=== PATIENT | male | born 1950 | race Caucasian/White ===

== ENCOUNTER 2016-03-17 23:22 | Inpatient (IN) | payer MEDICARE, OTHER ==
[~2016-03-17] VITALS: Ht 172.7 cm; Wt 67.4 kg
[~2016-03-17 23:22] MED LIST: AC500T; AGM875T PO; ALPR.5T PO; ALPR1T; ALPR1TAB7 PO; AMD200T; AMIO200T50 PO; ASP325T PO; ASP325TEC PO; ASP81TEC PO; ASPI325T32 PO; ATRV10T; BENA1TAB12 PO; BENA1TAB2 PO; BNZ10T; BUDE6HFA IH; CEFD300C3 PO; CEPH-38 PO; CLOP75TA; CLOP75TA PO; CODE118S2 PO; DIGO250T96 PO; DILT120T11 PO; DILT60CA PO; DIPY75TA PO; DULO30CA; DULO60CA6 PO; ENDOCET; EXEN10PE4 SQ; FRSM20T PO; GLIP-123; GLIP10TA13 PO; GLUCOPHAGE; HCTZ12.5T; HCTZ12.5T PO; HYDR-3812 PO; HYDR12.5 PO; HYDR12.56 PO; INDOCET; INSU100I16 SQ; INSU100V5 SQ; JANUVIA; LANOXIN; LEVO150T6 PO; LEVO175T2; LEVO200T30 PO; LEVO500T2 PO; LEVO500T80 PO; LEVO750T24 PO; LINA290C PO; LNS30CCR PO; LOVA40TA2 PO; MAGN400T6 PO; METF-380 PO; METH10TA2 PO; METO-354 PO; MTH10T; MULT-963 PO; MUPI22OI2 TOP; NEBI5TAB8 PO; NF-ROP5T PO; NIAC1TBM5 PO; ORPH100T PO; OXYC-191 PO; OXYC1TAB95 PO; PANT40TA3 PO; PEG4000S9 PO; PNT40TEC PO; POTA10CA43 PO; PRM25T; PRM25T PO; SITA100T PO; SITA100T12 PO; SUCR1TAB PO; SULF1TAB38 PO; TMSL.4C PO; WARF-47 PO; WARF4TAB PO; WRF1T PO; WRF2T; WRF2T PO; WRF3T; WRF3T PO; [UNRECOGNIZED DRUG - CODE] PO; [UNRECOGNIZED DRUG - CODE] PO
--- OUTSIDE RECORDS SUMMARY | 2016-03-17 23:28 | XMS REPORT | Continuity of Care Document ---
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 If you do not see the information that you expected, contact Release of Information in the Health Information Management department at [phone] for further assistance in locating additional records.[facility] Active Allergies and Adverse Reactions Not on File Current Medications Not on file Active Problems Not on file Social History Tobacco Use Types Packs/Day Years Used Date Never Assessed Plan of Care Health Maintenance Due Date Last Done Comments Physical (Comprehensive) 1957 Exam Pertussis Vaccine 1961 Tetanus Vaccine 10/04/1967 Colorectal Cancer 2000 Screening Shingles Vaccine 2010 Influenza Vaccine 11/16/2015 Results from Last 3 Months Not on file
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
[2016-03-18] VITALS (10 sets, daily range): BP systolic 96–185; BP diastolic 40–78
[2016-03-18 01:56] LABS: BASOPHILS % (AUTO) 0 % (0-10); EOSINOPHILS # (AUTO) 0.1 10^3/uL (0.0-0.3); EOSINOPHILS % (AUTO) 1 % (0-10); LYMPHOCYTES # (AUTO) 0.7 X 10^3 (1.0-4.0); LYMPHOCYTES % (AUTO) 11 % (12-44); MEAN CORPUSCULAR HEMOGLOBIN 29 PG (25-34); MEAN CORPUSCULAR HGB CONC 32 G/DL (32-36); MEAN CORPUSCULAR VOLUME 90 FL (80-99); MONOCYTES # (AUTO) 0.7 X 10^3 (0.0-1.0); MONOCYTES % (AUTO) 10 % (0-12); NEUTROPHILS % (AUTO) 78 % (42-75); PLATELET COUNT 104 10^3/uL (130-400); RED BLOOD COUNT 3.76 10^6/uL (4.35-5.85); RED CELL DISTRIBUTION WIDTH 14.4 % (10.0-14.5); WHITE BLOOD COUNT 6.4 10^3/uL (4.3-11.0)
[2016-03-18] MEDS ORDERED: fentaNYL INJECTION 100 MCG/2 ML AMP IVP ONE (02:00)
[2016-03-18 02:05] LABS: BILIRUBIN,URINE NEGATIVE (NEGATIVE); KETONES,URINE NEGATIVE (NEGATIVE); LEUKOCYTE ESTERASE ,URINE NEGATIVE (NEGATIVE); NITRITE,URINE NEGATIVE (NEGATIVE); PH,URINE 6 (5-9); PROTEIN,URINE 2+ (NEGATIVE); UROBILINOGEN,URINE NORMAL (NORMAL)
[2016-03-18 02:14] LABS: SQUAMOUS EPITHELIAL CELL,UR RARE /HPF
[2016-03-18] MEDS ORDERED: HYDROmorphone (DILAUDID) 2 MG/ML VIAL IVP ONE (02:15)
[2016-03-18 02:16] LABS: ALANINE AMINOTRANSFERASE 25 U/L (0-55); ALBUMIN 3.8 G/DL (3.2-4.5); ANION GAP 12 MMOL/L (5-14); ASPARTATE AMINO TRANSFERASE 22 U/L (5-34); BILIRUBIN,TOTAL 0.8 MG/DL (0.1-1.0); BLOOD UREA NITROGEN 22 MG/DL (7-18); BUN/CREATININE RATIO 21; CALCIUM 9.2 MG/DL (8.5-10.1); CARBON DIOXIDE 27 MMOL/L (21-32); CHLORIDE 96 MMOL/L (98-107); CREATININE SERUM 1.06 MG/DL (0.60-1.30); GFR ESTIMATED > 60; GLUCOSE 212 MG/DL (70-105); POTASSIUM 4.3 MMOL/L (3.6-5.0); SODIUM 135 MMOL/L (135-145); TOTAL PROTEIN 6.5 G/DL (6.4-8.2)
[2016-03-18 02:21] LABS: TROPONIN I < 0.30 NG/ML (<0.30)
[2016-03-18 02:26] LABS: INR 1.5 (0.8-1.4); PROTHROMBIN TIME PATIENT 18.1 SEC (12.2-14.7)
[2016-03-18] MEDS: HYDROmorphone (DILAUDID) 2 MG/ML VIAL IV PRN ×6 (04:15→23:59)
[2016-03-18] MEDS: NS IV 1000 ML 1,000 ML IV SCH ×3 (04:15→22:51)
[2016-03-18] MEDS ORDERED: inSUlin (REGULAR) HUMAN 1 UNIT/0.01 ML (CHARGE PER UNIT) SC SCH (06:00)
--- NOTE | 2016-03-18 06:45 | Diagnostic Imaging Report ---
PROCEDURE: CT chest without contrast. TECHNIQUE: Multiple contiguous axial images were obtained through the chest without the use of intravenous contrast. INDICATION: Chest pain. FINDINGS: Mildly displaced lateral right fifth, sixth, seventh, and eighth rib fractures are noted. Small adjacent subpleural hematoma but no pneumothorax. There is partial atelectasis in the dependent lung bases. No convincing evidence for lung contusion or pulmonary laceration. There is no pericardial fluid. There is no mediastinal hematoma. The atherosclerotic aorta and coronary arterial vessels are calcified. There is a pacemaker device with small hiatal hernia. Previous sternotomy without dehiscence. Upper abdomen reveals no free air or free fluid. Right renal cortical cysts noted. No hydronephrosis identified. IMPRESSION: Consecutive mildly displaced right fifth through eighth lateral rib fractures with tiny adjacent subpleural hematoma but no pneumothorax. Mild basilar atelectasis. No acute mediastinal collection. Visualized upper abdomen unremarkable. Dictated by: Dictated on workstation # [id number]
--- NOTE | 2016-03-18 06:48 | Diagnostic Imaging Report ---
PROCEDURE: CT pelvis without contrast. TECHNIQUE: Multiple contiguous axial images were obtained through the pelvis without the use of intravenous contrast. Sagittal and coronal reformations were performed. INDICATION: Pain. FINDINGS: Fractures of the base of the greater tuberosity of the right proximal femur is present without significant distraction or displacement. There is adjacent soft tissue swelling. Lesser tuberosity and remaining femoral neck intact. The femoral head unremarkable. The acetabulum unremarkable aside from degenerative changes to the bilateral hips appearing symmetric. Superior and inferior pubic rami intact. No symphyseal diastasis. The SI joints unremarkable. Lower lumbar spondylosis noted. No acute sacrococcygeal abnormality. Postsurgical changes of penile pump placement noted. The aortoiliac vessels calcified but nonaneurysmal where visualized. IMPRESSION: Nondisplaced fracture, greater trochanter of the right proximal femur. No articular injury. Arthritic changes. The pelvic osseous structures otherwise normal. Agree with preliminary. Dictated by: Dictated on workstation # [id number]
[2016-03-18] MEDS ORDERED: HYDROcodone/APAP 10 MG/325 MG (LORTAB) TAB PO PRN (08:00)
[2016-03-18] MEDS ORDERED: WARF1TAB PO (08:10)
[2016-03-18] MEDS ORDERED: METH10TA2 PO (08:10)
[2016-03-18] MEDS ORDERED: LEVO200T6 PO (08:10)
[2016-03-18] MEDS ORDERED: METHADONE 10 MG (DOLOPHINE) TAB PO PRN (08:15)
[2016-03-18] MEDS ORDERED: ALPRAZolam 1 MG (XANAX) TAB PO PRN (08:15)
[2016-03-18] MEDS ORDERED: NON-FORMULARY MEDICATION 1 EA EA (Orphenadrine Citrate 100 MG) PO PRN (08:15)
[2016-03-18] MEDS: RT-ALBUTEROL/IPRATROPIUM 3 ML (DUONEB) VIAL IH SCH ×3 (08:58→20:34)
[2016-03-18] MEDS: PANTOPRAZOLE 40 MG (PROTONIX) TAB PO SCH (09:14)
[2016-03-18] MEDS: HYDROCHLOROTHIAZIDE 12.5 MG (HCTZ) CAP PO SCH (09:19)
[2016-03-18] MEDS: AMIODARONE 200 MG (CORDARONE) TAB PO SCH ×2 (09:19→22:52)
--- NOTE | 2016-03-18 10:44 | CONSULTATION REPORT ---
DATE OF CONSULTATION: 03/18/2016 REASON FOR CONSULTATION: Right femoral greater trochanteric fracture, closed, nondisplaced. HISTORY: The patient is a 65-year-old gentleman who fell on his right side last Friday. He was initially evaluated and found to have some rib fractures. He presented to the emergency department early this morning with continued pain. CT of his pelvis revealed a nondisplaced greater trochanteric fracture with no extension into the intertrochanteric region or into the femoral neck region. The patient has been ambulating on this. He reports pain in his ribs as well as on the lateral aspect of his right hip. On exam, the patient is tender over his right greater trochanter. He has pain laterally with internal rotation of the hip, but no groin pain or buttock pain elicited. He has minimal pain with external rotation. He can perform a straight leg raise. IMPRESSION: Nondisplaced right greater trochanteric fracture isolated. PLAN: Activities as tolerated regarding right hip. He can weight-bear as tolerated. This is a stable fracture pattern and will not require operative intervention. PLAN: Follow-up with me in 2 weeks with x-rays of the right hip on arrival. Thank you for the consultation. Job ID: [id number] Dictated Date: 03/18/2016 10:10:10 Airport Ramp Supervisor Date: 03/18/2016 10:38:40/nadine
[2016-03-18] MEDS: DEMECLOCYCLINE PO SCH ×2 (11:25→22:52)
[2016-03-18] MEDS: inSUlin DETERMIR 1 UNIT/0.01 ML (LEVEMIR) CHARGE PER UNIT SQ SCH ×2 (11:25→22:52)
[2016-03-18] MEDS: MUPIROCIN 2% OINT 22 GM (BACTROBAN) TUBE TOP SCH ×2 (11:26→22:53)
[2016-03-18] MEDS: inSUlin (REGULAR) HUMAN 1 UNIT/0.01 ML (CHARGE PER UNIT) SC SCH ×3 (12:18→21:00)
--- NOTE | 2016-03-18 12:35 | HISTORY AND PHYSICAL ---
DATE OF ADMISSION: 03/18/2016 DIAGNOSES: 1. Fracture of right 5th to 8th ribs. 2. Right pulmonary contusion. 3. Nondisplaced right trochanteric fracture of femur. HISTORY OF PRESENT ILLNESS: This gentleman fell at the parking lot of [facility], after visiting his , who is a resident there, about 5 days ago. He was evaluated in the emergency room and the findings were discovered. Appropriate pain medications were prescribed and he was managed as an outpatient. Due to increasing pain and discomfort along with difficulty breathing, he presented to the emergency room during the late hours of 03/18/2016 and has since been admitted. PAST MEDICAL HISTORY: 1. Hypertension. 2. Atrial fibrillation. 3. Insulin requiring diabetes. PAST SURGICAL HISTORY: 1. Open cholecystectomy complicated by retained stones and requirement for further surgery. 2. Sigmoid resection for diverticular disease many years ago. MEDICATIONS: 1. Metoprolol. 2. Warfarin. 3. Insulin. 4. [place]-3 fatty acids. 5. Statins. PERSONAL/SOCIAL HISTORY: He is currently retired and lives locally. REVIEW OF SYSTEMS: NEURO: Denies any headache. CARDIAC: No angina or palpitations. RESPIRATORY: Discomfort over the right chest wall. No shortness of breath. GI: He is asymptomatic. MUSCULOSKELETAL: Pain over the right lateral hip. OTHER SYSTEMS: Negative. PHYSICAL EXAMINATION: He appears to be reasonably comfortable. HEENT: His neck is supple and there is no jugular venous distention. Trachea is midline. RESPIRATORY: Crepitations are heard over the right lower base. There is tenderness over the right side of the chest wall consistent with fractures. CARDIAC: Both heart tones are heard. There is no murmur. A dual-chamber pacemaker is seen over the left infraclavicular fossa. ABDOMEN: Soft and nontender. Two subcostal scars along with an irregular scar over the lower abdomen are evident. There is no incisional hernia. LABORATORY DATA: His white cell count is normal. RADIOLOGIC DATA: CT scan shows the fractures described above, along with underlying contusion and early consolidation. There is no pneumothorax. Liver and spleen are intact. A nondisplaced right trochanteric fracture of the femur is also identified. ASSESSMENT: 1. Gentleman with fracture of the ribs and an associated lung contusion. 2. Nondisplaced fracture of the right trochanter. RECOMMENDATIONS/PLAN: The orthopedic surgeon telephone operator receptionist Dr. Ramírez has been consulted and the impression of nonoperative therapy has been communicated to me. He will bear weight as tolerated and physical therapy will be requested to facilitate his recovery. With regard to pulmonary condition, incentive spirometry will be used. Job ID: [id number] Dictated Date: 03/18/2016 12:17:39 Potato Sorter Date: 03/18/2016 12:25:48/nadine RIVERA
[2016-03-18] MEDS: ALFUZOSIN HCL 10 MG TAB (UROXATRAL) PO SCH (17:49)
[2016-03-18] MEDS: warFARin 2 MG (COUMADIN) TAB PO SCH (17:49)
[2016-03-18] MEDS ORDERED: PAMI30VI8 SQ (17:59)
[2016-03-18] MEDS: SIMvastatin 20 MG (ZOCOR) TAB PO SCH (22:52)
[2016-03-19] VITALS (7 sets, daily range): BP systolic 106–173; BP diastolic 35–69
[2016-03-19] MEDS: HYDROmorphone (DILAUDID) 2 MG/ML VIAL IV PRN ×3 (01:37→06:01)
[2016-03-19] MEDS: RT-ALBUTEROL/IPRATROPIUM 3 ML (DUONEB) VIAL IH SCH ×4 (02:41→21:06)
[2016-03-19 04:57] LABS: PROTHROMBIN TIME PATIENT 22.5 SEC (12.2-14.7)
[2016-03-19] MEDS: LEVOTHYROXINE 100 MCG (LEVOTHROID) TAB PO SCH (06:00)
[2016-03-19] MEDS: inSUlin (REGULAR) HUMAN 1 UNIT/0.01 ML (CHARGE PER UNIT) SC SCH ×4 (06:00→21:00)
[2016-03-19] MEDS ORDERED: fentaNYL INJECTION 100 MCG/2 ML AMP IVP PRN (07:30)
[2016-03-19] MEDS ORDERED: ONDANSETRON 4 MG/2 ML (SDV) Z0FRAN IVP PRN (08:30)
--- NOTE | 2016-03-19 08:39 | Physical Therapy Evaluation ---
PT Evaluation-General Medical Diagnosis Admission Date Mar 18, 2016 at 02:45 Medical Diagnosis: right hip fracture Onset Date: Mar 13, 2016 Therapy Diagnosis Therapy Diagnosis: debility Height/Weight Height (Feet): 5 Height (Inches): 8.00 Weight (Pounds): 148 Weight (Ounces): 8.0 Precautions Precautions/Isolations: Standard Precautions Weight Bear Status Weight Bearing Restriction: Weight Bearing/Tolerated Location Restriction: R LE Referral Physician: Daryn Reason for Referral: Evaluation/Treatment Medical History Pertinent Medical History: CAD, DM, GERD, HTN Additional Medical History uncontrolled pain/refusal to take PO pain medication per RN Current History tripped on curb and fell resulting in right hip fracture Reviewed History: Yes Social History Home: Apartment Current Living Status: Children Entry Into Home: Level Entry Prior/Core FIM Prior Level of Function Functional [place] Measure 0=Not Assessed/NA 4=Minimal Assistance 1=Total Assistance 5=Supervision or Setup 2=Maximal Assistance 6=Modified [place] 3=Moderate Assistance 7=Complete [place] Bed Mobility: 6 Transfers (B,C,W/C) (FIM): 6 Gait: 6 has established FWW, cane, w/c PT Evaluation-Current Subjective Patient rates right rib pain 10/10. RN notified Pain Numeric Pain Scale: 10-Worst Possible Pain Location: Right Location Body Site: Side Pain Description: Sharp Objective Patient Orientation: Normal For Age Problem Solving: Good Attachments: IV ROM/Strength ROM Lower Extremities bilateral LE WNL Strenght Lower Extremities bilateral LE WNL Integumentary/Posture Integumentary refer to nursing notes Bowel Incontinence: No Bladder Incontinence: No Posture WNL Neuromuscular (Tone, Coordination, Reflexes) grossly intact Sensory Vision: Functional Hearing: Functional Sensation Right Lower Extremit: Impaired Sensation Left Lower Extremity: Impaired Transfers Functional [place] Measure 0=Not Assessed/NA 4=Minimal Assistance 1=Total Assistance 5=Supervision or Setup 2=Maximal Assistance 6=Modified [place] 3=Moderate Assistance 7=Complete [place] Transfers (B, C, W/C) (FIM): 6 Scootin Rollin Supine to/from Sit: 6 Sit to/from Stand: 6 Gait Mode of Locomotion: Walk Anticipated Mode of Locomotion: Walk Gait (FIM): 5 Distance (FIM): 3=150 ft Distance: 150' Gait Level of Assist: 5 Gait Assistive Device: FWW Comments/Gait Description safe and functional Balance Sitting Static: Normal Sitting Dynamic: Normal Standing Static: Normal Standing Dynamic: Normal Assessment/Needs 65 y.o. male, will benefit from short term skilled PT to address functional mobility. Patient is slightly limited with mobility, however, is established with medical equipment priorl Rehab Potential: Good PT Short Term Goals Short Term Goals Time Frame: Mar 22, 2016 Transfers (B,C,W/C) (FIM): 6 Gait (FIM): 6 Distance (FIM): 3=150 ft Gait Assistive Device: FWW PT Plan Treatment/Plan Treatment Plan: Continue Plan of Care Treatment Plan: Education, Functional Activity Natacha, Functional Strength, Gait , Safety, Therapeutic Exercise Treatment Duration: Mar 22, 2016 # of days/week 4 Visits Per Week: 8 Pt/Family Agrees w/Plan: Yes Safety Risks/Education Patient Education: Gait Training, Safety Issues Teaching Recipient: Patient Teaching Methods: Discussion Response to Teaching: Verbalize Understanding Time/GCodes Time In: 750 Time Out: 815 Total Billed Treatment Time: 25 Total Billed Treatment 1 visit EVM 25 min G Codes Necessary: ISABEL Mari PT Mar 19, 2016 08:39
--- NOTE | 2016-03-19 08:41 | Progress Note (SOAP) ---
Subjective Subjective/Events-last exam inadequate pain control requiring IV narcotics. Patient hesitant to use oral medications. Hypoglycemia this morning, corrected with orange juice. Currently physical therapy evaluation in progress. Review of Systems General: Fatigue HEENT: No Head Aches, No Eye Pain, No Ear Pain, No Dysphasia, No Sinus Congestion, No Post Nasal Drip, No Sore Throat Pulmonary: Pleuritic Chest Pain Cardiovascular: No: Chest Pain, Edema, Lt Headedness, Orthopnea, Palpitations, Paroxysmal Noc. Dyspnea Gastrointestinal: No: Abdominal Pain, Constipation, Diarrhea, Hematochezia, Melena, Nausea, Vomiting Genitourinary: No Dysuria, No Frequency, No Incontinence, No Hematuria, No Retention Musculoskeletal: : other Objective Exam Vital Signs Date Time Temp Pulse Resp B/P Pulse Ox O2 Delivery O2 Flow Rate FiO2 03/19/16 04:00 98.5 65 16 167/68 96 Nasal Cannula 2.00 03/19/16 02:41 96 Nasal Cannula 2.00 03/19/16 00:00 99.5 63 20 143/54 99 Nasal Cannula 03/18/16 21:00 Nasal Cannula 2.00 03/18/16 20:34 97 Nasal Cannula 2.00 03/18/16 19:32 98.2 65 19 138/77 98 Nasal Cannula 2.00 03/18/16 17:30 63 20 121/45 03/18/16 16:00 99.0 63 20 96/40 99 Nasal Cannula 03/18/16 15:12 98 Nasal Cannula 2.00 03/18/16 11:29 98.9 60 18 105/43 96 Nasal Cannula 2.00 03/18/16 09:00 Nasal Cannula 2.00 03/18/16 08:58 99 Nasal Cannula 2.00 I & O 03/19/16 07:00 Intake Total 3290 ml Output Total 3675 ml Balance -385 ml Capillary Refill : Less Than 3 SecondsLess Than 3 Seconds General Appearance: Mild Distress HEENT: PERRL/EOMI Neck: Normal Inspection Respiratory: Decreased Breath Sounds Cardiovascular: Regular Rate, Rhythm No Edema No Gallop No JVD No Murmur Normal Peripheral Pulses Gastrointestinal: non tender soft Other comments tenderness over the right lower chest wall consistent with fractured ribs. Results Lab Laboratory Tests 03/18/16 11:31: Glucometer 214H 03/18/16 16:34: Glucometer 144H 03/18/16 21:56: Glucometer 151H 03/19/16 04:30: INR Comment 2.0H, Prothrombin Time 22.5H 03/19/16 06:19: Glucometer 84 Assessment/Plan Assessment/Plan Assess & Plan/Chief Complaint gentleman with fractured ribs on the right side 58. Nondisplaced trochanteric fracture of the right femur. Orthopedic evaluation ablated. Weightbearing as tolerated. Encouraged to use oral pain medications. Possible discharge in 1-2 days. Diagnosis/Problems: Final Diagnosis fracture of fifth 28 ribs on the right side. Nondisplaced right trochanteric fracture of femur Clinical Quality Measures DVT/VTE Risk/Contraindication: Risk Factor Score Per Nursin RFS Level Per Nursing on Admit: 3=High BRAD PIÑA MD Mar 19, 2016 8:41 am
[2016-03-19] MEDS: HYDROCHLOROTHIAZIDE 12.5 MG (HCTZ) CAP PO SCH (08:58)
[2016-03-19] MEDS: PANTOPRAZOLE 40 MG (PROTONIX) TAB PO SCH (08:58)
[2016-03-19] MEDS: DEMECLOCYCLINE PO SCH ×2 (08:58→20:24)
[2016-03-19] MEDS: AMIODARONE 200 MG (CORDARONE) TAB PO SCH ×2 (08:58→20:25)
[2016-03-19] MEDS: oxyCODONE/APAP 5/325MG (PERCOCET 5) TABLET PO PRN ×5 (08:58→23:51)
[2016-03-19] MEDS: morphine INJ 4 MG/ML 1 ML (VIAL/SYRINGE) IVP PRN ×2 (08:59→11:55)
[2016-03-19] MEDS: inSUlin DETERMIR 1 UNIT/0.01 ML (LEVEMIR) CHARGE PER UNIT SQ SCH ×2 (11:12→21:13)
[2016-03-19] MEDS: MUPIROCIN 2% OINT 22 GM (BACTROBAN) TUBE TOP SCH ×2 (11:19→20:25)
[2016-03-19] MEDS ORDERED: CATHETER FLUSH 10 ML SYR IV PRN (14:45)
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
[2016-03-19] MEDS: ALFUZOSIN HCL 10 MG TAB (UROXATRAL) PO SCH (18:11)
[2016-03-19] MEDS: warFARin 2 MG (COUMADIN) TAB PO SCH (18:11)
[2016-03-19] MEDS: SIMvastatin 20 MG (ZOCOR) TAB PO SCH (20:25)
[2016-03-20] VITALS: BP 147/60
[2016-03-20] MEDS: RT-ALBUTEROL/IPRATROPIUM 3 ML (DUONEB) VIAL IH SCH ×2 (02:14→10:12)
[2016-03-20 04:00] VITALS: BP 152/75
[2016-03-20] MEDS: inSUlin (REGULAR) HUMAN 1 UNIT/0.01 ML (CHARGE PER UNIT) SC SCH ×2 (05:15→12:03)
[2016-03-20] MEDS: LEVOTHYROXINE 100 MCG (LEVOTHROID) TAB PO SCH (05:33)
[2016-03-20 05:57] LABS: INR 2.5 (0.8-1.4); PROTHROMBIN TIME PATIENT 26.8 SEC (12.2-14.7)
[2016-03-20 08:15] VITALS: BP 104/51
[2016-03-20] MEDS: HYDROCHLOROTHIAZIDE 12.5 MG (HCTZ) CAP PO SCH (08:21)
[2016-03-20] MEDS: MUPIROCIN 2% OINT 22 GM (BACTROBAN) TUBE TOP SCH (08:21)
[2016-03-20] MEDS: AMIODARONE 200 MG (CORDARONE) TAB PO SCH (08:21)
[2016-03-20] MEDS: PANTOPRAZOLE 40 MG (PROTONIX) TAB PO SCH (08:21)
[2016-03-20] MEDS: DEMECLOCYCLINE PO SCH (08:21)
[2016-03-20] MEDS: oxyCODONE/APAP 5/325MG (PERCOCET 5) TABLET PO PRN ×2 (08:21→12:04)
[2016-03-20] MEDS: inSUlin DETERMIR 1 UNIT/0.01 ML (LEVEMIR) CHARGE PER UNIT SQ SCH (09:00)
[2016-03-20] MEDS ORDERED: OXYC-197 PO (09:13)
--- NOTE | 2016-03-20 09:15 | Discharge Inst-Simple/Standard ---
Discharge Inst-Standard Discharge Medications New, Converted or Re-Newed RX: RX on Chart Patient Instructions/Follow Up Plan of Care/Instructions/FU: Incentive spirometry. To return for EGD on Friday, the Activity as Tolerated: Yes Discharge Diet: No Restrictions, ADA Diet BRAD PIÑA MD Mar 20, 2016 9:15 am
--- NOTE | 2016-03-20 10:57 | Physical Therapy Daily Note ---
PT Daily Note-Current Subjective Pt laying supine in bed upon arrival. Pt reports discharging today, nursing confirms. Pt agrees to Pt education for tx. Pain Numeric Pain Scale: 7 Location: Right Location Body Site: Chest Pain Description: Sharp Mental Status Patient Orientation: Person, Place, Time, Situation Transfers Functional [place] Measure 0=Not Assessed/NA 4=Minimal Assistance 1=Total Assistance 5=Supervision or Setup 2=Maximal Assistance 6=Modified [place] 3=Moderate Assistance 7=Complete IndependenceIRFPAI Quality Coding Scale 6 Independent with activity with or without an assistive device 5 Patient requires set up or clean up by helper. Patient completes activity by themselves 4 Supervision or touching assist (CGA). [place] provide cues , steadying assist 3 The helper provides less than half the effort to complete the activity 2 The helper provides more than half the effort to complete the activity 1 Dependent. The helper does all the effort to complete an activity 7 Patient refused to complete or attempt activity 9 The patient did not perform the activity before the current illness or injury 88 Not attempted due to Medical conditions or safety concerns Treatments PT educated pt on Ex that can be done at home and what precautions pt needs to be aware of and conform to. Also discussed Home Therapy after discharge and pt doesn't want it, would rather go to OP Therapy after discharge and appointments with Dr Stearns and Dr Ramírez. Pt is left with all needs met at the end of Pt Education Assessment Pt seems to understand what will be helpful to continue and what pt needs to be aware of upon discharge. PT Short Term Goals Short Term Goals Time Frame: Mar 22, 2016 Transfers (B,C,W/C) (FIM): 6 Gait (FIM): 6 Distance (FIM): 3=150 ft Gait Assistive Device: FWW PT Plan Problem List Problem List: Activity Tolerance, Functional Strength, Safety, Balance, Gait, Transfer, Bed Mobility Treatment/Plan Treatment Plan: Continue Plan of Care Treatment Plan: Education, Functional Activity Natacha, Functional Strength, Gait , Safety, Therapeutic Exercise Treatment Duration: Mar 22, 2016 Visits Per Week: 8 Safety Risks/Education Patient Education: Gait Training, Transfer Techniques, Reviewed Precautions, Correct Positioning, Safety Issues Teaching Recipient: Patient Teaching Methods: Discussion Response to Teaching: Verbalize Understanding Time/GCodes Time In: 940 Time Out: 1000 Total Billed Treatment Time: 20 Total Billed Treatment visit, FA (20m) KIKO MUSTAFA LEAD SETTER Mar 20, 2016 10:57
[2016-03-20 12:09] VITALS: BP 110/44
--- NOTE | 2016-03-20 16:46 | Progress Note-Standard ---
Standard Progress Note Progress Notes/Assess & Plan Progress/Assessment & Plan 03/20/16:seen about 830 this morning. Pain control adequate. Saturations maintained without supplemental oxygen. And bleeding well. We'll be discharged today. Final Diagnosis fracture of fifth to eighth ribs on the right side. Nondisplaced fracture of the right greater trochanter. BRAD PIÑA MD Mar 20, 2016 4:46 pm
--- NOTE | 2016-03-22 07:43 | DISCHARGE SUMMARY ---
DATE OF ADMISSION: 03/17/2016 DATE OF DISCHARGE: 03/20/2016 DIAGNOSIS: 1. Fracture of the right 5th to 8th ribs. 2. Pulmonary contusion. 3. Nondisplaced fracture of the right greater trochanter. This gentleman sustained a fall in the parking lot of the local shelter and sustained the injuries mentioned above. He was initially managed as an outpatient but due to poor pain control, was admitted. With regard to the trochanteric fracture, orthopedic evaluation was completed by Dr. Ramírez and no surgery was indicated. Physical therapy facilitated his ambulation and he has been discharged in reasonably good condition. I have encouraged him to return for follow-up in a week. Job ID: [id number] Dictated Date: 03/20/2016 16:47:25 Balance Truer Date: 03/22/2016 07:41:36/pablo RIVERA
[2016-03-24] MEDS ORDERED: warFARin 1 MG (COUMADIN) TAB PO SCH (18:00)
== END 2016-03-20 13:20 | disposition home or self-care (01) | DRG 947 ==
LOC: EDUNIT# 23:22 → ER 23:24 → CSD 03-18 02:45 → 4TH 03-19 14:01
PROVIDERS: ADMIT Surgery; ATTEND Surgery
DX: R52 Pain, unspecified (principal); S22.41XA Multiple fractures of ribs, right side, initial encounter for closed fracture; S72.114A Nondisplaced fracture of greater trochanter of right femur, initial encounter for closed fracture; S27.321A Contusion of lung, unilateral, initial encounter; I10 Essential (primary) hypertension; I48.91 Unspecified atrial fibrillation; E11.43 Type 2 diabetes mellitus with diabetic autonomic (poly)neuropathy; J44.9 Chronic obstructive pulmonary disease, unspecified; I25.10 Atherosclerotic heart disease of native coronary artery without angina pectoris; J30.2 Other seasonal allergic rhinitis; E03.9 Hypothyroidism, unspecified; G89.29 Other chronic pain; Z95.0 Presence of cardiac pacemaker; Z95.2 Presence of prosthetic heart valve; Z95.5 Presence of coronary angioplasty implant and graft; Z79.01 Long term (current) use of anticoagulants; Z79.4 Long term (current) use of insulin; W19.XXXA Unspecified fall, initial encounter; Y92.481 Parking lot as the place of occurrence of the external cause; Y99.8 Other external cause status
CPT/HCPCS: 36415; 71250; 72192; 80053; 81000; 82962; 83605; 83880; 84484; 85025; 85610; 85730; 93005; 94640; 94664; 94760; 96374

== ENCOUNTER 2016-03-21 06:37 | Outpatient (CLI) | payer MEDICARE, OTHER ==
[~2016-03-21] VITALS: Ht 172.7 cm; Wt 67.4 kg
[~2016-03-21 06:37] MED LIST changes: +LEVO200T6 PO; +OXYC-197 PO; +PAMI30VI8 SQ; +WARF1TAB PO
--- OUTSIDE RECORDS SUMMARY | 2016-03-21 06:40 | XMS REPORT | Continuity of Care Document ---
Author Author [facility] Organization [facility] Address Unknown Phone Unavailable Care Team Providers Care Junior Java Developer Name Role Phone PCP Unavailable Source Comments Some departments are not documenting in the electronic medical record. If you do not see the information that you expected, contact Release of Information in the Health Information Management department at [phone] for further assistance in locating additional records.[facility] Active Allergies and Adverse Reactions Not on [...]
== END 2016-03-21 11:08 ==
LOC: PREOP 06:37
PROVIDERS: ATTEND Surgery
DX: Z01.818 Encounter for other preprocedural examination (principal); R11.2 Nausea with vomiting, unspecified; R63.4 Abnormal weight loss; R10.13 Epigastric pain; Z79.01 Long term (current) use of anticoagulants; Z95.5 Presence of coronary angioplasty implant and graft; Z95.0 Presence of cardiac pacemaker; Z95.2 Presence of prosthetic heart valve

== ENCOUNTER → 2016-04-29 | Outpatient (CLI) | payer MEDICARE, OTHER ==
[~2016-04-29] MED LIST changes: +DULO60CA58 PO; +WARF1TAB6 PO
--- OUTSIDE RECORDS SUMMARY | 2016-04-29 11:41 | XMS REPORT | Continuity of Care Document ---
Author Author [facility] Organization [facility] Address Unknown Phone Unavailable Care Team Providers Care Drill Press Set Up Operator Name Role Phone PCP Unavailable Source Comments Some departments are not documenting in the electronic medical record. If you do not see the information that you expected, contact Release of Information in the Health Information Management department at [phone] for further assistance in locating additional records.[facility] Active Allergies and Adverse Reactions Not [...]
--- NOTE | 2016-04-29 14:36 | Diagnostic Imaging Report ---
PROCEDURE: US Bilateral lower extremity arterial. TECHNIQUE: Multiple real-time grayscale images are obtained through both lower extremity arterial systems with color Doppler imaging and color Doppler spectral analysis. INDICATION: Bilateral lower extremity pain. FINDINGS: There is mild atherosclerotic plaque seen in the femoropopliteal segments noted on grayscale images bilaterally. Color Doppler demonstrates patency of the common femoral, SFA, profunda, and popliteal arteries bilaterally. The anterior tibial artery in the proximal calf is not seen on both sides. However, both the posterior tibial and dorsalis pedis arteries are noted bilaterally. On the right side, there is triphasic waveforms in the femoropopliteal segments with transition to biphasic waveforms in the posterior tibial artery and monophasic waveform in the dorsalis pedis. On the left side, there is transition from triphasic waveforms in the femoropopliteal segments to monophasic waveforms in the dorsalis pedis and posterior tibial arteries bilaterally. The peak systolic velocities are within normal limits on both sides. IMPRESSION: There is atherosclerotic disease in the lower extremities with transition to predominantly monophasic waveforms in the infrapopliteal vessels bilaterally. No ultrasound evidence of high-grade focal stenosis seen. Dictated by: Dictated on workstation # [id number]
== END ==
LOC: RAD 11:38
PROVIDERS: ATTEND Nurse Practitioner Family
DX: M79.605 Pain in left leg (principal); M79.604 Pain in right leg
CPT/HCPCS: 93925

== ENCOUNTER 2016-05-17 05:41 | Outpatient (CLI) | payer MEDICARE, OTHER ==
[~2016-05-17] VITALS: Ht 172.7 cm; Wt 67.1 kg
[~2016-05-17 05:41] MED LIST changes: -DULO60CA58 PO; -WARF1TAB6 PO
--- OUTSIDE RECORDS SUMMARY | 2016-05-17 05:44 | XMS REPORT | Continuity of Care Document ---
Author Author [facility] Organization [facility] Address Unknown Phone Unavailable Care Team Providers Care Produce Wrapper Name Role Phone PCP Unavailable Source Comments Some departments are not documenting in the electronic medical record. If you do not see the information that you expected, contact Release of Information in the Health Information Management department at [phone] for further assistance in locating additional records.[facility] Active Allergies and Adverse Reactions Not on [...]
== END 2016-05-17 12:29 ==
LOC: PREOP 05:41
PROVIDERS: ATTEND Surgery
DX: Z01.818 Encounter for other preprocedural examination (principal); R63.4 Abnormal weight loss; R11.2 Nausea with vomiting, unspecified

== ENCOUNTER 2016-05-20 08:46 | Day surgery (SDC) | payer MEDICARE, OTHER ==
[~2016-05-20] VITALS: Ht 172.7 cm; Wt 67.1 kg
--- OUTSIDE RECORDS SUMMARY | 2016-05-20 08:51 | XMS REPORT | Continuity of Care Document ---
Author Author [facility] Organization [facility] Address Unknown Phone Unavailable Care Team Providers Care Level Vial Curvature Gauger Name Role Phone PCP Unavailable Source Comments Some departments are not documenting in the electronic medical record. If you do not see the information that you expected, contact Release of Information in the Health Information Management department at [phone] for further assistance in locating additional records.[facility] Active Allergies and Adverse Reactions [...]
--- OUTSIDE RECORDS SUMMARY | 2016-05-20 08:51 | XMS REPORT | Continuity of Care Document ---
Author Author [facility] Organization [facility] Address Unknown Phone Unavailable Care Team Providers Care Senior Mobile Web Developer Name Role Phone PCP Unavailable Source Comments Some departments are not documenting in the electronic medical record. If you do not see the information that you expected, contact Release of Information in the Health Information Management department at [phone] for further assistance in locating additional records.[facility] Active Allergies and Adverse Reactions Not on [...]
[2016-05-20] MEDS ORDERED: NS IV 500 ML 500 ML ONE (08:54)
--- NOTE | 2016-05-20 09:15 | Pre-Op Note & Conscious Sedat ---
Pre-Operative Progress Note H&P Reviewed The H&P was reviewed, patient examined and no changes noted. Date H&P Reviewed: May 20, 2016 Time H&P Reviewed: 09:15 Pre-Op Diagnosis: weight loss. Nausea and vomiting Conscious Sedation Pre-Proced ASA Class: 2 Airway Mallampati Classification: ([place] appropriate class) I. II. III, IV Lungs Heart ASA score ASA 1: a normal healthy patient ASA 2: a patient with a mild systemic disease (mid diabetes, controlled hypertension, obesity ASA 3: a patient with a severe systemic disease that limits activity (angina , COPD, prior Myocardial infarction) ASA 4: a patient with an incapacitating disease that is a constant threat to life (CHF, renal failure) ASA 5: a moribund patient not expected to survive 24 hrs. (ruptured aneurysm) ASA 6: a declared brain patient whose organs are being harvested. For emergent operations, add the letter E after the classification Grade 2 Sedation Plan: Discussed options with patient/fam Note The patient is an appropriate candidate to undergo the planned procedure, sedation, and anesthesia. The patient immediately re-assessed prior to indication. BRAD PIÑA MD May 20, 2016 9:15 am
[2016-05-20] MEDS ORDERED: NS IV 500 ML 500 ML IV PRN (09:30)
[2016-05-20 09:44] VITALS: BP 134/52
[2016-05-20] MEDS ORDERED: NALOXONE 0.4 MG/ML 1 ML (NARCAN) VIAL IVP PRN (09:45)
[2016-05-20] MEDS ORDERED: FLUMAZENIL (ROMAZICON) 0.1 MG/ML 5 ML VIAL INJ PRN (09:45)
[2016-05-20] MEDS ORDERED: HURRICAINE EXT TUBE (BENZOCAINE) XX PRN (09:45)
[2016-05-20] MEDS ORDERED: HURRICAINE EXT TUBE (BENZOCAINE) ONE (10:03)
[2016-05-20] MEDS ORDERED: MIDAZOLAM 2 MG/2 ML (VERSED) VIAL ONE ×3 (10:03)
[2016-05-20] MEDS: MIDAZOLAM 2 MG/2 ML (VERSED) VIAL IVP PRN ×3 (10:12→10:27)
--- NOTE | 2016-05-20 10:41 | Progress Note-Post Operative ---
Post-Operative Progess Note Pre-Operative Diagnosis weight loss. Nausea and vomiting Post-Operative Diagnosis grade 2 esophagitis. Severe distal gastritis. Normal duodenum Post-Op Procedure Note Date of Procedure: May 20, 2016 Name of Procedure: EGD with antral biopsy Anesthesia Type sedation Specimen(s) collected antral mucosa BRAD PIÑA MD May 20, 2016 10:41 am
--- NOTE | 2016-05-20 10:43 | Discharge Inst-Simple/Standard ---
Discharge Inst-Standard Discharge Medications New, Converted or Re-Newed RX: Other Patient Instructions/Follow Up Plan of Care/Instructions/FU: ffollow-up with Dr. Gorman Activity as Tolerated: Yes Discharge Diet: ADA Diet BRAD PIÑA MD May 20, 2016 10:43 am
[2016-05-20 10:50] VITALS: BP 145/59
[2016-05-20 11:20] VITALS: BP 134/50
[2016-05-20 11:50] VITALS: BP 134/50
--- NOTE | 2016-05-20 13:01 | OPERATIVE REPORT ---
PROCEDURE PHYSICIAN: BRAD PIÑA DATE OF PROCEDURE: 05/20/2016 PROCEDURE: Upper GI endoscopy with antral biopsy. SURGEON: Dr. Piña. INDICATION FOR THE PROCEDURE: This gentleman came in for an upper endoscopy to evaluate ongoing nausea, vomiting, along with weight loss. Informed consent was obtained after reviewing the procedure in detail. DESCRIPTION OF PROCEDURE: He was placed in left lateral decubitus position and his vital signs were monitored. Conscious sedation was achieved using Versed. The flexible gastroscope was then introduced down the esophagus, past the stomach, into the proximal duodenum. FINDINGS: ESOPHAGUS: Grade 2 esophagitis. STOMACH: Severe distal gastritis in a streaky fashion. Photodocumentation and biopsy for Helicobacter pylori were obtained. DUODENUM: Normal. He tolerated the procedure well and was taken back to the nursing area in a stable condition. IMPRESSION: 1. Epigastric pain, nausea and vomiting. 2. Weight loss. 3. Severe distal gastritis. 4. Helicobacter status pending. Job ID: [id number] Dictated Date: 05/20/2016 10:41:11 Aviation Metalsmith Date: 05/20/2016 12:57:49 / jaylin RIVERA
== END 2016-05-20 11:50 | disposition home or self-care (01) ==
LOC: ENDO 08:46
PROVIDERS: ATTEND Surgery
DX: K29.70 Gastritis, unspecified, without bleeding (principal); R63.4 Abnormal weight loss; R10.13 Epigastric pain; R11.2 Nausea with vomiting, unspecified; E11.9 Type 2 diabetes mellitus without complications
CPT/HCPCS: 82962; 88305

== ENCOUNTER 2016-07-24 14:21 | Outpatient (CLI) | payer MEDICARE, OTHER ==
[~2016-07-24] VITALS: Ht 172.7 cm; Wt 62.1 kg
[2016-07-24] MEDS ORDERED: DULO60CA58 PO (14:38)
[2016-07-24] MEDS ORDERED: WARF1TAB6 PO (14:38)
[2016-07-24] MEDS ORDERED: METH10TA2 PO (14:38)
[2016-07-24 14:44] VITALS: BP 108/47
== END 2016-07-24 14:59 | disposition home or self-care (01) ==
LOC: PREOP 14:21
PROVIDERS: ATTEND Podiatrist Foot & Ankle Surgery
DX: Z01.818 Encounter for other preprocedural examination (principal); Z11.2 Encounter for screening for other bacterial diseases; M86.9 Osteomyelitis, unspecified
CPT/HCPCS: 87081

== ENCOUNTER → 2016-07-26 | Day surgery (SDC) | payer MEDICARE, OTHER ==
[~2016-07-26] VITALS: Ht 172.7 cm; Wt 62.1 kg
[~2016-07-26] MED LIST changes: +BUPIVACAINE 0.5% 30 ML (SENSORCAINE) VIAL ONE; +DULO60CA58 PO; +FAMOTIDINE 20MG/2ML IV (PEPCID) IV ONE; +LACTATED RINGERS 1,000 ML IV PRN; +LIDOCAINE 1% INJ 20 ML (XYLOCAINE) VIAL ONE; +LIDOCAINE PF 2% 10 ML (XYLOCAINE) AMP ONE; +SEVOFLURANE (ULTANE) 15 ML INHAL SOLN ONE; +WARF1TAB6 PO; +ceFAZolin 1 GM/NS 50 ML IVPB IV ONE; +fentaNYL INJECTION 100 MCG/2 ML AMP ONE; +inSUlin ASPART (NovoLOG) 1 UNIT/0.01 ML (CHARGE PER UNIT) IV ONE; +proPOfol 200 MG/20 ML (DIPRIVAN) VIAL IV ONE
[2016-07-26 12:00] VITALS: BP 136/70
[2016-07-26 12:07] LABS: INR 3.6 (0.8-1.4); PROTHROMBIN TIME PATIENT 36.2 SEC (12.2-14.7)
== END | disposition home or self-care (01) ==
LOC: SDC 11:15
PROVIDERS: ATTEND Podiatrist Foot & Ankle Surgery
DX: M86.9 Osteomyelitis, unspecified (principal); E11.9 Type 2 diabetes mellitus without complications; Z53.09 Procedure and treatment not carried out because of other contraindication; Z79.4 Long term (current) use of insulin; Z79.01 Long term (current) use of anticoagulants
CPT/HCPCS: 36415; 82962; 85610; 85730; 99211

== ENCOUNTER 2016-08-16 11:18 | Day surgery (SDC) | payer MEDICARE, OTHER ==
[~2016-08-16] VITALS: Ht 172.7 cm; Wt 66.7 kg
[~2016-08-16 11:18] MED LIST changes: -BUPIVACAINE 0.5% 30 ML (SENSORCAINE) VIAL ONE; -FAMOTIDINE 20MG/2ML IV (PEPCID) IV ONE; +INSU300I SQ; -LACTATED RINGERS 1,000 ML IV PRN; -LIDOCAINE 1% INJ 20 ML (XYLOCAINE) VIAL ONE; -LIDOCAINE PF 2% 10 ML (XYLOCAINE) AMP ONE; -SEVOFLURANE (ULTANE) 15 ML INHAL SOLN ONE; -ceFAZolin 1 GM/NS 50 ML IVPB IV ONE; -fentaNYL INJECTION 100 MCG/2 ML AMP ONE; -inSUlin ASPART (NovoLOG) 1 UNIT/0.01 ML (CHARGE PER UNIT) IV ONE; -proPOfol 200 MG/20 ML (DIPRIVAN) VIAL IV ONE
[2016-08-16 12:14] LABS: INR 1.3 (0.8-1.4)
[2016-08-16] MEDS: LACTATED RINGERS 1,000 ML IV PRN ×2 (12:27→14:15)
[2016-08-16 12:30] VITALS: BP 140/54
--- NOTE | 2016-08-16 12:40 | Progress Note-Pre Operative ---
Pre-Operative Progress Note H&P Reviewed The H&P was reviewed, patient examined and no changes noted. Date Seen by Provider: Aug 16, 2016 Time Seen by Provider: 12:40 Date H&P Reviewed: Aug 16, 2016 Time H&P Reviewed: 12:40 Pre-Operative Diagnosis: Osteomyelitis, chronic wounds bilatateral hallux MEJIA LENZ DPM Aug 16, 2016 12:40 pm
[2016-08-16] MEDS ORDERED: LACTATED RINGERS 1,000 ML IV ONE ×2 (12:57→14:38)
[2016-08-16] MEDS ORDERED: proPOfol 200 MG/20 ML (DIPRIVAN) VIAL IV ONE (12:57)
[2016-08-16] MEDS ORDERED: LIDOCAINE PF 2% 5 ML (XYLOCAINE) VIAL ONE (12:57)
[2016-08-16] MEDS ORDERED: SEVOFLURANE (ULTANE) 15 ML INHAL SOLN ONE ×4 (12:57→15:14)
[2016-08-16] MEDS ORDERED: MIDAZOLAM 2 MG/2 ML (VERSED) VIAL ONE (12:57)
[2016-08-16] MEDS ORDERED: ONDANSETRON 4 MG/2 ML (SDV) Z0FRAN ONE (12:57)
[2016-08-16] MEDS ORDERED: fentaNYL INJECTION 100 MCG/2 ML AMP ONE (12:57)
[2016-08-16] MEDS ORDERED: NS (IVPB) 50 ML ONE (13:11)
[2016-08-16] MEDS ORDERED: BUPIVACAINE 0.5% 30 ML (SENSORCAINE) VIAL ONE (13:11)
[2016-08-16] MEDS ORDERED: ceFAZolin 1,000 MG (ANCEF) VIAL ONE (13:11)
[2016-08-16] MEDS ORDERED: LIDOCAINE 1% INJ 20 ML (XYLOCAINE) VIAL ONE (13:11)
[2016-08-16] MEDS ORDERED: VANCOMYCIN 1000 MG/VIAL ONE (13:24)
[2016-08-16] MEDS ORDERED: ceFAZolin 1 GM/NS 50 ML IVPB IV ONE ×2 (13:45)
[2016-08-16] MEDS ORDERED: LACTATED RINGERS 1,000 ML IV SCH (15:27)
--- NOTE | 2016-08-16 15:27 | Progress Note-Post Operative ---
Post-Operative Progess Note Surgeon (s)/Shop And Alteration Tailor (s) Date Seen by Provider: Aug 16, 2016 Time Seen by Provider: 15:25 Surgeon MEJIA LENZ DPM Shop And Alteration Tailor: NONE Pre-Operative Diagnosis Osteomyelitis, chronic wounds bilatateral hallux Post-Operative Diagnosis same Procedure & Operative Findings Date of Procedure 08/16/16 Procedure Performed/Findings Partial Amputation of Hallux Bilateral Foot Anesthesia Type General Estimated Blood Loss Estimated blood loss (mL): Minimal Specimens/Packing Specimens Removed Distal Phalanx, right and left foot MEJIA LENZ DPM Aug 16, 2016 3:27 pm
[2016-08-16] MEDS ORDERED: morphine INJ 10 MG/ML 1ML (SYR OR VIAL) IVP PRN (15:30)
[2016-08-16] MEDS ORDERED: ONDANSETRON 4 MG/2 ML (SDV) Z0FRAN IVP PRN (15:30)
[2016-08-16] MEDS ORDERED: HYDROcodone/APAP 5 MG/325 MG (LORTAB) TAB PO PRN (15:30)
[2016-08-16] MEDS ORDERED: CEPH500C PO (15:30)
[2016-08-16 16:15] VITALS: BP 137/63
[2016-08-16 16:45] VITALS: BP 134/76
[2016-08-16 17:15] VITALS: BP 133/89
--- NOTE | 2016-08-17 05:44 | OPERATIVE REPORT ---
DATE OF SERVICE: 08/16/2016 SURGEON: Allison Lenz DPM PREOPERATIVE DIAGNOSIS: Osteomyelitis, distal phalanx bilateral hallux with chronic wound. POSTOPERATIVE DIAGNOSIS: Osteomyelitis, distal phalanx bilateral hallux with chronic wound. PROCEDURE: Amputation of the distal phalanx, bilateral hallux with a partial proximal phalangectomy of the left. WOUND CLASS: Contaminated. ANESTHESIA: General. HEMOSTASIS: Pneumatic ankle tourniquet at 250 mmHg. INDICATION: This 65-year-old male presents with a chronic wound to the distal hallux bilaterally. The wounds are nonhealing. X-rays indicated osteolytic changes to the distal phalanx consistent with osteomyelitis. Conservative therapy is met with unsatisfactory results and the patient is agreeable to surgical intervention after risks and complications were discussed at length. He understands there is a risk that the wounds will not heal and he may need further surgery including a more proximal amputation. The patient was brought back to the operating table, placed in secure supine position. Appropriate timeout was performed. A general anesthetic was then induced. The pneumatic ankle tourniquets were placed over several layers of padding. The feet were then prepped and draped in the normal sterile manner. The right foot was then elevated, allowed to exsanguinate, after which the tourniquet was inflated to 250 mmHg. It was found that the tourniquet was not affecting the blood flow to the digit and was deflated during the right side procedure. Two incisions were created, starting from the dorsal aspect of the interphalangeal joint of the right hallux extending medial and laterally, then extended from the connection points distally to the pulp of the distal aspect of the toe creating a plantar flap. The incision was deepened in the same plane down the bone after which the distal phalanx was removed in total and was sent for gross microscopic evaluation after a specimen was taken from the distal tip of the distal phalanx for culture and sensitivity. The remaining toe was inspected and found to be devoid of any gross infection. No necrosis was identified, no abscess. The extensor and flexor tendon were cut as proximally as possible. The plantar flap was viable with good bleeding, which closed to the dorsal aspect of the wound without tension. The wound was then pulse irrigated with normal saline infused with vancomycin. The wound had a swab culture performed prior to closure. Closure was then performed in simple interrupted type stitch with 4-0 Prolene. Postoperative injection consisted of 5 mL of 0.5% Marcaine injected in a local infusion to the right hallux. Postoperative dressing consisted of Betadine-soaked Adaptic, sterile 4 x 4s and a Conform wrap. Attention was then directed to the left hallux. The tourniquet was never inflated on the left lower extremity, did not seem necessary. A similar type incision was created from the dorsal aspect of the interphalangeal joint area. This one extended a little more proximally on the plantar flap due to the ulceration size. The proximal phalanx was removed in total, and again the bone specimen from the distal phalanx was taken for culture and sensitivity. The wound was then inspected. No further necrosis was identified. On this left plantar flap, the bleeding was not as active as the right lower extremity, but still had appropriate cap refill to it. In order to close the wound, the head of the proximal phalanx was resected with a power sagittal saw. The wound was pulse irrigated at that point after which a swab culture was taken prior to closure. Closure was then performed with 4-0 Prolene and a simple interrupted type stitch. Postoperative injection consisted of 4 mL of 0.5% Marcaine injected in digital block. Postoperative dressing consisted of Betadine-soaked Adaptic, sterile 4 x 4s, Conform secured with Kerlix on both lower extremities followed by Coban wrap. The patient tolerated the anesthesia and procedure well. He was transported from the operative room to the recovery area with vital signs stable and capillary refill time was approximately 3 seconds to the remaining hallux bilaterally. Postoperative instructions were dispensed to the patient. He was given a prescription for Percocet as well as Keflex. We will see the patient back in my office in 1 week period of time or sooner if necessary. He is to have minimal weightbearing with surgical splint shoes and a walker. In the meantime, keep the dressing dry, clean and intact. Job ID: [id number] DocumentID: [id number] Dictated Date: 08/16/2016 15:39:42 Stem Lead Former Date: 08/16/2016 23:43:26 Dictated By: ALLISON LENZ DPM
== END 2016-08-16 17:15 | disposition home or self-care (01) ==
LOC: SDC 11:18
PROVIDERS: ATTEND Podiatrist Foot & Ankle Surgery
DX: M86.9 Osteomyelitis, unspecified (principal); E10.21 Type 1 diabetes mellitus with diabetic nephropathy; I10 Essential (primary) hypertension; I25.10 Atherosclerotic heart disease of native coronary artery without angina pectoris; I48.91 Unspecified atrial fibrillation; E03.9 Hypothyroidism, unspecified; F32.9 Major depressive disorder, single episode, unspecified; F41.9 Anxiety disorder, unspecified; Z79.4 Long term (current) use of insulin; Z79.01 Long term (current) use of anticoagulants; Z95.5 Presence of coronary angioplasty implant and graft; Z95.0 Presence of cardiac pacemaker; Z95.2 Presence of prosthetic heart valve
CPT/HCPCS: 36415; 82962; 85610; 85730; 87070; 87075; 87077; 87186; 87205; 88305

== ENCOUNTER → 2017-01-10 | Outpatient (CLI) | payer MEDICARE, OTHER ==
[~2017-01-10] VITALS: Ht 172.7 cm; Wt 66.7 kg
[2017-01-10] VITALS (8 sets, daily range): BP systolic 128–153; BP diastolic 37–60
[~2017-01-10] MED LIST changes: +AMIO200T2 PO; +CEPH500C PO; +INSU3INS2 SQ; +METF500T4 PO; +NS IV 500 ML 500 ML ONE; +TAMS0.4C2 PO
== END ==
LOC: SDC 10:57
DX: D64.9 Anemia, unspecified (principal)
CPT/HCPCS: 36430; 86850; 86900; 86901; 86920

== ENCOUNTER 2017-01-22 13:02 | Outpatient (RCR) | payer MEDICARE, OTHER ==
[~2017-01-22] VITALS: Ht 172.7 cm; Wt 66.7 kg
[~2017-01-22 13:02] MED LIST changes: +ACHD5005 PO; -HYDR-3812 PO; -NS IV 500 ML 500 ML ONE
[2017-01-22 13:05] VITALS: BP 126/64
[2017-01-22] MEDS ORDERED: IRON SUCROSE 200 MG/NS 100 ML (IVPB) IV SCH ×2 (13:15)
[2017-01-22] MEDS ORDERED: ALPR1TAB2 PO (13:47)
[2017-01-22] MEDS ORDERED: BUPR1FIL3 SL (13:51)
[2017-01-22 14:38] VITALS: BP 126/64
[2017-01-24 13:16] VITALS: BP 129/41
[2017-01-24 13:36] VITALS: BP 129/41
== END 2017-04-22 | disposition home or self-care (01) ==
LOC: SDC 13:02
DX: D50.0 Iron deficiency anemia secondary to blood loss (chronic) (principal)
CPT/HCPCS: 96365

== ENCOUNTER 2017-05-20 13:55 | Outpatient (RCR) | payer MEDICARE, OTHER ==
[~2017-05-20 13:55] MED LIST changes: +ALPR1TAB2 PO; -AMIO200T2 PO; +AMIO200T4 PO; +BUPR1FIL3 SL; -CODE118S2 PO; +CODE118S4 PO; -METF500T4 PO; +METF500T5 PO; -WARF1TAB6 PO; +WARF1TAB82 PO
[2017-05-20 14:30] LABS: ABSOLUTE RETIC # 57 10e9/L (24-90); BASOPHILS % (AUTO) 1 % (0-10); EOSINOPHILS # (AUTO) 0.1 10^3/uL (0.0-0.3); EOSINOPHILS % (AUTO) 4 % (0-10); HEMATOCRIT 38 % (40-54); HEMOGLOBIN 12.6 G/DL (13.3-17.7); LYMPHOCYTES # (AUTO) 0.6 X 10^3 (1.0-4.0); LYMPHOCYTES % (AUTO) 17 % (12-44); MEAN CORPUSCULAR HEMOGLOBIN 29 PG (25-34); MEAN CORPUSCULAR HGB CONC 33 G/DL (32-36); MEAN CORPUSCULAR VOLUME 89 FL (80-99); MEAN PLATELET VOLUME 11.4 FL (7.4-10.4); MONOCYTES # (AUTO) 0.4 X 10^3 (0.0-1.0); MONOCYTES % (AUTO) 10 % (0-12); NEUTROPHILS # (AUTO) 2.5 X 10^3 (1.8-7.8); NEUTROPHILS % (AUTO) 69 % (42-75); PLATELET COUNT 150 10^3/uL (130-400); RED BLOOD COUNT 4.29 10^6/uL (4.35-5.85); RETICULOCYTE % 1.32 % (0.50-2.40); WHITE BLOOD COUNT 3.6 10^3/uL (4.3-11.0)
[2017-05-20 14:47] LABS: ALBUMIN 3.8 GM/DL (3.2-4.5); BILIRUBIN,TOTAL 0.8 MG/DL (0.1-1.0); CALCIUM 8.8 MG/DL (8.5-10.1); CREATININE SERUM 1.24 MG/DL (0.60-1.30); POTASSIUM 4.1 MMOL/L (3.6-5.0); TOTAL PROTEIN 6.5 GM/DL (6.4-8.2)
== END 2017-06-26 16:16 | disposition home or self-care (01) ==
LOC: ONC 13:55
PROVIDERS: ATTEND Internal Medicine Hematology & Oncology
DX: D64.9 Anemia, unspecified (principal); D72.819 Decreased white blood cell count, unspecified; I13.0 Hypertensive heart and chronic kidney disease with heart failure and stage 1 through stage 4 chronic kidney disease, or unspecified chronic kidney disease; I50.9 Heart failure, unspecified; N18.9 Chronic kidney disease, unspecified; E11.22 Type 2 diabetes mellitus with diabetic chronic kidney disease; I25.10 Atherosclerotic heart disease of native coronary artery without angina pectoris; I48.91 Unspecified atrial fibrillation; J44.9 Chronic obstructive pulmonary disease, unspecified; E78.5 Hyperlipidemia, unspecified; E03.9 Hypothyroidism, unspecified; I27.20 Pulmonary hypertension, unspecified; Z79.01 Long term (current) use of anticoagulants; Z79.4 Long term (current) use of insulin; Z79.899 Other long term (current) drug therapy
CPT/HCPCS: 80053; 82607; 82728; 82746; 83540; 83883; 84155; 84165; 84443; 85025; 85045; 85652; 86141; 99214

== ENCOUNTER 2017-07-03 08:06 | Outpatient (RCR) | payer MEDICARE, OTHER ==
[2017-07-03 08:34] LABS: BASOPHILS % (AUTO) 1 % (0-10); EOSINOPHILS # (AUTO) 0.1 10^3/uL (0.0-0.3); EOSINOPHILS % (AUTO) 2 % (0-10); HEMATOCRIT 39 % (40-54); HEMOGLOBIN 12.5 G/DL (13.3-17.7); LYMPHOCYTES # (AUTO) 1.3 X 10^3 (1.0-4.0); LYMPHOCYTES % (AUTO) 28 % (12-44); MEAN CORPUSCULAR HEMOGLOBIN 29 PG (25-34); MEAN CORPUSCULAR HGB CONC 32 G/DL (32-36); MEAN CORPUSCULAR VOLUME 90 FL (80-99); MONOCYTES # (AUTO) 0.3 X 10^3 (0.0-1.0); MONOCYTES % (AUTO) 6 % (0-12); NEUTROPHILS # (AUTO) 2.9 X 10^3 (1.8-7.8); NEUTROPHILS % (AUTO) 63 % (42-75); PLATELET COUNT 179 10^3/uL (130-400); RED BLOOD COUNT 4.37 10^6/uL (4.35-5.85); RED CELL DISTRIBUTION WIDTH 14.2 % (10.0-14.5); WHITE BLOOD COUNT 4.5 10^3/uL (4.3-11.0)
[2017-07-03 08:48] LABS: ALANINE AMINOTRANSFERASE 18 U/L (0-55); ALBUMIN 3.8 GM/DL (3.2-4.5); ALKALINE PHOSPHATASE 184 U/L (40-136); BILIRUBIN,TOTAL 0.5 MG/DL (0.1-1.0); BUN/CREATININE RATIO 13; CALCIUM 8.8 MG/DL (8.5-10.1); CARBON DIOXIDE 29 MMOL/L (21-32); CHLORIDE 100 MMOL/L (98-107); GFR ESTIMATED > 60; GLUCOSE 239 MG/DL (70-105); POTASSIUM 4.2 MMOL/L (3.6-5.0); SODIUM 138 MMOL/L (135-145); TOTAL PROTEIN 6.7 GM/DL (6.4-8.2)
== END 2017-10-01 | disposition home or self-care (01) ==
LOC: ONC 08:06
PROVIDERS: ATTEND Internal Medicine Hematology & Oncology
DX: D64.9 Anemia, unspecified (principal); D72.819 Decreased white blood cell count, unspecified; I13.0 Hypertensive heart and chronic kidney disease with heart failure and stage 1 through stage 4 chronic kidney disease, or unspecified chronic kidney disease; I50.9 Heart failure, unspecified; N18.9 Chronic kidney disease, unspecified; E11.22 Type 2 diabetes mellitus with diabetic chronic kidney disease; I25.10 Atherosclerotic heart disease of native coronary artery without angina pectoris; I48.91 Unspecified atrial fibrillation; J44.9 Chronic obstructive pulmonary disease, unspecified; E78.5 Hyperlipidemia, unspecified; E03.9 Hypothyroidism, unspecified; I27.20 Pulmonary hypertension, unspecified; Z79.01 Long term (current) use of anticoagulants; Z79.4 Long term (current) use of insulin; Z79.899 Other long term (current) drug therapy
CPT/HCPCS: 80053; 84443; 85025; 99213

== ENCOUNTER 2017-08-03 14:57 | Emergency (ER) | payer MEDICARE, OTHER ==
[~2017-08-03] VITALS: Ht 243.8 cm; Wt 72.1 kg
[~2017-08-03 14:57] MED LIST changes: +AMIO200T2 PO; -AMIO200T4 PO; +CODE118S2 PO; -CODE118S4 PO
[2017-08-03] MEDS ORDERED: morphine INJ 10 MG/ML 1ML (SYR OR VIAL) IM STA (16:02)
--- NOTE | 2017-08-03 16:29 | Diagnostic Imaging Report ---
INDICATION: Fall. Left hip pain. EXAMINATION: Multiple views of pelvis and left hip. FINDINGS: AP pelvis shows bony ring intact. The SI joints are symmetrical with moderate sclerosis. The femoral heads are in normal articulation, bilaterally. There is moderate arthritic disease of the hips. There are no fractures demonstrated. AP and frog-leg view of the left hip were obtained. There is very dense vascular calcification noted the throughout the pelvis and proximal legs. IMPRESSION: 1. No evidence of hip fracture. Moderate degenerative hip disease. 2. Advanced vascular disease. Dictated by: Dictated on workstation # [id number]
--- NOTE | 2017-08-03 16:48 | ED Lower Extremity ---
General Chief Complaint: Lower Extremity Stated Complaint: FALL LEG AND HIP PAIN Nursing Triage Note: ARRIVED VIA EMS FROM HOME. STATES HE TRIPPED OVER A RUG FRIDAY NIGHT CAUSING SEVERE LEFT HIP/THIGH, ET LOWER BACK PAIN. STATES HE HAS NOT BEEN ABLE TO WALK ON IT. Nursing Sepsis Screen: No Definite Risk Source: patient, family (SON) Exam Limitations: no limitations History of Present Illness Date Seen by Provider: August 03, 2017 Time Seen by Provider: 16:48 Initial Comments 66-year-old male patient presents to the emergency Department via EMS with reports of left hip pain after tripping over a rug on Friday. Reports falling onto the left hip. Patient initially reported low back pain and left thigh pain to nursing staff. Denies back pain, left leg pain, or neck pain to this examiner. Denies hitting his head, loss of consciousness, headache, or dizziness. Patient reports the left hip does not hurt when palpated, only hurts with movement. Location Injury Occurred: home Onset: other (Friday) Pain/Injury Location: left hip Method of Injury: fell Modifying Factors: Worse With Movement Allergies and Home Medications Allergies Coded Allergies: fentanyl (Verified Allergy, Mild, 07/24/16) levofloxacin (Unverified Allergy, Unknown, 07/24/16) "FEELS FUNNY" cefadroxil (Verified Adverse Reaction, Mild, NAUSEA, 07/24/16) sulfamethoxazole (Verified Adverse Reaction, Mild, 07/24/16) trimethoprim (Verified Adverse Reaction, Mild, 07/24/16) Home Medications Alprazolam 1 Mg Tablet, 1 MG PO BID PRN, (Reported) Amiodarone HCl 200 Mg Tablet, 200 MG PO BID, (Reported) Buprenorphine HCl/Naloxone HCl 1 Each Film, 2 EACH SL DAILY, (Reported) Demeclocycline HCl 150 Mg Tablet, 150 MG PO BID, (Reported) Hydrochlorothiazide 12.5 Mg Capsule, 12.5 MG PO DAILY, (Reported) Insulin Glargine/Lixisenatide 3 Ml Insuln.pen, 21 UNITS SQ DAILY, (Reported) Levothyroxine Sodium 200 Mcg Tablet, 200 MCG PO DAILY Prescribed by: DIANE BOYD on 03/18/16 0810 Lovastatin 40 Mg Tablet, 40 MG PO HS, (Reported) Metformin HCl 500 Mg Tablet, 500 MG PO HS, (Reported) Pantoprazole Sodium 40 Mg Tablet.dr, 40 MG PO DAILY, (Reported) Tamsulosin HCl 0.4 Mg Cap.er.24h, 0.4 MG PO HS, (Reported) Warfarin Sodium 2 Mg Tablet, 2 MG PO DAILY, (Reported) Patient Home Medication List Home Medication List Reviewed: Yes Constitutional: no symptoms reported EENTM: no symptoms reported Respiratory: no symptoms reported Cardiovascular: no symptoms reported Gastrointestinal: no symptoms reported Genitourinary: no symptoms reported Musculoskeletal: see HPI; No back pain; joint pain; No joint swelling, No neck pain Skin: No change in color, No lumps Psychiatric/Neurological: Denies Headache, Denies Numbness, Denies Paresthesia , Denies Seizure, Denies Tingling, Denies Weakness All Other Systems Reviewed Negative Unless Noted: Yes (Negative excepted noted.) Past [id number] Hx Patient Social History Alcohol Use: Denies Use Recreational Drug Use: No Smoking Status: Never a Smoker Recent Foreign Travel: No Contact w/Someone Who Travel: No Recent Infectious Disease Expo: No Recent Hopitalizations: No Immunizations Up To Date Tetanus Booster (TDap): Less than 5yrs Date of Pneumonia Vaccine: Dec 16, 2016 Date of Influenza Vaccine: Dec 16, 2016 Seasonal Allergies Seasonal Allergies: Yes Past Medical History Surgeries: Yes (COLON RESECTION, PACEMAKER, ARTIFICIAL VALVE, RT KNEE, penile implant) Bowel Surgery ((for diverticulitis)), Cardiac, Coronary Stent, Gallbladder, Orthopedic, Pacemaker, Valve Replacement Respiratory: Yes (POSSIBLE COPD) Pneumonia, COPD Cardiac: Yes (AORTIC VALVE REPLACED, PACEMAKER, STENTS x2) Atrial Fibrillation, Coronary Artery Disease, High Cholesterol, Hypertension, Valvular Heart Disease Neurological: No Reproductive Disorders: No Sexually Transmitted Disease: No HIV/AIDS: No Gastrointestinal: Yes (GASTROPARESIS, TUBE BETWEEN PANCREAS AND STOMACH) Gastroesophageal Reflux, Chronic Constipation, Diverticulosis, Pancreatitis, Irritable Bowel Musculoskeletal: Yes (CHRONIC GENERALIZED PAIN--NARCOTIC DEPENDENT,HIP FX, OSTEOMYELITIS) Endocrine: Yes Diabetes, Insulin dep, Hypothyroidsim Loss of Vision: Bilateral Hearing Impairment: Denies Cancer: No Psychosocial: Yes Anxiety, Depression Integumentary: No Blood Disorders: Yes (ANEMIA) Adverse Reaction/Blood Tranf: No (HAS HAD BLOOD WITH NO REACTION) Family Medical History Reviewed Nursing Family Hx No Pertinent Family Hx Physical Exam Vital Signs Capillary Refill : Less Than 3 Seconds General Appearance: WD/WN, no apparent distress (lying in bed resting.), other HEENT: PERRL/EOMI, normal ENT inspection, TMs normal, pharynx normal; No other (no evidence of raccoon eyes, garcia sign, or crepitus.) Neck: non-tender, full range of motion, supple, normal inspection Cardiovascular: normal peripheral pulses, regular rate, rhythm, no edema, no gallop, no JVD, other (click consistent with PSH of valve replacement) Respiratory: lungs clear, normal breath sounds, no respiratory distress, no accessory muscle use Gastrointestinal: normal bowel sounds, non tender, soft, no organomegaly; No distended Back: normal inspection, no vertebral tenderness; No other (no evidence of stepoff or trauma to the spine or back.) Hips: bilateral hip non-tender (unable to reproduce tenderness on palpation of the left hip.), bilateral hip normal inspection, bilateral hip normal range of motion, bilateral hip no evidence of injury (no evidence of swelling or ecchymosis noted to the left hip. No deformity noted.); left hip pain (left hip pain with range of motion only.) Legs: bilateral leg non-tender, bilateral leg normal inspection, bilateral leg normal range of motion, bilateral leg no evidence of injury Knees: bilateral knee non-tender, bilateral knee normal inspection, bilateral knee normal range of motion, bilateral knee no evidence of injury Ankles: bilateral ankle non-tender, bilateral ankle normal inspection, bilateral ankle normal range of motion, bilateral ankle no evidence of injury Feet: bilateral foot non-tender, bilateral foot normal inspection, bilateral foot normal range of motion, bilateral foot no evidence of injury Neurologic/Tendon: normal sensation, normal motor functions, normal tendon functions, responds to pain, no evidence tendon injury Neurologic/Psychiatric: lime boiler II-XII nml as tested, no motor/sensory deficits, alert, normal mood/affect, oriented x 3 Skin: normal color, warm/dry; No ecchymosis (no evidence of trauma noted.) Progress/Results/Core Measures Results/Orders Lab Results Laboratory Tests Test 08/03/17 17:50 Range/Units White Blood Count 5.3 4.3-11.0 10^3/uL Red Blood Count 4.54 4.35-5.85 10^6/uL Hemoglobin 12.8 L 13.3-17.7 G/DL Hematocrit 40 40-54 % Mean Corpuscular Volume 87 80-99 FL Mean Corpuscular Hemoglobin 28 25-34 PG Mean Corpuscular Hemoglobin Concent 32 32-36 G/DL Red Cell Distribution Width 14.8 H 10.0-14.5 % Platelet Count 104 L 130-400 10^3/uL Mean Platelet Volume 11.7 H 7.4-10.4 FL Neutrophils (%) (Auto) 75 42-75 % Lymphocytes (%) (Auto) 12 12-44 % Monocytes (%) (Auto) 11 0-12 % Eosinophils (%) (Auto) 2 0-10 % Basophils (%) (Auto) 0 0-10 % Neutrophils # (Auto) 4.0 1.8-7.8 X 10^3 Lymphocytes # (Auto) 0.6 L 1.0-4.0 X 10^3 Monocytes # (Auto) 0.6 0.0-1.0 X 10^3 Eosinophils # (Auto) 0.1 0.0-0.3 10^3/uL Basophils # (Auto) 0.0 0.0-0.1 10^3/uL Sodium Level 134 L 135-145 MMOL/L Potassium Level 4.5 3.6-5.0 MMOL/L Chloride Level 97 L 98-107 MMOL/L Carbon Dioxide Level 26 21-32 MMOL/L Anion Gap 11 5-14 MMOL/L Blood Urea Nitrogen 16 7-18 MG/DL Creatinine 1.26 0.60-1.30 MG/DL Estimat Glomerular Filtration Rate 57 BUN/Creatinine Ratio 13 Glucose Level 307 H 70-105 MG/DL Calcium Level 9.1 8.5-10.1 MG/DL Total Bilirubin 1.3 H 0.1-1.0 MG/DL Aspartate Amino Transf (AST/SGOT) 22 5-34 U/L Alanine Aminotransferase (ALT/SGPT) 30 0-55 U/L Alkaline Phosphatase 187 H 40-136 U/L Troponin I < 0.30 <0.30 NG/ML Total Protein 7.0 6.4-8.2 GM/DL Albumin 3.9 3.2-4.5 GM/DL TSH [place] Testing 1.23 0.35-4.94 UIU/ML Serum Alcohol < 10 <10 MG/DL My Orders Orders - BHAVESH BERGER PA Pelvis With Left Hip 2-3 Views (08/03/17 16:02) Morphine Injection (Morphine Injection (08/03/17 16:02) Saline Lock/Iv-Start (08/03/17:) Ekg Tracing (08/03/17) Ct Head Wo (08/03/17:) Alcohol (08/03/17:) Cbc With Automated Diff (08/03/17:) Comprehensive Metabolic Panel (08/03/17) Thyroid Analyzer (08/03/17) Troponin I (08/03/17:) Ns Iv 1000 Ml (Sodium Chloride 0.9%) (08/03/17:23) Chest 1 View, Ap/Pa Only (08/03/17:) Ns Iv 1000 Ml (Sodium Chloride 0.9%) (08/03/17 18:29) Insulin (Regular) Human (Humulin R (Per (08/03/17 18:29) Accucheck Stat ONCE (08/03/17 19:10) Acetaminophen Tablet (Tylenol Tablet) (08/03/17 20:08) Iv Push [employer]er Ed (08/03/17 ) Im/Sub-Q Injection Non-Ab Ed (08/03/17 ) Medications Given in ED Vital Signs/I&O Blood Pressure Mean: 75 Initial ECG Impression Date: August 03, 2017 Initial ECG Impression Time: 17:30 Initial ECG Rate: 61 Comment Atrial paced complexes, LAD, LVH noted. No STEMI. ECG reviewed with Dr. Mtz. Diagnostic Imaging Diagonstic Imaging: Xray Plain Films/CT/US/NM/MRI: pelvis, hip Comments PELVIS WITH LEFT HIP 2-3 VIEWS INDICATION: Fall. Left hip pain. EXAMINATION: Multiple views of pelvis and left hip. FINDINGS: AP pelvis shows bony ring intact. The SI joints are symmetrical with moderate sclerosis. The femoral heads are in normal articulation, bilaterally. There is moderate arthritic disease of the hips. There are no fractures demonstrated. AP and frog-leg view of the left hip were obtained. There is very dense vascular calcification noted the throughout the pelvis and proximal legs. IMPRESSION: 1. No evidence of hip fracture. Moderate degenerative hip disease. 2. Advanced vascular disease. Dictated by: Dictated on workstation # [id number] Reviewed: Reviewed by Me (radiology report reviewed by me) Diagonstic Imaging: CT Plain Films/CT/US/NM/MRI: head Comments CT HEAD WO PROCEDURE: CT head without contrast. TECHNIQUE: Multiple contiguous axial images were obtained through the brain without the use of intravenous contrast. INDICATION: Fall, headache COMPARISON: 04/23/2015. FINDINGS: Stable age-related cerebral volume loss and chronic small vessel ischemic changes are present. There is no midline shift or mass effect. Stable area of low density is seen in the right cerebellum which is unchanged. There is no extra-axial fluid collection. There is no skull fracture. Paranasal sinuses and mastoids are clear. IMPRESSION: No acute intracranial abnormalities. No interval change from prior exam. Dictated by: Dictated on workstation # [id number] Reviewed: Reviewed by Me (radiology report reviewed by me) Diagonstic Imaging: Xray Plain Films/CT/US/NM/MRI: chest Comments CHEST 1 VIEW, AP/PA ONLY INDICATION: Trauma, coronary artery disease. COMPARISON : 03/13/2016. EXAMINATION: Single view of the chest was obtained. FINDINGS: Stable cardiac enlargement. The lungs are clear. There is no pneumothorax. Sternal wires are midline. Pacemaker is stable. Visualized osseous structures are unremarkable. IMPRESSION: Stable cardiac enlargement without pulmonary edema or infiltrate. Dictated by: Dictated on workstation # [id number] Reviewed: Reviewed by Me (radiology report reviewed by me) Departure Communication (Admissions) Patient seen and evaluated. Pelvis and left hip xray obtained. Patient given 6 mg of Morphine in the ED. Patient fell asleep and was noted to drop his SaO2 to 86-88% on RA after being given the morphine. Patient was placed on 2L O2 with SaO2 improving to 99%. Patient states he only takes 2 endocet per day for chronic pain. Denies using any other narcotics or scheduled medications. Son now stating that he has been very concerned about his father. Son asks his father "Where is that note you had?" Patient now pulls out a piece of paper from his left front pants pocket which states: OCTAVIA ROMANA "*started coughing Friday, July 28 *Fri. started slurring speech. *Thur. fever, just not acting like his self. *Fri. FELL, needed help to walk, Disoriented *Sat. Fever, Can't get out of bed on his own or he would just fall (cant walk) or stand. *SUN. GETTING WORSE.... HE IS VERY BAD..... Fever, Dehydrated, Sounds like gurgling in his chest......" Son reports writing the note. Labs, CXR, ECG, and CT head obtained to evaluated symptoms. Patient asked multiple times by several ED staff (Nicci Tran, Cassandra, Carolina, and this examiner) for a urine sample. Patient refusing to provide a urine sample and states "I have been trying." Son states "What are you going to do, squeeze it out of him?" I informed the patient that we may need to do a straight cath for the urine sample if he is not able to urinate. Son becomes very agitated and is very rude/inappropriate with staff. Son immediately starts shaking his finger in this examiner's face. Son is yelling and cussing this examiner. States "You will not touch him, I will make sure that!" Son starts shaking and behavior escalates (Son's pupils are noted to be dilated bilaterally). I advised the son that if he threatens the ED staff, PD will be called. Son states "They don't scare me! I have connections in this hospital! Do you know Jono Cuba? Well, I am his nephew! I can just call him and take care of this shit!" Patient and son subsequently left the ED against medical advise stating they were going to [place] to be seen. Dr. Mtz notified of patient's behavior and leaving AMA. Impression Primary Impression: Drug-seeking behavior Additional Impressions: Left hip pain subjective fever Generalized weakness Fall Disposition: 07 AGAINST MEDICAL ADVICE Condition: Against Medical Advice Departure-Patient Inst. Referrals: CLAUDIO MARQUES MD (PCP/Family) Primary Care Physician BHAVESH BERGER August 03, 2017 16:48
[2017-08-03] MEDS ORDERED: NS IV 1000 ML 1,000 ML IV ONE ×2 (17:23→18:29)
--- NOTE | 2017-08-03 17:53 | Diagnostic Imaging Report ---
PROCEDURE: CT head without contrast. TECHNIQUE: Multiple contiguous axial images were obtained through the brain without the use of intravenous contrast. INDICATION: Fall, headache COMPARISON: 04/23/2015. FINDINGS: Stable age-related cerebral volume loss and chronic small vessel ischemic changes are present. There is no midline shift or mass effect. Stable area of low density is seen in the right cerebellum which is unchanged. There is no extra-axial fluid collection. There is no skull fracture. Paranasal sinuses and mastoids are clear. IMPRESSION: No acute intracranial abnormalities. No interval change from prior exam. Dictated by: Dictated on workstation # [id number]
[2017-08-03 18:00] LABS: BASOPHILS % (AUTO) 0 % (0-10); EOSINOPHILS # (AUTO) 0.1 10^3/uL (0.0-0.3); EOSINOPHILS % (AUTO) 2 % (0-10); HEMATOCRIT 40 % (40-54); HEMOGLOBIN 12.8 G/DL (13.3-17.7); LYMPHOCYTES # (AUTO) 0.6 X 10^3 (1.0-4.0); LYMPHOCYTES % (AUTO) 12 % (12-44); MEAN CORPUSCULAR HEMOGLOBIN 28 PG (25-34); MEAN CORPUSCULAR HGB CONC 32 G/DL (32-36); MEAN CORPUSCULAR VOLUME 87 FL (80-99); MEAN PLATELET VOLUME 11.7 FL (7.4-10.4); MONOCYTES # (AUTO) 0.6 X 10^3 (0.0-1.0); MONOCYTES % (AUTO) 11 % (0-12); NEUTROPHILS % (AUTO) 75 % (42-75); PLATELET COUNT 104 10^3/uL (130-400); RED BLOOD COUNT 4.54 10^6/uL (4.35-5.85); RED CELL DISTRIBUTION WIDTH 14.8 % (10.0-14.5); WHITE BLOOD COUNT 5.3 10^3/uL (4.3-11.0)
--- NOTE | 2017-08-03 18:04 | Diagnostic Imaging Report ---
INDICATION: Trauma, coronary artery disease. COMPARISON: 03/13/2016. EXAMINATION: Single view of the chest was obtained. FINDINGS: Stable cardiac enlargement. The lungs are clear. There is no pneumothorax. Sternal wires are midline. Pacemaker is stable. Visualized osseous structures are unremarkable. IMPRESSION: Stable cardiac enlargement without pulmonary edema or infiltrate. Dictated by: Dictated on workstation # [id number]
[2017-08-03 18:19] LABS: ALANINE AMINOTRANSFERASE 30 U/L (0-55); ALBUMIN 3.9 GM/DL (3.2-4.5); ALKALINE PHOSPHATASE 187 U/L (40-136); BILIRUBIN,TOTAL 1.3 MG/DL (0.1-1.0); BUN/CREATININE RATIO 13; CALCIUM 9.1 MG/DL (8.5-10.1); CARBON DIOXIDE 26 MMOL/L (21-32); CHLORIDE 97 MMOL/L (98-107); CREATININE SERUM 1.26 MG/DL (0.60-1.30); GFR ESTIMATED 57; GLUCOSE 307 MG/DL (70-105); POTASSIUM 4.5 MMOL/L (3.6-5.0); SODIUM 134 MMOL/L (135-145)
[2017-08-03] MEDS ORDERED: inSUlin (REGULAR) HUMAN 1 UNIT/0.01 ML (CHARGE PER UNIT) IV STA (18:29)
[2017-08-03 18:38] LABS: TSH (THYROID ANALYZER) 1.23 UIU/ML (0.35-4.94)
[2017-08-03] MEDS ORDERED: ACETAMINOPHEN 500 MG TAB (TYLENOL) PO STA (20:08)
[2017-08-03 20:15] VITALS: BP 115/55
--- OUTSIDE RECORDS SUMMARY | 2017-08-04 16:24 | XMS REPORT | Continuity of Care Document ---
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 REFLUX DISEASE WITHOUT 10/02/2015 WANG CHAVEZ, BRAD Marques Ot K27.9 PEPTIC ULC, SITE UNSP, UNSP AC OR CHR 10/02/2015 BRAD PIÑA MD Ot R19.5 OTHER FECAL ABNORMALITIES 10/02/2015 WANG CHAVEZ, BRAD Marques Ot Z01.818 ENCOUNTER FOR OTHER PREPROCEDURAL EXAMIN 12/17/2015 Ot 427.31 ATRIAL FIBRILLATION 12/17/2015 Ot 715.36 LOC OSTEOARTH NOS-L/LEG 12/17/2015 Ot 719.06 JOINT EFFUSION-L/LEG 12/17/2015 Ot 727.65 RUPTURE QUADRICEP TENDON 12/17/2015 Ot 733.00 OSTEOPOROSIS NOS 12/17/2015 Ot 723.4 BRACHIAL NEURITIS NOS 12/17/2015 Ot 727.51 POPLITEAL SYNOVIAL CYST 12/17/2015 Ot 729.5 PAIN IN LIMB 12/17/2015 Ot 443.9 PERIPH VASCULAR DIS NOS 12/17/2015 Ot 428.0 CONGESTIVE HEART FAILURE NOS 12/17/2015 Ot 429.3 CARDIOMEGALY 12/17/2015 Ot 786.05 SHORTNESS OF BREATH 12/17/2015 Ot 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 12/17/2015 Ot V58.61 ANTICOAGULANTS,LT,CURRENT USE 12/17/2015 Ot V58.61 ANTICOAGULANTS,LT,CURRENT USE 12/17/2015 Ot V58.83 ENCOUNTER FOR THERAPEUTIC DRUG MONITORIN 12/17/2015 Ot 272.4 HYPERLIPIDEMIA NEC/NOS 12/17/2015 Ot 401.9 HYPERTENSION NOS 12/17/2015 Ot 414.00 CORON ATHEROSCLER NOS TYPE VESSEL, NATIV 12/17/2015 Ot 789.00 ABDOMINAL PAIN, UNSPECIFIED SITE 12/17/2015 Ot 780.4 DIZZINESS AND GIDDINESS 12/17/2015 Ot V58.69 OTH MED,LT, CURRENT USE 12/17/2015 Ot 427.31 ATRIAL FIBRILLATION 12/17/2015 Ot 785.1 PALPITATIONS 12/17/2015 Ot V58.61 ANTICOAGULANTS,LT,CURRENT USE 12/17/2015 Ot V58.83 ENCOUNTER FOR THERAPEUTIC DRUG MONITORIN 12/17/2015 JERALD CHAVEZ, CLAUDIO Reagan Ot 593.9 RENAL URETERAL DIS NOS 12/17/2015 Ot 276.1 HYPOSMOLALITY 12/17/2015 WANG CHAVEZ, BRAD Marques Ot V72.84 EXAM PRE-OPERATIVE NOS 12/17/2015 Ot 280.9 IRON DEFIC ANEMIA NOS 12/17/2015 JERALD CHAVEZ, CLAUDIO Reagan Ot 443.9 PERIPH VASCULAR DIS NOS 12/17/2015 JERALD CHAVEZ, CLAUDIO Reagan Ot 250.00 DIAB KLAUS WO COMPL, TYPE II OR UNSPEC TY 12/17/2015 CLAUDIO MARQUES MD Ot 272.0 PURE HYPERCHOLESTEROLEM 12/17/2015 CLAUDIO MARQUES MD Ot 729.89 MUSCSKEL SYMPT LIMB NEC 12/17/2015 SUJIT NARAYAN CONTACT AND SERVICE CLERKS SUPERVISOR Ot 780.79 OTH MALAISE FATIGUE 12/17/2015 SUJIT NARAYAN CONTACT AND SERVICE CLERKS SUPERVISOR Ot 427.31 ATRIAL FIBRILLATION 12/17/2015 SUJIT NARAYAN CONTACT AND SERVICE CLERKS SUPERVISOR Ot V58.61 ANTICOAGULANTS,LT,CURRENT USE 12/17/2015 SUJIT NARAYAN CONTACT AND SERVICE CLERKS SUPERVISOR Ot 789.00 ABDOMINAL PAIN, UNSPECIFIED SITE 12/17/2015 SUJIT NARAYAN CONTACT AND SERVICE CLERKS SUPERVISOR Ot 789.2 SPLENOMEGALY 12/17/2015 WANG CHAVEZ, BRAD Marques Ot 783.21 LOSS OF WEIGHT 12/17/2015 WANG CHAVEZ, BRAD Marques Ot 787.01 NAUSEA WITH VOMITING 12/17/2015 WANG CHAVEZ, BRAD Marques Ot 789.06 ABDOMINAL PAIN, EPIGASTRIC 12/17/2015 WANG CHAVEZ, BRAD Marques Ot V72.84 EXAM PRE-OPERATIVE NOS 12/17/2015 JERALD CHAVEZ, CLAUDIO Reagan Ot M25.372 OTHER INSTABILITY, LEFT ANKLE 12/17/2015 JERALD CHAVEZ, CLAUDIO Reagan Ot M25.572 PAIN IN LEFT ANKLE AND JOINTS OF LEFT FO 12/17/2015 WANG CHAVEZ, BRAD Marques Ot K21.9 GASTRO-ESOPHAGEAL REFLUX DISEASE WITHOUT 12/17/2015 WANG CHAVEZ, BRAD Marques Ot K27.9 PEPTIC ULC, SITE UNSP, UNSP AC OR CHR 12/17/2015 BRAD PIÑA MD Ot R19.5 OTHER FECAL ABNORMALITIES 12/17/2015 WANG CHAVEZ, BRAD Marques Ot Z01.818 ENCOUNTER FOR OTHER PREPROCEDURAL EXAMIN 12/17/2015 Ot 427.31 ATRIAL FIBRILLATION 12/17/2015 Ot 715.36 LOC OSTEOARTH NOS-L/LEG 12/17/2015 Ot 719.06 JOINT EFFUSION-L/LEG 12/17/2015 Ot 727.65 RUPTURE QUADRICEP TENDON 12/17/2015 Ot 733.00 OSTEOPOROSIS NOS 12/17/2015 Ot 723.4 BRACHIAL NEURITIS NOS 12/17/2015 Ot 727.51 POPLITEAL SYNOVIAL CYST 12/17/2015 Ot 729.5 PAIN IN LIMB 12/17/2015 Ot 443.9 PERIPH VASCULAR DIS NOS 12/17/2015 Ot 428.0 CONGESTIVE HEART FAILURE NOS 12/17/2015 Ot 429.3 CARDIOMEGALY 12/17/2015 Ot 786.05 SHORTNESS OF BREATH 12/17/2015 Ot 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 12/17/2015 Ot V58.61 ANTICOAGULANTS,LT,CURRENT USE 12/17/2015 Ot V58.61 ANTICOAGULANTS,LT,CURRENT USE 12/17/2015 Ot V58.83 ENCOUNTER FOR THERAPEUTIC DRUG MONITORIN 12/17/2015 Ot 272.4 HYPERLIPIDEMIA NEC/NOS 12/17/2015 Ot 401.9 HYPERTENSION NOS 12/17/2015 Ot 414.00 CORON ATHEROSCLER NOS TYPE VESSEL, NATIV 12/17/2015 Ot 789.00 ABDOMINAL PAIN, UNSPECIFIED SITE 12/17/2015 Ot 780.4 DIZZINESS AND GIDDINESS 12/17/2015 Ot V58.69 OTH MED,LT, CURRENT USE 12/17/2015 Ot 427.31 ATRIAL FIBRILLATION 12/17/2015 Ot 785.1 PALPITATIONS 12/17/2015 Ot V58.61 ANTICOAGULANTS,LT,CURRENT USE 12/17/2015 Ot V58.83 ENCOUNTER FOR THERAPEUTIC DRUG MONITORIN 12/17/2015 JERALD CHAVEZ, CLAUDIO Reagan Ot 593.9 RENAL URETERAL DIS NOS 12/17/2015 Ot 276.1 HYPOSMOLALITY 12/17/2015 WANG CHAVEZ, BRAD Marques Ot V72.84 EXAM PRE-OPERATIVE NOS 12/17/2015 Ot 280.9 IRON DEFIC ANEMIA NOS 12/17/2015 JERALD CHAVEZ, CLAUDIO Reagan Ot 443.9 PERIPH VASCULAR DIS NOS 12/17/2015 JERALD CHAVEZ, CLAUDIO Reagan Ot 250.00 DIAB KLAUS WO COMPL, TYPE II OR UNSPEC TY 12/17/2015 JERALD CHAVEZ, CLAUDIO Reagan Ot 272.0 PURE HYPERCHOLESTEROLEM 12/17/2015 JERALD CHAVEZ, CLAUDIO Reagan Ot 729.89 MUSCSKEL SYMPT LIMB NEC 12/17/2015 SUJIT NARAYAN CONTACT AND SERVICE CLERKS SUPERVISOR Ot 780.79 OTH MALAISE FATIGUE 12/17/2015 SUJIT NARAYAN CONTACT AND SERVICE CLERKS SUPERVISOR Ot 427.31 ATRIAL FIBRILLATION 12/17/2015 SUJIT NARAYAN CONTACT AND SERVICE CLERKS SUPERVISOR Ot V58.61 ANTICOAGULANTS,LT,CURRENT USE 12/17/2015 SUJIT NARAYAN CONTACT AND SERVICE CLERKS SUPERVISOR Ot 789.00 ABDOMINAL PAIN, UNSPECIFIED SITE 12/17/2015 SUJIT NARAYAN CONTACT AND SERVICE CLERKS SUPERVISOR Ot 789.2 SPLENOMEGALY 12/17/2015 WANG CHAVEZ, BRAD Marques Ot 783.21 LOSS OF WEIGHT 12/17/2015 WANG CHAVEZ, BRAD Marques Ot 787.01 NAUSEA WITH VOMITING 12/17/2015 WANG CHAVEZ, BRAD Marques Ot 789.06 ABDOMINAL PAIN, EPIGASTRIC 12/17/2015 WANG CHAVEZ, BRAD Marques Ot V72.84 EXAM PRE-OPERATIVE NOS 12/17/2015 JERALD CHAVEZ, CLAUDIO Reagan Ot M25.372 OTHER INSTABILITY, LEFT ANKLE 12/17/2015 JERALD CHAVEZ, CLAUDIO Reagan Ot M25.572 PAIN IN LEFT ANKLE AND JOINTS OF LEFT FO 12/17/2015 WANG CHAVEZ, BRAD Marques Ot K21.9 GASTRO-ESOPHAGEAL REFLUX DISEASE WITHOUT 12/17/2015 WANG CHAVEZ, BRAD Marques Ot K27.9 PEPTIC ULC, SITE UNSP, UNSP AC OR CHR 12/17/2015 WANG CHAVEZ, BRAD Marques Ot R19.5 OTHER FECAL ABNORMALITIES 12/17/2015 WANG CHAVEZ, BRAD Marques Ot Z01.818 ENCOUNTER FOR OTHER PREPROCEDURAL EXAMIN 12/17/2015 ONDINA DRISCOLL DO, Ot E11.649 TYPE 2 DIABETES MELLITUS WITH HYPOGLYCEM 12/17/2015 ONDINA DRISCOLL DO Ot I10 ESSENTIAL (PRIMARY) HYPERTENSION 12/17/2015 ONDINA DRISCOLL DO, Ot 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 12/17/2015 ONDINA DRISCOLL DO, Ot Z79.01 [facility] (CURRENT) USE OF ANTICOAGULANT 12/17/2015 ONDINA DRISCOLL DO, Ot Z79.899 OTHER FURNITURE DESIGNER (CURRENT) DRUG THERAPY 12/17/2015 ONDINA DRISCOLL DO, Ot Z95.5 PRESENCE OF CORONARY ANGIOPLASTY IMPLANT 12/30/2015 ONDINA DRISCOLL DO, Ot E11.649 TYPE 2 DIABETES MELLITUS WITH HYPOGLYCEM 12/30/2015 ONDINA DRISCOLL DO Ot I10 ESSENTIAL (PRIMARY) HYPERTENSION 12/30/2015 ONDINA DRISCOLL DO, Ot 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 12/30/2015 ONDINA DRISCOLL DO, Ot 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 12/30/2015 ONDINA DRISCOLL DO, Ot Z79.899 OTHER FURNITURE DESIGNER (CURRENT) DRUG THERAPY 12/30/2015 ONDINA DRISCOLL DO, Ot Z95.5 PRESENCE OF CORONARY ANGIOPLASTY IMPLANT 01/05/2016 JERALD CHAVEZ, CLAUDIO Reagan Ot M76.61 ACHILLES TENDINITIS, RIGHT LEG 01/09/2016 Ot 427.31 ATRIAL FIBRILLATION 01/09/2016 Ot 715.36 LOC OSTEOARTH NOS-L/LEG 01/09/2016 Ot 719.06 JOINT EFFUSION-L/LEG 01/09/2016 Ot 727.65 RUPTURE QUADRICEP TENDON 01/09/2016 Ot 733.00 OSTEOPOROSIS NOS 01/09/2016 Ot 723.4 BRACHIAL NEURITIS NOS 01/09/2016 Ot 727.51 POPLITEAL SYNOVIAL CYST 01/09/2016 Ot 729.5 PAIN IN LIMB 01/09/2016 Ot 443.9 PERIPH VASCULAR DIS NOS 01/09/2016 Ot 428.0 CONGESTIVE HEART FAILURE NOS 01/09/2016 Ot 429.3 CARDIOMEGALY 01/09/2016 Ot 786.05 SHORTNESS OF BREATH 01/09/2016 Ot 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 01/09/2016 Ot V58.61 ANTICOAGULANTS,LT,CURRENT USE 01/09/2016 Ot V58.61 ANTICOAGULANTS,LT,CURRENT USE 01/09/2016 Ot V58.83 ENCOUNTER FOR THERAPEUTIC DRUG MONITORIN 01/09/2016 Ot 272.4 HYPERLIPIDEMIA NEC/NOS 01/09/2016 Ot 401.9 HYPERTENSION NOS 01/09/2016 Ot 414.00 CORON ATHEROSCLER NOS TYPE VESSEL, NATIV 01/09/2016 Ot 789.00 ABDOMINAL PAIN, UNSPECIFIED SITE 01/09/2016 Ot 780.4 DIZZINESS AND GIDDINESS 01/09/2016 Ot V58.69 OTH MED,LT, CURRENT USE 01/09/2016 Ot 427.31 ATRIAL FIBRILLATION 01/09/2016 Ot 785.1 PALPITATIONS 01/09/2016 Ot V58.61 ANTICOAGULANTS,LT,CURRENT USE 01/09/2016 Ot V58.83 ENCOUNTER FOR THERAPEUTIC DRUG MONITORIN 01/09/2016 JERALD CHAVEZ, CLAUDIO Reagan Ot 593.9 RENAL URETERAL DIS NOS 01/09/2016 Ot 276.1 HYPOSMOLALITY 01/09/2016 WANG CHAVEZ, BRAD Marques Ot V72.84 EXAM PRE-OPERATIVE NOS 01/09/2016 Ot 280.9 IRON DEFIC ANEMIA NOS 01/09/2016 JERALD CHAVEZ, CLAUDIO Reagan Ot 443.9 PERIPH VASCULAR DIS NOS 01/09/2016 JERALD CHAVEZ, CLAUDIO Reagan Ot 250.00 DIAB KLAUS WO COMPL, TYPE II OR UNSPEC TY 01/09/2016 JERALD CHAVEZ, CLAUDIO Reagan Ot 272.0 PURE HYPERCHOLESTEROLEM 01/09/2016 JERALD CHAVEZ, CLAUDIO Reagan Ot 729.89 MUSCSKEL SYMPT LIMB NEC 01/09/2016 SUJIT NARAYAN CONTA[employer] AND SERVICE CLERKS SUPERVISOR Ot 780.79 OTH MALAISE FATIGUE 01/09/2016 SUJIT NARAYAN CONTACT AND SERVICE CLERKS SUPERVISOR Ot 427.31 ATRIAL FIBRILLATION 01/09/2016 SUJIT NARAYAN CONTACT AND SERVICE CLERKS SUPERVISOR Ot V58.61 ANTICOAGULANTS,LT,CURRENT USE 01/09/2016 SUJIT NARAYAN CONTACT AND SERVICE CLERKS SUPERVISOR Ot 789.00 ABDOMINAL PAIN, UNSPECIFIED SITE 01/09/2016 SUJIT NARAYAN CONTACT AND SERVICE CLERKS SUPERVISOR Ot 789.2 SPLENOMEGALY 01/09/2016 WANG CHAVEZ, BRAD Marques Ot 783.21 LOSS OF WEIGHT 01/09/2016 WANG CHAVEZ, BRAD Marques Ot 787.01 NAUSEA WITH VOMITING 01/09/2016 WANG CHAVEZ, BRAD Marques Ot 789.06 ABDOMINAL PAIN, EPIGASTRIC 01/09/2016 WANG CHAVEZ, BRAD Marques Ot V72.84 EXAM PRE-OPERATIVE NOS 01/09/2016 JERALD CHAVEZ, CLAUDIO Reagan Ot M25.372 OTHER INSTABILITY, LEFT ANKLE 01/09/2016 JERALD CHAVEZ, CLAUDIO Reagan Ot M25.572 PAIN IN LEFT ANKLE AND JOINTS OF LEFT FO 01/09/2016 WANG CHAVEZ, BRAD Marques Ot K21.9 GASTRO-ESOPHAGEAL REFLUX DISEASE WITHOUT 01/09/2016 WANG CHAVEZ, BRAD Marques Ot K27.9 PEPTIC ULC, SITE UNSP, UNSP AC OR CHR 01/09/2016 WANG CHAVEZ, BRAD Marques Ot R19.5 OTHER FECAL ABNORMALITIES 01/09/2016 WANG CHAVEZ, BRAD Marques Ot Z01.818 ENCOUNTER FOR OTHER PREPROCEDURAL EXAMIN 01/09/2016 ONDINA DRISCOLL DO Ot E11.649 TYPE 2 DIABETES MELLITUS WITH HYPOGLYCEM 01/09/2016 ONDINA DRISCOLL DO Ot I10 ESSENTIAL (PRIMARY) HYPERTENSION 01/09/2016 ONDINA DRISCOLL DO Ot 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01 [facility] (CURRENT) USE OF ANTICOAGULANT 01/10/2016 ONDINA DRISCOLL DO, Ot Z79.899 OTHER FURNITURE DESIGNER (CURRENT) DRUG THERAPY 01/10/2016 ONDINA DRISCOLL DO Ot Z95.5 PRESENCE OF CORONARY ANGIOPLASTY IMPLANT 01/11/2016 CLAUDIO MARQUES MD, Ot M76.61 ACHILLES TENDINITIS, RIGHT LEG 01/16/2016 SUJIT NARAYAN APRN Ot M76.62 ACHILLES TENDINITIS, LEFT LEG 01/17/2016 ONDINA DRISCOLL DO, Ot E11.649 TYPE 2 DIABETES MELLITUS WITH HYPOGLYCEM 01/17/2016 ONDINA DRISCOLL DO Ot I10 ESSENTIAL (PRIMARY) HYPERTENSION 01/17/2016 ONDINA DRISCOLL DO Ot 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 01/17/2016 ONDINA DRISCOLL DO Ot 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 01/17/2016 ONDINA DRISCOLL DO, Ot Z79.899 OTHER FURNITURE DESIGNER (CURRENT) DRUG THERAPY 01/17/2016 ONDINA DRISCOLL DO Ot Z95.5 PRESENCE OF CORONARY ANGIOPLASTY IMPLANT 01/25/2016 CLAUDIO MARQUES MD Ot M76.61 ACHILLES TENDINITIS, RIGHT LEG 02/06/2016 SUJIT NARAYAN APRN Ot M76.62 ACHILLES TENDINITIS, LEFT LEG 02/07/2016 CLAUDIO MARQUES MD, Ot M76.61 ACHILLES TENDINITIS, RIGHT LEG 02/14/2016 SUJIT NARAYAN APRN Ot M76.62 ACHILLES TENDINITIS, LEFT LEG 03/13/2016 KOLBY JENNINGS Ot E11.9 TYPE 2 DIABETES MELLITUS WITHOUT COMPLIC 03/13/2016 KOLBY JENNINGS Ot I10 ESSENTIAL (PRIMARY) HYPERTENSION 03/13/2016 KOLBY JENNINGS Ot J44.9 CHRONIC OBSTRUCTIVE PULMONARY DISEASE, U 03/13/2016 KOLBY JENNINGSP Ot M16.11 UNILATERAL PRIMARY OSTEOARTHRITIS, RIGHT 03/13/2016 KOLBY JENNINGSP Ot M81.0 AGE-RELATED OSTEOPOROSIS W/O CURRENT PAT 03/13/2016 KOLBY JENNINGS FINANCIAL ANALYSIS CONSULTANT Ot S22.41XA MULTIPLE FRACTURES OF RIBS, RIGHT SIDE, 03/13/2016 KOLBY JENNINGS FINANCIAL ANALYSIS CONSULTANT Ot S29.9XXA UNSPECIFIED INJURY OF THORAX, INITIAL EN 03/13/2016 KOLBY JENNINGSP Ot S79.911A UNSPECIFIED INJURY OF RIGHT HIP, INITIAL 03/13/2016 KOLBY JENNINGSP Ot W10.1XXA FALL (ON)(FROM) SIDEWALK CURB, INITIAL E 03/13/2016 KOLBY JENNINGS FINANCIAL ANALYSIS CONSULTANT Ot Y92.414 LOCAL RESIDENTIAL OR BUSINESS STREET 03/13/2016 KOLBY JENNINGS FINANCIAL ANALYSIS CONSULTANT Ot Y99.8 OTHER EXTERNAL CAUSE STATUS 03/13/2016 KOLBY JENNINGS FINANCIAL ANALYSIS CONSULTANT Ot Z79.4 [facility] (CURRENT) USE OF INSULIN 03/13/2016 MICHAELA KOLBY FINANCIAL ANALYSIS CONSULTANT Ot Z79.899 OTHER [facility] (CURRENT) DRUG THERAPY 03/14/2016 KOLBY JENNINGS FINANCIAL ANALYSIS CONSULTANT Ot E11.9 TYPE 2 DIABETES MELLITUS WITHOUT COMPLIC 03/14/2016 MICHAELA KOLBY FINANCIAL ANALYSIS CONSULTANT Ot I10 ESSENTIAL (PRIMARY) HYPERTENSION 03/14/2016 KOLBY JENNINGS FINANCIAL ANALYSIS CONSULTANT Ot J44.9 CHRONIC OBSTRUCTIVE PULMONARY DISEASE, U 03/14/2016 KOLBY JENNINGS FINANCIAL ANALYSIS CONSULTANT Ot M16.11 UNILATERAL PRIMARY OSTEOARTHRITIS, RIGHT 03/14/2016 KOLBY JENNINGS FINANCIAL ANALYSIS CONSULTANT Ot M81.0 AGE-RELATED OSTEOPOROSIS W/O CURRENT PAT 03/14/2016 KOLBY JENNINGSP Ot S22.41XA MULTIPLE FRACTURES OF RIBS, RIGHT SIDE, 03/14/2016 KOLBY JENNINGS FINANCIAL ANALYSIS CONSULTANT Ot S29.9XXA UNSPECIFIED INJURY OF THORAX, INITIAL EN 03/14/2016 KOLBY JENNINGS FINANCIAL ANALYSIS CONSULTANT Ot S79.911A UNSPECIFIED INJURY OF RIGHT HIP, INITIAL 03/14/2016 KOLBY JENNINGS FINANCIAL ANALYSIS CONSULTANT Ot W10.1XXA FALL (ON)(FROM) SIDEWALK CURB, INITIAL E 03/14/2016 KOLBY JENNINGS FINANCIAL ANALYSIS CONSULTANT Ot Y92.414 LOCAL RESIDENTIAL OR BUSINESS STREET 03/14/2016 KOLBY JENNINGS FINANCIAL ANALYSIS CONSULTANT Ot Y99.8 OTHER EXTERNAL CAUSE STATUS 03/14/2016 KOLBY JENNINGS Ot 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 03/14/2016 KOLBY JENNINGS Ot Z79.899 OTHER [facility] (CURRENT) DRUG THERAPY 03/15/2016 Ot 715.36 LOC OSTEOARTH NOS-L/LEG 03/15/2016 Ot 719.06 JOINT EFFUSION-L/LEG 03/15/2016 Ot 727.65 RUPTURE QUADRICEP TENDON 03/15/2016 Ot 733.00 OSTEOPOROSIS NOS 03/15/2016 Ot 723.4 BRACHIAL NEURITIS NOS 03/15/2016 Ot 727.51 POPLITEAL SYNOVIAL CYST 03/15/2016 Ot 729.5 PAIN IN LIMB 03/15/2016 Ot 443.9 PERIPH VASCULAR DIS NOS 03/15/2016 Ot 428.0 CONGESTIVE HEART FAILURE NOS 03/15/2016 Ot 429.3 CARDIOMEGALY 03/15/2016 Ot 786.05 SHORTNESS OF BREATH 03/15/2016 Ot 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 03/15/2016 Ot V58.61 ANTICOAGULANTS,LT,CURRENT USE 03/15/2016 Ot V58.61 ANTICOAGULANTS,LT,CURRENT USE 03/15/2016 Ot V58.83 ENCOUNTER FOR THERAPEUTIC DRUG MONITORIN 03/15/2016 Ot 272.4 HYPERLIPIDEMIA NEC/NOS 03/15/2016 Ot 401.9 HYPERTENSION NOS 03/15/2016 Ot 414.00 CORON ATHEROSCLER NOS TYPE VESSEL, NATIV 03/15/2016 Ot 789.00 ABDOMINAL PAIN, UNSPECIFIED SITE 03/15/2016 Ot 780.4 DIZZINESS AND GIDDINESS 03/15/2016 Ot V58.69 OTH MED,LT, CURRENT USE 03/15/2016 Ot 427.31 ATRIAL FIBRILLATION 03/15/2016 Ot 785.1 PALPITATIONS 03/15/2016 Ot V58.61 ANTICOAGULANTS,LT,CURRENT USE 03/15/2016 Ot V58.83 ENCOUNTER FOR THERAPEUTIC DRUG MONITORIN 03/15/2016 JERALD CHAVEZ, CLAUDIO Reagan Ot 593.9 RENAL URETERAL DIS NOS 03/15/2016 Ot 276.1 HYPOSMOLALITY 03/15/2016 WANG CHAVEZ, BRAD Marques Ot V72.84 EXAM PRE-OPERATIVE NOS 03/15/2016 Ot 280.9 IRON DEFIC ANEMIA NOS 03/15/2016 JERALD CHAVEZ, CLAUDIO Reagan Ot 443.9 PERIPH VASCULAR DIS NOS 03/15/2016 CLAUDIO MARQUES MD Ot 250.00 DIAB KLAUS WO COMPL, TYPE II OR UNSPEC TY 03/15/2016 CLAUDIO MARQUES MD Ot 272.0 PURE HYPERCHOLESTEROLEM 03/15/2016 CLAUDIO MARQUES MD Ot 729.89 MUSCSKEL SYMPT LIMB NEC 03/15/2016 SUJIT NARAYAN APRN Ot 780.79 OTH MALAISE FATIGUE 03/15/2016 SUJIT NARAYAN CONTACT AND SERVICE CLERKS SUPERVISOR Ot 427.31 ATRIAL FIBRILLATION 03/15/2016 SUJIT NARAYAN APRN Ot V58.61 ANTICOAGULANTS,LT,CURRENT USE 03/15/2016 SUJIT NARAYAN CONTACT AND SERVICE CLERKS SUPERVISOR Ot 789.00 ABDOMINAL PAIN, UNSPECIFIED SITE 03/15/2016 SUJIT NARAYAN APRN Ot 789.2 SPLENOMEGALY 03/15/2016 WANG CHAVEZ, BRAD Marques Ot 783.21 LOSS OF WEIGHT 03/15/2016 WANG CHAVEZ, BRAD Marques Ot 787.01 NAUSEA WITH VOMITING 03/15/2016 WANG CHAVEZ, BRAD Marques Ot 789.06 ABDOMINAL PAIN, EPIGASTRIC 03/15/2016 WANG CHAVEZ, BRAD Marques Ot V72.84 EXAM PRE-OPERATIVE NOS 03/15/2016 JERALD CHAVEZ, CLAUDIO Reagan Ot M25.372 OTHER INSTABILITY, LEFT ANKLE 03/15/2016 CLAUDIO MARQUES MD Ot M25.572 PAIN IN LEFT ANKLE AND JOINTS OF LEFT FO 03/15/2016 BRAD PIÑA MD Ot K21.9 GASTRO-ESOPHAGEAL REFLUX DISEASE WITHOUT 03/15/2016 BRAD PIÑA MD Ot K27.9 PEPTIC ULC, SITE UNSP, UNSP AC OR CHR 03/15/2016 BRAD PIÑA MD Ot R19.5 OTHER FECAL ABNORMALITIES 03/15/2016 BRAD PIÑA MD Ot Z01.818 ENCOUNTER FOR OTHER PREPROCEDURAL EXAMIN 03/15/2016 CLAUDIO MARQUES MD Ot M76.61 ACHILLES TENDINITIS, RIGHT LEG 03/15/2016 SUJIT NARAYAN CONTACT AND SERVICE CLERKS SUPERVISOR Ot M76.62 ACHILLES TENDINITIS, LEFT LEG 03/18/2016 Ot V58.61 ANTICOAGULANTS,LT,CURRENT USE 03/18/2016 Ot V58.83 ENCOUNTER FOR THERAPEUTIC DRUG MONITORIN 03/18/2016 Ot 427.31 ATRIAL FIBRILLATION 03/18/2016 Ot 785.1 PALPITATIONS 03/18/2016 Ot V58.61 ANTICOAGULANTS,LT,CURRENT USE 03/18/2016 Ot V58.83 ENCOUNTER FOR THERAPEUTIC DRUG MONITORIN 03/18/2016 Ot 276.1 HYPOSMOLALITY 03/18/2016 Ot 280.9 IRON DEFIC ANEMIA NOS 03/18/2016 SUJIT NARAYAN Arsen CONTACT AND SERVICE CLERKS SUPERVISOR Ot 427.31 ATRIAL FIBRILLATION 03/18/2016 SUJIT NARAYAN Arsen CONTACT AND SERVICE CLERKS SUPERVISOR Ot V58.61 ANTICOAGULANTS,LT,CURRENT USE 03/19/2016 KOLBY JENNINGSP Ot E11.9 TYPE 2 DIABETES MELLITUS WITHOUT COMPLIC 03/19/2016 MICHAELA KOLBY FINANCIAL ANALYSIS CONSULTANT Ot I10 ESSENTIAL (PRIMARY) HYPERTENSION 03/19/2016 KOLBY JENNINGSP Ot J44.9 CHRONIC OBSTRUCTIVE PULMONARY DISEASE, U 03/19/2016 KOLBY JENNINGS Ot M16.11 UNILATERAL PRIMARY OSTEOARTHRITIS, RIGHT 03/19/2016 KOLBY JENNINGSP Ot M81.0 AGE-RELATED OSTEOPOROSIS W/O CURRENT PAT 03/19/2016 KOLBY JENNINGSP Ot S22.41XA MULTIPLE FRACTURES OF RIBS, RIGHT SIDE, 03/19/2016 KOLBY JENNINGS FINANCIAL ANALYSIS CONSULTANT Ot S29.9XXA UNSPECIFIED INJURY OF THORAX, INITIAL EN 03/19/2016 KOLBY JENNINGSP Ot S79.911A UNSPECIFIED INJURY OF RIGHT HIP, INITIAL 03/19/2016 KOLBY JENNINGSP Ot W10.1XXA FALL (ON)(FROM) SIDEWALK CURB, INITIAL E 03/19/2016 KOLBY JENNINGSP Ot Y92.414 LOCAL RESIDENTIAL OR BUSINESS STREET 03/19/2016 KOLBY JENNINGSP Ot Y99.8 OTHER EXTERNAL CAUSE STATUS 03/19/2016 KOLBY JENNINGS FINANCIAL ANALYSIS CONSULTANT Ot Z79.4 [facility] (CURRENT) USE OF INSULIN 03/19/2016 KOLBY JENNINGS FINANCIAL ANALYSIS CONSULTANT Ot Z79.899 OTHER [facility] (CURRENT) DRUG THERAPY 03/20/2016 WANG CHAVEZ, BRAD Marques Ot E03.9 HYPOTHYROIDISM, UNSPECIFIED 03/20/2016 WANG CHAVEZ, BRAD Marques Ot E11.43 TYPE 2 DIABETES W DIABETIC AUTONOMIC (PO 03/20/2016 WANG CHAVEZ, BRAD Marques Ot G89.29 OTHER CHRONIC PAIN 03/20/2016 WANG CHAVEZ, BRAD Marques Ot I10 ESSENTIAL (PRIMARY) HYPERTENSION 03/20/2016 BRAD PIÑA MD Ot I25.10 ATHSCL HEART DISEASE OF [place] CORONARY 03/20/2016 BRAD PIÑA MD Ot I48.91 UNSPECIFIED ATRIAL FIBRILLATION 03/20/2016 BRAD PIÑA MD Ot J30.2 OTHER SEASONAL ALLERGIC RHINITIS 03/20/2016 BRAD PIÑA MD Ot J44.9 CHRONIC OBSTRUCTIVE PULMONARY DISEASE, U 03/20/2016 BRAD PIÑA MD Ot R52 PAIN, UNSPECIFIED 03/20/2016 BRAD PIÑA MD Ot S22.41XA MULTIPLE FRACTURES OF RIBS, RIGHT SIDE, 03/20/2016 BRAD PIÑA MD Ot S27.321A CONTUSION OF LUNG, UNILATERAL, INITIAL E 03/20/2016 BRAD PIÑA MD Ot S72.114A NONDISP FX OF GREATER TROCHANTER OF [place] 03/20/2016 BRAD PIÑA MD Ot W19.XXXA UNSPECIFIED FALL, INITIAL ENCOUNTER 03/20/2016 BRAD PIÑA MD Ot Y92.[address] OF OCCURRENCE O 03/20/2016 BRAD PIÑA MD Ot Y99.8 OTHER EXTERNAL CAUSE STATUS 03/20/2016 BRAD PIÑA MD Ot 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 03/20/2016 BRAD PIÑA MD Ot 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 03/20/2016 BRAD PIÑA MD Ot Z95.0 PRESENCE OF CARDIAC PACEMAKER 03/20/2016 BRAD PIÑA MD Ot Z95.2 PRESENCE OF PROSTHETIC HEART VALVE 03/20/2016 BRAD PIÑA MD Ot Z95.5 PRESENCE OF CORONARY ANGIOPLASTY IMPLANT 03/21/2016 BRAD PIÑA MD Ot R10.13 EPIGASTRIC PAIN 03/21/2016 BRAD PIÑA MD Ot R11.2 NAUSEA WITH VOMITING, UNSPECIFIED 03/21/2016 BRAD PIÑA MD Ot R63.4 ABNORMAL WEIGHT LOSS 03/21/2016 BRAD PIÑA MD Ot Z01.818 ENCOUNTER FOR OTHER PREPROCEDURAL EXAMIN 03/21/2016 BRAD PIÑA MD Ot 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 03/21/2016 PIÑA MD, BRAD M Ot Z95.0 PRESENCE OF CARDIAC PACEMAKER 03/21/2016 BRAD PIÑA MD Ot Z95.2 PRESENCE OF PROSTHETIC HEART VALVE 03/21/2016 BRAD PIÑA MD Ot Z95.5 PRESENCE OF CORONARY ANGIOPLASTY IMPLANT 03/22/2016 BRAD PIÑA MD Ot R10.13 EPIGASTRIC PAIN 03/22/2016 BRAD PIÑA MD Ot R11.2 NAUSEA WITH VOMITING, UNSPECIFIED 03/22/2016 BRAD PIÑA MD Ot R63.4 ABNORMAL WEIGHT LOSS 03/22/2016 BRAD PIÑA MD Ot Z01.818 ENCOUNTER FOR OTHER PREPROCEDURAL EXAMIN 03/22/2016 BRAD PIÑA MD Ot Z79.01 [facility] (CURRENT) USE OF ANTICOAGULANT 03/22/2016 BRAD PIÑA MD Ot Z95.0 PRESENCE OF CARDIAC PACEMAKER 03/22/2016 BRAD PIÑA MD Ot Z95.2 PRESENCE OF PROSTHETIC HEART VALVE 03/22/2016 BRAD PIÑA MD Ot Z95.5 PRESENCE OF CORONARY ANGIOPLASTY IMPLANT 04/26/2016 Ot 723.4 BRACHIAL NEURITIS NOS 04/26/2016 Ot 727.51 POPLITEAL SYNOVIAL CYST 04/26/2016 Ot 729.5 PAIN IN LIMB 04/26/2016 Ot 443.9 PERIPH VASCULAR DIS NOS 04/26/2016 Ot 428.0 CONGESTIVE HEART FAILURE NOS 04/26/2016 Ot 429.3 CARDIOMEGALY 04/26/2016 Ot 786.05 SHORTNESS OF BREATH 04/26/2016 Ot 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 04/26/2016 Ot V58.61 ANTICOAGULANTS,LT,CURRENT USE 04/26/2016 Ot V58.61 ANTICOAGULANTS,LT,CURRENT USE 04/26/2016 Ot V58.83 ENCOUNTER FOR THERAPEUTIC DRUG MONITORIN 04/26/2016 Ot 272.4 HYPERLIPIDEMIA NEC/NOS 04/26/2016 Ot 401.9 HYPERTENSION NOS 04/26/2016 Ot 414.00 CORON ATHEROSCLER NOS TYPE VESSEL, NATIV 04/26/2016 Ot 789.00 ABDOMINAL PAIN, UNSPECIFIED SITE 04/26/2016 Ot 780.4 DIZZINESS AND GIDDINESS 04/26/2016 Ot V58.69 OTH MED,LT, CURRENT USE 04/26/2016 Ot 427.31 ATRIAL FIBRILLATION 04/26/2016 Ot 785.1 PALPITATIONS 04/26/2016 Ot V58.61 ANTICOAGULANTS,LT,CURRENT USE 04/26/2016 Ot V58.83 ENCOUNTER FOR THERAPEUTIC DRUG MONITORIN 04/26/2016 JERALD CHAVEZ, CLAUDIO Reagan Ot 593.9 RENAL URETERAL DIS NOS 04/26/2016 Ot 276.1 HYPOSMOLALITY 04/26/2016 WANG CHAVEZ, BRAD Marques Ot V72.84 EXAM PRE-OPERATIVE NOS 04/26/2016 Ot 280.9 IRON DEFIC ANEMIA NOS 04/26/2016 JERALD CHAVEZ, CLAUDIO Reagan Ot 443.9 PERIPH VASCULAR DIS NOS 04/26/2016 JERALD CHAVEZ, CLAUDIO Reagan Ot 250.00 DIAB KLAUS WO COMPL, TYPE II OR UNSPEC TY 04/26/2016 CLAUDIO MARQUES MD Ot 272.0 PURE HYPERCHOLESTEROLEM 04/26/2016 CLAUDIO MARQUES MD Ot 729.89 MUSCSKEL SYMPT LIMB NEC 04/26/2016 SUJIT NARAYAN CONTACT AND SERVICE CLERKS SUPERVISOR Ot 780.79 OTH MALAISE FATIGUE 04/26/2016 SUJIT NARAYAN CONTACT AND SERVICE CLERKS SUPERVISOR Ot 427.31 ATRIAL FIBRILLATION 04/26/2016 SUJIT NARAYAN CONTACT AND SERVICE CLERKS SUPERVISOR Ot V58.61 ANTICOAGULANTS,LT,CURRENT USE 04/26/2016 SUJIT NARAYAN CONTACT AND SERVICE CLERKS SUPERVISOR Ot 789.00 ABDOMINAL PAIN, UNSPECIFIED SITE 04/26/2016 SUJIT NARAYAN CONTACT AND SERVICE CLERKS SUPERVISOR Ot 789.2 SPLENOMEGALY 04/26/2016 WANG CHAVEZ, BRAD Marques Ot 783.21 LOSS OF WEIGHT 04/26/2016 WANG CHAVEZ, BRAD Marques Ot 787.01 NAUSEA WITH VOMITING 04/26/2016 WANG CHAVEZ, BRAD Marques Ot 789.06 ABDOMINAL PAIN, EPIGASTRIC 04/26/2016 WANG CHAVEZ, BRAD Marques Ot V72.84 EXAM PRE-OPERATIVE NOS 04/26/2016 JERALD CHAVEZ, CLAUDIO Reagan Ot M25.372 OTHER INSTABILITY, LEFT ANKLE 04/26/2016 CLAUDIO MARQUES MD Ot M25.572 PAIN IN LEFT ANKLE AND JOINTS OF LEFT FO 04/26/2016 WANG CHAVEZ, BRAD Marques Ot K21.9 GASTRO-ESOPHAGEAL REFLUX DISEASE WITHOUT 04/26/2016 WANG CHAVEZ, BRAD Marques Ot K27.9 PEPTIC ULC, SITE UNSP, UNSP AC OR CHR 04/26/2016 BRAD PIÑA MD Ot R19.5 OTHER FECAL ABNORMALITIES 04/26/2016 WANG CHAVEZ, BRAD Marques Ot Z01.818 ENCOUNTER FOR OTHER PREPROCEDURAL EXAMIN 04/26/2016 JERALD CHAVEZ, CLAUDIO Reagan Ot M76.61 ACHILLES TENDINITIS, RIGHT LEG 04/26/2016 SUJIT NARAYAN CONTA[employer] AND SERV[employer]ERKS SUPERVISOR Ot M76.62 ACHILLES TENDINITIS, LEFT LEG 04/30/2016 SUJIT NARAYAN CONTA[employer] AND SERVICE [employer]ERKS SUPERVISOR Ot M79.604 PAIN IN RIGHT LEG 04/30/2016 NARAYANSUJIT CONTACT AND SERVICE CLERKS SUPERVISOR Ot M79.605 PAIN IN LEFT LEG 04/30/2016 Ot 723.4 BRACHIAL NEURITIS NOS 04/30/2016 Ot 727.51 POPLITEAL SYNOVIAL CYST 04/30/2016 Ot 729.5 PAIN IN LIMB 04/30/2016 Ot 443.9 PERIPH VASCULAR DIS NOS 04/30/2016 Ot 428.0 CONGESTIVE HEART FAILURE NOS 04/30/2016 Ot 429.3 CARDIOMEGALY 04/30/2016 Ot 786.05 SHORTNESS OF BREATH 04/30/2016 Ot 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 04/30/2016 Ot V58.61 ANTICOAGULANTS,LT,CURRENT USE 04/30/2016 Ot V58.61 ANTICOAGULANTS,LT,CURRENT USE 04/30/2016 Ot V58.83 ENCOUNTER FOR THERAPEUTIC DRUG MONITORIN 04/30/2016 Ot 272.4 HYPERLIPIDEMIA NEC/NOS 04/30/2016 Ot 401.9 HYPERTENSION NOS 04/30/2016 Ot 414.00 CORON ATHEROSCLER NOS TYPE VESSEL, NATIV 04/30/2016 Ot 789.00 ABDOMINAL PAIN, UNSPECIFIED SITE 04/30/2016 Ot 780.4 DIZZINESS AND GIDDINESS 04/30/2016 Ot V58.69 OTH MED,LT, CURRENT USE 04/30/2016 Ot 427.31 ATRIAL FIBRILLATION 04/30/2016 Ot 785.1 PALPITATIONS 04/30/2016 Ot V58.61 ANTICOAGULANTS,LT,CURRENT USE 04/30/2016 Ot V58.83 ENCOUNTER FOR THERAPEUTIC DRUG MONITORIN 04/30/2016 JERALD CHAVEZ, CLAUDIO Reagan Ot 593.9 RENAL URETERAL DIS NOS 04/30/2016 Ot 276.1 HYPOSMOLALITY 04/30/2016 BRAD PIÑA MD Ot V72.84 EXAM PRE-OPERATIVE NOS 04/30/2016 Ot 280.9 IRON DEFIC ANEMIA NOS 04/30/2016 JERALD CHAVEZ, CLAUDIO Reagan Ot 443.9 PERIPH VASCULAR DIS NOS 04/30/2016 JERALD CHAVEZ, CLAUDIO Reagan Ot 250.00 DIAB KLAUS WO COMPL, TYPE II OR UNSPEC TY 04/30/2016 CLAUDIO MARQUES MD Ot 272.0 PURE HYPERCHOLESTEROLEM 04/30/2016 CLAUDIO MARQUES MD Ot 729.89 MUSCSKEL SYMPT LIMB NEC 04/30/2016 SUJIT NARAYAN CONTACT AND SERVICE [employer]ERKS SUPERVISOR Ot 780.79 OTH MALAISE FATIGUE 04/30/2016 SUJIT NARAYAN CONTA[employer] SERVICE [employer]ERKS SUPERVISOR Ot 427.31 ATRIAL FIBRILLATION 04/30/2016 SUJIT NARAYAN CONTA[employer] AND SERVICE [employer]ERKS SUPERVISOR Ot V58.61 ANTICOAGULANTS,LT,CURRENT USE 04/30/2016 SUJIT NARAYAN CONTA[employer] AND SERVICE [employer]ERKS SUPERVISOR Ot 789.00 ABDOMINAL PAIN, UNSPECIFIED SITE 04/30/2016 SUJIT NARAYAN CONTA[employer] SERVICE [employer]ER[employer] SUPERVISOR Ot 789.2 SPLENOMEGALY 04/30/2016 WANG CHAVEZ, BRAD Marques Ot 783.21 LOSS OF WEIGHT 04/30/2016 WANG CHAVEZ, BRAD Marques Ot 787.01 NAUSEA WITH VOMITING 04/30/2016 WANG CHAVEZ, BRAD Marques Ot 789.06 ABDOMINAL PAIN, EPIGASTRIC 04/30/2016 WANG CHAVEZ, BRAD Marques Ot V72.84 EXAM PRE-OPERATIVE NOS 04/30/2016 JERALD CHAVEZ, CLAUDIO Reagan Ot M25.372 OTHER INSTABILITY, LEFT ANKLE 04/30/2016 CLAUDIO MARQUES MD Ot M25.572 PAIN IN LEFT ANKLE AND JOINTS OF LEFT FO 04/30/2016 BRAD PIÑA MD Ot K21.9 GASTRO-ESOPHAGEAL REFLUX DISEASE WITHOUT 04/30/2016 BRAD PIÑA MD Ot K27.9 PEPTIC ULC, SITE UNSP, UNSP AC OR CHR 04/30/2016 BRAD PIÑA MD Ot R19.5 OTHER FECAL ABNORMALITIES 04/30/2016 BRAD PIÑA MD Ot Z01.818 ENCOUNTER FOR OTHER PREPROCEDURAL EXAMIN 04/30/2016 CLAUDIO MARQUES MD Ot M76.61 ACHILLES TENDINITIS, RIGHT LEG 04/30/2016 SUJIT NARAYAN [employer]ER[employer] SUPERVISOR Ot M76.62 ACHILLES TENDINITIS, LEFT LEG 04/30/2016 SUJIT NARAYAN CONTA[employer]ICE [employer]ER[employer] SUPERVISOR Ot M79.604 PAIN IN RIGHT LEG 04/30/2016 SUJIT NARAYAN CONTA[employer] AND SERVICE [employer]ERKS SUPERVISOR Ot M79.605 PAIN IN LEFT LEG 04/30/2016 NARAYANSUJIT CONTACT AND SERVICE CLERKS SUPERVISOR Ot M79.604 PAIN IN RIGHT LEG 04/30/2016 NARAYANSUJIT CONTACT AND SERVICE CLERKS SUPERVISOR Ot M79.605 PAIN IN LEFT LEG 04/30/2016 NARAYANSUJIT CONTACT AND SERVICE CLERKS SUPERVISOR Ot M79.604 PAIN IN RIGHT LEG 04/30/2016 NARAYANSUJIT CONTACT AND SERVICE CLERKS SUPERVISOR Ot M79.605 PAIN IN LEFT LEG 05/17/2016 WANG CHAVEZ, BRAD M Ot R11.2 NAUSEA WITH VOMITING, UNSPECIFIED 05/17/2016 WANG CHAVEZ, BRAD M Ot R63.4 ABNORMAL WEIGHT LOSS 05/17/2016 WANG CHAVEZ, BRAD M Ot Z01.818 ENCOUNTER FOR OTHER PREPROCEDURAL EXAMIN 05/20/2016 WANG CHAVEZ, BRAD M Ot E11.9 TYPE 2 DIABETES MELLITUS WITHOUT COMPLIC 05/20/2016 WANG CHAVEZ, BRAD M Ot K29.70 GASTRITIS, UNSPECIFIED, WITHOUT BLEEDING 05/20/2016 BRAD PIÑA MD M Ot R10.13 EPIGASTRIC PAIN 05/20/2016 BRAD PIÑA MD M Ot R11.2 NAUSEA WITH VOMITING, UNSPECIFIED 05/20/2016 BRAD PIÑA MD M Ot R63.4 ABNORMAL WEIGHT LOSS 05/21/2016 WANG CHAVEZ, BRAD M Ot E11.9 TYPE 2 DIABETES MELLITUS WITHOUT COMPLIC 05/21/2016 WANG CHAVEZ, BRAD M Ot K29.70 GASTRITIS, UNSPECIFIED, WITHOUT BLEEDING 05/21/2016 BRAD PIÑA MD M Ot R10.13 EPIGASTRIC PAIN 05/21/2016 WANG CHAVEZ, BRAD M Ot R11.2 NAUSEA WITH VOMITING, UNSPECIFIED 05/21/2016 BRAD PIÑA MD M Ot R63.4 ABNORMAL WEIGHT LOSS 05/21/2016 BRAD PIÑA MD M Ot R11.2 NAUSEA WITH VOMITING, UNSPECIFIED 05/21/2016 BRAD PIÑA MD M Ot R63.4 ABNORMAL WEIGHT LOSS 05/21/2016 BRAD PIÑA MD M Ot Z01.818 ENCOUNTER FOR OTHER PREPROCEDURAL EXAMIN 05/22/2016 SUJIT NARAYAN CONTA[employer]ICE [employer]ER[employer] SUPERVISOR Ot M79.604 PAIN IN RIGHT LEG 05/22/2016 SUJIT NARAYAN CONTA[employer]ICE [employer]ER[employer] SUPERVISOR Ot M79.605 PAIN IN LEFT LEG 05/24/2016 WANG CHAVEZ, BRAD Marques Ot E11.9 TYPE 2 DIABETES MELLITUS WITHOUT COMPLIC 05/24/2016 WANG CHAVEZ, BRAD Marques Ot K29.70 GASTRITIS, UNSPECIFIED, WITHOUT BLEEDING 05/24/2016 WANG CHAVEZ, BRAD Marques Ot R10.13 EPIGASTRIC PAIN 05/24/2016 WANG CHAVEZ, BRAD Marques Ot R11.2 NAUSEA WITH VOMITING, UNSPECIFIED 05/24/2016 WANG CHAVEZ, BRAD Marques Ot R63.4 ABNORMAL WEIGHT LOSS 05/29/2016 SUJIT NARAYAN CONTA[employer]ER[employer] SUPERVISOR Ot M79.604 PAIN IN RIGHT LEG 05/29/2016 SUJIT NARAYAN CONTACT AND SERVICE [employer]ERKS SUPERVISOR Ot M79.605 PAIN IN LEFT LEG 07/24/2016 Ot V58.61 ANTICOAGULANTS,LT,CURRENT USE 07/24/2016 Ot V58.83 ENCOUNTER FOR THERAPEUTIC DRUG MONITORIN 07/24/2016 Ot 427.31 ATRIAL FIBRILLATION 07/24/2016 Ot 785.1 PALPITATIONS 07/24/2016 Ot V58.61 ANTICOAGULANTS,LT,CURRENT USE 07/24/2016 Ot V58.83 ENCOUNTER FOR THERAPEUTIC DRUG MONITORIN 07/24/2016 Ot 276.1 HYPOSMOLALITY 07/24/2016 Ot 280.9 IRON DEFIC ANEMIA NOS 07/24/2016 SUJIT NARAYAN CONTACT [employer] SERVICE [employer]ER[employer] SUPERVISOR Ot 427.31 ATRIAL FIBRILLATION 07/24/2016 SUJIT NARAYAN CONTACT AND SERVICE CLERKS SUPERVISOR Ot V58.61 ANTICOAGULANTS,LT,CURRENT USE 07/24/2016 YOANNA DPM, MEJIA Q Ot M86.9 OSTEOMYELITIS, UNSPECIFIED 07/24/2016 YOANNA DPM, MEJIA Q Ot Z01.818 ENCOUNTER FOR OTHER PREPROCEDURAL EXAMIN 07/24/2016 YOANNA DPM, MEJIA Q Ot Z11.2 ENCOUNTER FOR SCREENING FOR OTHER BACTER 07/24/2016 YOANNA DPM, MEJIA Q Ot M86.9 OSTEOMYELITIS, UNSPECIFIED 07/24/2016 YOANNA DPM, MEJIA Q Ot Z01.818 ENCOUNTER FOR OTHER PREPROCEDURAL EXAMIN 07/24/2016 YOANNA DPM, MEJIA Q Ot Z11.2 ENCOUNTER FOR SCREENING FOR OTHER BACTER 07/26/2016 JERALD CHAVEZ, CLAUDIO Reagan Ot M25.372 OTHER INSTABILITY, LEFT ANKLE 07/26/2016 JERALD CHAVEZ, CLAUDIO Reagan Ot M25.572 PAIN IN LEFT ANKLE AND JOINTS OF LEFT FO 07/26/2016 WANG CHAVEZ, BRAD Marques Ot K21.9 GASTRO-ESOPHAGEAL REFLUX DISEASE WITHOUT 07/26/2016 WANG CHAVEZ, BRAD Marques Ot K27.9 PEPTIC ULC, SITE UNSP, UNSP AC OR CHR 07/26/2016 WANG CHAVEZ, BRAD Marques Ot R19.5 OTHER FECAL ABNORMALITIES 07/26/2016 WANG CHAVEZ, BRAD Marques Ot Z01.818 ENCOUNTER FOR OTHER PREPROCEDURAL EXAMIN 07/26/2016 JERALD CHAVEZ, CLAUDIO Reagan Ot M76.61 ACHILLES TENDINITIS, RIGHT LEG 07/26/2016 SUJIT NARAYAN CONTA[employer]ER[employer] SUPERVISOR Ot M76.62 ACHILLES TENDINITIS, LEFT LEG 07/26/2016 SUJIT NARAYAN CONTACT AND SERVICE [employer]ERKS SUPERVISOR Ot M79.604 PAIN IN RIGHT LEG 07/26/2016 NARAYANSUJIT CONTACT AND SERVICE CLERKS SUPERVISOR Ot M79.605 PAIN IN LEFT LEG 07/30/2016 YOANNA DPM, MEJIA Q Ot M86.9 OSTEOMYELITIS, UNSPECIFIED 07/30/2016 YOANNA DPM, MEJIA Q Ot Z01.818 ENCOUNTER FOR OTHER PREPROCEDURAL EXAMIN 07/30/2016 YOANNA DPM, MEJIA Q Ot Z11.2 ENCOUNTER FOR SCREENING FOR OTHER BACTER 08/15/2016 YOANNA DPM, MEJIA Q Ot E11.9 TYPE 2 DIABETES MELLITUS WITHOUT COMPLIC 08/15/2016 YOANNA DPM, MEJIA Q Ot M86.9 OSTEOMYELITIS, UNSPECIFIED 08/15/2016 YOANNA DPM, MEJIA Q Ot Z53.09 PROC/TRTMT NOT CARRIED OUT BECAUSE OF CO 08/15/2016 YOANNA DPM, MEJIA Q Ot Z79.01 [facility]CI (CURRENT) USE OF ANTICOAGULANT 08/15/2016 YOANNA DPM, MEJIA Q Ot 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 08/16/2016 YOANNA DPM, MEJIA Q Ot E03.9 HYPOTHYROIDISM, UNSPECIFIED 08/16/2016 YOANNA DPM, MEJIA Q Ot E10.21 TYPE 1 DIABETES MELLITUS WITH DIABETIC N 08/16/2016 YOANNA DPM, MEJIA Q Ot F32.9 MAJOR DEPRESSIVE DISORDER, SINGLE EPISOD 08/16/2016 YOANNA DPM, MEJIA Q Ot F41.9 ANXIETY DISORDER, UNSPECIFIED 08/16/2016 YOANNA DPM, MEJIA Q Ot I10 ESSENTIAL (PRIMARY) HYPERTENSION 08/16/2016 YOANNA DPM, MEJIA Q Ot I25.10 ATHSCL HEART DISEASE OF [place] CORONARY 08/16/2016 YOANNA DPM, MEJIA Q Ot I48.91 UNSPECIFIED ATRIAL FIBRILLATION 08/16/2016 YOANNA DPM, MEJIA Q Ot M86.9 OSTEOMYELITIS, UNSPECIFIED 08/16/2016 YOANNA DPM, MEJIA Q Ot 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 08/16/2016 YOANNA DPM, MEJIA Q Ot Z79.4 [facility] (CURRENT) USE OF INSULIN 08/16/2016 YOANNA DPM, MEJIA Q Ot Z95.0 PRESENCE OF CARDIAC PACEMAKER 08/16/2016 YOANNA DPM, MEJIA Q Ot Z95.2 PRESENCE OF PROSTHETIC HEART VALVE 08/16/2016 YOANNA DPM, MEJIA Q Ot Z95.5 PRESENCE OF CORONARY ANGIOPLASTY IMPLANT 08/27/2016 YOANNA DPM, MEJIA Q Ot E03.9 HYPOTHYROIDISM, UNSPECIFIED 08/27/2016 YOANNA DPM, MEJIA Q Ot E10.21 TYPE 1 DIABETES MELLITUS WITH DIABETIC N 08/27/2016 YOANNA DPM, MEJIA Q Ot F32.9 MAJOR DEPRESSIVE DISORDER, SINGLE EPISOD 08/27/2016 YOANNA DPM, MEJIA Q Ot F41.9 ANXIETY DISORDER, UNSPECIFIED 08/27/2016 YOANNA DPM, MEJIA Q Ot I10 ESSENTIAL (PRIMARY) HYPERTENSION 08/27/2016 YOANNA DPM, MEJIA Q Ot I25.10 ATHSCL HEART DISEASE OF [place] CORONARY 08/27/2016 YOANNA DPM, MEJIA Q Ot I48.91 UNSPECIFIED ATRIAL FIBRILLATION 08/27/2016 YOANNA DPM, MEJIA Q Ot M86.9 OSTEOMYELITIS, UNSPECIFIED 08/27/2016 YOANNA DPM, MEJIA Q Ot 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 08/27/2016 YOANNA DPM, MEJIA Q Ot 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 08/27/2016 YOANNA DPM, MEJIA Q Ot Z95.0 PRESENCE OF CARDIAC PACEMAKER 08/27/2016 YOANNA DPM, MEJIA Q Ot Z95.2 PRESENCE OF PROSTHETIC HEART VALVE 08/27/2016 YOANNA DPM, MEJIA Q Ot Z95.5 PRESENCE OF CORONARY ANGIOPLASTY IMPLANT 08/28/2016 YOANNA DPM, MEJIA Q Ot E11.9 TYPE 2 DIABETES MELLITUS WITHOUT COMPLIC 08/28/2016 YOANNA DPM, MEJIA Q Ot M86.9 OSTEOMYELITIS, UNSPECIFIED 08/28/2016 YOANNA DPM, MEJIA Q Ot Z53.09 PROC/TRTMT NOT CARRIED OUT BECAUSE OF CO 08/28/2016 YOANNA DPM, MEJIA Q Ot Z79.01 [facility] (CURRENT) USE OF ANTICOAGULANT 08/28/2016 YOANNA DPM, MEJIA Q Ot 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 01/13/2017 JERALD CHAVEZ, CLAUDIO D Ot D64.9 ANEMIA, UNSPECIFIED 01/14/2017 JERALD CHAVEZ, CLAUDIO D Ot D64.9 ANEMIA, UNSPECIFIED 01/24/2017 JERALD CHAVEZ, CLAUDIO D Ot D50.0 IRON DEFICIENCY ANEMIA SECONDARY TO BLOO 01/24/2017 JERALD CHAVEZ, CLAUDIO D Ot D50.0 IRON DEFICIENCY ANEMIA SECONDARY TO BLOO 01/24/2017 JERALD CHAVEZ, CLAUDIO D Ot D50.0 IRON DEFICIENCY ANEMIA SECONDARY TO BLOO 02/03/2017 JERALD CHAVEZ, CLAUDIO D Ot D64.9 ANEMIA, UNSPECIFIED 02/12/2017 JERALD CHAVEZ, CLAUDIO D Ot D64.9 ANEMIA, UNSPECIFIED 03/12/2017 JERALD CHAVEZ, CLAUDIO D Ot D50.0 IRON DEFICIENCY ANEMIA SECONDARY TO BLOO 03/20/2017 JERALD CHAVEZ, CLAUDIO D Ot D50.0 IRON DEFICIENCY ANEMIA SECONDARY TO BLOO 04/22/2017 JERALD CHAVEZ, CALUDIO D Ot D50.0 IRON DEFICIENCY ANEMIA SECONDARY TO BLOO 04/23/2017 JERALD CHAVEZ, CLAUDIO D Ot D50.0 IRON DEFICIENCY ANEMIA SECONDARY TO BLOO 05/13/2017 JERALD CHAVEZ, CLAUDIO D Ot M25.372 OTHER INSTABILITY, LEFT ANKLE 05/13/2017 JERALD CHAVEZ, CLAUDIO D Ot M25.572 PAIN IN LEFT ANKLE AND JOINTS OF LEFT FO 05/13/2017 WANG CHAVEZ, BRAD Marques Ot K21.9 GASTRO-ESOPHAGEAL REFLUX DISEASE WITHOUT 05/13/2017 WANG CHAVEZ, BRAD Marques Ot K27.9 PEPTIC ULC, SITE UNSP, UNSP AC OR CHR 05/13/2017 WANG CHAVEZ, BRAD Marques Ot R19.5 OTHER FECAL ABNORMALITIES 05/13/2017 WANG CHAVEZ, BRAD Marques Ot Z01.818 ENCOUNTER FOR OTHER PREPROCEDURAL EXAMIN 05/13/2017 JERALD CHAVEZ, CLAUDIO Reagan Ot M76.61 ACHILLES TENDINITIS, RIGHT LEG 05/13/2017 NARAYANSUJIT CONTACT AND SERVICE CLERKS SUPERVISOR Ot M76.62 ACHILLES TENDINITIS, LEFT LEG 05/13/2017 NARAYANSUJIT N CONTACT AND SERVICE CLERKS SUPERVISOR Ot M79.604 PAIN IN RIGHT LEG 05/13/2017 NARAYAN ASHDEN N CONTACT AND SERVICE CLERKS SUPERVISOR Ot M79.605 PAIN IN LEFT LEG 05/13/2017 YOANNA DPM, MEJIA Q Ot E11.9 TYPE 2 DIABETES MELLITUS WITHOUT COMPLIC 05/13/2017 YOANNA DPM, MEJIA Q Ot M86.9 OSTEOMYELITIS, UNSPECIFIED 05/13/2017 YOANNA DPM, MEJIA Q Ot Z53.09 PROC/TRTMT NOT CARRIED OUT BECAUSE OF CO 05/13/2017 YOANNA DPM, MEJIA Q Ot Z79.01 [facility] (CURRENT) USE OF ANTICOAGULANT 05/13/2017 YOANNA DPM, MEJIA Q Ot Z79.4 [facility] (CURRENT) USE OF INSULIN 05/13/2017 JERALD CHAVEZ, CLAUDIO Reagan Ot D64.9 ANEMIA, UNSPECIFIED 05/13/2017 JERALD CHAVEZ, CLAUDIO Reagan Ot D50.0 IRON DEFICIENCY ANEMIA SECONDARY TO BLOO 05/14/2017 JERALD CHAVEZ, CLAUDIO Reagan Ot M25.372 OTHER INSTABILITY, LEFT ANKLE 05/14/2017 JERALD CHAVEZ, CLAUDIO Reagan Ot M25.572 PAIN IN LEFT ANKLE AND JOINTS OF LEFT FO 05/14/2017 WANG CHAVEZ, BRAD Marques Ot K21.9 GASTRO-ESOPHAGEAL REFLUX DISEASE WITHOUT 05/14/2017 WANG CHAVEZ, BRAD Marques Ot K27.9 PEPTIC ULC, SITE UNSP, UNSP AC OR CHR 05/14/2017 BRAD PIÑA MD Ot R19.5 OTHER FECAL ABNORMALITIES 05/14/2017 BRAD PIÑA MD Ot Z01.818 ENCOUNTER FOR OTHER PREPROCEDURAL EXAMIN 05/14/2017 JERALD CHAVEZ, CLAUDIO Reagan Ot M76.61 ACHILLES TENDINITIS, RIGHT LEG 05/14/2017 NARAYAN, ASHDEN N CONTACT AND SERVICE CLERKS SUPERVISOR Ot M76.62 ACHILLES TENDINITIS, LEFT LEG 05/14/2017 SUJIT NARAYAN CONTACT AND SERVICE CLERKS SUPERVISOR Ot M79.604 PAIN IN RIGHT LEG 05/14/2017 SUJIT NARAYAN CONTACT AND SERVICE CLERKS SUPERVISOR Ot M79.605 PAIN IN LEFT LEG 05/14/2017 YOANNA DPM, MEJIA Q Ot E11.9 TYPE 2 DIABETES MELLITUS WITHOUT COMPLIC 05/14/2017 YOANNA DPM, MEJIA Q Ot M86.9 OSTEOMYELITIS, UNSPECIFIED 05/14/2017 YOANNA DPM, MEJIA Q Ot Z53.09 PROC/TRTMT NOT CARRIED OUT BECAUSE OF CO 05/14/2017 YOANNA DPM, MEJIA Q Ot 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 05/14/2017 YOANNA DPM, MEJIA Q Ot 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 05/14/2017 JERALD CHAVEZ, CLAUDIO Reagan Ot D64.9 ANEMIA, UNSPECIFIED 05/14/2017 JERALD CHAVEZ, CLAUDIO Reagan Ot D50.0 IRON DEFICIENCY ANEMIA SECONDARY TO BLOO 06/26/2017 JERALD CHAVEZ, CLAUDIO Reagan Ot M25.372 OTHER INSTABILITY, LEFT ANKLE 06/26/2017 JERALD CHAVEZ, CLAUDIO Reagan Ot M25.572 PAIN IN LEFT ANKLE AND JOINTS OF LEFT FO 06/26/2017 WANG CHAVEZ, BRAD Marques Ot K21.9 GASTRO-ESOPHAGEAL REFLUX DISEASE WITHOUT 06/26/2017 WANG CHAVEZ, BRAD Marques Ot K27.9 PEPTIC ULC, SITE UNSP, UNSP AC OR CHR 06/26/2017 WANG CHAVEZ, BRAD Marques Ot R19.5 OTHER FECAL ABNORMALITIES 06/26/2017 WANG CHAVEZ, BRAD Marques Ot Z01.818 ENCOUNTER FOR OTHER PREPROCEDURAL EXAMIN 06/26/2017 JERALD CHAVEZ, CLAUDIO Merary Ot M76.61 ACHILLES TENDINITIS, RIGHT LEG 06/26/2017 SUJIT NARAYAN CONTACT AND SERVICE CLERKS SUPERVISOR Ot M76.62 ACHILLES TENDINITIS, LEFT LEG 06/26/2017 SUJIT NARAYAN CONTACT AND SERVICE CLERKS SUPERVISOR Ot M79.604 PAIN IN RIGHT LEG 06/26/2017 SUJIT NARAYAN CONTACT AND SERVICE CLERKS SUPERVISOR Ot M79.605 PAIN IN LEFT LEG 06/26/2017 YOANNA DPM, MEJIA Q Ot E11.9 TYPE 2 DIABETES MELLITUS WITHOUT COMPLIC 06/26/2017 YOANNA DPM, MEJIA Q Ot M86.9 OSTEOMYELITIS, UNSPECIFIED 06/26/2017 YOANNA DPM, MEJIA Q Ot Z53.09 PROC/TRTMT NOT CARRIED OUT BECAUSE OF CO 06/26/2017 YOANNA DPM, MEJIA Q Ot Z79.01 [facility]CI (CURRENT) USE OF ANTICOAGULANT 06/26/2017 YOANNA DPM, MEJIA Q Ot Z79.4 [facility] (CURRENT) USE OF INSULIN 06/26/2017 JERALD CHAVEZ, CLAUDIO Reagan Ot D64.9 ANEMIA, UNSPECIFIED 06/26/2017 JERALD CHAVEZ, CLAUDIO Reagan Ot D50.0 IRON DEFICIENCY ANEMIA SECONDARY TO BLOO 06/26/2017 ALCIDES SANTIAGO N Ot D64.9 ANEMIA, UNSPECIFIED 06/26/2017 ALCIDES SANTIAGO N Ot D72.819 DECREASED WHITE BLOOD CELL COUNT, UNSPEC 06/26/2017 ALCIDES SANTIAGO N Ot E03.9 HYPOTHYROIDISM, UNSPECIFIED 06/26/2017 ALCIDES SANTIAGO N Ot E11.22 TYPE 2 DIABETES MELLITUS W DIABETIC POLICE RADIO DISPATCHER 06/26/2017 ALCIDES SANTIAGO N Ot E78.5 HYPERLIPIDEMIA, UNSPECIFIED 06/26/2017 ALCIDES SANTIAGO Ot I13.0 HYP HRT CHR [place] DIS W HRT FAIL AND ST 06/26/2017 ALCIDES SANTIAGO N Ot I25.10 ATHSCL HEART DISEASE OF [place] CORONARY 06/26/2017 ALCIDES SANTIAGO N Ot I27.20 PULMONARY HYPERTENSION, UNSPECIFIED 06/26/2017 ALCIDES SANTIAGO N Ot I48.91 UNSPECIFIED ATRIAL FIBRILLATION 06/26/2017 ALCIDES SANTIAGO N Ot I50.9 HEART FAILURE, UNSPECIFIED 06/26/2017 ALCIDES SANTIAGO N Ot J44.9 CHRONIC OBSTRUCTIVE PULMONARY DISEASE, U 06/26/2017 ALCIDES SANTIAGO N Ot N18.9 CHRONIC KIDNEY DISEASE, UNSPECIFIED 06/26/2017 ALCIDES SANTIAGO N Ot Z79.01 [facility] (CURRENT) USE OF ANTICOAGULANT 06/26/2017 ALCIDES SANTIAGO N Ot Z79.4 [facility] (CURRENT) USE OF INSULIN 06/26/2017 ALCIDES SANTIAGO N Ot Z79.899 OTHER [facility] (CURRENT) DRUG THERAPY 06/26/2017 BARB CHUA MD Ot D64.9 ANEMIA, UNSPECIFIED 06/26/2017 BARB CHUA MD Ot D72.819 DECREASED WHITE BLOOD CELL COUNT, UNSPEC 06/26/2017 BARB CHUA MD Ot E03.9 HYPOTHYROIDISM, UNSPECIFIED 06/26/2017 BARB CHUA MD Ot E11.22 TYPE 2 DIABETES MELLITUS W DIABETIC POLICE RADIO DISPATCHER 06/26/2017 BARB CHUA MD Ot E78.5 HYPERLIPIDEMIA, UNSPECIFIED 06/26/2017 BARB CHUA MD Ot I13.0 HYP HRT CHR [place] DIS W HRT FAIL AND ST 06/26/2017 BARB CHUA MD Ot I25.10 ATHSCL HEART DISEASE OF [place] CORONARY 06/26/2017 BARB CHUA MD Ot I27.20 PULMONARY HYPERTENSION, UNSPECIFIED 06/26/2017 BARB CHUA MD Ot I48.91 UNSPECIFIED ATRIAL FIBRILLATION 06/26/2017 BARB CHUA MD Ot I50.9 HEART FAILURE, UNSPECIFIED 06/26/2017 BARB CHUA MD Ot J44.9 CHRONIC OBSTRUCTIVE PULMONARY DISEASE, U 06/26/2017 BARB CHUA MD Ot N18.9 CHRONIC KIDNEY DISEASE, UNSPECIFIED 06/26/2017 BARB CHUA MD Ot Z79.01 [facility] (CURRENT) USE OF ANTICOAGULANT 06/26/2017 BARB CHUA MD Ot Z79.4 [facility] (CURRENT) USE OF INSULIN 06/26/2017 BARB CHUA MD Ot Z79.899 OTHER FURNITURE DESIGNER (CURRENT) DRUG THERAPY 06/26/2017 JERALD CHAVEZ, CLAUDIO Reagan Ot M25.372 OTHER INSTABILITY, LEFT ANKLE 06/26/2017 CLAUDIO MARQUES MD Ot M25.572 PAIN IN LEFT ANKLE AND JOINTS OF LEFT FO 06/26/2017 BRAD PIÑA MD, Ot K21.9 GASTRO-ESOPHAGEAL REFLUX DISEASE WITHOUT 06/26/2017 BRAD PIÑA MD, Ot K27.9 PEPTIC ULC, SITE UNSP, UNSP AC OR CHR 06/26/2017 BRAD PIÑA MD Ot R19.5 OTHER FECAL ABNORMALITIES 06/26/2017 BRAD PIÑA MD, Ot Z01.818 ENCOUNTER FOR OTHER PREPROCEDURAL EXAMIN 06/26/2017 JERALD CHAVEZ, CLAUDIO Reagan Ot M76.61 ACHILLES TENDINITIS, RIGHT LEG 06/26/2017 SUJIT NARAYAN APRN Ot M76.62 ACHILLES TENDINITIS, LEFT LEG 06/26/2017 SUJIT NARAYAN N CON[employer] SUPERVISOR Ot M79.604 PAIN IN RIGHT LEG 06/26/2017 SUJIT NARAYAN N [employer]ER[employer] SUPERVISOR Ot M79.605 PAIN IN LEFT LEG 06/26/2017 YOANNA DPM, MEJIA Q Ot E11.9 TYPE 2 DIABETES MELLITUS WITHOUT COMPLIC 06/26/2017 YOANNA DPM, MEJIA Q Ot M86.9 OSTEOMYELITIS, UNSPECIFIED 06/26/2017 YOANNA DPM, MEJIA Q Ot Z53.09 PROC/TRTMT NOT CARRIED OUT BECAUSE OF CO 06/26/2017 YOANNA DPM, MEJIA Q Ot 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 06/26/2017 YOANNA DPM, MEJIA Q Ot Z79.4 [facility] (CURRENT) USE OF INSULIN 06/26/2017 JERALD CHAVEZ, CLAUDIO Reagan Ot D64.9 ANEMIA, UNSPECIFIED 06/26/2017 CLAUDIO MARQUES MD Ot D50.0 IRON DEFICIENCY ANEMIA SECONDARY TO BLOO 06/26/2017 BARB CHUA MD, Ot D64.9 ANEMIA, UNSPECIFIED 06/26/2017 BARB CHUA MD, Ot D72.819 DECREASED WHITE BLOOD CELL COUNT, UNSPEC 06/26/2017 BARB CHUA MD, Ot E03.9 HYPOTHYROIDISM, UNSPECIFIED 06/26/2017 BARB CHUA MD, Ot E11.22 TYPE 2 DIABETES MELLITUS W DIABETIC POLICE RADIO DISPATCHER 06/26/2017 BARB CHUA MD, Ot E78.5 HYPERLIPIDEMIA, UNSPECIFIED 06/26/2017 BARB CHUA MD, Ot I13.0 HYP HRT CHR [place] DIS W HRT FAIL AND ST 06/26/2017 BARB CHUA MD, Ot I25.10 ATHSCL HEART DISEASE OF [place] CORONARY 06/26/2017 BARB CHUA MD, Ot I27.20 PULMONARY HYPERTENSION, UNSPECIFIED 06/26/2017 BARB CHUA MD, Ot I48.91 UNSPECIFIED ATRIAL FIBRILLATION 06/26/2017 BARB CHUA MD, Ot I50.9 HEART FAILURE, UNSPECIFIED 06/26/2017 BARB CHUA MD, Ot J44.9 CHRONIC OBSTRUCTIVE PULMONARY DISEASE, U 06/26/2017 BARB CHUA MD, Ot N18.9 CHRONIC KIDNEY DISEASE, UNSPECIFIED 06/26/2017 BARB CHUA MD, Ot 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 06/26/2017 BARB CHUA MD, Ot Z79.4 [facility] (CURRENT) USE OF INSULIN 06/26/2017 BARB CHUA MD Ot Z79.899 OTHER [facility] (CURRENT) DRUG THERAPY 06/30/2017 BARB CHUA MD, Ot D64.9 ANEMIA, UNSPECIFIED 06/30/2017 BARB CHUA MD Ot D72.819 DECREASED WHITE BLOOD CELL COUNT, UNSPEC 06/30/2017 BARB CHUA MD Ot E03.9 HYPOTHYROIDISM, UNSPECIFIED 06/30/2017 BARB CHUA MD Ot E11.22 TYPE 2 DIABETES MELLITUS W DIABETIC POLICE RADIO DISPATCHER 06/30/2017 BARB CHUA MD Ot E78.5 HYPERLIPIDEMIA, UNSPECIFIED 06/30/2017 BARB CHUA MD Ot I13.0 HYP HRT CHR [place] DIS W HRT FAIL AND ST 06/30/2017 BARB CHUA MD Ot I25.10 ATHSCL HEART DISEASE OF [place] CORONARY 06/30/2017 BARB CHUA MD Ot I27.20 PULMONARY HYPERTENSION, UNSPECIFIED 06/30/2017 BARB CHUA MD Ot I48.91 UNSPECIFIED ATRIAL FIBRILLATION 06/30/2017 BARB CHUA MD Ot I50.9 HEART FAILURE, UNSPECIFIED 06/30/2017 BARB CHUA MD Ot J44.9 CHRONIC OBSTRUCTIVE PULMONARY DISEASE, U 06/30/2017 BARB CHUA MD, Ot N18.9 CHRONIC KIDNEY DISEASE, UNSPECIFIED 06/30/2017 BARB CHUA MD Ot Z79.01 [facility] (CURRENT) USE OF ANTICOAGULANT 06/30/2017 BARB CHUA MD Ot 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 06/30/2017 BARB CHUA MD, Ot Z79.899 OTHER [facility] (CURRENT) DRUG THERAPY 07/23/2017 BARB CHUA MD, Ot D64.9 ANEMIA, UNSPECIFIED 07/23/2017 BARB CHUA MD Ot D72.819 DECREASED WHITE BLOOD CELL COUNT, UNSPEC 07/23/2017 BARB CHUA MD Ot E03.9 HYPOTHYROIDISM, UNSPECIFIED 07/23/2017 BARB CHUA MD Ot E11.22 TYPE 2 DIABETES MELLITUS W DIABETIC POLICE RADIO DISPATCHER 07/23/2017 BARB CHUA MD Ot E78.5 HYPERLIPIDEMIA, UNSPECIFIED 07/23/2017 BARB CHUA MD Ot I13.0 HYP HRT CHR [place] DIS W HRT FAIL AND ST 07/23/2017 BARB CHUA MD Ot I25.10 ATHSCL HEART DISEASE OF [place] CORONARY 07/23/2017 BARB CHUA MD, Ot I27.20 PULMONARY HYPERTENSION, UNSPECIFIED 07/23/2017 BARB CHUA MD, Ot I48.91 UNSPECIFIED ATRIAL FIBRILLATION 07/23/2017 BARB CHUA MD, Ot I50.9 HEART FAILURE, UNSPECIFIED 07/23/2017 BARB CHUA MD, Ot J44.9 CHRONIC OBSTRUCTIVE PULMONARY DISEASE, U 07/23/2017 BARB CHUA MD, Ot N18.9 CHRONIC KIDNEY DISEASE, UNSPECIFIED 07/23/2017 BARB CHUA MD, Ot Z79.01 [facility] (CURRENT) USE OF ANTICOAGULANT 07/23/2017 BARB CHUA MD, Ot 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 07/23/2017 BARB CHUA MD, Ot Z79.899 OTHER FURNITURE DESIGNER (CURRENT) DRUG THERAPY Procedures Code Description Performed By Performed On 37.72 INITIAL INSERT TRANS LEADS INTO ATRIUM 10/01/2011 37.83 INITIAL INSERTION OF DUAL- CHAMBER DEVICE 10/01/2011 Results Test Result Range Capillary blood glucose measurement by glucometer (mass/volume) - 12/17/15 01: 51 Capillary blood glucose measurement by glucometer (mass/volume) 208 mg/dL 70-110 Capillary blood glucose measurement by glucometer (mass/volume) - 12/17/15 02: 39 Capillary blood glucose measurement by glucometer (mass/volume) 171 mg/dL 70-110 Complete blood count (CBC) with automated white blood cell (WBC) differential - 03/13/16 17:04 Blood leukocytes automated count (number/volume) 4.8 10*3/uL 4.3-11.0 Blood erythrocytes automated count (number/volume) 3.96 10*6/uL 4.35-5.85 Venous blood hemoglobin measurement (mass/volume) 11.4 g/dL 13.3-17.7 Blood hematocrit (volume fraction) 36 % 40-54 Automated erythrocyte mean corpuscular volume 90 [foz_us] 80-99 Automated erythrocyte mean corpuscular hemoglobin (mass per erythrocyte) 29 pg 25-34 Automated erythrocyte mean corpuscular hemoglobin concentration measurement ( mass/volume) 32 g/dL 32-36 Automated erythrocyte distribution width ratio 14.0 % 10.0-14.5 Automated blood platelet count (count/volume) 117 10*3/uL 130-400 Automated blood platelet mean volume measurement 12.4 [foz_us] 7.4-10.4 Automated blood neutrophils/100 leukocytes 80 % 42-75 Automated blood lymphocytes/100 leukocytes 11 % 12-44 Blood monocytes/100 leukocytes 9 % 0-12 Automated blood eosinophils/100 leukocytes 0 % 0-10 Automated blood basophils/100 leukocytes 0 % 0-10 Blood neutrophils automated count (number/volume) 3.8 10*3 1.8-7.8 Blood lymphocytes automated count (number/volume) 0.5 10*3 1.0-4.0 Blood monocytes automated count (number/volume) 0.4 10*3 0.0-1.0 Automated eosinophil count 0.0 10*3/uL 0.0-0.3 Automated blood basophil count (count/volume) 0.0 10*3/uL 0.0-0.1 PT panel in platelet poor plasma by coagulation assay - 03/13/16 17:04 Prothrombin time (PT) in platelet poor plasma by coagulation assay 16.5 s 12.2-14.7 INR in platelet poor plasma or blood by coagulation assay 1.4 0.8-1.4 Activated partial thromboplastin time (aPTT) in platelet poor plasma bycoagulation assay - 03/13/16 17:04 Activated partial thromboplastin time (aPTT) in platelet poor plasma bycoagulation assay 28 s 24-35 Comprehensive metabolic panel - 03/13/16 17:04 Serum or plasma sodium measurement (moles/volume) 133 mmol/L 135-145 Serum or plasma potassium measurement (moles/volume) 4.1 mmol/L 3.6-5.0 Serum or plasma chloride measurement (moles/volume) 94 mmol/L 98-107 Carbon dioxide 27 mmol/L 21-32 Serum or plasma anion gap determination (moles/volume) 12 mmol/L 5-14 Serum or plasma urea nitrogen measurement (mass/volume) 23 mg/dL 7-18 Serum or plasma creatinine measurement (mass/volume) 1.31 mg/dL 0.60-1.30 Serum or plasma urea nitrogen/creatinine mass ratio 18 NRG Serum or plasma creatinine measurement with calculation of estimated glomerular filtration rate 55 NRG Serum or plasma glucose measurement (mass/volume) 453 mg/dL 70-105 Serum or plasma calcium measurement (mass/volume) 8.8 mg/dL 8.5-10.1 Serum or plasma total bilirubin measurement (mass/volume) 0.7 mg/dL 0.1-1.0 Serum or plasma alkaline phosphatase measurement (enzymatic activity/volume) 133 U/L 40-136 Serum or plasma aspartate aminotransferase measurement (enzymatic activity/ volume) 41 U/L 5-34 Serum or plasma alanine aminotransferase measurement (enzymatic activity/volume ) 46 U/L 0-55 Serum or plasma protein measurement (mass/volume) 6.3 g/dL 6.4-8.2 Serum or plasma albumin measurement (mass/volume) 3.9 g/dL 3.2-4.5 PT panel in platelet poor plasma by coagulation assay - 03/18/16 01:40 Prothrombin time (PT) in platelet poor plasma by coagulation assay 18.1 s 12.2-14.7 INR in platelet poor plasma or blood by coagulation assay 1.5 0.8-1.4 Activated partial thromboplastin time (aPTT) in platelet poor plasma bycoagulation assay - 03/18/16 01:40 Activated partial thromboplastin time (aPTT) in platelet poor plasma bycoagulation assay 42 s 24-35 Complete blood count (CBC) with automated white blood cell (WBC) differential - 03/18/16 01:46 Blood leukocytes automated count (number/volume) 6.4 10*3/uL 4.3-11.0 Blood erythrocytes automated count (number/volume) 3.76 10*6/uL 4.35-5.85 Venous blood hemoglobin measurement (mass/volume) 10.8 g/dL 13.3-17.7 Blood hematocrit (volume fraction) 34 % 40-54 Automated erythrocyte mean corpuscular volume 90 [foz_us] 80-99 Automated erythrocyte mean corpuscular hemoglobin (mass per erythrocyte) 29 pg 25-34 Automated erythrocyte mean corpuscular hemoglobin concentration measurement ( mass/volume) 32 g/dL 32-36 Automated erythrocyte distribution width ratio 14.4 % 10.0-14.5 Automated blood platelet count (count/volume) 104 10*3/uL 130-400 Automated blood platelet mean volume measurement 12.0 [foz_us] 7.4-10.4 Automated blood neutrophils/100 leukocytes 78 % 42-75 Automated blood lymphocytes/100 leukocytes 11 % 12-44 Blood monocytes/100 leukocytes 10 % 0-12 Automated blood eosinophils/100 leukocytes 1 % 0-10 Automated blood basophils/100 leukocytes 0 % 0-10 Blood neutrophils automated count (number/volume) 5.0 10*3 1.8-7.8 Blood lymphocytes automated count (number/volume) 0.7 10*3 1.0-4.0 Blood monocytes automated count (number/volume) 0.7 10*3 0.0-1.0 Automated eosinophil count 0.1 10*3/uL 0.0-0.3 Automated blood basophil count (count/volume) 0.0 10*3/uL 0.0-0.1 Blood lactic acid measurement (moles/volume) - 03/18/16 01:46 Blood lactic acid measurement (moles/volume) 1.0 mmol/L 0.5-2.0 Comprehensive metabolic panel - 03/18/16 01:46 Serum or plasma sodium measurement (moles/volume) 135 mmol/L 135-145 Serum or plasma potassium measurement (moles/volume) 4.3 mmol/L 3.6-5.0 Serum or plasma chloride measurement (moles/volume) 96 mmol/L 98-107 Carbon dioxide 27 mmol/L 21-32 Serum or plasma anion gap determination (moles/volume) 12 mmol/L 5-14 Serum or plasma urea nitrogen measurement (mass/volume) 22 mg/dL 7-18 Serum or plasma creatinine measurement (mass/volume) 1.06 mg/dL 0.60-1.30 Serum or plasma urea nitrogen/creatinine mass ratio 21 NRG Serum or plasma creatinine measurement with calculation of estimated glomerular filtration rate > NRG Serum or plasma glucose measurement (mass/volume) 212 mg/dL 70-105 Serum or plasma calcium measurement (mass/volume) 9.2 mg/dL 8.5-10.1 Serum or plasma total bilirubin measurement (mass/volume) 0.8 mg/dL 0.1-1.0 Serum or plasma alkaline phosphatase measurement (enzymatic activity/volume) 110 U/L 40-136 Serum or plasma aspartate aminotransferase measurement (enzymatic activity/ volume) 22 U/L 5-34 Serum or plasma alanine aminotransferase measurement (enzymatic activity/volume ) 25 U/L 0-55 Serum or plasma protein measurement (mass/volume) 6.5 g/dL 6.4-8.2 Serum or plasma albumin measurement (mass/volume) 3.8 g/dL 3.2-4.5 Serum or plasma troponin i.cardiac measurement (mass/volume) - 03/18/16 01:46 Serum or plasma troponin i.cardiac measurement (mass/volume) < ng/ mL <0.30 Serum or plasma lithium measurement (moles/volume) - 03/18/16 01:46 BNP level 103.1 pg/mL <100.0 Complete urinalysis with reflex to culture - 03/18/16 01:58 Urine color determination YELLOW NRG Urine clarity determination CLEAR NRG Urine pH measurement by test strip 6 5-9 Specific gravity of urine by test strip 1.015 1.016- 1.022 Urine protein assay by test strip, semi-quantitative 2+ NEGATIVE Urine glucose detection by automated test strip 1+ NEGATIVE Erythrocytes detection in urine sediment by light microscopy 1+ NEGATIVE Urine ketones detection by automated test strip NEGATIVE NEGATIVE Urine nitrite detection by test strip NEGATIVE NEGATIVE Urine total bilirubin detection by test strip NEGATIVE NEGATIVE Urine urobilinogen measurement by automated test strip (mass/volume) NORMAL NORMAL Urine leukocyte esterase detection by dipstick NEGATIVE NEGATIVE Automated urine sediment erythrocyte count by microscopy (number/high power field) RARE NRG Automated urine sediment leukocyte count by microscopy (number/high power field ) NONE NRG Bacteria detection in urine sediment by light microscopy NEGATIVE NRG Squamous epithelial cells detection in urine sediment by light microscopy RARE NRG Crystals detection in urine sediment by light microscopy NONE NRG Casts detection in urine sediment by light microscopy NONE NRG Mucus detection in urine sediment by light microscopy NEGATIVE NRG Complete urinalysis with reflex to culture NO NRG Capillary blood glucose measurement by glucometer (mass/volume) - 03/18/16 06: 28 Capillary blood glucose measurement by glucometer (mass/volume) 197 mg/dL 70-110 Capillary blood glucose measurement by glucometer (mass/volume) - 03/18/16 11: 31 Capillary blood glucose measurement by glucometer (mass/volume) 214 mg/dL 70-110 Capillary blood glucose measurement by glucometer (mass/volume) - 03/18/16 16: 34 Capillary blood glucose measurement by glucometer (mass/volume) 144 mg/dL 70-110 Capillary blood glucose measurement by glucometer (mass/volume) - 03/18/16 21: 56 Capillary blood glucose measurement by glucometer (mass/volume) 151 mg/dL 70-110 PT panel in platelet poor plasma by coagulation assay - 03/19/16 04:30 Prothrombin time (PT) in platelet poor plasma by coagulation assay 22.5 s 12.2-14.7 INR in platelet poor plasma or blood by coagulation assay 2.0 0.8-1.4 Capillary blood glucose measurement by glucometer (mass/volume) - 03/19/16 06: 19 Capillary blood glucose measurement by glucometer (mass/volume) 84 mg/dL 70-110 Capillary blood glucose measurement by glucometer (mass/volume) - 03/19/16 11: 50 Capillary blood glucose measurement by glucometer (mass/volume) 145 mg/dL 70-110 Capillary blood glucose measurement by glucometer (mass/volume) - 03/19/16 16: 19 Capillary blood glucose measurement by glucometer (mass/volume) 87 mg/dL 70-110 Capillary blood glucose measurement by glucometer (mass/volume) - 03/19/16 20: 58 Capillary blood glucose measurement by glucometer (mass/volume) 162 mg/dL 70-110 PT panel in platelet poor plasma by coagulation assay - 03/20/16 04:40 Prothrombin time (PT) in platelet poor plasma by coagulation assay 26.8 s 12.2-14.7 INR in platelet poor plasma or blood by coagulation assay 2.5 0.8-1.4 Capillary blood glucose measurement by glucometer (mass/volume) - 03/20/16 04: 50 Capillary blood glucose measurement by glucometer (mass/volume) 47 mg/dL 70-110 Capillary blood glucose measurement by glucometer (mass/volume) - 03/20/16 05: 37 Capillary blood glucose measurement by glucometer (mass/volume) 83 mg/dL 70-110 Capillary blood glucose measurement by glucometer (mass/volume) - 03/20/16 10: 39 Capillary blood glucose measurement by glucometer (mass/volume) 126 mg/dL 70-110 Capillary blood glucose measurement by glucometer (mass/volume) - 05/20/16 09: 04 Capillary blood glucose measurement by glucometer (mass/volume) 261 mg/dL 70-110 Methicillin resistant Staphylococcus aureus (MRSA) screening culture - 14:45 Methicillin resistant Staphylococcus aureus (MRSA) screening culture NEG NRG Capillary blood glucose measurement by glucometer (mass/volume) - 07/26/16 11: 27 Capillary blood glucose measurement by glucometer (mass/volume) 310 mg/dL 70-110 PT panel in platelet poor plasma by coagulation assay - 07/26/16 11:45 Prothrombin time (PT) in platelet poor plasma by coagulation assay 36.2 s 12.2-14.7 INR in platelet poor plasma or blood by coagulation assay 3.6 0.8-1.4 Activated partial thromboplastin time (aPTT) in platelet poor plasma bycoagulation assay - 07/26/16 11:45 Activated partial thromboplastin time (aPTT) in platelet poor plasma bycoagulation assay 57 s 24-35 Capillary blood glucose measurement by glucometer (mass/volume) - 07/26/16 12: 46 Capillary blood glucose measurement by glucometer (mass/volume) 355 mg/dL 70-110 Capillary blood glucose measurement by glucometer (mass/volume) - 08/16/16 11: 46 Capillary blood glucose measurement by glucometer (mass/volume) 238 mg/dL 70-110 PT panel in platelet poor plasma by coagulation assay - 08/16/16 11:53 Prothrombin time (PT) in platelet poor plasma by coagulation assay 16.0 s 12.2-14.7 INR in platelet poor plasma or blood by coagulation assay 1.3 0.8-1.4 Activated partial thromboplastin time (aPTT) in platelet poor plasma bycoagulation assay - 08/16/16 11:53 Activated partial thromboplastin time (aPTT) in platelet poor plasma bycoagulation assay 32 s 24-35 Bacteria identification in isolate by anaerobe culture - 08/16/16 14:25 Bacteria identification in isolate by anaerobe culture NG NRG Gram stain microscopy - 08/16/16 14:25 GRAM STAIN RESULT NO BACTERIA OBSERVED NRG Bacteria identification in wound by culture - 08/16/16 14:25 Bacteria identification in wound by culture NG NRG Bacteria identification in isolate by anaerobe culture - 08/16/16 14:55 Bacteria identification in isolate by anaerobe culture NG NRG Gram stain microscopy - 08/16/16 14:55 GRAM STAIN RESULT FEW WBC'S, NO BACTERIA OBSERVED NRG Bacteria identification in wound by culture - 08/16/16 14:55 Bacteria identification in wound by culture NG NRG Bacteria identification in isolate by anaerobe culture - 08/16/16 15:08 Bacteria identification in isolate by anaerobe culture NOANA NRG Gram stain microscopy - 08/16/16 15:08 GRAM STAIN RESULT FEW GRAM POSITIVE COCCI NRG Bacteria identification in isolate by anaerobe culture - 08/16/16 15:08 Bacteria identification in isolate by anaerobe culture NG NRG Gram stain microscopy - 08/16/16 15:08 GRAM STAIN RESULT NO BACTERIA OBSERVED NRG Bacteria identification in wound by culture - 08/16/16 15:08 Bacteria identification in wound by culture [id number] NRG FREE TEXT EXTERNAL SENSITIVITY REPORTED 08/19/16 8:20 NRG QUANTITY OF GROWTH Abundant Growth NRG Bacteria identification in wound by culture - 08/16/16 15:08 Bacteria identification in wound by culture NG NRG Bacterial susceptibility panel - 08/16/16 15:08 Gentamicin susceptibility test by minimum inhibitory concentration S NRG Erythromycin susceptibility test by minimum inhibitory concentration 4 NRG Vancomycin susceptibility test by minimum inhibitory concentration 1 NRG Ampicillin susceptibility test by minimum inhibitory concentration < = NRG Linezolid susceptibility test by minimum inhibitory concentration 2 NRG Bacterial susceptibility panel - 08/16/16 15:08 Oxacillin susceptibility test by minimum inhibitory concentration > = NRG Gentamicin susceptibility test by minimum inhibitory concentration < = NRG Clindamycin susceptibility test by minimum inhibitory concentration >= NRG Erythromycin susceptibility test by minimum inhibitory concentration >= NRG Trimethoprim/sulfamethoxazole susceptibility test by minimum inhibitoryconcentration 20 NRG Vancomycin susceptibility test by minimum inhibitory concentration 1 NRG Levofloxacin susceptibility test by minimum inhibitory concentration 4 NRG Rifampin susceptibility test by minimum inhibitory concentration <= NRG Tetracycline susceptibility test by minimum inhibitory concentration >= NRG Ciprofloxacin susceptibility test by minimum inhibitory concentration R NRG RED CELLS LEUKO REDUCED AS1 - 01/10/17 11:30 RED CELLS LEUKO REDUCED AS1 TRANSFUSED 01/10/17 1404 NRG Blood type T Indirect antibody screen panel - 01/10/17 11:30 ABO+Rh group OP NRG Transfusion band number [id number] NRG Blood group antibody screen NEGATIVE NRG Serum or plasma C reactive protein measurement (mass/volume) - 05/20/17 14:48 Serum or plasma C reactive protein measurement (mass/volume) 0.06 mg /dL 0.00-0.50 Erythrocyte sedimentation rate by westergren method - 05/20/17 14:48 Erythrocyte sedimentation rate by westergren method 8 mm 0-30 Encounters ACCT No. Visit Date/Time Discharge Status Pt. Type Provider Facility Loc./Unit Complaint [id number] 07/03/2017 08:06:00 07/03/2017 23:59:59 CLS Outpatient BARB CHUA MD [facility] ONC [id number] 05/20/2017 13:55:00 06/26/2017 16:16:00 DIS Outpatient ALCIDES SANTIAGO Arsen [facility] ONC [id number] 04/23/2017 00:36:00 04/23/2017 23:59:59 CLS Preadmit CLAUDIO MARQUES MD [facility] ANEMIA [id number] 01/22/2017 13:02:00 04/22/2017 00:01:00 DIS Outpatient CLAUDIO MARQUES MD [facility] ANEMIA [id number] 01/10/2017 10:57:00 01/10/2017 23:59:59 CLS Outpatient CLAUDIO MARQUES MD [facility] ANEMIA [id number] 08/16/2016 11:18:00 08/16/2016 17:15:00 DIS Outpatient YOANNA DPM, MEJIA Q [facility] OSTEOMYLITIS DISTAL PHALYNX,BILATERAL HALLUX [id number] 07/26/2016 11:15:00 07/26/2016 23:59:59 CLS Outpatient YOANNA DPM MEJIA Q [facility] OSTEOMYLITIS/DISTAL PHALAYNX GERMAN.HALLUX [id number] 07/24/2016 14:21:00 07/24/2016 14:59:00 DIS Outpatient YOANNA DPM MEJIA Q [facility] PREOP OSTEOMYLITIS DISTAL PHALAYNX GERMAN HALLUX [id number] 05/20/2016 08:46:00 05/20/2016 11:50:00 DIS Outpatient BRAD PIÑA MD [facility] ENDO WEIGHT LOSS,N,V [id number] 05/17/2016 05:41:00 05/17/2016 12:29:00 DIS Outpatient BRAD PIÑA MD [facility] PREOP WEIGHT LOSS [id number] 04/29/2016 11:38:00 04/29/2016 23:59:59 CLS Outpatient SUJIT NARAYAN APRN [facility] RAD PAIN IN LOWER LIMB BILATERAL [id number] 03/21/2016 06:37:00 03/21/2016 11:08:00 DIS Outpatient BRAD PIÑA MD [facility] PREOP WEIGHT LOSS [id number] 03/18/2016 02:45:00 03/20/2016 13:20:00 DIS Inpatient BRAD PIÑA MD [facility] 4TH FALL 03/13; FX R HIP; FX @ RIBS [id number] 03/13/2016 16:50:00 03/13/2016 19:45:00 DIS Emergency KOLBY JENNINGS [facility] ER FALL [id number] 01/15/2016 16:49:00 01/15/2016 23:59:59 CLS Outpatient SYLVAIN HEATHERDESHAUN DIAZN [facility] RAD M76.62 [id number] 01/04/2016 15:29:00 01/04/2016 23:59:59 CLS Outpatient CLAUDIO MARQUES MD [facility] RAD M76.61 [id number] 12/17/2015 01:32:00 12/17/2015 03:04:00 DIS Emergency ONDINA DRISCOLL DO [facility] ER BLOOD SUGAR [id number] 09/29/2015 13:52:00 09/29/2015 23:59:59 CLS Preadmit ALCIDES SANTIAGO [facility] ONC [id number] 09/21/2015 05:52:00 09/21/2015 23:59:59 CLS Outpatient BRAD PIÑA MD [facility] PREOP HEM POS STOOLS; GERD [id number] 07/04/2015 12:48:00 07/04/2015 23:59:59 CLS Outpatient CLAUDIO MARQUES MD [facility] RAD PAIN IN LEFT ANKLE AND FOOT [id number] 06/20/2015 14:53:00 06/20/2015 23:59:59 CLS Outpatient CLAUDIO MARQUES MD [facility] RAD INSTABILITY LT ANKLE [id number] 02/19/2015 22:48:00 02/20/2015 02:39:00 DIS Emergency BRUEGGEMANN MD, YAAKOV Allen [facility] ER POSS ELEVATED BLOOD SUGAR [id number] 10/24/2014 07:07:00 10/24/2014 09:55:00 DIS Outpatient BRAD PIÑA MD [facility] SDC EPIGASTRIC PAIN;ABD. PAIN;NAUSEA/VOMITING;WT. LOSS [id number] 10/20/2014 06:27:00 10/20/2014 23:59:59 CLS Outpatient BRAD PIÑA MD [facility] PREOP EPIGASTRIC MINDY; ABD. PAIN;NAUSEA/VOMITING;WT. LOSS [id number] 09/07/2014 20:29:00 09/07/2014 21:12:00 DIS Emergency YAAKOV NEVES MD [facility] ER L ARM TINGLING [id number] 08/05/2014 11:01:00 08/05/2014 23:59:59 CLS Outpatient SUJIT NARAYAN [employer] [facility] RAD ABD PAIN [id number] 06/06/2014 00:10:00 06/06/2014 23:59:59 CLS Preadmit SUJIT NARAYAN [employer] [facility] LAB COUMADIN MANGEMENT , A- FIB [id number] 05/01/2014 14:41:00 05/01/2014 23:59:59 CLS Outpatient SUJIT NARAYAN [employer] [facility] LAB COUMADIN MANGEMENT , A-FIB [id number] 04/04/2014 12:52:00 04/04/2014 23:59:59 CLS Outpatient CLAUDIO MARQUES MD [facility] RAD MASS ON LEFT LOWER EXTREMITY [id number] 04/04/2014 08:00:00 04/04/2014 23:59:59 CLS Preadmit CLAUDIO MARQUES MD [facility] RAD [id number] 04/01/2014 13:16:00 04/01/2014 23:59:59 CLS Outpatient SUJIT NARAYAN [employer] [facility] LAB GENERAL SYMPTOMS OF ILL DEFINED CONDITION [id number] 03/30/2014 13:39:00 03/30/2014 23:59:59 CLS Outpatient CLAUDIO MARQUES MD [facility] RAD PVD [id number] 03/22/2014 10:06:00 03/22/2014 23:59:59 CLS Outpatient CLAUDIO MARQUES MD [facility] LAB ELEVATED IPPM [id number] 01/28/2014 11:03:00 01/28/2014 16:33:00 DIS Emergency TANYA ARRIOLA APRN [facility] ER ABD PAIN [id number] 10/06/2013 20:36:00 10/06/2013 21:27:00 DIS Emergency TANYA ARRIOLA APRN [facility] ER SINUS DRAINAGE,UPPER BACK PAIN [id number] 09/20/2013 07:00:00 09/20/2013 10:40:00 DIS Outpatient BRAD PIÑA MD [facility] WT LOSS; GERD; CHANGE IN BOWEL HABITS [id number] 07/19/2013 12:52:00 09/19/2013 00:01:00 DIS Outpatient CLAUDIO MARQUES MD [facility] LOW IRON LEVEL [id number] 09/16/2013 07:26:00 09/16/2013 23:59:59 CLS Outpatient BRAD PIÑA MD [facility] PREOP WT LOSS; GERD; CHANGE IN BOWEL HABITS [id number] 04/25/2013 11:31:00 04/25/2013 13:05:00 DIS Emergency TANYA ARRIOAL APRN [facility] ER LEFT HAND NUMBNESS [id number] 09/11/2012 13:00:00 12/08/2012 00:01:00 DIS Outpatient CLAUDIO MARQUES MD [facility] HYPONATREMIA [id number] 10/29/2012 13:07:00 10/29/2012 23:59:59 CLS Outpatient CLAUDIO MARQUES MD [facility] RENAL IMPAIRMENT [id number] 08/17/2012 11:56:00 10/25/2012 00:01:00 DIS Outpatient KARTHIKEYAN HORTON MD [facility] LAB COUMADIN THERAPY [id number] 09/04/2012 13:57:00 09/04/2012 16:25:00 DIS Outpatient KAY LOPEZ [facility] SDC HYPONATREMIA [id number] 08/25/2012 13:05:00 09/01/2012 14:12:00 DIS Outpatient JERALD CHAVEZ, CLAUDIO Reagan [facility] WOUNDCARE NON-HEALING WOUND ON LT FOOT,DECUBITUS ULCER ON LT [id number] 08/22/2012 12:05:00 08/22/2012 23:59:59 CLS Outpatient [id number] 08/12/2012 23:45:00 08/12/2012 23:58:00 DIS Emergency KANDY BUTLER DO [facility] ER BS TO LOW [id number] 08/10/2012 13:49:00 08/10/2012 23:59:59 CLS Outpatient [id number] 04/23/2015 12:19:00 ACT Inpatient CHELO ALVARADO MD [facility] 4TH MULT RIB FX [id number] 03/30/2014 13:39:00 Document Registration [id number] 03/30/2014 13:39:00 Document Registration [id number] 03/07/2014 14:34:00 Document Registration [id number] 03/07/2014 14:34:00 Document Registration [id number] 09/20/2013 00:00:00 Document Registration [id number] 12/09/2012 00:00:00 Document Registration [id number] 10/26/2012 00:00:00 Document Registration [id number] 08/10/2012 09:00:00 Document Registration [id number] 06/29/2012 14:16:00 Document Registration [id number] 06/19/2012 09:26:00 Document Registration [id number] 06/15/2012 08:32:00 Document Registration [id number] 06/05/2012 14:51:00 Document Registration [id number] 06/04/2012 14:23:00 Document Registration [id number] 04/06/2012 13:42:00 Document Registration [id number] 03/05/2012 13:27:00 Document Registration [id number] 12/30/2011 13:10:00 Document Registration [id number] 12/25/2011 00:00:00 Document Registration [id number] 10/07/2011 11:13:00 Document Registration [id number] 10/01/2011 14:15:00 Document Registration [id number] 09/25/2011 17:16:00 Document Registration [id number] 09/04/2011 16:10:00 Document Registration [id number] 08/04/2011 12:29:00 Document Registration [id number] 04/18/2011 10:15:00 Document Registration [id number] 03/03/2011 14:48:00 Document Registration [id number] 01/08/2011 09:51:00 Document Registration [id number] 01/08/2011 09:42:00 Document Registration [id number] 12/28/2010 15:54:00 Document Registration [id number] 12/28/2010 14:26:00 Document Registration [id number] 12/13/2010 18:21:00 Document Registration [id number] 12/10/2010 16:39:00 Document Registration [id number] 11/29/2010 13:04:00 Document Registration [id number] 10/11/2010 12:24:00 Document Registration [id number] 09/09/2010 01:55:00 Document Registration [id number] 07/23/2010 12:20:00 Document Registration [id number] 07/18/2010 02:15:00 Document Registration [id number] 06/06/2010 09:11:00 Document Registration [id number] 05/31/2010 15:10:00 Document Registration [id number] 03/13/2010 13:55:00 Document Registration [id number] 02/23/2010 02:57:00 Document Registration [id number] 12/22/2009 09:45:00 Document Registration [id number] 12/19/2009 15:50:00 Document Registration [id number] 11/21/2009 10:15:00 Document Registration [id number] 10/06/2009 20:18:00 Document Registration [id number] 10/05/2009 21:22:00 Document Registration [id number] 09/25/2009 00:05:00 Document Registration [id number] 04/26/2009 12:04:00 Document Registration [id number] 10/12/2008 16:01:00 Document Registration [id number] 10/24/2014 07:07:57 ACT Document Registration
== END 2017-08-03 20:18 | disposition left against medical advice (07) ==
LOC: EDUNIT# 14:57 → ER 14:59
DX: M25.552 Pain in left hip (principal); R50.9 Fever, unspecified; R53.1 Weakness; J44.9 Chronic obstructive pulmonary disease, unspecified; I25.10 Atherosclerotic heart disease of native coronary artery without angina pectoris; K21.9 Gastro-esophageal reflux disease without esophagitis; K59.09 Other constipation; K58.9 Irritable bowel syndrome, unspecified; E11.9 Type 2 diabetes mellitus without complications; E03.9 Hypothyroidism, unspecified; F41.9 Anxiety disorder, unspecified; F32.9 Major depressive disorder, single episode, unspecified; D64.9 Anemia, unspecified; Z87.19 Personal history of other diseases of the digestive system; Z95.0 Presence of cardiac pacemaker; Z95.2 Presence of prosthetic heart valve; Z95.5 Presence of coronary angioplasty implant and graft; Z90.49 Acquired absence of other specified parts of digestive tract; Z96.661 Presence of right artificial ankle joint; Z79.01 Long term (current) use of anticoagulants; Z79.4 Long term (current) use of insulin; Z88.1 Allergy status to other antibiotic agents; Z88.2 Allergy status to sulfonamides; Z88.6 Allergy status to analgesic agent; W18.09XA Striking against other object with subsequent fall, initial encounter; Y92.009 Unspecified place in unspecified non-institutional (private) residence as the place of occurrence of the external cause
CPT/HCPCS: 36415; 70450; 71045; 80053; 80320; 84443; 84484; 85025; 93005; 96361; 96372; 96374

== ENCOUNTER → 2017-09-11 | Outpatient (CLI) | payer MEDICARE, OTHER ==
[~2017-09-11] VITALS: Ht 172.7 cm; Wt 67.1 kg
[2017-09-11] VITALS (8 sets, daily range): BP systolic 100–131; BP diastolic 30–54
[~2017-09-11] MED LIST changes: +ACETAMINOPHEN 500 MG TAB (TYLENOL) ONE; +ACETAMINOPHEN 500 MG TAB (TYLENOL) PO ONE; -AMIO200T2 PO; +AMIO200T4 PO; -CODE118S2 PO; +CODE118S4 PO; +NS IV 500 ML 500 ML ONE; +NS IV ONE; +VITAMIN K IV ONE
== END ==
LOC: SDC 11:54
DX: D64.9 Anemia, unspecified (principal); R79.1 Abnormal coagulation profile
CPT/HCPCS: 36415; 36430; 86850; 86900; 86901; 86920

== ENCOUNTER 2017-11-26 12:40 | Outpatient (RCR) | payer MEDICARE, OTHER ==
[2017-11-21 12:55] VITALS: BP 105/44
[2017-11-21] MEDS: IRON SUCROSE INJECTION 200 MG in NS (IVPB) 100 ML IV SCH (13:46)
[2017-11-24 12:10] VITALS: BP 116/51
[2017-11-24] MEDS: IRON SUCROSE INJECTION 200 MG in NS (IVPB) 100 ML IV SCH (12:50)
[~2017-11-26] VITALS: Ht 172.7 cm; Wt 68.0 kg
[~2017-11-26 12:40] MED LIST changes: -ACETAMINOPHEN 500 MG TAB (TYLENOL) ONE; -ACETAMINOPHEN 500 MG TAB (TYLENOL) PO ONE; +IRON SUCROSE 200 MG/10 ML (VENOFER) VIAL IV SCH; +METF-397 PO; -METF500T5 PO; -NS IV 500 ML 500 ML ONE; -NS IV ONE; -OXYC-197 PO; +OXYC1TAB87 PO; -VITAMIN K IV ONE
[2017-11-26] MEDS: IRON SUCROSE INJECTION 200 MG in NS (IVPB) 100 ML IV SCH (13:01)
[2017-11-26 13:02] VITALS: BP 135/55
[2017-11-28 07:45] VITALS: BP 132/63
== END 2017-12-14 | disposition home or self-care (01) ==
LOC: SDC 12:40
DX: D64.9 Anemia, unspecified (principal); D72.819 Decreased white blood cell count, unspecified; I13.0 Hypertensive heart and chronic kidney disease with heart failure and stage 1 through stage 4 chronic kidney disease, or unspecified chronic kidney disease; I50.9 Heart failure, unspecified; N18.9 Chronic kidney disease, unspecified; E11.22 Type 2 diabetes mellitus with diabetic chronic kidney disease; I25.10 Atherosclerotic heart disease of native coronary artery without angina pectoris; I48.91 Unspecified atrial fibrillation; J44.9 Chronic obstructive pulmonary disease, unspecified; E78.5 Hyperlipidemia, unspecified; E03.9 Hypothyroidism, unspecified; I27.20 Pulmonary hypertension, unspecified; Z79.01 Long term (current) use of anticoagulants; Z79.4 Long term (current) use of insulin; Z79.899 Other long term (current) drug therapy
CPT/HCPCS: 96365

== ENCOUNTER 2018-03-08 19:03 | Inpatient (IN) | payer MEDICARE, OTHER | END 2018-03-20 13:01 | disposition swing bed (61) | LOC: ICU 03-11 03:40 → 4TH 03-13 04:43 → ICU 03-12 00:09 → ER 19:03 | DX: J18.1 Lobar pneumonia, unspecified organism (principal); K52.9 Noninfective gastroenteritis and colitis, unspecified; J44.0 Chronic obstructive pulmonary disease with (acute) lower respiratory infection; F11.20 Opioid dependence, uncomplicated; I48.91 Unspecified atrial fibrillation; D69.6 Thrombocytopenia, unspecified; D64.9 Anemia, unspecified; R79.1 Abnormal coagulation profile; E11.9 Type 2 diabetes mellitus without complications; E11.43 Type 2 diabetes mellitus with diabetic autonomic (poly)neuropathy; E03.9 Hypothyroidism, unspecified; K58.9 Irritable bowel syndrome, unspecified; K21.9 Gastro-esophageal reflux disease without esophagitis; I10 Essential (primary) hypertension; I25.10 Atherosclerotic heart disease of native coronary artery without angina pectoris; F41.9 Anxiety disorder, unspecified; F32.9 Major depressive disorder, single episode, unspecified; K40.90 Unilateral inguinal hernia, without obstruction or gangrene, not specified as recurrent; E78.00 Pure hypercholesterolemia, unspecified; G89.29 Other chronic pain; Z95.0 Presence of cardiac pacemaker; Z95.5 Presence of coronary angioplasty implant and graft; Z79.4 Long term (current) use of insulin; Z90.49 Acquired absence of other specified parts of digestive tract; Z91.81 History of falling; Z95.2 Presence of prosthetic heart valve; Z96.651 Presence of right artificial knee joint; Z96.0 Presence of urogenital implants ==

== ENCOUNTER 2018-03-20 11:24 | Inpatient (IN) | payer MEDICARE, OTHER ==
[~2018-03-20] VITALS: Ht 172.7 cm; Wt 73.0 kg
[~2018-03-20 11:24] MED LIST changes: +ENOX80DI7 SC; -IRON SUCROSE 200 MG/10 ML (VENOFER) VIAL IV SCH; +LEVO175T5 PO; +METF-399 PO; +OXYC-465 PO
[2018-03-20] MEDS ORDERED: PATIENT MAY USE OWN MEDS, ALL MC SCH (13:15)
[2018-03-20] MEDS ORDERED: CATHETER FLUSH 10 ML SYR IV PRN (13:15)
[2018-03-20] MEDS ORDERED: ONDANSETRON 4 MG/2 ML (SDV) Z0FRAN IV PRN (13:15)
[2018-03-20] MEDS ORDERED: guaiFENesin/DM (ROBITUSSIN DM) 10 ML UDC PO PRN (13:15)
[2018-03-20] MEDS ORDERED: HURRICAINE EXT TUBE (BENZOCAINE) XX PRN (13:15)
--- NOTE | 2018-03-20 13:39 | NUR ---
OCTAVIA AVENDANO admitted to swing bed status to room 426-1, with an admitting diagnosis of SWB weakness, pneum, elctrolyte imbal, debility, on 03/20/18 from acute inpatient status. PT Therapy to evaluate patient for activity needs. OCTAVIA AVENDANO and/or family introduced to surroundings, call light, bed controls, phone, TV, temperature control, lights, meal times, smoking policy, visitor policy, side rail policy, bathrooms, and showers. Patient rights given to patient in the handbook.. OCTAVIA AVENDANO and/or family member verbalized understanding that [facility] is not responsible for the loss or damage to any personal effects or valuables that are kept in the patients possession during their hospitalization. The following care plans were discussed with OCTAVIA AVENDANO: Discharge Plannning,HIGH RISK INJURY, FL VOL DEFICIT, AND HIGH RISK INFECTION. OCTAVIA AVENDANO and/or family verbalizes understanding of the Interdisciplinary Patient Education. Patient and/or family were informed about the Rapid Response Team and its purpose. Call light with in reach and patient demonstrates understanding of how to use. OCTAVIA AVENDANO reports no further needs at this time. THIS IS A SWING BED TRANSFER -- SAME RM AND SAME BED -- IV SITE IN R FA
[2018-03-20] MEDS ORDERED: RT-ALBUTEROL/IPRATROPIUM 3 ML (DUONEB) VIAL INH PRN (13:45)
--- NOTE | 2018-03-20 14:49 | NUR ---
Admission Drug Regimen Review: Date: 03/20/18 Time: 1449 Review Completed, No Issues found
--- NOTE | 2018-03-20 14:56 | ST Dysphagia Evaluation ---
Speech Evaluation-General Medical Diagnosis Pneumonia Onset Date: Mar 09, 2018 Therapy Diagnosis Therapy Diagnosis: Oropharyngeal Dysphagia Precautions Precautions: Aspiration Medical History Pertinent Medical History: Atrial Fib, CAD, DM, GERD, HTN Reviewed History: Yes Speech PLF/Current-Dysphagia Prior Level of Function Prior to hospital admit the patient was able to eat most anything he wanted ( per patient) Subjective Patient much more alert and attentive to the evaluation process. Cognitive Status Patient Orientation: Person, Place, Time, Situation Oral Motor Skills Dentition: Edentalous Denture Type: Full- Upper & Lower Current Food Consistancy: Mechanical Soft, Dysphagia Soft, Ground Meats, Thin Liquids Ability to Follow Directions: Excellent Patient states he wears his dentures when he is home. Oral Expression Ability: Mild Impairment Voice Voice Phonatory-Based Quality: Normal Voice Pitch: Normal Voice Loudness: Mildly Soft/Quiet Face Facial Symmetry: Symmetrical Oral-Facial Assessment Oral-Facial Dentition: Normal Labial Seal Description: Normal Smile: Normal Puff Cheeks: Normal Patient's oral motor function has significantly improved. Lingual Protrusion: Normal Lingual ROM: Normal Lingual Strength: Normal Gag Reflex Response: Normal Pharynx Velopharyngeal Move.: Normal Volitional Dry Swallow: Yes Voluntary Cough: Yes Can Clear Throat Volitionally: Yes Productive Cough: No Productive Throat Clear: No Dysphagia Evaluation Consistencies Presented: Thin Liquid, Mechanical Soft, Ground Dysphagia Evaluation Summary Patient is known to me during this hospital admission. Patient is a pleasant 67 year old male who was admitted to the hospital due to pneumonia and decline in overall function. Patient has progressed well with all therapies and has shown significant progress overall. Patient has not had a large percent of oral intake , however now that his medical status has improved he is able to consume more with small meals throughout the day. Patient does not exhibit any difficulty with presented consistencies. Patient will be on a Dysphagia II level diet at this time. Barriers to Learning Patient has some weakness from his current hospitalization and complex medical status. Speech Short Term Goals Short Term Goals Short Term Goals 1) Patient will utilize compensatory strategies as trained with 90% or greater. 2) Patient will tolerate least restrictive diet level without s/s of aspiration at 90% or greater. 3) Patient will consume an adequate amount for meeting his nutritional needs at 90% or greater. Speech Snf Goals Crib Attendant Goals Patient will maintain adequate nutrition/hydration via safe effective swallow function. Speech-Plan Patient/Family Goals Patient/Family Goals: Patient will return home with family upon hospital discharge. Treatment Plan Speech Therapy Treatment Plan: Continue Plan of Care Patient is progressing well. Treatment Duration: Mar 27, 2018 Frequency: 5 times per week Estimated Hrs Per Day: .25 hour per day Rehab Potential: Good Barriers to Learning: Patient continues to have some weakness secondary to this hospital admission. Pt/Family Agrees to Plan: Yes Safety Risks/Education Teaching Recipient: Patient Teaching Methods: Discussion Response to Teaching: Verbalize Understanding Education Topics Provided: Safety of oral intake. Time Speech Therapy Time In: 14:35 Speech Therapy Time Out: 14:50 Total Billed Time: 15 Billed Treatment Time 1, LOULOU Smith Mar 20, 2018 14:56
--- NOTE | 2018-03-20 15:21 | Occupational Therapy Eval ---
OT Evaluation-General/PLF Medical Diagnosis Admission Date Mar 20, 2018 at 13:17 Medical Diagnosis: Pneumonia Onset Date: Mar 09, 2018 Therapy Diagnosis Therapy Diagnosis: decreased self care Height/Weight Height (Feet): 5 Height (Inches): 8.00 Weight (Pounds): 161 Weight (Ounces): 0.0 Medical History Pertinent Medical History: Atrial Fib, CAD, DM, GERD, HTN Additional Medical History heart disease, aortic valve replacement Reviewed History: Yes Social History Home: Single Level Entry Into Home: Stairs Without Railing Steps Into Home: 2 ADL-Prior Level of Function Therapy Code Descriptions/Definitions Functional [place] Measure: 0=Not Assessed/NA 4=Minimal Assistance 1=Total Assistance 5=Supervision or Setup 2=Maximal Assistance 6=Modified [place] 3=Moderate Assistance 7=Complete [place] Therapy Quality Codes: 6 Independent with activity with or without an assistive device 5 Patient requires set up or clean up by helper. Patient completes activity by themselves 4 Supervision or touching assist (CGA). [place] provide cues , steadying assist 3 The helper provides less than half the effort to complete the activity 2 The helper provides more than half the effort to complete the activity 1 Dependent. The helper does all the effort to complete an activity 7 Patient refused to complete or attempt activity 9 The patient did not perform the activity before the current illness or injury 88 Not attempted due to Medical conditions or safety concerns Functional Abilities and Goals: Independent: Patient completed the activities by him/herself, with or without an assistive device, with no assistance from a helper. Needed Some Help: Patient needed partial assistance from another person to complete activities. Dependent: A helper completed the activities for the patient. Unknown: Not Applicable: ADL PLOF Comments Pt reports being independent prior to hospitalization. Used a 4WW or cane as needed. DME/Equipment: Bath Chair, Tall Toilet, Tub/Shower OT Current Status Subjective Pt in bed, agrees to therapy. Pt states he doesn't have any pain, but his bottom is sore. Mental Status/Objective Patient Orientation: Person, Place Attachments: IV, Oxygen Current Glasses/Contacts: Yes Dentures/Partials: Yes Hand Dominance: Right Upper Extremity ROM Grossly WFL Upper Extremity Coordination Fair Upper Extremity Strength Grossly 3+/5 ADL-Treatment ADL-Current Pt supine to sit with assist for trunk. Pt sat EOB with SBA for balance. Washed face and combed hair with SBA. Pt performed sit to stand with minimal assistance. Sidesteps to HOB with minimal assistance using FWW. Sit to supine with assist for LE. Pt resting in bed with needs met and speech therapist present after session. Eating (FIM): 5 (Pt reports feeding self after set up) Eating (QC): 5 Grooming (FIM): 5 Oral Hygiene (QC): 4 Education OT Patient Education: Rehab process Teaching Recipient: Patient Teaching Methods: Discussion Response to Teaching: Verbalize Understanding OT Short Term Goals Short Term Goals 1=Demonstrate adherence to instructed precautions during ADL tasks. 2=Patient will verbalize/demonstrate understanding of assistive devices/ modifications for ADL. 3=Patient will improve strength/tolerance for activity to enable patient to perform ADL's. OT Personal Financial Advisor Goals Personal Financial Advisor Goals Time Frame: Apr 03, 2018 Eating (FIM): 6 Eating (QC): 6 Bathing(FIM): 5 Shower/Bathe Self (QC): 4 Upper Body Dressing(FIM): 5 Upper Body Dressing (QC): 5 Lower Body Dressing(FIM): 5 Lower Body Dressing (QC): 5 Toileting(FIM): 5 Toileting Hygiene (QC): 5 Toilet/Commode Transfer(FIM): 5 Toilet/Commode Transfer (QC): 5 Additional Goals: 1-Demonstrate ADL Tasks, 2-Verbalize Understanding, 3- ImproveStrength/Natacha 1=Demonstrate adherence to instructed precautions during ADL tasks. 2=Patient will verbalize/demonstrate understanding of assistive devices/ modifications for ADL. 3=Patient will improve strength/tolerance for activity to enable patient to perform ADL's. OT Education/Plan Problem List/Assessment Assessment: Decreased Activ Tolerance, Decreased UE Strength, Dependent Transfers, Impaired Self-Care Skills Pt demonstrates decreased ADL functioning, mobility, strength, and activity tolerance. Pt to benefit from skilled OT intervention for ADL training, transfers, strengthening, and safety education to increase independence and allow safe discharge. Discharge Recommendations Plan/Recommendations: Continue POC Treatment Plan/Plan of Care Treatment,Training & Education: Yes Patient would benefit from OT for education, treatment and training to promote independence in ADL's, mobility, safety and/or upper extremity function for ADL' s. Plan of Care: ADL Retraining, Functional Mobility, UE Funct Exercise/Act Treatment Duration: Apr 03, 2018 Frequency: 5 times per week Estimated Hrs Per Day: .25 hour per day Rehab Potential: Good Time/GCodes Start Time: 14:11 Stop Time: 14:35 Total Time Billed (hr/min): 24 Billed Treatment Time 1 visit, EVM(9minutes), ADL(15minutes) GUERA BYERS OT Mar 20, 2018 15:21
--- NOTE | 2018-03-20 15:39 | Physical Therapy Evaluation ---
PT Evaluation-General Medical Diagnosis Admission Date Mar 20, 2018 at 13:17 Medical Diagnosis: Pneumonia Onset Date: Mar 09, 2018 Therapy Diagnosis Therapy Diagnosis: impaired mobility, strength, endurance Height/Weight Height (Feet): 5 Height (Inches): 8.00 Weight (Pounds): 161 Weight (Ounces): 0.0 Weight Bear Status Right Lower Extremity: Right Weight Bearing/Tolerated Left Lower Extremity: Left Weight Bearing/Tolerated Referral Physician: Rosemarie Bragg MD Reason for Referral: Evaluation/Treatment Medical History Pertinent Medical History: Atrial Fib, CAD, DM, GERD, HTN Additional Medical History Past Medical History Surgeries: Amputation, Bowel Surgery, Cardiac, Coronary Stent, Gallbladder, Orthopedic, Pacemaker, Valve Replacement Currently Using CPAP: No Currently Using BIPAP: No Cardiac: Atrial Fibrillation, Coronary Artery Disease, High Cholesterol, Hypertension, Valvular Heart Disease Reproductive: No Sexually Transmitted Disease: No HIV/AIDS: No Gastrointestinal: Gastroesophageal Reflux, Chronic Constipation, Diverticulosis , Irritable Bowel Endocrine: Diabetes, Insulin dep, Hypothyroidsim Loss of Vision: Bilateral Hearing Impairment: Denies Psychosocial: Anxiety, Depression Reviewed History: Yes Social History Home: Single Level Current Living Status: Children Entry Into Home: Stairs Without Railing Patient states that his son lives with him and he just has one or two very small steps to enter his home. Prior/Core FIM Prior Level of Function Therapy Code Descriptions/Definitions Functional [place] Measure: 0=Not Assessed/NA 4=Minimal Assistance 1=Total Assistance 5=Supervision or Setup 2=Maximal Assistance 6=Modified [place] 3=Moderate Assistance 7=Complete [place] Therapy Quality Codes: 6 Independent with activity with or without an assistive device 5 Patient requires set up or clean up by helper. Patient completes activity by themselves 4 Supervision or touching assist (CGA). Deer provide cues , steadying assist 3 The helper provides less than half the effort to complete the activity 2 The helper provides more than half the effort to complete the activity 1 Dependent. The helper does all the effort to complete an activity 7 Patient refused to complete or attempt activity 9 The patient did not perform the activity before the current illness or injury 88 Not attempted due to Medical conditions or safety concerns Functional Abilities and Goals: Independent: Patient completed the activities by him/herself, with or without an assistive device, with no assistance from a helper. Needed Some Help: Patient needed partial assistance from another person to complete activities. Dependent: A helper completed the activities for the patient. Unknown: Not Applicable: Bed Mobility: 6 Transfers (B,C,W/C) (FIM): 6 Gait: 6 Stairs: 6 Indoor Mobility (Ambulation): Independent Stairs: Independent Patient states he was using a rolling walker previously. PT Evaluation-Current Subjective Patient in bed pre tx, agrees to PT, has 6/10 pain on his bottom. Patient states his bottom is raw and his heels are cracking. Patient states that his nurse is aware of this and those areas are being treated. Pt/Family Goals "to get stronger and walk better" Objective Patient Orientation: Person, Place, Situation Attachments: Oxygen, Amador Catheter 6L of O2 nasal canula ROM/Strength ROM Lower Extremities WNL except patient doesn't have full extension of his knees Strenght Lower Extremities 4/5 gross bilateral lower extremities Neuromuscular (Tone, Coordination, Reflexes) NT Sensory Vision: Functional Hearing: Functional Sensation Right Lower Extremit: Intact Sensation Left Lower Extremity: Intact Transfers Therapy Code Descriptions/Definitions Functional [place] Measure: 0=Not Assessed/NA 4=Minimal Assistance 1=Total Assistance 5=Supervision or Setup 2=Maximal Assistance 6=Modified [place] 3=Moderate Assistance 7=Complete [place] Therapy Quality Codes: 6 Independent with activity with or without an assistive device 5 Patient requires set up or clean up by helper. Patient completes activity by themselves 4 Supervision or touching assist (CGA). Deer provide cues , steadying assist 3 The helper provides less than half the effort to complete the activity 2 The helper provides more than half the effort to complete the activity 1 Dependent. The helper does all the effort to complete an activity 7 Patient refused to complete or attempt activity 9 The patient did not perform the activity before the current illness or injury 88 Not attempted due to Medical conditions or safety concerns Transfers (B, C, W/C) (FIM): 4 Scootin Rollin Roll Left to Right (QC): 4 Supine to/from Sit: 5 Sit to/from Stand: 4 Sit to Lying (QC): 3 Lying to Sitting/Side of Bed(Q: 4 Sit to Stand (QC): 4 Chair/Nhx-zc-Tebby Xfer(QC): 4 Patient performs bed mobility with SBA, needs min assist to get one leg into bed during sit to supine, CGA for sit to stand, CGA for transfers. Gait Does the Patient Walk?: Yes Mode of Locomotion: Walk Anticipated Mode of Locomotion: Walk Gait (FIM): 2 Walk 10 feet (QC): 4 Walk 50 ft with 2 Turns(QC): 4 Distance: 50' Gait Level of Assist: 4 Gait Persons Needed: 1 Gait Assistive Device: FWW Comments/Gait Description Patient ambulated 50' with a rolling walker with CGA. He ambulates extremely slowly but had no LOB or unsteadiness, did not need a rest break. Balance Sitting Static: Good Sitting Dynamic: Good Standing Static: Good Standing Dynamic: Good Treatment supine exercises x15 (AP, QS, GS, HS, SLR) Assessment/Needs Patient has impairments of mobility, strength, endurance. Needs assist for sit to supine. Rehab Potential: Fair PT Alf Goals Steel Wheel Engraver Goals PT Steel Wheel Engraver Goals Time Frame: Mar 27, 2018 Transfers (B,C,W/C) (FIM): 5 Sit to Lying (QC): 4 Lying-Sitting on Side/Bed(QC): 4 Sit to Stand (QC): 4 Rollin Roll Left to Right (QC): 4 Chair/Iiu-lx-Sfgbt Xfer(QC): 4 Gait (FIM): 2 Distance: 100' Walk 10 feet (QC): 4 Walk 10ft-Uneven Surface(QC): 4 Walk 50ft with 2 Turns (QC): 4 Gait Level of Assist: 5 Gait Assistive Device: FWW PT Plan Problem List Problem List: Activity Tolerance, Functional Strength, Safety, Balance, Gait, Transfer, Bed Mobility, ROM Treatment/Plan Treatment Plan: Continue Plan of Care Treatment Plan: Bed Mobility, Education, Functional Activity Natacha, Functional Strength, Gait, Safety, Therapeutic Exercise, Transfers Treatment Duration: Mar 27, 2018 Frequency: 6 times per week Estimated Hrs Per Day: .25 hour per day (15-30') Patient and/or Family Agrees t: Yes Safety Risks/Education Patient Education: Gait Training, Transfer Techniques, Correct Positioning, Safety Issues Teaching Recipient: Patient Teaching Methods: Demonstration, Discussion Response to Teaching: Reinforcement Needed Discharge Recommendations Plan Patient will perform bed mobility and transfer training, balance and endurance training, functional strengthening, stair training, gait training, and education , to improve functional mobility and independence at home. Therapy D/C Recommendations: Home w/ Family Support, Senior Living (TCU/NH) Time/GCodes Time In: 1505 Time Out: 1535 Total Billed Treatment Time: 30 Total Billed Treatment 1 visit EVM 20' GT 10' JORDYN VELEZ PT Mar 20, 2018 15:39
[2018-03-20] MEDS: RT-ALBUTEROL/IPRATROPIUM 3 ML (DUONEB) VIAL INH SCH ×2 (15:45→21:32)
[2018-03-20] MEDS: inSUlin ASPART (NovoLOG) 1 UNIT/0.01 ML (CHARGE PER UNIT) SC SCH ×2 (16:18→21:32)
[2018-03-20] MEDS: warFARin 1 MG (COUMADIN) TAB PO SCH (17:38)
[2018-03-20] MEDS: MAGNESIUM OXIDE (MAG-OX)400 MG TAB PO SCH (17:39)
[2018-03-20 18:00] VITALS: BP 104/58
[2018-03-20] MEDS: BENZONATATE 100 MG (TESSALON) CAPSULE PO PRN (18:14)
[2018-03-20] MEDS: ALPRAZolam 1 MG (XANAX) TAB PO PRN (18:14)
[2018-03-20] MEDS: LEVOTHYROXINE 25 MCG (LEVOTHROID) TAB PO SCH (20:25)
[2018-03-20] MEDS: DEMECLOCYCLINE PO SCH (20:25)
[2018-03-20] MEDS: TAMSULOSIN 0.4 MG (FLOMAX) CAP PO SCH (20:25)
[2018-03-20] MEDS: LEVOTHYROXINE 150 MCG (LEVOTHROID) TAB PO SCH (20:25)
[2018-03-20] MEDS: PANTOPRAZOLE 40 MG (PROTONIX) TAB PO SCH (20:25)
[2018-03-20] MEDS: AMIODARONE 200 MG (CORDARONE) TAB PO SCH (20:25)
[2018-03-20] MEDS: SIMvastatin 20 MG (ZOCOR) TAB PO SCH (20:25)
[2018-03-20] MEDS: RT-BUDESONIDE NEBS 0.5 MG/2ML (PULMICORT) AMP INH SCH (21:32)
[2018-03-21] MEDS: oxyCODONE/APAP 10/325MG (PERCOCET 10) TABLET PO PRN ×3 (00:08→20:39)
[2018-03-21] MEDS: BENZONATATE 100 MG (TESSALON) CAPSULE PO PRN ×3 (00:08→20:39)
[2018-03-21] MEDS: RT-ALBUTEROL/IPRATROPIUM 3 ML (DUONEB) VIAL INH SCH ×4 (03:40→20:19)
[2018-03-21 05:00] VITALS: BP 118/70
[2018-03-21] MEDS: PANTOPRAZOLE 40 MG (PROTONIX) TAB PO SCH ×2 (05:05→20:39)
[2018-03-21] MEDS: inSUlin ASPART (NovoLOG) 1 UNIT/0.01 ML (CHARGE PER UNIT) SC SCH ×4 (05:05→20:40)
[2018-03-21] MEDS: ALPRAZolam 1 MG (XANAX) TAB PO PRN ×2 (08:43→20:39)
[2018-03-21] MEDS: MAGNESIUM OXIDE (MAG-OX)400 MG TAB PO SCH ×2 (08:43→17:02)
[2018-03-21] MEDS: DEMECLOCYCLINE PO SCH ×2 (08:43→20:39)
[2018-03-21] MEDS: AMIODARONE 200 MG (CORDARONE) TAB PO SCH ×2 (08:43→20:39)
[2018-03-21] MEDS: SOLIQUA SQ SCH ×2 (08:44→09:36)
[2018-03-21] MEDS: RT-BUDESONIDE NEBS 0.5 MG/2ML (PULMICORT) AMP INH SCH ×2 (08:58→20:19)
--- NOTE | 2018-03-21 09:57 | Physical Therapy Daily Note ---
PT Daily Note-Current Subjective Pt sitting up in bed finishing breakfast upon arrival. Pt agrees to PT but wants pain med, pain 10/10. Pain Numeric Pain Scale: 10-Worst Possible Pain Pain Description: Ache Comment: Pt reports generalized achy pain throughout body. Mental Status Patient Orientation: Person, Place, Time, Situation Attachments: Oxygen Transfers Therapy Code Descriptions/Definitions Functional [place] Measure: 0=Not Assessed/NA 4=Minimal Assistance 1=Total Assistance 5=Supervision or Setup 2=Maximal Assistance 6=Modified [place] 3=Moderate Assistance 7=Complete [place] Therapy Quality Codes: 6 Independent with activity with or without an assistive device 5 Patient requires set up or clean up by helper. Patient completes activity by themselves 4 Supervision or touching assist (CGA). [place] provide cues , steadying assist 3 The helper provides less than half the effort to complete the activity 2 The helper provides more than half the effort to complete the activity 1 Dependent. The helper does all the effort to complete an activity 7 Patient refused to complete or attempt activity 9 The patient did not perform the activity before the current illness or injury 88 Not attempted due to Medical conditions or safety concerns Weight Bearing Right Lower Extremity: Right Weight Bearing/Tolerated Left Lower Extremity: Left Weight Bearing/Tolerated Exercises Supine Ex: Ankle pumps, Quad Set, Glut sets, Heel Slides, Straight leg raise, Hip abd/add Supine Reps: 15 Treatments Pt reports pain upon arrival. ANIMAL CARE TAKER notifies Nurse. Pt completes Supine Ex in bed with rest breaks as needed. Pt resting in bed with all needs met at end of tx. Assessment Current Status: Good Progress Pt has moments of confusion & reports pain but this pain does not limit participation in PT. PT Correctional Corporal Goals Correctional Corporal Goals PT Senior Care Goals Time Frame: Mar 27, 2018 Transfers (B,C,W/C) (FIM): 5 Sit to Lying (QC): 4 Lying-Sitting on Side/Bed(QC): 4 Sit to Stand (QC): 4 Rollin Roll Left to Right (QC): 4 Chair/Nrk-kv-Rpcmn Xfer(QC): 4 Gait (FIM): 2 Distance: 100' Walk 10 feet (QC): 4 Walk 10ft-Uneven Surface(QC): 4 Walk 50ft with 2 Turns (QC): 4 Gait Level of Assist: 5 Gait Assistive Device: FWW PT Plan Problem List Problem List: Activity Tolerance, Functional Strength Treatment/Plan Treatment Plan: Continue Plan of Care Treatment Plan: Bed Mobility, Education, Functional Activity Natacha, Functional Strength, Gait, Safety, Therapeutic Exercise, Transfers Treatment Duration: Mar 27, 2018 Frequency: 6 times per week Estimated Hrs Per Day: .25 hour per day (15-30') Patient and/or Family Agrees t: Yes Safety Risks/Education Patient Education: Correct Positioning, Safety Issues Teaching Recipient: Patient Teaching Methods: Discussion Response to Teaching: Verbalize Understanding Time/GCodes Time In: 825 Time Out: 849 Total Billed Treatment Time: 24 Total Billed Treatment 1, EX x2 (24m) G Codes Necessary: KIKO Valentine ANIMAL CARE TAKER Mar 21, 2018 09:57
--- NOTE | 2018-03-21 10:45 | Cardiology Progress Note ---
Subjective Date Seen by Provider: Mar 21, 2018 Time Seen by Provider: 10:42 Subjective/Events-last exam patient is laying down in bed, feeling well. Reporting improvement Review of Systems General: No Chills, No Night Sweats, No Fatigue, No Malaise, No Appetite, No Other HEENT: No Head Aches, No Visual Changes, No Eye Pain, No Ear Pain, No Dysphasia , No Sinus Congestion, No Post Nasal Drip, No Sore Throat, No Other Pulmonary: No Dyspnea, No Cough, No Pleuritic Chest Pain, No Other Cardiovascular: No: Chest Pain, Palpitations, Orthopnea, Paroxysmal Noc. Dyspnea, Edema, Lt Headedness, Other Objective-Cardiology Exam Last Set of Vital Signs Vital Signs 03/21/18 03/21/18 05:00 09:02 Temp 97.6 Pulse 65 Resp 18 B/P (MAP) 118/70 (86) Pulse Ox 95 O2 Delivery High Flow N/C O2 Flow Rate 5.00 Capillary Refill : I&O Intake and Output 03/21/18 00:00 Intake Total 1185 ml Output Total 775 ml Balance 410 ml Intake Oral 1185 ml Output Urine Total 775 ml # Bowel Movements 2 Daily Weight Change No General: Alert, Oriented X3, Cooperative HEENT: Atraumatic, PERRLA Neck: Supple, No JVD, No Thyromegaly Lungs: Clear to Auscultation, Normal Air Movement Heart: Normal S1, Normal S2, No Murmurs, Other (systolic murmur at the left sternal border) Abdomen: Normal Bowel Sounds, Soft, No Tenderness, No Hepatosplenomegaly, No Masses Extremities: No Clubbing, No Cyanosis, No Edema, Normal Pulses, No Tenderness/ Swelling Skin: No Rashes, No Breakdown, No Significant Lesion Neuro: Normal Gait, Normal Speech, Strength at 5/5 X4 Ext, Normal Tone, Sensation Intact Psych/Mental Status: Mental Status NL, Mood NL Results Lab Laboratory Tests Test 03/20/18 16:08 03/20/18 21:22 03/21/18 05:05 Range/Units Glucometer 113 H 190 H 164 H 70-110 MG/DL A/P-Cardiology Admission Diagnosis Debility Pneumonia Paroxysmal atrial fibrillation Hypertension Assessment/Plan Generalized weakness and debility, receiving therapy Persistent pneumonia, receiving antibiotic, managed by primary care team next Status post Coumadin toxicity for which she received FFP and vitamin K, currently INR is therapeutic, continue to monitor and adjust dose Status post anemia, received blood transfusion, continue to monitor History of aortic valve replacement, on Coumadin, continue to adjust and monitor INR Paroxysmal atrial fibrillation, maintained on amiodarone. Continue to monitor Elevated liver enzymes, appear to be improving slowly compared to the previous admission. Continue to monitor Leukopenia, monitored and followed by primary care physician Permanent pacemaker, functioning normally. Continue to monitor Diabetes mellitus, followed and managed by primary care physician Hypertension, continue to monitor blood pressure, restart medication Hyperlipidemia, continue to monitor lipids. Hypothyroidism, followed and managed by primary care physician Clinical Quality Measures DVT/VTE Risk/Contraindication: Risk Factor Score Per Nursin KARTHIKEYAN HORTON MD Mar 21, 2018 10:45
--- NOTE | 2018-03-21 15:29 | Pulmonary Progress Note ---
Subjective Time Seen by a Provider: 15:28 Subjective/Events-last exam PT now swing bed no complications noted. Sepsis Event Evaluation Height, Weight, BMI Height: 5'8.00" Weight: 161lbs. 0.0oz. 73.972975lk; 23.8 BMI Method:Stated Exam Exam Vital Signs Date Time Temp Pulse Resp B/P (MAP) Pulse Ox O2 Delivery O2 Flow Rate FiO2 03/21/18 15:06 94 High Flow N/C 5.00 03/21/18 09:02 95 High Flow N/C 5.00 03/21/18 09:00 95 High Flow N/C 5.00 03/21/18 08:57 92 High Flow N/C 7.00 03/21/18 05:00 97.6 65 18 118/70 (86) 92 High Flow N/C 5.00 03/21/18 03:40 90 Nasal Cannula 7.00 03/20/18 21:32 92 Nasal Cannula 7.00 03/20/18 21:32 90 Nasal Cannula 7.00 03/20/18 21:29 Nasal Cannula 6.00 03/20/18 18:00 97.6 62 18 104/58 (73) 94 High Flow N/C 5.00 03/20/18 15:46 93 Nasal Cannula 5.00 I & O 03/21/18 07:00 Intake Total 1385 ml Output Total 1325 ml Balance 60 ml Height & Weight Height: 5'8.00" Weight: 161lbs. 0.0oz. 73.594199mq; 23.8 BMI Method:Stated General Appearance: Anxious HEENT: PERRL/EOMI, Normal ENT Inspection, Pharynx Normal Neck: Full Range of Motion, Normal Inspection, Non Tender, Supple Respiratory: Chest Non Tender, No Accessory Muscle Use, No Respiratory Distress Cardiovascular: Regular Rate, Rhythm, No Edema Capillary Refill: Less Than 3 Seconds Gastrointestinal: normal bowel sounds, non tender, soft, no organomegaly Extremity: Normal Capillary Refill, Normal Inspection Neurologic/Psychiatric: Alert, Oriented x3 Skin: Normal Color, Warm/Dry Lymphatic: No Adenopathy Assessment/Plan Assessment/Plan Resolving Pneumonia -Repeat CXR - shows stability of hilar infiltrates -Will repeat as out patient Hypoxia -Pt will need home 02 -He is currently requiring 5 liters of oxygen. Gastritis s/p EGD Metabolic encephalopathy - improved Anemia with Coumadin coagulopathy -Coumadin dosing per Dr. Antonia strong -Monitor Hx of aortic valve replacement -Coumadin therapy Debility/deconditioning S/P fall at home LUKE BLEDSOE DO Mar 21, 2018 15:29
[2018-03-21] MEDS: warFARin 1 MG (COUMADIN) TAB PO SCH (17:01)
[2018-03-21 18:00] VITALS: BP 110/50
[2018-03-21] MEDS: LEVOTHYROXINE 25 MCG (LEVOTHROID) TAB PO SCH (20:39)
[2018-03-21] MEDS: LEVOTHYROXINE 150 MCG (LEVOTHROID) TAB PO SCH (20:39)
[2018-03-21] MEDS: TAMSULOSIN 0.4 MG (FLOMAX) CAP PO SCH (20:39)
[2018-03-21] MEDS: SIMvastatin 20 MG (ZOCOR) TAB PO SCH (20:40)
[2018-03-22] MEDS: RT-ALBUTEROL/IPRATROPIUM 3 ML (DUONEB) VIAL INH SCH ×4 (02:46→20:19)
[2018-03-22] MEDS: inSUlin ASPART (NovoLOG) 1 UNIT/0.01 ML (CHARGE PER UNIT) SC SCH ×4 (05:57→21:28)
[2018-03-22 06:00] VITALS: BP 144/78
[2018-03-22] MEDS: PANTOPRAZOLE 40 MG (PROTONIX) TAB PO SCH ×2 (06:03→21:26)
[2018-03-22 06:08] LABS: INR 3.1 (0.8-1.4); PROTHROMBIN TIME PATIENT 32.3 SEC (12.2-14.7)
--- NOTE | 2018-03-22 06:53 | Pulmonary Progress Note ---
Subjective Time Seen by a Provider: 06:52 Subjective/Events-last exam No complications noted. SOB is stable he is still requiring 5 liters of oxygen Sepsis Event Evaluation Height, Weight, BMI Height: 5'8.00" Weight: 161lbs. 0.0oz. 73.401880hf; 23.8 BMI Method:Stated Exam Exam Vital Signs Date Time Temp Pulse Resp B/P (MAP) Pulse Ox O2 Delivery O2 Flow Rate FiO2 03/22/18 06:00 97.8 60 18 144/78 (100) 98 High Flow N/C 5.00 03/22/18 02:47 94 High Flow N/C 3.00 03/21/18 20:25 93 High Flow N/C 3.00 03/21/18 20:20 93 High Flow N/C 3.00 03/21/18 19:40 96 High Flow N/C 5.00 03/21/18 18:00 98.6 61 20 110/50 (70) 96 5.00 03/21/18 15:06 94 High Flow N/C 5.00 03/21/18 09:02 95 High Flow N/C 5.00 03/21/18 09:00 95 High Flow N/C 5.00 03/21/18 08:57 92 High Flow N/C 7.00 I & O 03/22/18 07:00 Intake Total 1620 ml Output Total 1200 ml Balance 420 ml Height & Weight Height: 5'8.00" Weight: 161lbs. 0.0oz. 73.501168jj; 23.8 BMI Method:Stated Assessment/Plan Assessment/Plan Resolving Pneumonia -Repeat CXR - shows stability of hilar infiltrates -Will repeat as out patient Hypoxia -Pt will need home 02 -He is currently requiring 5 liters of oxygen. Gastritis s/p EGD Metabolic encephalopathy - improved Anemia with Coumadin coagulopathy -Coumadin dosing per Dr. Antonia strong -Monitor Hx of aortic valve replacement -Coumadin therapy Debility/deconditioning S/P fall at home LUKE BLEDSOE DO Mar 22, 2018 06:53
[2018-03-22] MEDS: BENZONATATE 100 MG (TESSALON) CAPSULE PO PRN (07:00)
[2018-03-22] MEDS: oxyCODONE/APAP 10/325MG (PERCOCET 10) TABLET PO PRN ×2 (07:00→21:26)
[2018-03-22 07:45] VITALS: BP 115/44
[2018-03-22] MEDS: IRON SUCROSE 200 MG/10 ML (VENOFER) VIAL IV SCH (08:05)
[2018-03-22] MEDS: SOLIQUA SQ SCH (08:05)
[2018-03-22] MEDS: AMIODARONE 200 MG (CORDARONE) TAB PO SCH ×2 (08:05→21:26)
[2018-03-22] MEDS: DEMECLOCYCLINE PO SCH ×2 (08:05→21:26)
[2018-03-22] MEDS: MAGNESIUM OXIDE (MAG-OX)400 MG TAB PO SCH ×2 (08:05→17:12)
[2018-03-22] MEDS: ALPRAZolam 1 MG (XANAX) TAB PO PRN (08:05)
[2018-03-22 08:57] VITALS: BP 115/44
[2018-03-22] MEDS: RT-BUDESONIDE NEBS 0.5 MG/2ML (PULMICORT) AMP INH SCH ×2 (08:58→20:19)
--- NOTE | 2018-03-22 09:45 | Cardiology Progress Note ---
Subjective Date Seen by Provider: Mar 22, 2018 Time Seen by Provider: 09:44 Subjective/Events-last exam patient is laying down in bed, feeling better, still having generalized weakness Review of Systems General: No Chills, No Night Sweats, No Fatigue, No Malaise, No Appetite, No Other Pulmonary: Dyspnea; No Cough, No Pleuritic Chest Pain, No Other Cardiovascular: No: Chest Pain, Palpitations, Orthopnea, Paroxysmal Noc. Dyspnea, Edema, Lt Headedness, Other Objective-Cardiology Exam Last Set of Vital Signs Vital Signs 03/22/18 03/22/18 03/22/18 07:45 08:57 09:04 Temp 97.8 Pulse 60 Resp 18 B/P (MAP) 115/44 (67) Pulse Ox 96 O2 Delivery Nasal Cannula O2 Flow Rate 3.00 Capillary Refill : I&O Intake and Output 03/22/18 00:00 Intake Total 1120 ml Output Total 1350 ml Balance -230 ml Intake Oral 1120 ml Output Urine Total 1350 ml General: Alert, Oriented X3, Cooperative HEENT: Atraumatic, PERRLA Neck: Supple, No JVD, No Thyromegaly Lungs: Clear to Auscultation, Normal Air Movement Heart: Normal S1, Normal S2, No Murmurs, Other (systolic murmur at the left sternal border) Abdomen: Normal Bowel Sounds, Soft, No Tenderness, No Hepatosplenomegaly, No Masses Extremities: No Clubbing, No Cyanosis, No Edema, Normal Pulses, No Tenderness/ Swelling Skin: No Rashes, No Breakdown, No Significant Lesion Neuro: Normal Gait, Normal Speech, Strength at 5/5 X4 Ext, Normal Tone, Sensation Intact Psych/Mental Status: Mental Status NL, Mood NL Results Lab Laboratory Tests Test 03/21/18 11:11 03/21/18 15:59 03/21/18 20:19 03/22/18 04:53 Range/Units Glucometer 230 H 275 H 216 H 70-110 MG/DL Prothrombin Time 32.3 H 12.2-14.7 SEC INR Comment 3.1 H 0.8-1.4 Test 03/22/18 05:56 Range/Units Glucometer 180 H 70-110 MG/DL A/P-Cardiology Admission Diagnosis Debility Pneumonia Paroxysmal atrial fibrillation Hypertension Assessment/Plan Generalized weakness and debility, receiving therapy Persistent pneumonia, receiving antibiotic, managed by primary care team next Status post Coumadin toxicity for which she received FFP and vitamin K, currently INR is therapeutic, continue to monitor and adjust dose Status post anemia, received blood transfusion, continue to monitor History of aortic valve replacement, on Coumadin, continue to adjust and monitor INR Paroxysmal atrial fibrillation, maintained on amiodarone. Continue to monitor Elevated liver enzymes, appear to be improving slowly compared to the previous admission. Continue to monitor Leukopenia, monitored and followed by primary care physician Permanent pacemaker, functioning normally. Continue to monitor Diabetes mellitus, followed and managed by primary care physician Hypertension, continue to monitor blood pressure, restart medication Hyperlipidemia, continue to monitor lipids. Hypothyroidism, followed and managed by primary care physician Clinical Quality Measures DVT/VTE Risk/Contraindication: Risk Factor Score Per Nursin KARTHIKEYAN HORTON MD Mar 22, 2018 09:44
[2018-03-22] MEDS: warFARin 1 MG (COUMADIN) TAB PO SCH (17:12)
[2018-03-22 17:56] VITALS: BP 110/64
[2018-03-22] MEDS: SIMvastatin 20 MG (ZOCOR) TAB PO SCH (21:26)
[2018-03-22] MEDS: TAMSULOSIN 0.4 MG (FLOMAX) CAP PO SCH (21:26)
[2018-03-22] MEDS: LEVOTHYROXINE 150 MCG (LEVOTHROID) TAB PO SCH (21:26)
[2018-03-22] MEDS: LEVOTHYROXINE 25 MCG (LEVOTHROID) TAB PO SCH (21:26)
[2018-03-23] MEDS: RT-ALBUTEROL/IPRATROPIUM 3 ML (DUONEB) VIAL INH SCH ×4 (03:47→19:12)
[2018-03-23 04:00] VITALS: BP 130/58
[2018-03-23 04:46] LABS: HEMOGLOBIN 10.1 G/DL (13.3-17.7); MEAN PLATELET VOLUME 11.4 FL (7.4-10.4); RED BLOOD COUNT 3.45 10^6/uL (4.35-5.85); RED CELL DISTRIBUTION WIDTH 16.2 % (10.0-14.5); WHITE BLOOD COUNT 4.7 10^3/uL (4.3-11.0)
[2018-03-23 04:55] LABS: INR 3.2 (0.8-1.4); PROTHROMBIN TIME PATIENT 33.2 SEC (12.2-14.7)
[2018-03-23] MEDS: PANTOPRAZOLE 40 MG (PROTONIX) TAB PO SCH ×2 (05:56→20:18)
[2018-03-23] MEDS: oxyCODONE/APAP 10/325MG (PERCOCET 10) TABLET PO PRN ×2 (05:56→20:24)
[2018-03-23] MEDS: inSUlin ASPART (NovoLOG) 1 UNIT/0.01 ML (CHARGE PER UNIT) SC SCH ×4 (06:29→21:28)
--- NOTE | 2018-03-23 08:17 | Pulmonary Progress Note ---
Sepsis Event Evaluation Height, Weight, BMI Height: 5'8.00" Weight: 161lbs. 0.0oz. 73.397747cn; 23.8 BMI Method:Stated Exam Exam Vital Signs Date Time Temp Pulse Resp B/P (MAP) Pulse Ox O2 Delivery O2 Flow Rate FiO2 03/23/18 04:00 97.0 61 22 130/58 (82) 92 High Flow N/C 3.00 03/23/18 03:48 90 Nasal Cannula 3.00 03/22/18 20:25 90 Nasal Cannula 3.00 03/22/18 20:20 90 Nasal Cannula 3.00 03/22/18 20:00 Nasal Cannula 3.00 03/22/18 17:56 97.6 60 16 110/64 (79) 93 Nasal Cannula 5.00 03/22/18 14:25 93 Nasal Cannula 3.00 03/22/18 09:04 96 03/22/18 08:57 60 90 03/22/18 08:57 90 Nasal Cannula 3.00 I & O 03/23/18 07:00 Intake Total 1300 ml Output Total 500 ml Balance 800 ml Height & Weight Height: 5'8.00" Weight: 161lbs. 0.0oz. 73.737881tg; 23.8 BMI Method:Stated Results Lab Laboratory Tests 03/23/18 04:05 Assessment/Plan Assessment/Plan Resolving Pneumonia -Repeat CXR - shows stability of hilar infiltrates -Will repeat as out patient Hypoxia -Pt will need home 02 -He is currently requiring 5 liters of oxygen. Gastritis s/p EGD Metabolic encephalopathy - improved Anemia with Coumadin coagulopathy -Coumadin dosing per Dr. Antonia strong -Monitor Hx of aortic valve replacement -Coumadin therapy Debility/deconditioning S/P fall at home LUKE BLEDSOE DO Mar 23, 2018 08:17
--- NOTE | 2018-03-23 08:38 | Cardiology Progress Note ---
Subjective Date Seen by Provider: Mar 23, 2018 Time Seen by Provider: 08:37 Subjective/Events-last exam Patient is in bed, feeling better, no new complaint Review of Systems General: No Chills, No Night Sweats, No Fatigue, No Malaise, No Appetite, No Other HEENT: No Head Aches, No Visual Changes, No Eye Pain, No Ear Pain, No Dysphasia , No Sinus Congestion, No Post Nasal Drip, No Sore Throat, No Other Pulmonary: Dyspnea; No Cough, No Pleuritic Chest Pain, No Other Cardiovascular: No: Chest Pain, Palpitations, Orthopnea, Paroxysmal Noc. Dyspnea, Edema, Lt Headedness, Other Objective-Cardiology Exam Last Set of Vital Signs Vital Signs 03/23/18 04:00 Temp 97.0 Pulse 61 Resp 22 B/P (MAP) 130/58 (82) Pulse Ox 92 O2 Delivery High Flow N/C O2 Flow Rate 3.00 Capillary Refill : I&O Intake and Output 03/23/18 00:00 Intake Total 1900 ml Output Total 600 ml Balance 1300 ml Intake Oral 1900 ml Output Urine Total 600 ml General: Alert, Oriented X3, Cooperative HEENT: Atraumatic, PERRLA Neck: Supple, No JVD, No Thyromegaly Lungs: Clear to Auscultation, Normal Air Movement Heart: Normal S1, Normal S2, No Murmurs, Other (systolic murmur at the left sternal border) Abdomen: Normal Bowel Sounds, Soft, No Tenderness, No Hepatosplenomegaly, No Masses Extremities: No Clubbing, No Cyanosis, No Edema, Normal Pulses, No Tenderness/ Swelling Skin: No Rashes, No Breakdown, No Significant Lesion Neuro: Normal Gait, Normal Speech, Strength at 5/5 X4 Ext, Normal Tone, Sensation Intact Psych/Mental Status: Mental Status NL, Mood NL Results Lab Laboratory Tests 03/23/18 04:05 A/P-Cardiology Admission Diagnosis Debility Pneumonia Paroxysmal atrial fibrillation Hypertension Assessment/Plan Generalized weakness and debility, receiving therapy Persistent pneumonia, receiving antibiotic, managed by primary care team next Status post Coumadin toxicity for which she received FFP and vitamin K, currently INR is therapeutic, continue to monitor and adjust dose Status post anemia, received blood transfusion, continue to monitor History of aortic valve replacement, on Coumadin, continue to adjust and monitor INR 3.2 today Paroxysmal atrial fibrillation, maintained on amiodarone. Continue to monitor Elevated liver enzymes, appear to be improving slowly compared to the previous admission. Continue to monitor Leukopenia, monitored and followed by primary care physician Permanent pacemaker, functioning normally. Continue to monitor Diabetes mellitus, followed and managed by primary care physician Hypertension, continue to monitor blood pressure, restart medication Hyperlipidemia, continue to monitor lipids. Hypothyroidism, followed and managed by primary care physician Clinical Quality Measures DVT/VTE Risk/Contraindication: Risk Factor Score Per Nursin KARTHIKEYAN HORTON MD Mar 23, 2018 08:38
--- NOTE | 2018-03-23 08:55 | Physical Therapy Daily Note ---
PT Daily Note-Current Subjective Patient in bed pre tx, agrees to PT, has 7/10 pain in right knee, nurse notified of pain. Appearance Patient in recliner post tx with nurse call, phone, tray, chair alarm on. Mental Status Patient Orientation: Person, Place, Situation Attachments: Oxygen, Amador Catheter 3L of O2 nasal canula Transfers Therapy Code Descriptions/Definitions Functional [place] Measure: 0=Not Assessed/NA 4=Minimal Assistance 1=Total Assistance 5=Supervision or Setup 2=Maximal Assistance 6=Modified [place] 3=Moderate Assistance 7=Complete [place] Therapy Quality Codes: 6 Independent with activity with or without an assistive device 5 Patient requires set up or clean up by helper. Patient completes activity by themselves 4 Supervision or touching assist (CGA). [place] provide cues , steadying assist 3 The helper provides less than half the effort to complete the activity 2 The helper provides more than half the effort to complete the activity 1 Dependent. The helper does all the effort to complete an activity 7 Patient refused to complete or attempt activity 9 The patient did not perform the activity before the current illness or injury 88 Not attempted due to Medical conditions or safety concerns Transfers (B, C, W/C) (FIM): 5 Scootin Rollin Supine to/from Sit: 5 Sit to/from Stand: 5 Bed to/from Chair: 5 Appropriate use of hands when standing and sitting. Weight Bearing Right Lower Extremity: Right Weight Bearing/Tolerated Left Lower Extremity: Left Weight Bearing/Tolerated Gait Training Gait (FIM): 2 Distance: 50' Gait Level of Assist: 5 Gait Persons Needed: 1 Gait Assistive Device: FWW Patient ambulates extremely slowly but has steady gait, no LOB. Poor heel strike and foot clearance. Exercises Seated Therapy Exercises: Ankle pumps, Long arc quads Seated Reps: 10 Treatments bed mobility and transfers, ambulation, functional strengthening Assessment Current Status: Poor Progress no change in mobility, poor endurance and strength PT Snf Goals Roller Setter Goals PT Snf Goals Time Frame: Mar 27, 2018 Transfers (B,C,W/C) (FIM): 5 Sit to Lying (QC): 4 Lying-Sitting on Side/Bed(QC): 4 Sit to Stand (QC): 4 Rollin Roll Left to Right (QC): 4 Chair/Glf-vw-Mwcei Xfer(QC): 4 Gait (FIM): 2 Distance: 100' Walk 10 feet (QC): 4 Walk 10ft-Uneven Surface(QC): 4 Walk 50ft with 2 Turns (QC): 4 Gait Level of Assist: 5 Gait Assistive Device: FWW PT Plan Problem List Problem List: Activity Tolerance, Functional Strength, Safety, Balance, Gait, Transfer, Bed Mobility, ROM Treatment/Plan Treatment Plan: Continue Plan of Care Treatment Plan: Bed Mobility, Education, Functional Activity Natacha, Functional Strength, Gait, Safety, Therapeutic Exercise, Transfers Treatment Duration: Mar 27, 2018 Frequency: 6 times per week Estimated Hrs Per Day: .25 hour per day (15-30') Patient and/or Family Agrees t: Yes Safety Risks/Education Patient Education: Gait Training, Transfer Techniques, Correct Positioning, Safety Issues Teaching Recipient: Patient Teaching Methods: Demonstration, Discussion Response to Teaching: Reinforcement Needed Time/GCodes Time In: 0833 Time Out: 0850 Total Billed Treatment Time: 17 Total Billed Treatment 1 visit GT 17' JORDYN VELEZ PT Mar 23, 2018 08:54
[2018-03-23] MEDS: DEMECLOCYCLINE PO SCH ×2 (09:02→20:17)
[2018-03-23] MEDS: MAGNESIUM OXIDE (MAG-OX)400 MG TAB PO SCH ×2 (09:02→17:36)
[2018-03-23] MEDS: AMIODARONE 200 MG (CORDARONE) TAB PO SCH ×2 (09:02→20:18)
[2018-03-23] MEDS: SOLIQUA SQ SCH (09:03)
[2018-03-23] MEDS: ACETAMINOPHEN 500 MG TAB (TYLENOL) PO PRN (09:04)
[2018-03-23] MEDS: RT-BUDESONIDE NEBS 0.5 MG/2ML (PULMICORT) AMP INH SCH ×2 (09:29→19:12)
--- NOTE | 2018-03-23 09:30 | Speech Therapy Daily Note ---
Speech Daily Progress Note Subjective Date Seen by Provider: Mar 23, 2018 Time Seen by Provider: 00:15 Patient was sitting up in his recliner. He had just finished walking with PT. Objective Patient completed OME x10 with minimal cues. Assessment Assessment Current Status: Excellent Progress Treatment Plan Continue Plan of Care Speech Short Term Goals Short Term Goals Short Term Goals 1) Patient will utilize compensatory strategies as trained with 90% or greater. 2) Patient will tolerate least restrictive diet level without s/s of aspiration at 90% or greater. 3) Patient will consume an adequate amount for meeting his nutritional needs at 90% or greater. Speech Car And Yard Supervisor Goals Car And Yard Supervisor Goals Patient will maintain adequate nutrition/hydration via safe effective swallow function. Speech-Plan Patient/Family Goals Patient/Family Goals: Patient plans to return home with family support upon discharge from the hospital. Treatment Plan Speech Therapy Treatment Plan: Continue Plan of Care Patient is consuming a higher percentage overall. Treatment Duration: Mar 27, 2018 Frequency: 5 times per week Estimated Hrs Per Day: .25 hour per day Rehab Potential: Good Barriers to Learning: Patient continues to be weak. Pt/Family Agrees to Plan: Yes Safety Risks/Education Teaching Recipient: Patient Teaching Methods: Discussion Response to Teaching: Verbalize Understanding Education Topics Provided: Compensatory strategies for safe oral intake. Time Speech Therapy Time In: 09:00 Speech Therapy Time Out: 09:15 Total Billed Time: 15 Billed Treatment Time 1JENNIFER [address] ST Mar 23, 2018 09:30
--- NOTE | 2018-03-23 10:46 | Occupational Ther Daily Note ---
OT Current Status-Daily Note Subjective Pt alert, sitting in recliner. Pt agrees to therapy. Pt stated that he was tired and hurt, did not rate. Mental Status/Objective Patient Orientation: Person, Place, Time, Situation Therapy Code Descriptions/Definitions Functional [place] Measure: 0=Not Assessed/NA 4=Minimal Assistance 1=Total Assistance 5=Supervision or Setup 2=Maximal Assistance 6=Modified [place] 3=Moderate Assistance 7=Complete [place] Attachments: Amador Catheter, IV, Oxygen ADL-Treatment Pt given choice of sponge bath or exercises. Pt stated that he really wanted to get his back scrubbed. After set up for sponge bath, pt was able to wash upper body and lower body. Pt declined to take off socks and was to fatigued to stand and cleanse buttocks. Pt was able to thread arms into/out of hospital gown. Decreased activity tolerance, need to encourage to complete tasks for himself. After therapy, pt sitting in recliner with call light/phone in reach. All needs met in room. Therapy Code Descriptions/Definitions Functional [place] Measure: 0=Not Assessed/NA 4=Minimal Assistance 1=Total Assistance 5=Supervision or Setup 2=Maximal Assistance 6=Modified [place] 3=Moderate Assistance 7=Complete [place] Therapy Quality Codes: 6 Independent with activity with or without an assistive device 5 Patient requires set up or clean up by helper. Patient completes activity by themselves 4 Supervision or touching assist (CGA). [place] provide cues , steadying assist 3 The helper provides less than half the effort to complete the activity 2 The helper provides more than half the effort to complete the activity 1 Dependent. The helper does all the effort to complete an activity 7 Patient refused to complete or attempt activity 9 The patient did not perform the activity before the current illness or injury 88 Not attempted due to Medical conditions or safety concerns Bathing (FIM): 3 Bathing Location: L Arm, R Arm, L Upper Leg, R Upper Leg, Chest, Abdomen Shower/Bathe Self (QC): 3 OT Short Term Goals Short Term Goals 1=Demonstrate adherence to instructed precautions during ADL tasks. 2=Patient will verbalize/demonstrate understanding of assistive devices/ modifications for ADL. 3=Patient will improve strength/tolerance for activity to enable patient to perform ADL's. OT Retail Director Goals Shelter Goals Time Frame: Apr 03, 2018 Eating (FIM): 6 Eating (QC): 6 Bathing(FIM): 5 Shower/Bathe Self (QC): 4 Upper Body Dressing(FIM): 5 Upper Body Dressing (QC): 5 Lower Body Dressing(FIM): 5 Lower Body Dressing (QC): 5 Toileting(FIM): 5 Toileting Hygiene (QC): 5 Toilet/Commode Transfer(FIM): 5 Toilet/Commode Transfer (QC): 5 Additional Goals: 1-Demonstrate ADL Tasks, 2-Verbalize Understanding, 3- ImproveStrength/Natacha 1=Demonstrate adherence to instructed precautions during ADL tasks. 2=Patient will verbalize/demonstrate understanding of assistive devices/ modifications for ADL. 3=Patient will improve strength/tolerance for activity to enable patient to perform ADL's. OT Education/Plan Problem List/Assessment Pt demonstrates decreased ADL functioning, mobility, strength, and activity tolerance. Pt to benefit from skilled OT intervention for ADL training, transfers, strengthening, and safety education to increase independence and allow safe discharge. Discharge Recommendations Plan/Recommendations: Continue POC Treatment Plan/Plan of Care Patient would benefit from OT for education, treatment and training to promote independence in ADL's, mobility, safety and/or upper extremity function for ADL' s. Plan of Care: ADL Retraining, Functional Mobility, UE Funct Exercise/Act Treatment Duration: Apr 03, 2018 Frequency: 5 times per week Estimated Hrs Per Day: .25 hour per day Rehab Potential: Good Time/GCodes Start Time: 10:15 Stop Time: 10:30 Total Time Billed (hr/min): 15 Billed Treatment Time 1 visit-ADL 1 (15 min) EJ LEDESMA Mar 23, 2018 10:46
[2018-03-23] MEDS: MENTHOL/ZINC OXIDE (CALMOSEPTINE) 113 GM TUBE TOP SCH ×3 (13:10→20:18)
[2018-03-23] MEDS: DICLOFENAC 1% GEL 100 GM (VOLTAREN) TUBE TOP SCH ×3 (13:10→20:19)
[2018-03-23] MEDS: warFARin 1 MG (COUMADIN) TAB PO SCH (17:36)
[2018-03-23 18:03] VITALS: BP 145/64
[2018-03-23] MEDS: LEVOTHYROXINE 25 MCG (LEVOTHROID) TAB PO SCH (20:17)
[2018-03-23] MEDS: LEVOTHYROXINE 150 MCG (LEVOTHROID) TAB PO SCH (20:17)
[2018-03-23] MEDS: TAMSULOSIN 0.4 MG (FLOMAX) CAP PO SCH (20:18)
[2018-03-23] MEDS: SIMvastatin 20 MG (ZOCOR) TAB PO SCH (20:18)
[2018-03-24] MEDS: ALPRAZolam 1 MG (XANAX) TAB PO PRN (02:22)
[2018-03-24] MEDS: RT-ALBUTEROL/IPRATROPIUM 3 ML (DUONEB) VIAL INH SCH ×4 (02:44→19:21)
[2018-03-24 06:00] VITALS: BP 134/61
[2018-03-24] MEDS: inSUlin ASPART (NovoLOG) 1 UNIT/0.01 ML (CHARGE PER UNIT) SC SCH ×4 (06:43→21:18)
[2018-03-24] MEDS: oxyCODONE/APAP 10/325MG (PERCOCET 10) TABLET PO PRN ×2 (06:44→16:02)
[2018-03-24] MEDS: MENTHOL/ZINC OXIDE (CALMOSEPTINE) 113 GM TUBE TOP SCH ×5 (06:44→21:57)
[2018-03-24] MEDS: PANTOPRAZOLE 40 MG (PROTONIX) TAB PO SCH ×2 (06:44→21:58)
--- NOTE | 2018-03-24 07:12 | Pulmonary Progress Note ---
Subjective Time Seen by a Provider: 07:12 Subjective/Events-last exam No complications noted. Sepsis Event Evaluation Height, Weight, BMI Height: 5'8.00" Weight: 161lbs. 0.0oz. 73.042775lj; 23.8 BMI Method:Stated Exam Exam Vital Signs Date Time Temp Pulse Resp B/P (MAP) Pulse Ox O2 Delivery O2 Flow Rate FiO2 03/24/18 06:00 96.7 60 14 134/61 (85) 91 High Flow N/C 3.00 03/24/18 02:44 97 Nasal Cannula 3.00 03/23/18 20:00 Nasal Cannula 3.00 03/23/18 19:12 92 Nasal Cannula 3.00 03/23/18 19:12 92 Nasal Cannula 3.00 03/23/18 18:03 97.7 60 18 145/64 (91) 96 High Flow N/C 3.00 03/23/18 15:43 94 Nasal Cannula 3.00 03/23/18 09:32 95 03/23/18 09:27 91 Nasal Cannula 3.00 03/23/18 08:47 Nasal Cannula 3.00 I & O 03/24/18 07:00 Intake Total 1490 ml Output Total 2300 ml Balance -810 ml Height & Weight Height: 5'8.00" Weight: 161lbs. 0.0oz. 73.409574tn; 23.8 BMI Method:Stated General Appearance: No Apparent Distress, WD/WN HEENT: PERRL/EOMI, TMs Normal, Normal ENT Inspection, Pharynx Normal Neck: Full Range of Motion, Normal Inspection, Non Tender Respiratory: Chest Non Tender, Lungs Clear, Normal Breath Sounds, No Accessory Muscle Use, No Respiratory Distress Cardiovascular: Regular Rate, Rhythm, No Edema, No Gallop Capillary Refill: Less Than 3 Seconds Gastrointestinal: normal bowel sounds, non tender, soft, no organomegaly Extremity: Normal Capillary Refill, Normal Inspection, Normal Range of Motion Neurologic/Psychiatric: Alert, Oriented x3 Skin: Normal Color, Warm/Dry Lymphatic: No Adenopathy Results Lab Laboratory Tests 03/23/18 04:05 Assessment/Plan Assessment/Plan Resolving Pneumonia -Repeat CXR - shows stability of hilar infiltrates -Will repeat as out patient Hypoxia -Pt will need home 02 -He is currently requiring 3 liters of oxygen. Gastritis s/p EGD Metabolic encephalopathy - improved Anemia with Coumadin coagulopathy -Coumadin dosing per Dr. Antonia strong -Monitor Hx of aortic valve replacement -Coumadin therapy Debility/deconditioning S/P fall at home LUKE BLEDSOE DO Mar 24, 2018 07:12
--- NOTE | 2018-03-24 07:36 | Cardiology Progress Note ---
Subjective Date Seen by Provider: Mar 24, 2018 Time Seen by Provider: 07:35 Subjective/Events-last exam patient is laying down in bed, generalized fatigue. No new complaint Review of Systems General: No Chills, No Night Sweats, No Fatigue, No Malaise, No Appetite, No Other HEENT: No Head Aches, No Visual Changes, No Eye Pain, No Ear Pain, No Dysphasia , No Sinus Congestion, No Post Nasal Drip, No Sore Throat, No Other Pulmonary: No Dyspnea, No Cough, No Pleuritic Chest Pain, No Other Cardiovascular: No: Chest Pain, Palpitations, Orthopnea, Paroxysmal Noc. Dyspnea, Edema, Lt Headedness, Other Objective-Cardiology Exam Last Set of Vital Signs Vital Signs 03/24/18 06:00 Temp 96.7 Pulse 60 Resp 14 B/P (MAP) 134/61 (85) Pulse Ox 91 O2 Delivery High Flow N/C O2 Flow Rate 3.00 Capillary Refill : Less Than 3 Seconds I&O Intake and Output 03/24/18 00:00 Intake Total 1440 ml Output Total 1400 ml Balance 40 ml Intake Oral 1440 ml Output Urine Total 1400 ml General: Alert, Oriented X3, Cooperative HEENT: Atraumatic, PERRLA Neck: Supple, No JVD, No Thyromegaly Lungs: Clear to Auscultation, Normal Air Movement Heart: Normal S1, Normal S2, No Murmurs, Other (systolic murmur at the left sternal border) Abdomen: Normal Bowel Sounds, Soft, No Tenderness, No Hepatosplenomegaly, No Masses Extremities: No Clubbing, No Cyanosis, No Edema, Normal Pulses, No Tenderness/ Swelling Skin: No Rashes, No Breakdown, No Significant Lesion Neuro: Normal Gait, Normal Speech, Strength at 5/5 X4 Ext, Normal Tone, Sensation Intact Psych/Mental Status: Mental Status NL, Mood NL Results Lab Laboratory Tests Test 03/23/18 11:12 03/23/18 16:12 03/23/18 21:18 03/24/18 06:43 Range/Units Glucometer 228 H 151 H 243 H 150 H 70-110 MG/DL A/P-Cardiology Admission Diagnosis Debility Pneumonia Paroxysmal atrial fibrillation Hypertension Assessment/Plan Generalized weakness and debility, receiving therapy Persistent pneumonia, receiving antibiotic, managed by primary care team next Status post Coumadin toxicity for which she received FFP and vitamin K, continue to monitor and adjust dose Status post anemia, received blood transfusion, continue to monitor History of aortic valve replacement, on Coumadin, continue to adjust and monitor INR 3.2 today Paroxysmal atrial fibrillation, maintained on amiodarone. Continue to monitor Elevated liver enzymes, appear to be improving slowly compared to the previous admission. Continue to monitor Leukopenia, monitored and followed by primary care physician Permanent pacemaker, functioning normally. Continue to monitor Diabetes mellitus, followed and managed by primary care physician Hypertension, continue to monitor blood pressure, restart medication Hyperlipidemia, continue to monitor lipids. Hypothyroidism, followed and managed by primary care physician Clinical Quality Measures DVT/VTE Risk/Contraindication: Risk Factor Score Per Nursin KARTHIKEYAN HORTON MD Mar 24, 2018 07:36
--- NOTE | 2018-03-24 08:35 | Physical Therapy Daily Note ---
PT Daily Note-Current Subjective Patient in bed pre tx, agrees to PT, has pain of 10/10 in right knee. Nurse notified of pain. Appearance Patient in recliner post tx with nurse call, phone, tray, all needs met. Mental Status Patient Orientation: Person, Place, Situation Attachments: Oxygen, Amador Catheter Transfers Therapy Code Descriptions/Definitions Functional [place] Measure: 0=Not Assessed/NA 4=Minimal Assistance 1=Total Assistance 5=Supervision or Setup 2=Maximal Assistance 6=Modified [place] 3=Moderate Assistance 7=Complete [place] Therapy Quality Codes: 6 Independent with activity with or without an assistive device 5 Patient requires set up or clean up by helper. Patient completes activity by themselves 4 Supervision or touching assist (CGA). [place] provide cues , steadying assist 3 The helper provides less than half the effort to complete the activity 2 The helper provides more than half the effort to complete the activity 1 Dependent. The helper does all the effort to complete an activity 7 Patient refused to complete or attempt activity 9 The patient did not perform the activity before the current illness or injury 88 Not attempted due to Medical conditions or safety concerns Transfers (B, C, W/C) (FIM): 4 Scootin Rollin Supine to/from Sit: 4 Sit to/from Stand: 5 Bed to/from Chair: 5 Patient needed min assist with trunk to sit from supine this morning. Weight Bearing Right Lower Extremity: Right Weight Bearing/Tolerated Left Lower Extremity: Left Weight Bearing/Tolerated Gait Training Gait (FIM): 2 Distance: 60' Gait Level of Assist: 5 Gait Persons Needed: 1 Gait Assistive Device: FWW Patient ambulated very slowly, decreased distance due to right knee pain. Exercises Seated Therapy Exercises: Ankle pumps, Long arc quads, Hip flexion Seated Reps: 15 Treatments bed mobility and transfers, ambulation, functional strengthening Assessment Current Status: Poor Progress decline in ambulation due to pain PT Tobacco Curer Goals Tobacco Curer Goals PT Tobacco Curer Goals Time Frame: Mar 27, 2018 Transfers (B,C,W/C) (FIM): 5 Sit to Lying (QC): 4 Lying-Sitting on Side/Bed(QC): 4 Sit to Stand (QC): 4 Rollin Roll Left to Right (QC): 4 Chair/Buz-mi-Nwchq Xfer(QC): 4 Gait (FIM): 2 Distance: 100' Walk 10 feet (QC): 4 Walk 10ft-Uneven Surface(QC): 4 Walk 50ft with 2 Turns (QC): 4 Gait Level of Assist: 5 Gait Assistive Device: FWW PT Plan Problem List Problem List: Activity Tolerance, Functional Strength, Safety, Balance, Gait, Transfer, Bed Mobility, ROM Treatment/Plan Treatment Plan: Continue Plan of Care Treatment Plan: Bed Mobility, Education, Functional Activity Natacha, Functional Strength, Gait, Safety, Therapeutic Exercise, Transfers Treatment Duration: Mar 27, 2018 Frequency: 6 times per week Estimated Hrs Per Day: .25 hour per day (15-30') Patient and/or Family Agrees t: Yes Safety Risks/Education Patient Education: Gait Training, Transfer Techniques, Correct Positioning, Safety Issues Teaching Recipient: Patient Teaching Methods: Demonstration, Discussion Response to Teaching: Reinforcement Needed Time/GCodes Time In: 0814 Time Out: 0830 Total Billed Treatment Time: 16 Total Billed Treatment 1 visit GT 16' JORDYN VELEZ PT Mar 24, 2018 08:35
[2018-03-24] MEDS: RT-BUDESONIDE NEBS 0.5 MG/2ML (PULMICORT) AMP INH SCH ×2 (09:10→19:21)
[2018-03-24] MEDS: DEMECLOCYCLINE PO SCH ×2 (09:18→21:58)
[2018-03-24] MEDS: AMIODARONE 200 MG (CORDARONE) TAB PO SCH ×2 (09:18→21:58)
[2018-03-24] MEDS: ACETAMINOPHEN 500 MG TAB (TYLENOL) PO PRN (09:18)
[2018-03-24] MEDS: IRON SUCROSE 200 MG/10 ML (VENOFER) VIAL IV SCH (09:18)
[2018-03-24] MEDS: MAGNESIUM OXIDE (MAG-OX)400 MG TAB PO SCH ×2 (09:18→17:26)
[2018-03-24] MEDS: DICLOFENAC 1% GEL 100 GM (VOLTAREN) TUBE TOP SCH ×4 (09:19→21:58)
[2018-03-24] MEDS: SOLIQUA SQ SCH (09:19)
--- NOTE | 2018-03-24 10:50 | Occupational Ther Daily Note ---
OT Current Status-Daily Note Subjective Pt sitting in chair, agrees to treatment. Pt reports generalized pain 9/10, but states pain is worst in right knee. Pt states this is from "an old football injury." Mental Status/Objective Therapy Code Descriptions/Definitions Functional [place] Measure: 0=Not Assessed/NA 4=Minimal Assistance 1=Total Assistance 5=Supervision or Setup 2=Maximal Assistance 6=Modified [place] 3=Moderate Assistance 7=Complete [place] Attachments: Amador Catheter, Oxygen ADL-Treatment Pt completed sponge bath while seated in chair. Upper body bathing completed with SBA. Pt able to wash upper legs and fausto area. Requires assist for lower legs and feet. Stood with min assist to wash buttocks. Pt donned hospital gown with set up. Pt requires max assist to doff/don socks. Pt combed hair with set up. Declined oral care at this time. Bathing (FIM): 3 Other Treatment Pt performed bilateral UE exercises to increase strength needed for ADLs and transfers. Pt performed shoulder flexion, abduction, biceps curls, and triceps extension exercises x10 reps, 2 sets with red theraband. Rest breaks between exercises. Bilateral hand head of english exercises x20 reps with moderate resistance therapy foam to increase head of english strength. Pt sitting in chair with needs met after session. OT Short Term Goals Short Term Goals 1=Demonstrate adherence to instructed precautions during ADL tasks. 2=Patient will verbalize/demonstrate understanding of assistive devices/ modifications for ADL. 3=Patient will improve strength/tolerance for activity to enable patient to perform ADL's. OT Residential Goals Residential Goals Time Frame: Apr 03, 2018 Eating (FIM): 6 Bathing(FIM): 5 Upper Body Dressing(FIM): 5 Lower Body Dressing(FIM): 5 Toileting(FIM): 5 Toilet/Commode Transfer(FIM): 5 Additional Goals: 1-Demonstrate ADL Tasks, 2-Verbalize Understanding, 3- ImproveStrength/Natacha 1=Demonstrate adherence to instructed precautions during ADL tasks. 2=Patient will verbalize/demonstrate understanding of assistive devices/ modifications for ADL. 3=Patient will improve strength/tolerance for activity to enable patient to perform ADL's. OT Education/Plan Problem List/Assessment Pt demonstrates decreased ADL functioning, mobility, strength, and activity tolerance. Pt to benefit from skilled OT intervention for ADL training, transfers, strengthening, and safety education to increase independence and allow safe discharge. Discharge Recommendations Plan/Recommendations: Continue POC Treatment Plan/Plan of Care Patient would benefit from OT for education, treatment and training to promote independence in ADL's, mobility, safety and/or upper extremity function for ADL' s. Plan of Care: ADL Retraining, Functional Mobility, UE Funct Exercise/Act Treatment Duration: Apr 03, 2018 Frequency: 5 times per week Estimated Hrs Per Day: .25 hour per day Rehab Potential: Good Time/GCodes Start Time: 09:30 Stop Time: 10:03 Total Time Billed (hr/min): 33 Billed Treatment Time 1 visit, ADL(15minutes), EX(18minutes) GUERA BYERS OT Mar 24, 2018 10:50
--- NOTE | 2018-03-24 11:14 | Speech Therapy Daily Note ---
Speech Daily Progress Note Subjective Date Seen by Provider: Mar 24, 2018 Time Seen by Provider: 00:15 Patient seen while sitting up in his recliner for dysphagia therapy. Objective Patient completed OME while seated in his recliner with 80% accuracy given moderate verbal cues. Assessment Assessment Current Status: Fair Progress Treatment Plan Continue Plan of Care Speech Short Term Goals Short Term Goals Short Term Goals 1) Patient will utilize compensatory strategies as trained with 90% or greater. 2) Patient will tolerate least restrictive diet level without s/s of aspiration at 90% or greater. 3) Patient will consume an adequate amount for meeting his nutritional needs at 90% or greater. Speech Correction Goals Roguer Goals Patient will maintain adequate nutrition/hydration via safe effective swallow function. Speech-Plan Patient/Family Goals Patient/Family Goals: Patient plans to return home with family support post hospital stay. Treatment Plan Speech Therapy Treatment Plan: Continue Plan of Care Patient is making fair progress overall with dysphagia therapy. Patient's oral intake is slowly improving, although patient reports he has very little appetite. Treatment Duration: Mar 27, 2018 Frequency: 5 times per week Estimated Hrs Per Day: .25 hour per day Rehab Potential: Good Barriers to Learning: Patient continues to have multiple health barriers. Safety Risks/Education Teaching Recipient: Patient Teaching Methods: Discussion Response to Teaching: Verbalize Understanding Education Topics Provided: Safty of oral intake. Time Speech Therapy Time In: 10:15 Speech Therapy Time Out: 10:30 Total Billed Time: 15 Billed Treatment Time JENNIFER Tolbert LOULOU Adler Mar 24, 2018 11:14
--- NOTE | 2018-03-24 14:22 | NUR ---
IRF Evaluation: Approached by SWB Coordinator in regards to patient being re-evaluated for ARU. Discussed patient with Dr. Saavedra, as well as reviewed therapy progress notes - patient accepted to rehabilitation program. Met with patient to discuss details of rehabilitation program. This worker greatly stressed the importance of participation with therapy and requirement of therapy regimen (3 hrs/day, 5 days/week). Patient agreeable to therapy regimen and admission. Anticipate admission, 03/25/17. RN and CM/SS notified. Thank you for this referral.
[2018-03-24] MEDS: warFARin 1 MG (COUMADIN) TAB PO SCH (17:25)
[2018-03-24 18:00] VITALS: BP 133/38
[2018-03-24] MEDS: SIMvastatin 20 MG (ZOCOR) TAB PO SCH (21:58)
[2018-03-24] MEDS: TAMSULOSIN 0.4 MG (FLOMAX) CAP PO SCH (21:58)
[2018-03-24] MEDS: LEVOTHYROXINE 25 MCG (LEVOTHROID) TAB PO SCH (21:58)
[2018-03-24] MEDS: LEVOTHYROXINE 150 MCG (LEVOTHROID) TAB PO SCH (21:58)
[2018-03-25] MEDS: ALPRAZolam 1 MG (XANAX) TAB PO PRN (00:40)
[2018-03-25] MEDS: RT-ALBUTEROL/IPRATROPIUM 3 ML (DUONEB) VIAL INH SCH ×2 (02:16→07:18)
[2018-03-25 04:16] LABS: BASOPHILS % (AUTO) 0 % (0-10); EOSINOPHILS % (AUTO) 1 % (0-10); HEMATOCRIT 32 % (40-54); HEMOGLOBIN 10.2 G/DL (13.3-17.7); LYMPHOCYTES # (AUTO) 0.8 X 10^3 (1.0-4.0); LYMPHOCYTES % (AUTO) 17 % (12-44); MEAN CORPUSCULAR HEMOGLOBIN 29 PG (25-34); MEAN CORPUSCULAR HGB CONC 32 G/DL (32-36); MEAN CORPUSCULAR VOLUME 92 FL (80-99); MONOCYTES # (AUTO) 0.5 X 10^3 (0.0-1.0); MONOCYTES % (AUTO) 10 % (0-12); NEUTROPHILS # (AUTO) 3.4 X 10^3 (1.8-7.8); NEUTROPHILS % (AUTO) 72 % (42-75); PLATELET COUNT 133 10^3/uL (130-400); RED BLOOD COUNT 3.48 10^6/uL (4.35-5.85); RED CELL DISTRIBUTION WIDTH 16.1 % (10.0-14.5); WHITE BLOOD COUNT 4.8 10^3/uL (4.3-11.0)
[2018-03-25 04:40] LABS: INR 3.5 (0.8-1.4); PROTHROMBIN TIME PATIENT 35.1 SEC (12.2-14.7)
[2018-03-25 04:55] LABS: ALANINE AMINOTRANSFERASE 25 U/L (0-55); ALBUMIN 2.5 GM/DL (3.2-4.5); ALKALINE PHOSPHATASE 133 U/L (40-136); BILIRUBIN,TOTAL 0.5 MG/DL (0.1-1.0); BUN/CREATININE RATIO 8; CARBON DIOXIDE 30 MMOL/L (21-32); CHLORIDE 96 MMOL/L (98-107); CREATININE SERUM 0.84 MG/DL (0.60-1.30); GFR ESTIMATED > 60; GLUCOSE 100 MG/DL (70-105); POTASSIUM 4.3 MMOL/L (3.6-5.0); SODIUM 134 MMOL/L (135-145); TOTAL PROTEIN 5.3 GM/DL (6.4-8.2)
[2018-03-25 05:57] VITALS: BP 161/72
[2018-03-25] MEDS: inSUlin ASPART (NovoLOG) 1 UNIT/0.01 ML (CHARGE PER UNIT) SC SCH (06:21)
[2018-03-25] MEDS: PANTOPRAZOLE 40 MG (PROTONIX) TAB PO SCH (06:21)
[2018-03-25] MEDS: MENTHOL/ZINC OXIDE (CALMOSEPTINE) 113 GM TUBE TOP SCH ×2 (06:21→09:19)
[2018-03-25] MEDS: RT-BUDESONIDE NEBS 0.5 MG/2ML (PULMICORT) AMP INH SCH (07:18)
[2018-03-25] MEDS: DEMECLOCYCLINE PO SCH (07:52)
[2018-03-25] MEDS: MAGNESIUM OXIDE (MAG-OX)400 MG TAB PO SCH (07:52)
[2018-03-25] MEDS: AMIODARONE 200 MG (CORDARONE) TAB PO SCH (07:53)
[2018-03-25] MEDS: SOLIQUA SQ SCH (07:55)
[2018-03-25] MEDS: DICLOFENAC 1% GEL 100 GM (VOLTAREN) TUBE TOP SCH (07:55)
--- NOTE | 2018-03-25 10:18 | Discharge Summary-Hospitalist ---
Diagnosis/Chief Complaint Date of Admission Mar 20, 2018 at 13:17 Date of Discharge Discharge Date: Mar 25, 2018 Discharge Diagnosis (1) Acute respiratory failure Status: Resolved (2) Hypokalemia Status: Resolved (3) Hypomagnesemia Status: Resolved (4) Hypoglycemia Status: Resolved (5) Normocytic anemia Status: Chronic (6) Elevated INR Status: Acute (7) Iron deficiency Status: Acute (8) Fall at home Status: Acute (9) PNA (pneumonia) Status: Acute (10) Frailty Status: Acute (11) Debility Status: Acute (12) Rales Status: Acute Discharge Summary Discharge Physical Exam Allergies: Coded Allergies: fentanyl (Verified Allergy, Mild, 03/09/18) levofloxacin (Unverified Allergy, Unknown, 03/09/18) "FEELS FUNNY" cefadroxil (Verified Adverse Reaction, Mild, NAUSEA, 03/09/18) sulfamethoxazole (Verified Adverse Reaction, Mild, 03/09/18) trimethoprim (Verified Adverse Reaction, Mild, 03/09/18) Vitals & I&Os Vital Signs Date Time Temp Pulse Resp B/P (MAP) Pulse Ox O2 Delivery O2 Flow Rate FiO2 03/25/18 10:35 03/25/18 08:00 Nasal Cannula 3.00 03/25/18 07:20 94 03/25/18 05:57 97.4 62 18 General Appearance: No Apparent Distress, WD/WN, Chronically ill Respiratory: Decreased Breath Sounds, Wheezing Cardiovascular: Regular Rate, Rhythm, No Edema, No Gallop, No JVD, Normal Peripheral Pulses, Systolic Murmur Hospital Course Hospital course: Patient had an uncomplicated swing bed hospital course he was closely monitored with labs including INR due to very sporadic and labile levels including Coumadin toxicity. He completed IV antibiotics and was monitor closely along with insulin administration and therapies. Patient very frail and overall very debilitated but it was felt like he would benefit from inpatient rehab intensive therapy requirements in order to have any chance of returning back home to live with son. Patient was agreeable for inpatient rehab transfer and those orders were placed and he will could be closely monitored along with all consultants. Labs (last 24 hrs) Laboratory Tests 03/24/18 21:01: Glucometer 130H 03/25/18 04:00: White Blood Count 4.8, Red Blood Count 3.48L, Hemoglobin 10.2L, Hematocrit 32L, Mean Corpuscular Volume 92, Mean Corpuscular Hemoglobin 29, Mean Corpuscular Hemoglobin Concent 32, Red Cell Distribution Width 16.1H, Platelet Count 133, Mean Platelet Volume 11.0H, Neutrophils (%) (Auto) 72, Lymphocytes (%) (Auto) 17 , Monocytes (%) (Auto) 10, Eosinophils (%) (Auto) 1, Basophils (%) (Auto) 0, Neutrophils # (Auto) 3.4, Lymphocytes # (Auto) 0.8L, Monocytes # (Auto) 0.5, Eosinophils # (Auto) 0.0, Basophils # (Auto) 0.0, Prothrombin Time 35.1H, INR Comment 3.5H, Sodium Level 134L, Potassium Level 4.3, Chloride Level 96L, Carbon Dioxide Level 30, Anion Gap 8, Blood Urea Nitrogen 7, Creatinine 0.84, Estimat Glomerular Filtration Rate > 60, BUN/Creatinine Ratio 8, Glucose Level 100, Calcium Level 8.0L, Corrected Calcium 9.2, Total Bilirubin 0.5, Aspartate Amino Transf (AST/SGOT) 28, Alanine Aminotransferase (ALT/SGPT) 25, Alkaline Phosphatase 133, Total Protein 5.3L, Albumin 2.5L 03/25/18 05:22: Glucometer 94 03/25/18 11:55: Glucometer 108 Patient resulted labs reviewed. Pending Labs Discussion & Recommendations Discharge Planning: <30 minutes discharge planning Discharge Home Medications: Active Scripts Active Enoxaparin Sodium 80 Mg/0.8 Ml Syringe 70 Mg SC BID Coumadin (Warfarin Sodium) 1 Mg Tablet 1 Mg PO DAILY@1800 Reported Oxycodone-Acetaminophen 10-325 (Oxycodone HCl/Acetaminophen) 1 Each Tablet 1 Each PO HS MDD 3 Pantoprazole Sodium 40 Mg Tablet.dr 40 Mg PO BID Metformin HCl 1,000 Mg Tablet 1,000 Mg PO DAILY Levothyroxine Sodium 175 Mcg Tablet 175 Mcg PO HS Xanax (Alprazolam) 1 Mg Tablet 1 Mg PO BID PRN Tamsulosin HCl 0.4 Mg Cap.er.24h 0.4 Mg PO HS Lovastatin 40 Mg Tablet 40 Mg PO HS Soliqua 100 Unit-33 Mcg/ml Pen (Insulin Glargine/Lixisenatide) 3 Ml Insuln.pen 21 Units SQ DAILY Demeclocycline HCl 150 Mg Tablet 150 Mg PO BID Amiodarone HCl 200 Mg Tablet 200 Mg PO BID Hydrochlorothiazide 12.5 Mg Capsule 12.5 Mg PO DAILY Instructions to patient/family Please see electronic discharge instructions given to patient. Clinical Quality Measures DVT/VTE Risk/Contraindication: Risk Factor Score Per Nursin Problem Qualifiers (1) Acute respiratory failure: Respiratory failure complication: unspecified whether with hypoxia or hypercapnia Qualified Codes: J96.00 - Acute respiratory failure, unspecified whether with hypoxia or hypercapnia (2) PNA (pneumonia): Pneumonia type: due to unspecified organism Laterality: unspecified laterality Lung location: unspecified part of lung Qualified Codes: J18.9 - Pneumonia, unspecified organism MIRNA EUCEDA DO Mar 25, 2018 10:18
--- NOTE | 2018-03-25 10:21 | Cardiology Progress Note ---
Subjective Date Seen by Provider: Mar 25, 2018 Time Seen by Provider: 10:18 Subjective/Events-last exam Patient is in bed, no new complaint. Reports generalized weakness. Denies any chest pain or dyspnea. Review of Systems General: No Night Sweats; Fatigue; No Malaise HEENT: No Visual Changes, No Dysphasia, No Sore Throat Pulmonary: No Dyspnea, No Cough Cardiovascular: No: Chest Pain, Palpitations, Paroxysmal Noc. Dyspnea, Edema Gastrointestinal: No: Nausea, Vomiting Genitourinary: No Dysuria, No Frequency Musculoskeletal: No: neck pain, back pain Neurological: No: Weakness, Numbness, Change in speech, Confusion Objective-Cardiology Exam Last Set of Vital Signs Vital Signs 03/25/18 03/25/18 03/25/18 05:57 07:20 08:00 Temp 97.4 Pulse 62 Resp 18 B/P (MAP) 161/72 (101) Pulse Ox 94 O2 Delivery Nasal Cannula O2 Flow Rate 3.00 Capillary Refill : Less Than 3 Seconds I&O Intake and Output 03/25/18 00:00 Intake Total 1250 ml Output Total 2150 ml Balance -900 ml Intake Oral 1250 ml Output Urine Total 2150 ml General: Alert, Oriented X3, Cooperative HEENT: Atraumatic, PERRLA Neck: Supple, No JVD, No Thyromegaly Lungs: Clear to Auscultation, Normal Air Movement Heart: Normal S1, Normal S2, No Murmurs, Other (systolic murmur at the left sternal border) Abdomen: Normal Bowel Sounds, Soft, No Tenderness, No Hepatosplenomegaly, No Masses Extremities: No Clubbing, No Cyanosis, No Edema, Normal Pulses, No Tenderness/ Swelling Skin: No Rashes, No Breakdown, No Significant Lesion Neuro: Normal Gait, Normal Speech, Strength at 5/5 X4 Ext, Normal Tone, Sensation Intact Psych/Mental Status: Mental Status NL, Mood NL Results Lab Laboratory Tests 03/25/18 04:00 A/P-Cardiology Admission Diagnosis Debility Pneumonia Paroxysmal atrial fibrillation Hypertension Assessment/Plan Generalized weakness and debility, receiving therapy Persistent pneumonia, receiving antibiotic, managed by primary care team Status post Coumadin toxicity for which he received FFP and vitamin K, INR 3.6 today, hold tonight's coumadin dose and continue to monitor. Status post anemia, received blood transfusion, continue to monitor History of aortic valve replacement, on Coumadin, continue to adjust and monitor INR 3.2 today Paroxysmal atrial fibrillation, maintained on amiodarone. Continue to monitor Elevated liver enzymes, appear to be improving slowly compared to the previous admission. Continue to monitor Leukopenia, monitored and followed by primary care physician Permanent pacemaker, functioning normally. Continue to monitor Diabetes mellitus, followed and managed by primary care physician Hypertension, continue to monitor blood pressure Hyperlipidemia, continue to monitor lipids. Hypothyroidism, followed and managed by primary care physician Clinical Quality Measures DVT/VTE Risk/Contraindication: Risk Factor Score Per Nursin JORGE LUIS MOLINA Mar 25, 2018 10:21
--- NOTE | 2018-03-25 10:35 | NUR ---
Report given to AALIYAH Burnette on ARU.
--- NOTE | 2018-03-27 10:20 | Therapy Team Discharge Summary ---
Therapy Discharge Summary Discharge Recommendations Date of Discharge Mar 25, 2018 at 10:40 Therapy D/C Recommendations: Home w/ Family Support, Fdc (TCU/NH) Physical Therapy This pt was transferred to [facility] from acute post stay due to respiratory complications. Upon admission, he was min assist with transfers and walked short distances with assist from therapist. He often needed extra encouragement to participate but typically was cooperative. Treatment has focused on functional strength and mobility with strengthening and safety. He was making progress. At discharge he was min assist with transfers and gait had increased in distance. His goals have been partially met; he is transferring to ARU for increased intensity with therapy services. Discharge from [facility] at this time with plan to continue PT on ARU> Occupational Therapy Decreased Activ Tolerance, Decreased UE Strength, Dependent Transfers, Impaired Self-Care Skills PT Skilled Nursing Goals Biomedical Manager Goals PT Biomedical Manager Goals Time Frame: Mar 27, 2018 Transfers (B,C,W/C) (FIM): 5 (unmet) Sit to Lying (QC): 4 (met) Lying-Sitting on Side/Bed(QC): 4 (met) Sit to Stand (QC): 4 (met) Rollin Chair/Ahy-je-Taydf Xfer(QC): 4 (met) Gait (FIM): 2 (met) Distance: met Walk 50ft with 2 Turns (QC): 4 Gait Level of Assist: 5 Gait Assistive Device: FWW OT Skilled Nursing Goals Skilled Nursing Goals Time Frame: Apr 03, 2018 Eating (FIM): 6 Eating (QC): 6 Bathing(FIM): 5 Upper Body Dressing(FIM): 5 Lower Body Dressing(FIM): 5 Toileting(FIM): 5 Toileting Hygiene (QC): 5 Toilet/Commode Transfer(FIM): 5 Toilet/Commode Transfer (QC): 5 Additional Goals: 1-Demonstrate ADL Tasks, 2-Verbalize Understanding, 3- ImproveStrength/Natacha 1=Demonstrate adherence to instructed precautions during ADL tasks. 2=Patient will verbalize/demonstrate understanding of assistive devices/ modifications for ADL. 3=Patient will improve strength/tolerance for activity to enable patient to perform ADL's. Speech Skilled Nursing Goals Biomedical Manager Goals Patient will maintain adequate nutrition/hydration via safe effective swallow function. EJ MENARD PT Mar 27, 2018 10:20
--- NOTE | 2018-03-27 10:30 | Therapy Team Discharge Summary ---
Therapy Discharge Summary Discharge Recommendations Date of Discharge Mar 25, 2018 at 10:40 Therapy D/C Recommendations: Home w/ Family Support, Intermediate (TCU/NH) Occupational Therapy Decreased Activ Tolerance, Decreased UE Strength, Dependent Transfers, Impaired Self-Care Skills Speech-Language Pathology Patient was seen for dysphagia evaluation and therapy during his stay on [facility]. Patient made good progress with oral intake. Pneumonia status has significantly improved. Patient does not exhibit s/s of aspiration, however his oral intake continues to be decreased. PT Nuclear Physician Goals Nuclear Physician Goals PT Nuclear Physician Goals Time Frame: Mar 27, 2018 Transfers (B,C,W/C) (FIM): 5 (unmet) Sit to Lying (QC): 4 (met) Lying-Sitting on Side/Bed(QC): 4 (met) Sit to Stand (QC): 4 (met) Rollin Chair/Ovh-vz-Nnsik Xfer(QC): 4 (met) Gait (FIM): 2 (met) Distance: met Walk 50ft with 2 Turns (QC): 4 Gait Level of Assist: 5 Gait Assistive Device: FWW OT Assisted Goals Nuclear Physician Goals Time Frame: Apr 03, 2018 Eating (FIM): 6 Eating (QC): 6 Bathing(FIM): 5 Upper Body Dressing(FIM): 5 Lower Body Dressing(FIM): 5 Toileting(FIM): 5 Toileting Hygiene (QC): 5 Toilet/Commode Transfer(FIM): 5 Toilet/Commode Transfer (QC): 5 Additional Goals: 1-Demonstrate ADL Tasks, 2-Verbalize Understanding, 3- ImproveStrength/Natacha 1=Demonstrate adherence to instructed precautions during ADL tasks. 2=Patient will verbalize/demonstrate understanding of assistive devices/ modifications for ADL. 3=Patient will improve strength/tolerance for activity to enable patient to perform ADL's. Speech Assisted Goals Assisted Goals Patient will maintain adequate nutrition/hydration via safe effective swallow function. Met at 75% LOULOU OSEGUERA Mar 27, 2018 10:30
--- NOTE | 2018-03-27 15:53 | Therapy Team Discharge Summary ---
Therapy Discharge Summary Discharge Recommendations Date of Discharge Mar 25, 2018 at 10:40 Therapy D/C Recommendations: Home w/ Family Support, [facility]ci (TCU/NH) Occupational Therapy Pt admitted to [facility] following acute hospitalization for pneumonia. On admission pt required SBA for eating and grooming. Skilled OT intervention focused on ADL training, transfers, and strengthening. At discharge pt requiring mod assist for bathing. Goals were addressed, but not met by the time of discharge. Pt discharged to ARU for continued care and therapy. D/c SWB OT. Decreased Activ Tolerance, Decreased UE Strength, Dependent Transfers, Impaired Self-Care Skills PT Rivet Hole Puncher Goals Rivet Hole Puncher Goals PT Rivet Hole Puncher Goals Time Frame: Mar 27, 2018 Transfers (B,C,W/C) (FIM): 5 (unmet) Sit to Lying (QC): 4 (met) Lying-Sitting on Side/Bed(QC): 4 (met) Sit to Stand (QC): 4 (met) Rollin Chair/Npz-mf-Eavjy Xfer(QC): 4 (met) Gait (FIM): 2 (met) Distance: met Walk 50ft with 2 Turns (QC): 4 Gait Level of Assist: 5 Gait Assistive Device: FWW OT Rivet Hole Puncher Goals Rivet Hole Puncher Goals Time Frame: Apr 03, 2018 Eating (FIM): 6 Eating (QC): 6 Bathing(FIM): 5 Upper Body Dressing(FIM): 5 Lower Body Dressing(FIM): 5 Toileting(FIM): 5 Toileting Hygiene (QC): 5 Toilet/Commode Transfer(FIM): 5 Toilet/Commode Transfer (QC): 5 Additional Goals: 1-Demonstrate ADL Tasks, 2-Verbalize Understanding, 3- ImproveStrength/Natacha 1=Demonstrate adherence to instructed precautions during ADL tasks. 2=Patient will verbalize/demonstrate understanding of assistive devices/ modifications for ADL. 3=Patient will improve strength/tolerance for activity to enable patient to perform ADL's. Speech Chcf Goals Chcf Goals Patient will maintain adequate nutrition/hydration via safe effective swallow function. Met at 75% GUERA BYERS OT Mar 27, 2018 15:53
== END 2018-03-25 10:40 | DRG 193 ==
LOC: 4TH 13:17
PROVIDERS: ADMIT Family Medicine; ATTEND Family Medicine
DX: J18.9 Pneumonia, unspecified organism (principal); J96.01 Acute respiratory failure with hypoxia; K29.70 Gastritis, unspecified, without bleeding; I48.0 Paroxysmal atrial fibrillation; D64.9 Anemia, unspecified; E87.6 Hypokalemia; E83.42 Hypomagnesemia; R53.1 Weakness; R53.81 Other malaise; R01.1 Cardiac murmur, unspecified; I10 Essential (primary) hypertension; R74.8 Abnormal levels of other serum enzymes; R79.1 Abnormal coagulation profile; D72.819 Decreased white blood cell count, unspecified; E11.9 Type 2 diabetes mellitus without complications; E78.5 Hyperlipidemia, unspecified; E03.9 Hypothyroidism, unspecified; Z95.2 Presence of prosthetic heart valve; Z95.0 Presence of cardiac pacemaker; Z99.81 Dependence on supplemental oxygen; Z79.01 Long term (current) use of anticoagulants; Z91.81 History of falling
CPT/HCPCS: 36415; 80053; 82962; 85025; 85027; 85610; 94640; 94760

== ENCOUNTER 2018-03-25 10:40 | Inpatient (IN) | payer MEDICARE, OTHER ==
[~2018-03-25] VITALS: Ht 172.7 cm; Wt 67.7 kg
--- NOTE | 2018-03-25 10:40 | NUR ---
OCTAVIA AVENDANO admitted to room 223-1, with an admitting diagnosis of DEBILITY, on 03/25/18 from 4TH FLOOR via WHEEL CHAIR, accompanied by THERAPY.OCTAVIA AVENDANO introduced to surroundings, call light, bed controls, phone, TV, temperature control, lights, meal times, smoking policy, visitor policy, side rail policy, bathrooms and showers. Patient Rights given to patient in the handbook.OCTAVIA AVENDANO verbalizes understanding that [facility] is not responsible for the loss or damage to any personal effects or valuables that are kept in the patients possessions during their hospitalization. The following Patient Care Plans were discussed with the PATIENT: Discharge Planning,IMPAIRED MOBILITY, HIGH RISK SKIN INTEGRITY, HIGH RISK INJURY, AND KNOWLEDGE DEFICIT. OCTAVIA AVENDANO verbalizes understanding of Interdisciplinary Patient Education. Patient received Patient Rights Booklet, which includes Privacy Act Statement and Data Collection Information Summary.
--- NOTE | 2018-03-25 11:10 | Physical Therapy Evaluation ---
PT Evaluation-General Medical Diagnosis Admission Date Medical Diagnosis: pneumonia, debility Onset Date: Mar 09, 2018 Therapy Diagnosis Therapy Diagnosis: impaired mobility, strength, endurance Height/Weight Height (Feet): 5 Height (Inches): 8.00 Weight (Pounds): 161 Weight (Ounces): 0.0 Referral Physician: Chiquis Saavedra DO Reason for Referral: Evaluation/Treatment Medical History Pertinent Medical History: Atrial Fib, CAD, DM, GERD, HTN Additional Medical History Past Medical History Surgeries: Amputation, Bowel Surgery, Cardiac, Coronary Stent, Gallbladder, Orthopedic, Pacemaker, Valve Replacement Currently Using CPAP: No Currently Using BIPAP: No Cardiac: Atrial Fibrillation, Coronary Artery Disease, High Cholesterol, Hypertension, Valvular Heart Disease Reproductive: No Sexually Transmitted Disease: No HIV/AIDS: No Gastrointestinal: Gastroesophageal Reflux, Chronic Constipation, Diverticulosis , Irritable Bowel Endocrine: Diabetes, Insulin dep, Hypothyroidsim Loss of Vision: Bilateral Hearing Impairment: Denies Psychosocial: Anxiety, Depression Social History Home: Single Level Current Living Status: Children Entry Into Home: Stairs Without Railing Patient states that his son lives with him and he just has one or two very small steps to enter his home. Prior/Core FIM Prior Level of Function Therapy Code Descriptions/Definitions Functional [place] Measure: 0=Not Assessed/NA 4=Minimal Assistance 1=Total Assistance 5=Supervision or Setup 2=Maximal Assistance 6=Modified [place] 3=Moderate Assistance 7=Complete [place] Therapy Quality Codes: 6 Independent with activity with or without an assistive device 5 Patient requires set up or clean up by helper. Patient completes activity by themselves 4 Supervision or touching assist (CGA). [place] provide cues , steadying assist 3 The helper provides less than half the effort to complete the activity 2 The helper provides more than half the effort to complete the activity 1 Dependent. The helper does all the effort to complete an activity 7 Patient refused to complete or attempt activity 9 The patient did not perform the activity before the current illness or injury 88 Not attempted due to Medical conditions or safety concerns Functional Abilities and Goals: Independent: Patient completed the activities by him/herself, with or without an assistive device, with no assistance from a helper. Needed Some Help: Patient needed partial assistance from another person to complete activities. Dependent: A helper completed the activities for the patient. Unknown: Not Applicable: Bed Mobility: 6 Transfers (B,C,W/C) (FIM): 6 Gait: 6 Stairs: 6 Indoor Mobility (Ambulation): Independent Stairs: Independent Patient states he was using a rolling walker previously. PT Evaluation-Current Subjective Patient in bed pre tx, agrees to PT, has pain of 9/10 in right knee. Will be taking patient down to rehab. Pt/Family Goals to be independent at home Objective Patient Orientation: Person, Place, Situation Attachments: Oxygen, Amador Catheter 3L of O2 nasal canula ROM/Strength ROM Lower Extremities WNL except does not have full knee extension bilaterally, worse on the right side Strenght Lower Extremities right lower extremity (hip flexion 3/5, knee flexion 4/5, knee extension 4/5, dorsiflexion 4/5), left lower extremity (hip flexion 3/5, knee flexion 4+/5, knee extension 4+/5, dorsiflexion 4+/5) Integumentary/Posture Integumentary bilateral lower extremity pitting edema Neuromuscular (Tone, Coordination, Reflexes) NT Sensory Vision: Functional Hearing: Functional Sensation Right Lower Extremit: Intact Sensation Left Lower Extremity: Intact Transfers Therapy Code Descriptions/Definitions Functional [place] Measure: 0=Not Assessed/NA 4=Minimal Assistance 1=Total Assistance 5=Supervision or Setup 2=Maximal Assistance 6=Modified [place] 3=Moderate Assistance 7=Complete [place] Therapy Quality Codes: 6 Independent with activity with or without an assistive device 5 Patient requires set up or clean up by helper. Patient completes activity by themselves 4 Supervision or touching assist (CGA). [place] provide cues , steadying assist 3 The helper provides less than half the effort to complete the activity 2 The helper provides more than half the effort to complete the activity 1 Dependent. The helper does all the effort to complete an activity 7 Patient refused to complete or attempt activity 9 The patient did not perform the activity before the current illness or injury 88 Not attempted due to Medical conditions or safety concerns Transfers (B, C, W/C) (FIM): 4 Scootin Rollin Roll Left to Right (QC): 4 Supine to/from Sit: 4 Sit to/from Stand: 4 Lying to Sitting/Side of Bed(Q: 3 Sit to Stand (QC): 4 Chair/Mqs-wo-Lluwl Xfer(QC): 4 Car Transfer (QC): 4 Patient performs bed mobility with SBA, supine to sit min assist, sit to supine SBA, sit <-> stand CGA, transfers CGA, car transfer CGA. Patient needs cues for hand placement and positioning with almost every time he sits. Gait Does the Patient Walk?: Yes Mode of Locomotion: Walk Anticipated Mode of Locomotion: Walk Gait (FIM): 2 Walk 10 feet (QC): 4 Walk 50 ft with 2 Turns(QC): 4 Walking 10ft/uneven surface-QC: 4 Distance: 100'x3 Gait Level of Assist: 4 Gait Persons Needed: 1 Gait Assistive Device: FWW Comments/Gait Description Patient can ambulate 100' with a rolling walker with CGA. Gait is antalgic and is extremely slow. No knee buckling or LOB. Put MYRTLE wrap on right knee for comfort. Wheelchair Training Does the Pt Use a Wheelchair?: No Stairs Stairs (FIM): 1 #of Steps: 1 Level of Assist: 4 1 Step (curb) (QC): 4 Assistive Device: Walker Patient can go up and down 1 step using a rolling walker with CGA. Cues for foot placement. Balance Sitting Static: Normal Sitting Dynamic: Normal Standing Static: Good Standing Dynamic: Good Treatment seated exercises x15 (AP, marching, LAQ, hip abd) Assessment/Needs Patient has impaired mobility, strength, endurance. He ambulates very slowly but is steady. Rehab Potential: Fair PT Short Term Goals Short Term Goals Time Frame: Apr 01, 2018 Transfers (B,C,W/C) (FIM): 5 Gait (FIM): 5 Gait Distance Comment: 150' Gait Level of Assist: 5 Gait Assistive Device: FWW PT Custodial Goals Telecommunications Switch Technician Goals PT Custodial Goals Time Frame: Apr 15, 2018 Transfers (B,C,W/C) (FIM): 6 Sit to Lying (QC): 6 Lying-Sitting on Side/Bed(QC): 6 Sit to Stand (QC): 6 Rollin Roll Left to Right (QC): 6 Chair/Pjx-ei-Dpcoz Xfer(QC): 6 Car Transfer (QC): 6 Gait (FIM): 6 Distance: 200' Walk 10 feet (QC): 6 Walk 10ft-Uneven Surface(QC): 6 Walk 50ft with 2 Turns (QC): 6 Walk 150 ft (QC): 6 Gait Level of Assist: 6 Gait Assistive Device: FWW Stairs (FIM): 2 # of Steps: 4 1 Step (curb) (QC): 4 4 Steps (QC): 4 Stairs Level Of Assist: 5 PT Plan Problem List Problem List: Activity Tolerance, Functional Strength, Safety, Balance, Gait, Transfer, Bed Mobility, ROM Treatment/Plan Treatment Plan: Continue Plan of Care Treatment Plan: Bed Mobility, Education, Functional Activity Natacha, Functional Strength, Group Therapy, Gait, Safety, Therapeutic Exercise, Transfers Treatment Duration: Apr 15, 2018 Frequency: At least 5 of 7 days/Wk (IRF) Estimated Hrs Per Day: 1.5 hours per day Patient and/or Family Agrees t: Yes Safety Risks/Education Patient Education: Gait Training, Transfer Techniques, Steps, Correct Positioning, Safety Issues Teaching Recipient: Patient Teaching Methods: Demonstration, Discussion Response to Teaching: Reinforcement Needed Discharge Recommendations Plan Patient will perform bed mobility and transfer training, balance and endurance training, functional strengthening, stair training, gait training, and education , to improve functional mobility and independence at home Therapy D/C Recommendations: Assisted Living, Home w/ Family Support, Care Home (TCU/NH) Time/GCodes Time In: 1025 Time Out: 1100 Total Billed Treatment Time: 35 Total Billed Treatment 1 visit EVM 20' GT 15' JORDYN VELEZ PT Mar 25, 2018 11:10
[2018-03-25] MEDS ORDERED: PATIENT MAY USE OWN MEDS, ALL MC SCH (11:15)
[2018-03-25] MEDS ORDERED: RT-ALBUTEROL/IPRATROPIUM 3 ML (DUONEB) VIAL INH PRN (11:15)
[2018-03-25] MEDS ORDERED: BENZONATATE 100 MG (TESSALON) CAPSULE PO PRN (11:15)
[2018-03-25] MEDS ORDERED: ACETAMINOPHEN 500 MG TAB (TYLENOL) PO PRN (11:15)
[2018-03-25] MEDS ORDERED: oxyCODONE/APAP 10/325MG (PERCOCET 10) TABLET PO ONE (12:15)
[2018-03-25] MEDS: oxyCODONE/APAP 10/325MG (PERCOCET 10) TABLET PO PRN (12:19)
[2018-03-25] MEDS: MENTHOL/ZINC OXIDE (CALMOSEPTINE) 113 GM TUBE TOP SCH ×3 (12:20→19:47)
--- NOTE | 2018-03-25 13:34 | NUR ---
REVIEWED MEDICATIONS THEY WERE REPORTED UPON ADMISSION TO 4TH FLOOR
[2018-03-25] MEDS: warFARin 1 MG (COUMADIN) TAB PO SCH (14:08)
--- NOTE | 2018-03-25 14:14 | Occupational Therapy Eval ---
OT Evaluation-General/PLF Medical Diagnosis Admission Date Mar 25, 2018 at 10:40 Medical Diagnosis: pneumonia, debility Onset Date: Mar 09, 2018 Therapy Diagnosis Therapy Diagnosis: impaired self care skills Height/Weight Height (Feet): 5 Height (Inches): 8.00 Weight (Pounds): 161 Weight (Ounces): 0.0 Referral Physician: Chiquis Saavedra DO Medical History Pertinent Medical History: Atrial Fib, CAD, DM, GERD, HTN Additional Medical History heart disease, aortic valve replacement. Social History Home: Single Level Current Living Status: Children Entry Into Home: Stairs Without Railing ADL-Prior Level of Function Therapy Code Descriptions/Definitions Functional [place] Measure: 0=Not Assessed/NA 4=Minimal Assistance 1=Total Assistance 5=Supervision or Setup 2=Maximal Assistance 6=Modified [place] 3=Moderate Assistance 7=Complete [place] Therapy Quality Codes: 6 Independent with activity with or without an assistive device 5 Patient requires set up or clean up by helper. Patient completes activity by themselves 4 Supervision or touching assist (CGA). [place] provide cues , steadying assist 3 The helper provides less than half the effort to complete the activity 2 The helper provides more than half the effort to complete the activity 1 Dependent. The helper does all the effort to complete an activity 7 Patient refused to complete or attempt activity 9 The patient did not perform the activity before the current illness or injury 88 Not attempted due to Medical conditions or safety concerns Functional Abilities and Goals: Independent: Patient completed the activities by him/herself, with or without an assistive device, with no assistance from a helper. Needed Some Help: Patient needed partial assistance from another person to complete activities. Dependent: A helper completed the activities for the patient. Unknown: Not Applicable: ADL PLOF Comments Pt reports being independent prior to admission. Used walker or cane as needed. Self Care: Independent DME/Equipment: Bath Chair, Tub/Shower Drive Self: Yes OT Current Status Subjective Pt agreeable to therapy. Reports 9/10 pain. Mental Status/Objective Patient Orientation: Person, Place Attachments: Amador Catheter Current Glasses/Contacts: Yes Hearing Aids: No Dentures/Partials: Yes Upper Extremity ROM Grossly WFL Upper Extremity Coordination Intact Upper Extremity Sensation Intact per pt report Upper Extremity Strength Grossly 3+/5 ADL-Treatment ADL-Current Pt supine to sit with minimal assistance. Pt declined shower today, but agrees to sponge bath. Sponge bath completed seated EOB. Pt bathed upper body with SBA. Pt able to wash bilateral upper legs and fausto area. Assist required to wash bilateral lower legs and buttocks. Pt donned pullover shirt with SBA. Assist required to thread catheter and bilateral LE into pant legs. Stood with minimal assistance, but required assist to pull shorts up over hips. Pt unable to reach feet to doff/don socks. Pt combed hair with SBA, declined oral care at this time. Pt fatigues with activity and requires rest breaks throughout treatment. Increased time for ADL tasks. Pt sit to supine with minimal assist. Resting in bed with needs met after session. Eating (FIM): 5 Eating (QC): 5 Grooming (FIM): 5 Bathing (FIM): 3 Shower/Bathe Self (QC): 3 Upper Body Dressing (FIM): 5 Upper Body Dressing (QC): 4 Lower Body Dressing (FIM): 2 Lower Body Dressing (QC): 2 On/Off Footwear (QC): 2 Education OT Patient Education: Rehab process Teaching Recipient: Patient Teaching Methods: Discussion Response to Teaching: Verbalize Understanding OT Short Term Goals Short Term Goals Time Frame: Apr 01, 2018 Lower Body Dressing(FIM): 4 Toilet/Commode Transfer(FIM): 5 Additional Short Term Goals: 1-Demonstrate ADL Tasks, 2-Verbalize Understanding , 3-ImproveStrength/Natacha 1=Demonstrate adherence to instructed precautions during ADL tasks. 2=Patient will verbalize/demonstrate understanding of assistive devices/ modifications for ADL. 3=Patient will improve strength/tolerance for activity to enable patient to perform ADL's. OT Skilled Nursing Goals Skilled Nursing Goals Time Frame: Apr 15, 2018 Eating (FIM): 6 Eating (QC): 6 Groomin Oral Hygiene (QC): 6 Bathing(FIM): 5 Shower/Bathe Self (QC): 5 Upper Body Dressing(FIM): 6 Upper Body Dressing (QC): 6 Lower Body Dressing(FIM): 6 Lower Body Dressing (QC): 6 On/Off Footwear (QC): 6 Toileting(FIM): 6 Toileting Hygiene (QC): 6 Toilet/Commode Transfer(FIM): 6 Toilet/Commode Transfer (QC): 6 Shower Transfer(FIM): 5 Additional Goals: 1-Demonstrate ADL Tasks, 2-Verbalize Understanding, 3- ImproveStrength/Natacha 1=Demonstrate adherence to instructed precautions during ADL tasks. 2=Patient will verbalize/demonstrate understanding of assistive devices/ modifications for ADL. 3=Patient will improve strength/tolerance for activity to enable patient to perform ADL's. OT Education/Plan Problem List/Assessment Assessment: Decreased Activ Tolerance, Decreased UE Strength, Dependent Transfers, Impaired I ADL's, Impaired Self-Care Skills Pt demonstrates decreased ADL functioning, mobility, strength, and activity tolerance. Pt to benefit from skilled OT intervention for ADL training, transfers, strengthening, and home safety education to increase functional performance and allow safe discharge plan. Discharge Recommendations Plan/Recommendations: Continue POC Treatment Plan/Plan of Care Treatment,Training & Education: Yes Patient would benefit from OT for education, treatment and training to promote independence in ADL's, mobility, safety and/or upper extremity function for ADL' s. Plan of Care: ADL Retraining, Functional Mobility, Group Exercise/Act as Ind, UE Funct Exercise/Act Treatment Duration: Apr 15, 2018 Frequency: At least 5 of 7 days/Wk (IRF) Estimated Hrs Per Day: 1.5 hours per day Rehab Potential: Fair Time/GCodes Start Time: 11:00 Stop Time: 12:00 Total Time Billed (hr/min): 60 Billed Treatment Time 1 visit, EVM(20minutes), ADLx3(40minutes) GUERA BYERS OT Mar 25, 2018 14:14
[2018-03-25] MEDS: DICLOFENAC 1% GEL 100 GM (VOLTAREN) TUBE TOP SCH ×3 (14:19→19:50)
--- NOTE | 2018-03-25 14:33 | Occupational Ther Daily Note ---
OT Current Status-Daily Note Subjective Pt in bed, agrees to therapy. Pt reports 8/10 pain "all over" Mental Status/Objective Therapy Code Descriptions/Definitions Functional [place] Measure: 0=Not Assessed/NA 4=Minimal Assistance 1=Total Assistance 5=Supervision or Setup 2=Maximal Assistance 6=Modified [place] 3=Moderate Assistance 7=Complete [place] Attachments: Oxygen ADL-Treatment Therapy Code Descriptions/Definitions Functional [place] Measure: 0=Not Assessed/NA 4=Minimal Assistance 1=Total Assistance 5=Supervision or Setup 2=Maximal Assistance 6=Modified [place] 3=Moderate Assistance 7=Complete [place] Therapy Quality Codes: 6 Independent with activity with or without an assistive device 5 Patient requires set up or clean up by helper. Patient completes activity by themselves 4 Supervision or touching assist (CGA). [place] provide cues , steadying assist 3 The helper provides less than half the effort to complete the activity 2 The helper provides more than half the effort to complete the activity 1 Dependent. The helper does all the effort to complete an activity 7 Patient refused to complete or attempt activity 9 The patient did not perform the activity before the current illness or injury 88 Not attempted due to Medical conditions or safety concerns Other Treatment Pt supine to sit with minimal assistance. Sit to stand and transfer to chair with minimal assistance using FWW. Pt completed bilateral UE exercises to increase strength needed for ADLs and transfers. Pt performed shoulder flexion, abduction, biceps curls, and triceps extension exercises x15 reps with moderate resistance (red) theraband. Rest breaks between exercises. Pt completed bilateral hand salesperson jewelry exercises x20 reps with moderate resistance therapy foam to increase salesperson jewelry strength. Graded clothespins activity with bilateral hands to increase strength for functional tasks. Increased time required for activity. Pt sitting in chair with needs met after session. OT Short Term Goals Short Term Goals Time Frame: Apr 01, 2018 Lower Body Dressing(FIM): 4 Toilet/Commode Transfer(FIM): 5 Additional Short Term Goals: 1-Demonstrate ADL Tasks, 2-Verbalize Understanding , 3-ImproveStrength/Natacha 1=Demonstrate adherence to instructed precautions during ADL tasks. 2=Patient will verbalize/demonstrate understanding of assistive devices/ modifications for ADL. 3=Patient will improve strength/tolerance for activity to enable patient to perform ADL's. OT Marketing Support Coordinator Goals Marketing Support Coordinator Goals Time Frame: Apr 15, 2018 Eating (FIM): 6 Eating (QC): 6 Groomin Oral Hygiene (QC): 6 Bathing(FIM): 5 Shower/Bathe Self (QC): 5 Upper Body Dressing(FIM): 6 Upper Body Dressing (QC): 6 Lower Body Dressing(FIM): 6 Lower Body Dressing (QC): 6 On/Off Footwear (QC): 6 Toileting(FIM): 6 Toileting Hygiene (QC): 6 Toilet/Commode Transfer(FIM): 6 Toilet/Commode Transfer (QC): 6 Shower Transfer(FIM): 5 Additional Goals: 1-Demonstrate ADL Tasks, 2-Verbalize Understanding, 3- ImproveStrength/Natacha 1=Demonstrate adherence to instructed precautions during ADL tasks. 2=Patient will verbalize/demonstrate understanding of assistive devices/ modifications for ADL. 3=Patient will improve strength/tolerance for activity to enable patient to perform ADL's. OT Education/Plan Discharge Recommendations Plan/Recommendations: Continue POC Treatment Plan/Plan of Care Patient would benefit from OT for education, treatment and training to promote independence in ADL's, mobility, safety and/or upper extremity function for ADL' s. Plan of Care: ADL Retraining, Functional Mobility, Group Exercise/Act as Ind, UE Funct Exercise/Act Treatment Duration: Apr 15, 2018 Frequency: At least 5 of 7 days/Wk (IRF) Estimated Hrs Per Day: 1.5 hours per day Rehab Potential: Fair Time/GCodes Start Time: 13:30 Stop Time: 14:00 Total Time Billed (hr/min): 30 Billed Treatment Time 1 visit, EXx2(30minutes) GUERA BYERS OT Mar 25, 2018 14:33
--- NOTE | 2018-03-25 14:40 | NUR ---
Dr. Knight to floor. Orders to hold Coumadin this evening.
--- NOTE | 2018-03-25 14:40 | Cardiology Progress Note ---
Subjective Date Seen by Provider: Mar 25, 2018 Time Seen by Provider: 14:38 Subjective/Events-last exam Patient is laying down in bed, feeling better. No new complaint Review of Systems General: No Chills, No Night Sweats, No Fatigue, No Malaise, No Appetite, No Other HEENT: No Head Aches, No Visual Changes, No Eye Pain, No Ear Pain, No Dysphasia , No Sinus Congestion, No Post Nasal Drip, No Sore Throat, No Other Pulmonary: No Dyspnea, No Cough, No Pleuritic Chest Pain, No Other Cardiovascular: No: Chest Pain, Palpitations, Orthopnea, Paroxysmal Noc. Dyspnea, Edema, Lt Headedness, Other Objective-Cardiology Exam Last Set of Vital Signs Capillary Refill : General: Alert, Oriented X3, Cooperative HEENT: Atraumatic, PERRLA Neck: Supple, No JVD, No Thyromegaly Lungs: Clear to Auscultation, Normal Air Movement Heart: Regular Rate, Normal S1, Normal S2, Other (metallic click) Abdomen: Normal Bowel Sounds, Soft, No Tenderness, No Hepatosplenomegaly, No Masses Extremities: No Clubbing, No Cyanosis, No Edema, Normal Pulses, No Tenderness/ Swelling Skin: No Rashes, No Breakdown, No Significant Lesion Neuro: Normal Speech, Normal Tone, Sensation Intact, Other (generalized weakness) Psych/Mental Status: Mental Status NL, Mood NL A/P-Cardiology Admission Diagnosis Generalized weakness Coumadin toxicity Hypertension Pneumonia Assessment/Plan Generalized weakness and debility, receiving therapy Persistent pneumonia, receiving antibiotic, managed by primary care team Status post Coumadin toxicity for which he received FFP and vitamin K, INR 3.6 today, hold tonight's coumadin dose and continue to monitor. Status post anemia, received blood transfusion, continue to monitor History of aortic valve replacement, on Coumadin, continue to adjust and monitor INR 3.2 today Paroxysmal atrial fibrillation, maintained on amiodarone. Continue to monitor Elevated liver enzymes, appear to be improving slowly compared to the previous admission. Continue to monitor Leukopenia, monitored and followed by primary care physician Permanent pacemaker, functioning normally. Continue to monitor Diabetes mellitus, followed and managed by primary care physician Hypertension, continue to monitor blood pressure Hyperlipidemia, continue to monitor lipids. Hypothyroidism, followed and managed by primary care physician Clinical Quality Measures DVT/VTE Risk/Contraindication: Risk Factor Score Per Nursin KARTHIKEYAN HORTON MD Mar 25, 2018 2:40 pm
--- NOTE | 2018-03-25 15:15 | ST Dysphagia Evaluation ---
Speech Evaluation-General Medical Diagnosis pneumonia, debility Onset Date: Mar 09, 2018 Therapy Diagnosis Therapy Diagnosis: Oropharyngeal Dysphagia Precautions Precautions: Aspiration Medical History Pertinent Medical History: Atrial Fib, CAD, DM, GERD, HTN Reviewed History: Yes Social History Current Living Status: Children Speech PLF/Current-Dysphagia Prior Level of Function Patient lived at home with his son who helps the patient with his daily needs. Subjective Patient pleasant and attentive throughout the evaluation process. Cognitive Status Patient Orientation: Person, Place, Time, Situation Oral Motor Skills Dentition: Edentalous Current Food Consistancy: Mechanical Soft, Dysphagia Soft, Thin Liquids Ability to Follow Directions: Good Patient has been receiving skilled dysphagia therapy since his initial hospitalization. Oral Expression Ability: No Impairment Voice Voice Phonatory-Based Quality: Normal Voice Pitch: Normal Voice Loudness: Mildly Soft/Quiet Face Facial Symmetry: Symmetrical Oral-Facial Assessment Oral-Facial Dentition: Normal Lingual Protrusion: Normal Lingual ROM: Normal Lingual Strength: Normal Gag Reflex Response: Normal Pharynx Velopharyngeal Move.: Normal Volitional Dry Swallow: Yes Dysphagia Evaluation Consistencies Presented: Thin Liquid, Mechanical Soft, Pureed Oral Phase: Reduced Oral Transit Pharyngeal Phase: Decreased A/P Bolus Transit Funct. Velo/Pharyngeal Symptom: Clears Throat Dietary Recommendations: Mechanical Soft Liquid Recommendations: Thin Swallowing Precautions: Alternate Liquids/Solids, Double Swallow, Liquids from Straw, Small Bites and Sips, Sitting Upright 90 Degrees, Sitting 90 Degrees 30 Post Intake Dysphagia Evaluation Summary Patient is known to this clinician due to receiving skilled dysphagia therapy on the acute side. He has been making progress throughout the course of dysphagia therapy. His percentage of oral intake is slightly improving. Patient states he just isn't hungry and doesn't care if he eats. Patient is edentulous, however he states he has a full set of dentures at home. Patient is recommended to continue skilled dysphagia therapy for least restrictive diet assessment and compensatory strategies training. Barriers to Learning Patient's health is poor and participation takes encouragement. Speech Short Term Goals Short Term Goals Short Term Goals 1) Patient will decrease oral transit time to 3 seconds in order to patient's ability to efficiently consume highest level of oral intake with 80% or greater. 2) Patient will utilize compensatory strategies as trained with 80% or greater. Speech [facility] Goals [employer] Lift Truck Operator Goals Patient will maintain adequate nutrition/hydration via safe effective swallow function. Speech-Plan Patient/Family Goals Patient/Family Goals: Patient plans to return home with his son post rehab. Treatment Plan Speech Therapy Treatment Plan: Continue Plan of Care Patient is recommended to continue dysphagia therapy in the ARU for safe oral intake of least restrictive diet level. Treatment Duration: Apr 03, 2018 Frequency: 5 times per week Estimated Hrs Per Day: .5 hour per day Rehab Potential: Fair Barriers to Learning: Patient has multiple medical problems Pt/Family Agrees to Plan: Yes Safety Risks/Education Teaching Recipient: Patient Teaching Methods: Discussion Response to Teaching: Verbalize Understanding Education Topics Provided: Safety of oral intake and education for increasing oral intake for healing. Time Speech Therapy Time In: 14:45 Speech Therapy Time Out: 15:00 Total Billed Time: 15 Billed Treatment Time 1, LOULOU Smith Mar 25, 2018 15:15
--- NOTE | 2018-03-25 15:57 | Physical Therapy Daily Note ---
PT Daily Note-Current Subjective Pt sitting in recliner upon arrival. Pt agrees to PT. Pain Numeric Pain Scale: 7 Location: Right Location Body Site: Knee Pain Description: Ache Mental Status Patient Orientation: Person, Place, Time, Situation Attachments: Oxygen (3L), Amador Catheter Transfers Therapy Code Descriptions/Definitions Functional [place] Measure: 0=Not Assessed/NA 4=Minimal Assistance 1=Total Assistance 5=Supervision or Setup 2=Maximal Assistance 6=Modified [place] 3=Moderate Assistance 7=Complete [place] Therapy Quality Codes: 6 Independent with activity with or without an assistive device 5 Patient requires set up or clean up by helper. Patient completes activity by themselves 4 Supervision or touching assist (CGA). [place] provide cues , steadying assist 3 The helper provides less than half the effort to complete the activity 2 The helper provides more than half the effort to complete the activity 1 Dependent. The helper does all the effort to complete an activity 7 Patient refused to complete or attempt activity 9 The patient did not perform the activity before the current illness or injury 88 Not attempted due to Medical conditions or safety concerns Scootin Supine to/from Sit: 5 Sit to/from Stand: 5 Sit to Lying (QC): 5 Sit to Stand (QC): 5 Weight Bearing Right Lower Extremity: Right Weight Bearing/Tolerated Left Lower Extremity: Left Weight Bearing/Tolerated Gait Training Does the Patient Walk?: Yes Distance (FIM): 3=150 ft Distance: 150' Walk 10 feet (QC): 5 Walk 50 ft with 2 Turns(QC): 5 Walk 150 ft (QC): 5 Gait Level of Assist: 5 Gait Persons Needed: 1 Gait Assistive Device: FWW Pt walks with antalgic, slow gait pattern. Wheelchair Training Does the Pt Use a Wheelchair?: No Exercises Seated Therapy Exercises: Ankle pumps, Long arc quads, Hip flexion, Kicking activity Seated Reps: 20 Treatments Pt asks for R knee to be wrapped with MYRTLE wrap. Pt then completes Seated Ex in recliner with rest break as needed. Pt transfers to standing and ambulates in hallway and Therapy Commons using FWW at [facility]. Pt reports MYRTLE wrap is loose and needs rewrapped then ambulates again. Pt returns to room to rest Supine in bed with all needs met. Assessment Current Status: Good Progress Pt is motivated to get stronger and participate with Therapy to improve for safe return home. PT Short Term Goals Short Term Goals Time Frame: Apr 01, 2018 Gait (FIM): 5 Gait Distance Comment: 150' Gait Level of Assist: 5 Gait Assistive Device: FWW PT Timber Management Specialist Goals Timber Management Specialist Goals PT Timber Management Specialist Goals Time Frame: Apr 15, 2018 Transfers (B,C,W/C) (FIM): 6 Sit to Lying (QC): 6 Lying-Sitting on Side/Bed(QC): 6 Sit to Stand (QC): 6 Rollin Roll Left to Right (QC): 6 Chair/Dgj-mh-Inzps Xfer(QC): 6 Car Transfer (QC): 6 Gait (FIM): 6 Distance: 200' Walk 10 feet (QC): 6 Walk 10ft-Uneven Surface(QC): 6 Walk 50ft with 2 Turns (QC): 6 Walk 150 ft (QC): 6 Gait Level of Assist: 6 Gait Assistive Device: FWW Stairs (FIM): 2 # of Steps: 4 1 Step (curb) (QC): 4 4 Steps (QC): 4 Stairs Level Of Assist: 5 PT Plan Problem List Problem List: Activity Tolerance, Functional Strength, Gait Treatment/Plan Treatment Plan: Continue Plan of Care Treatment Plan: Bed Mobility, Education, Functional Activity Natacha, Functional Strength, Group Therapy, Gait, Safety, Therapeutic Exercise, Transfers Treatment Duration: Apr 15, 2018 Frequency: At least 5 of 7 days/Wk (IRF) Estimated Hrs Per Day: 1.5 hours per day Patient and/or Family Agrees t: Yes Safety Risks/Education Patient Education: Gait Training, Transfer Techniques, Correct Positioning, Safety Issues Teaching Recipient: Patient Teaching Methods: Discussion Response to Teaching: Verbalize Understanding Time/GCodes Time In: 1455 Time Out: 1550 Total Billed Treatment Time: 55 Total Billed Treatment 1, GT (15m), FA x2 (25m) & EX (15m) G Codes Necessary: KIKO Valentine MOTEL FRONT DESK ATTENDANT Mar 25, 2018 15:57
[2018-03-25] MEDS: inSUlin ASPART (NovoLOG) 1 UNIT/0.01 ML (CHARGE PER UNIT) SC SCH ×2 (16:30→20:04)
[2018-03-25] MEDS: MAGNESIUM OXIDE (MAG-OX)400 MG TAB PO SCH (18:14)
[2018-03-25 18:17] VITALS: BP 149/72
[2018-03-25] MEDS: RT-BUDESONIDE NEBS 0.5 MG/2ML (PULMICORT) AMP INH SCH (19:38)
[2018-03-25] MEDS: RT-ALBUTEROL/IPRATROPIUM 3 ML (DUONEB) VIAL INH SCH (19:38)
[2018-03-25] MEDS: ALPRAZolam 1 MG (XANAX) TAB PO PRN (19:44)
[2018-03-25] MEDS: PANTOPRAZOLE 40 MG (PROTONIX) TAB PO SCH (19:45)
[2018-03-25] MEDS: LEVOTHYROXINE 150 MCG (LEVOTHROID) TAB PO SCH (19:45)
[2018-03-25] MEDS: SIMvastatin 20 MG (ZOCOR) TAB PO SCH (19:45)
[2018-03-25] MEDS: DEMECLOCYCLINE PO SCH (19:45)
[2018-03-25] MEDS: LEVOTHYROXINE 25 MCG (LEVOTHROID) TAB PO SCH (19:45)
[2018-03-25] MEDS: TAMSULOSIN 0.4 MG (FLOMAX) CAP PO SCH (19:45)
[2018-03-25] MEDS: AMIODARONE 200 MG (CORDARONE) TAB PO SCH (19:49)
[2018-03-25] MEDS ORDERED: diphenhydrAMINE 25 MG TAB (BENADRYL) PO PRN (21:15)
[2018-03-25] MEDS ORDERED: LOPERAMIDE 2 MG (IMODIUM) CAP PO PRN (21:15)
[2018-03-25] MEDS ORDERED: DOCUSATE SODIUM 100 MG (COLACE) CAP PO PRN (21:15)
[2018-03-26] MEDS: RT-ALBUTEROL/IPRATROPIUM 3 ML (DUONEB) VIAL INH SCH ×4 (02:59→20:10)
[2018-03-26 05:10] VITALS: BP 140/82
[2018-03-26 06:20] LABS: BASOPHILS % (AUTO) 0 % (0-10); EOSINOPHILS % (AUTO) 1 % (0-10); HEMATOCRIT 32 % (40-54); HEMOGLOBIN 10.3 G/DL (13.3-17.7); LYMPHOCYTES # (AUTO) 0.9 X 10^3 (1.0-4.0); LYMPHOCYTES % (AUTO) 21 % (12-44); MEAN CORPUSCULAR HEMOGLOBIN 30 PG (25-34); MEAN CORPUSCULAR HGB CONC 32 G/DL (32-36); MEAN CORPUSCULAR VOLUME 93 FL (80-99); MONOCYTES # (AUTO) 0.4 X 10^3 (0.0-1.0); MONOCYTES % (AUTO) 10 % (0-12); NEUTROPHILS # (AUTO) 2.9 X 10^3 (1.8-7.8); NEUTROPHILS % (AUTO) 68 % (42-75); PLATELET COUNT 157 10^3/uL (130-400); RED BLOOD COUNT 3.44 10^6/uL (4.35-5.85); RED CELL DISTRIBUTION WIDTH 16.6 % (10.0-14.5); WHITE BLOOD COUNT 4.3 10^3/uL (4.3-11.0)
[2018-03-26 06:31] LABS: INR 3.4 (0.8-1.4); PROTHROMBIN TIME PATIENT 34.5 SEC (12.2-14.7)
[2018-03-26] MEDS: PANTOPRAZOLE 40 MG (PROTONIX) TAB PO SCH ×2 (06:32→20:06)
[2018-03-26] MEDS: MENTHOL/ZINC OXIDE (CALMOSEPTINE) 113 GM TUBE TOP SCH ×5 (06:33→20:06)
[2018-03-26 06:41] LABS: ALANINE AMINOTRANSFERASE 27 U/L (0-55); ALBUMIN 2.6 GM/DL (3.2-4.5); ALKALINE PHOSPHATASE 143 U/L (40-136); BILIRUBIN,TOTAL 0.6 MG/DL (0.1-1.0); BUN/CREATININE RATIO 10; CALCIUM 8.2 MG/DL (8.5-10.1); CARBON DIOXIDE 30 MMOL/L (21-32); CHLORIDE 95 MMOL/L (98-107); CREATININE SERUM 0.86 MG/DL (0.60-1.30); GFR ESTIMATED > 60; GLUCOSE 72 MG/DL (70-105); POTASSIUM 4.9 MMOL/L (3.6-5.0); SODIUM 134 MMOL/L (135-145); TOTAL PROTEIN 4.9 GM/DL (6.4-8.2)
[2018-03-26] MEDS: inSUlin ASPART (NovoLOG) 1 UNIT/0.01 ML (CHARGE PER UNIT) SC SCH (06:45)
--- NOTE | 2018-03-26 06:58 | Pulmonary Progress Note ---
Subjective Time Seen by a Provider: 06:57 Subjective/Events-last exam No complications noted. Sepsis Event Evaluation Height, Weight, BMI Height: 5'8.00" Weight: 159lbs. 8.0oz. 72.071205nr; 24.3 BMI Method:Stated Exam Exam Vital Signs Date Time Temp Pulse Resp B/P (MAP) Pulse Ox O2 Delivery O2 Flow Rate FiO2 03/26/18 05:10 97.2 63 16 140/82 (101) 95 Nasal Cannula 3.00 03/26/18 02:59 92 Nasal Cannula 3.00 03/25/18 21:00 96 Nasal Cannula 3.00 03/25/18 19:43 97 Nasal Cannula 3.00 03/25/18 19:38 97 Nasal Cannula 3.00 03/25/18 18:17 97.5 63 16 149/72 (97) 97 Nasal Cannula 3.00 03/25/18 16:56 95 Nasal Cannula 3.00 03/25/18 15:05 92 Nasal Cannula 3.00 I & O 03/26/18 07:00 Intake Total 800 ml Output Total 2600 ml Balance -1800 ml Height & Weight Height: 5'8.00" Weight: 159lbs. 8.0oz. [id number]; 24.3 BMI Method:Stated General Appearance: No Apparent Distress, WD/WN HEENT: PERRL/EOMI, Normal ENT Inspection, Pharynx Normal Neck: Full Range of Motion, Normal Inspection, Non Tender, Supple Respiratory: Chest Non Tender, No Accessory Muscle Use, No Respiratory Distress , Decreased Breath Sounds Cardiovascular: Regular Rate, Rhythm Capillary Refill: Less Than 3 Seconds Gastrointestinal: normal bowel sounds, non tender, soft Extremity: Normal Capillary Refill Neurologic/Psychiatric: Alert, Oriented x3 Skin: Normal Color, Warm/Dry Lymphatic: No Adenopathy Results Lab Laboratory Tests 03/26/18 05:33 Assessment/Plan Assessment/Plan Resolving Pneumonia -Repeat CXR - today Hypoxia -Pt will need home 02 -He is currently requiring 3 liters of oxygen. -Needs out patient PFT Gastritis s/p EGD Metabolic encephalopathy - improved Anemia with Coumadin coagulopathy -Coumadin dosing per Dr. Antonia strong -Monitor Hx of aortic valve replacement -Coumadin therapy Debility/deconditioning S/P fall at home LUKE BLEDSOE DO Mar 26, 2018 06:58
--- NOTE | 2018-03-26 07:25 | Cardiology Progress Note ---
Subjective Date Seen by Provider: Mar 26, 2018 Time Seen by Provider: 07:24 Subjective/Events-last exam Patient is feeling better, no new complaint Review of Systems General: No Chills, No Night Sweats; Fatigue, Malaise; No Appetite, No Other HEENT: No Head Aches, No Visual Changes, No Eye Pain, No Ear Pain, No Dysphasia , No Sinus Congestion, No Post Nasal Drip, No Sore Throat, No Other Pulmonary: No Dyspnea, No Cough, No Pleuritic Chest Pain, No Other Cardiovascular: No: Chest Pain, Palpitations, Orthopnea, Paroxysmal Noc. Dyspnea, Edema, Lt Headedness, Other Objective-Cardiology Exam Last Set of Vital Signs Vital Signs 03/26/18 05:10 Temp 97.2 Pulse 63 Resp 16 B/P (MAP) 140/82 (101) Pulse Ox 95 O2 Delivery Nasal Cannula O2 Flow Rate 3.00 Capillary Refill : Less Than 3 Seconds I&O Intake and Output 03/26/18 00:00 Intake Total 400 ml Output Total 1200 ml Balance -800 ml Intake Oral 400 ml Output Urine Total 1200 ml Daily Weight Change No General: Alert, Oriented X3, Cooperative HEENT: Atraumatic, PERRLA Neck: Supple, No JVD, No Thyromegaly Lungs: Clear to Auscultation, Normal Air Movement Heart: Regular Rate, Normal S1, Normal S2, Other (metallic click) Abdomen: Normal Bowel Sounds, Soft, No Tenderness, No Hepatosplenomegaly, No Masses Extremities: No Clubbing, No Cyanosis, No Edema, Normal Pulses, No Tenderness/ Swelling Skin: No Rashes, No Breakdown, No Significant Lesion Neuro: Normal Speech, Normal Tone, Sensation Intact, Other (generalized weakness) Psych/Mental Status: Mental Status NL, Mood NL Results Lab Laboratory Tests 03/26/18 05:33 A/P-Cardiology Admission Diagnosis Generalized weakness Coumadin toxicity Hypertension Pneumonia Assessment/Plan Generalized weakness and debility, receiving therapy Persistent pneumonia, receiving antibiotic, managed by primary care team Status post Coumadin toxicity for which he received FFP and vitamin K, INR 3.4 today, hold tonight's coumadin and continue to monitor. Status post anemia, received blood transfusion, continue to monitor History of aortic valve replacement, on Coumadin, continue to adjust and monitor Paroxysmal atrial fibrillation, maintained on amiodarone. Continue to monitor Elevated liver enzymes, appear to be improving slowly compared to the previous admission. Continue to monitor Leukopenia, monitored and followed by primary care physician Permanent pacemaker, functioning normally. Continue to monitor Diabetes mellitus, followed and managed by primary care physician Hypertension, continue to monitor blood pressure Hyperlipidemia, continue to monitor lipids. Hypothyroidism, followed and managed by primary care physician Clinical Quality Measures DVT/VTE Risk/Contraindication: Risk Factor Score Per Nursin RFS Level Per Nursing on Admit: 3=High KARTHIKEYAN HORTON MD Mar 26, 2018 07:25
--- NOTE | 2018-03-26 08:40 | History & Physical ---
History of Present Illness History of Present Illness Reason for visit/HPI CC: Debility HPI: This is a 67-year-old white male with a multitude of severe medical problems which resulted in an acute decompensation from pneumonia and supratherapeutic INR which resulted in an ICU stay which was extended into [facility] and then placed on swing bed due to severe debility. Cardiology and pulmonology have been extremely helpful in managing this very complex patient. It was found that he was in need of intensive rehabilitation in order to return home with his son. He is willing to become compliant with therapy requirements and anything else he can do in order to get home. His INR is very labile and maintained on that for valve replacement. Patient with hypoxia and oxygen dependency places limits on how much therapy he is able to accommodate in one setting. Chest x-ray was obtained today recommended by Dr. Johnson and we will follow up on that x-ray. He reports a cough continues but it is nonproductive and just overall feels like his respiratory status is stable. His bowels have alternated between several times a day and no bowel movement for 4 days so we' ll try to stabilize that while he is staying inpatient rehabilitation facility. He does have an indwelling catheter and we will address that considering how debilitated he is and will focus on discontinuing that as soon as possible due to high risk for infection. If we have retention issues I will consult urology. Date of Admission Mar 25, 2018 at 10:40 Date Seen by a Provider: Mar 26, 2018 Time Seen by a Provider: 08:00 I consulted on this patient on 03/26/18 08:34 Attending Physician Chiquis Euceda DO Admitting Physician Fercho Gorman MD Consult Allergies and Home Medications Allergies Coded Allergies: fentanyl (Verified Allergy, Mild, 03/09/18) levofloxacin (Unverified Allergy, Unknown, 03/09/18) "FEELS FUNNY" cefadroxil (Verified Adverse Reaction, Mild, NAUSEA, 03/09/18) sulfamethoxazole (Verified Adverse Reaction, Mild, 03/09/18) trimethoprim (Verified Adverse Reaction, Mild, 03/09/18) Home Medications Alprazolam 1 Mg Tablet, 1 MG PO BID PRN, (Reported) Amiodarone HCl 200 Mg Tablet, 200 MG PO BID, (Reported) Demeclocycline HCl 150 Mg Tablet, 150 MG PO BID, (Reported) Enoxaparin Sodium 80 Mg/0.8 Ml Syringe, 70 MG SC BID Prescribed by: NEYDA CHOPRA on 03/03/18 1020 Hydrochlorothiazide 12.5 Mg Capsule, 12.5 MG PO DAILY, (Reported) Insulin Glargine/Lixisenatide 3 Ml Insuln.pen, 21 UNITS SQ DAILY, (Reported) Levothyroxine Sodium 175 Mcg Tablet, 175 MCG PO HS, (Reported) Lovastatin 40 Mg Tablet, 40 MG PO HS, (Reported) Metformin HCl 1,000 Mg Tablet, 1,000 MG PO DAILY, (Reported) Oxycodone HCl/Acetaminophen 1 Each Tablet, 1 EACH PO HS, (Reported) Pantoprazole Sodium 40 Mg Tablet.dr, 40 MG PO BID, (Reported) Tamsulosin HCl 0.4 Mg Cap.er.24h, 0.4 MG PO HS, (Reported) Warfarin Sodium 1 Mg Tablet, 1 MG PO DAILY@1800 Prescribed by: NEYDA CHOPRA on 03/03/18 1020 Patient Home Medication List Home Medication List Reviewed: Yes Past Mvixbsz-Bfsabi-Rqkksr Hx Past Med/Social Hx: Reviewed Nursing Past Med/Soc Hx, Reviewed and Corrections made Patient Social History Marrital Status: single Employed/Student: retired Alcohol Use: Denies Use Recreational Drug Use: No Smoking Status: Never a Smoker Physical Abuse Screen: No Sexual Abuse: No Recent Foreign Travel: No Contact w/other who traveled: No Recent Hopitalizations: No Recent Infectious Disease Expo: No Immunizations Up To Date Tetanus Booster (TDap): Less than 5yrs Date of Pneumonia Vaccine: Dec 16, 2017 Date of Influenza Vaccine: Dec 15, 2017 Seasonal Allergies Seasonal Allergies: No Past Medical History Surgeries: Amputation, Bowel Surgery, Cardiac, Coronary Stent, Gallbladder, Orthopedic, Pacemaker, Valve Replacement Respiratory: COPD, Pneumonia Currently Using CPAP: No Currently Using BIPAP: No Cardiac: Atrial Fibrillation, Coronary Artery Disease, High Cholesterol, Hypertension, Valvular Heart Disease Reproductive: No Sexually Transmitted Disease: No HIV/AIDS: No Genitourinary: Prostate Problems Gastrointestinal: Gastroesophageal Reflux, Diverticulosis, Irritable Bowel Musculoskeletal: Arthritis, Chronic Back Pain Endocrine: Diabetes, Insulin dep, Hypothyroidsim Loss of Vision: Bilateral Hearing Impairment: Denies Psychosocial: Anxiety, Depression History of Blood Disorders: Yes (ANEMIA) Adverse Reaction to Blood Light: No (HAS HAD BLOOD WITH NO REACTION) Family History Abdominal aortic aneurysm Arthritis Cardiovascular disease Diabetes mellitus Psychosocial problem Seizure disorder Thyroid disease Visual disorder Diabetes, Hypertension Review of Systems Constitutional: see HPI, malaise, weakness EENTM: no symptoms reported Respiratory: cough, dyspnea on exertion, short of breath Cardiovascular: no symptoms reported Gastrointestinal: constipation Genitourinary: other (catheter) Musculoskeletal: joint pain, muscle pain, muscle stiffness, muscle twitching, muscle weakness Skin: no symptoms reported Psychiatric/Neurological: No Symptoms Reported All Other Systems Reviewed Negative Unless Noted: Yes Physical Exam Vital Signs Vital Signs - First Documented 03/25/18 03/25/18 15:05 18:17 Temp 97.5 Pulse 63 Resp 16 B/P (MAP) 149/72 (97) Pulse Ox 92 O2 Delivery Nasal Cannula O2 Flow Rate 3.00 Capillary Refill : Less Than 3 Seconds Height, Weight, BMI Height: 5'8.00" Weight: 159lbs. 8.0oz. 72.330026ja; 24.3 BMI Method:Stated General Appearance: No Apparent Distress, WD/WN, Chronically ill, Thin Eyes: Bilateral Eye Normal Inspection, Bilateral Eye PERRL, Bilateral Eye EOMI HEENT: PERRL/EOMI, Normal ENT Inspection, Pharynx Normal Neck: Full Range of Motion, Normal Inspection, Non Tender, Supple, Carotid Bruit Respiratory: Chest Non Tender, No Accessory Muscle Use, No Respiratory Distress , Crackles, Decreased Breath Sounds, Wheezing Cardiovascular: Regular Rate, Rhythm, No Edema, No Gallop, No JVD, Normal Peripheral Pulses, Systolic Murmur Gastrointestinal: Normal Bowel Sounds, No Organomegaly, No Pulsatile Mass, Non Tender, Soft Back: Normal Inspection, No CVA Tenderness, No Vertebral Tenderness Extremity: Normal Capillary Refill, Normal Inspection, Normal Range of Motion, Non Tender, No Calf Tenderness, No Pedal Edema Neurologic/Psychiatric: Alert, Oriented x3, No Motor/Sensory Deficits, Depressed Affect Skin: Normal Color, Warm/Dry Lymphatic: No Adenopathy Assessment/Plan Assessment and Plan Assessment: Severe debility Recent pneumonia with respiratory insufficiency Supratherapeutic INR Aortic valve replacement history Diabetes mellitus Chronic renal insufficiency Anemia Urinary retention Plan: Monitor INR and labs Check chest x-ray Nebulizer treatments Therapies to improve strength and be able to return back to independent living Therapies will be impacted by electrolyte imbalance, anemia, hypoxia, and just overall respiratory decline Problems: (1) Debility Status: Acute (2) Rales Status: Acute (3) Acute respiratory failure Status: Resolved (4) PNA (pneumonia) Status: Acute (5) Frailty Status: Acute (6) Elevated INR Status: Acute (7) Iron deficiency Status: Acute (8) Electrolyte abnormality Status: Resolved (9) Insulin dependent diabetes mellitus Status: Chronic (10) Hypokalemia Status: Resolved (11) Aortic valve replaced Status: Chronic Admission Diagnosis Admission Status: Inpatient Order (span 2 midnights) Reason for Inpatient Admission: Severe debility will require at least 14 days of inpatient therapy Clinical Quality Measures DVT/VTE Risk/Contraindication: Risk Factor Score Per Nursin RFS Level Per Nursing on Admit: 3=High Problem Qualifiers (1) Acute respiratory failure: Respiratory failure complication: unspecified whether with hypoxia or hypercapnia Qualified Codes: J96.00 - Acute respiratory failure, unspecified whether with hypoxia or hypercapnia CHIQUIS EUCEDA DO Mar 26, 2018 08:39
--- NOTE | 2018-03-26 08:41 | PM&R Post Admission Assessment ---
Post Admission Physician Asses Date seen by provider: Mar 26, 2018 Time seen by provider: 08:00 Admisison Dx: (1) Debility Status: Acute (2) Rales Status: Acute (3) Acute respiratory failure Status: Resolved (4) PNA (pneumonia) Status: Acute (5) Frailty Status: Acute (6) Elevated INR Status: Acute (7) Iron deficiency Status: Acute (8) Electrolyte abnormality (9) Insulin dependent diabetes mellitus (10) Hypokalemia Status: Resolved (11) Aortic valve replaced Status: Chronic The preadmission screen agrees with the post admission assessment that the patient is a good candidate for inpatient rehabilitation. The patient will have a comprehensive program of inpatient rehabilitation with a goal of maximizing level of functional independence prior to discharge home with [family]. The patient will have PT/OT ninety minutes per day, each discipline, five days a week for gait, strengthening, conditioning, balance, ADLs, any patient/family/caregiver training as necessary. Speech therapy to do cognitive assessment and treat as indicated. Rehabilitation nursing to assist with bowel, bladder, skin, wound care, medication administration, pain management. Jde Developer to assist with discharge planning, community reentry. SCD's for DVT prophylaxis. He appears to be well motivated to participate in three hours of therapy a day. He should be able to tolerate three hours of therapy a day from a medical standpoint. He should benefit from the three hours of therapy a day. He has a reasonable discharge plan, reasonable discharge rehabilitation goals and a supportive family. He has various comorbidities that need to be closely monitored with medications and treatments adjusted on a daily basis as needed. These include: See above list Barriers to discharge for this patient who had been independent prior to this are for him to be modified independent to supervision for ADLs and mobility skills prior to discharge home with [family], so as to lessen the burden of the caregivers. Risks for this patient include: 1. Fall 2. Fracture 3. DVT 4. Pulmonary embolism 5. Wound infection 6. Skin breakdown 7. Contractures 8. Poorly controlled pain 9. Urinary retention 10. UTI 11. Respiratory infection 12. Aspiration Estimated Length of Stay: [14]days Prognosis: Rehab prognosis appears good for goal of discharge home with [family ] modified independent to supervision for ADLs and mobility skills. Date Identified: Mar 26, 2018 Time Identified: 08:00 Action Plan to Resolve CSMI: Coarseness of lungs noted so we'll obtain chest x-ray and continue breathing treatments and incentive spirometer along with therapies to expand lungs but hypoxia may limit therapies General: Alert, Oriented X3, Cooperative HEENT: Atraumatic, PERRLA Neck: Supple, No JVD, No Thyromegaly Lungs: Normal Air Movement, Other (Crackles and wheezes) Heart: Regular Rate, Normal S1, Normal S2, Other (metallic click) Abdomen: Normal Bowel Sounds, Soft, No Tenderness, No Hepatosplenomegaly, No Masses Extremities: No Clubbing, No Cyanosis, Normal Pulses, No Tenderness/Swelling, Other (Mild edema) Skin: No Rashes, No Breakdown, No Significant Lesion Neuro: Normal Speech, Normal Tone, Sensation Intact, Other (generalized weakness) Psych/Mental Status: Mental Status NL, Mood NL MIRNA EUCEDA DO Mar 26, 2018 08:41
[2018-03-26 08:46] VITALS: BP 146/78
[2018-03-26] MEDS: AMIODARONE 200 MG (CORDARONE) TAB PO SCH ×2 (08:48→20:06)
[2018-03-26] MEDS: DEMECLOCYCLINE PO SCH ×2 (08:48→20:06)
[2018-03-26] MEDS: MAGNESIUM OXIDE (MAG-OX)400 MG TAB PO SCH ×2 (08:48→18:20)
[2018-03-26] MEDS: DICLOFENAC 1% GEL 100 GM (VOLTAREN) TUBE TOP SCH ×4 (09:00→20:07)
[2018-03-26] MEDS: SOLIQUA SQ SCH (09:00)
--- NOTE | 2018-03-26 09:09 | Speech Therapy Daily Note ---
Speech Daily Progress Note Subjective Date Seen by Provider: Mar 26, 2018 Time Seen by Provider: 00:30 Patient was resting in bed and stated he had a pretty good night. Objective Patient completed OME x10 with min to mod verbal/visual cuing. Assessment Assessment Current Status: Good Progress Treatment Plan Continue Plan of Care Speech Short Term Goals Short Term Goals Short Term Goals 1) Patient will decrease oral transit time to 3 seconds in order to patient's ability to efficiently consume highest level of oral intake with 80% or greater. 2) Patient will utilize compensatory strategies as trained with 80% or greater. Speech [facility] Goals [facility] Goals Patient will maintain adequate nutrition/hydration via safe effective swallow function. Speech-Plan Patient/Family Goals Patient/Family Goals: Patient will be returning home post rehab with family support. Treatment Plan Speech Therapy Treatment Plan: Continue Plan of Care Patient ate his breakfast with cough/clear x1. Treatment Duration: Apr 03, 2018 Frequency: 5 times per week Estimated Hrs Per Day: .5 hour per day Rehab Potential: Fair Barriers to Learning: Patient tires easily. Pt/Family Agrees to Plan: Yes Safety Risks/Education Teaching Recipient: Patient Teaching Methods: Discussion Response to Teaching: Verbalize Understanding Education Topics Provided: Safety within his room. Time Speech Therapy Time In: 08:30 Speech Therapy Time Out: 09:00 Total Billed Time: 30 Billed Treatment Time 1, LOULOU Bishop Mar 26, 2018 09:09
--- NOTE | 2018-03-26 09:14 | Diagnostic Imaging Report ---
INDICATION: Hypoxia. TIME OF EXAM: 08:37 a.m. Correlation is made with prior study from 03/19/2018. 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 The dual-lead left subclavian cardiac pacemaker remains in place with lead tips in the region of the right atrium and right ventricle. There has been some improved aeration of both lungs when compared with prior exam. There continue to be regions of linear opacity in the perihilar regions bilaterally suggestive of subsegmental atelectasis. Some airspace infiltrate previously noted there does appear to be slightly improved in the left lower lobe. No effusion or pneumothorax is detected. IMPRESSION: Overall improved aeration to both lungs when compared to examination from one week earlier. Dictated by: Dictated on workstation # [id number]
[2018-03-26] MEDS: RT-BUDESONIDE NEBS 0.5 MG/2ML (PULMICORT) AMP INH SCH ×2 (10:01→20:10)
[2018-03-26] MEDS: IRON SUCROSE 200 MG/10 ML (VENOFER) VIAL IV SCH (10:41)
--- NOTE | 2018-03-26 11:10 | NUR ---
Pastoral Care Visit.
--- NOTE | 2018-03-26 11:28 | Physical Therapy Daily Note ---
PT Daily Note-Current Subjective Patient in bed pre tx, agrees to PT, no complaints of pain at rest. Significant swelling in BLE. Appearance Patient in bed post tx with nurse call, phone, tray, all needs met. Mental Status Patient Orientation: Person, Place, Situation Attachments: Oxygen, Amador Catheter Transfers Therapy Code Descriptions/Definitions Functional [place] Measure: 0=Not Assessed/NA 4=Minimal Assistance 1=Total Assistance 5=Supervision or Setup 2=Maximal Assistance 6=Modified [place] 3=Moderate Assistance 7=Complete [place] Therapy Quality Codes: 6 Independent with activity with or without an assistive device 5 Patient requires set up or clean up by helper. Patient completes activity by themselves 4 Supervision or touching assist (CGA). [place] provide cues , steadying assist 3 The helper provides less than half the effort to complete the activity 2 The helper provides more than half the effort to complete the activity 1 Dependent. The helper does all the effort to complete an activity 7 Patient refused to complete or attempt activity 9 The patient did not perform the activity before the current illness or injury 88 Not attempted due to Medical conditions or safety concerns Transfers (B, C, W/C) (FIM): 4 Scootin Rollin Supine to/from Sit: 4 Sit to/from Stand: 5 Bed to/from Chair: 5 Min assist for supine to sit Weight Bearing Right Lower Extremity: Right Weight Bearing/Tolerated Left Lower Extremity: Left Weight Bearing/Tolerated Gait Training Gait (FIM): 5 Distance: 150'x2 Gait Level of Assist: 5 Gait Persons Needed: 1 Gait Assistive Device: FWW Patient ambulates very slowly, has pain in right knee especially. Re-wrapped MYRTLE wrap on right knee for comfort. Exercises Seated Therapy Exercises: Ankle pumps, Hip flexion, Hip abd/add Seated Reps: 20 LAQ alternating for 5 min NuStep Minutes: 15 NuStep Workload: 4 Treatments bed mobility and transfers, ambulation, functional strengthening Assessment Current Status: Fair Progress Patient ambulates and generally moves very slowly, has bilateral knee pain, needs frequent rest breaks. PT Short Term Goals Short Term Goals Time Frame: Apr 01, 2018 Gait (FIM): 5 Gait Distance Comment: 150' Gait Level of Assist: 5 Gait Assistive Device: FWW PT [facility] Goals Autopsy Pathologist Goals PT Autopsy Pathologist Goals Time Frame: Apr 15, 2018 Transfers (B,C,W/C) (FIM): 6 Sit to Lying (QC): 6 Lying-Sitting on Side/Bed(QC): 6 Sit to Stand (QC): 6 Rollin Roll Left to Right (QC): 6 Chair/Kdz-pe-Wxwnk Xfer(QC): 6 Car Transfer (QC): 6 Gait (FIM): 6 Distance: 200' Walk 10 feet (QC): 6 Walk 10ft-Uneven Surface(QC): 6 Walk 50ft with 2 Turns (QC): 6 Walk 150 ft (QC): 6 Gait Level of Assist: 6 Gait Assistive Device: FWW Stairs (FIM): 2 # of Steps: 4 1 Step (curb) (QC): 4 4 Steps (QC): 4 Stairs Level Of Assist: 5 PT Plan Problem List Problem List: Activity Tolerance, Functional Strength, Safety, Balance, Gait, Transfer, Bed Mobility, ROM Treatment/Plan Treatment Plan: Continue Plan of Care Treatment Plan: Bed Mobility, Education, Functional Activity Natacha, Functional Strength, Group Therapy, Gait, Safety, Therapeutic Exercise, Transfers Treatment Duration: Apr 15, 2018 Frequency: At least 5 of 7 days/Wk (IRF) Estimated Hrs Per Day: 1.5 hours per day Patient and/or Family Agrees t: Yes Safety Risks/Education Patient Education: Gait Training, Transfer Techniques, Correct Positioning, Safety Issues Teaching Recipient: Patient Teaching Methods: Demonstration, Discussion Response to Teaching: Reinforcement Needed Time/GCodes Time In: 1030 Time Out: 1130 Total Billed Treatment Time: 60 Total Billed Treatment 1 visit GT 30' EX 30' JORDYN VELEZ PT Mar 26, 2018 11:28
--- NOTE | 2018-03-26 11:42 | Occupational Ther Daily Note ---
OT Current Status-Daily Note Subjective Patient stated ," I am fine, little tired & needs shower today." Pain Numeric Pain Scale: 6 Location: Right Location Body Site: Knee Pain Description: Radiating, Sharp Mental Status/Objective Patient Orientation: Person, Place, Time, Eyes Open Therapy Code Descriptions/Definitions Functional [place] Measure: 0=Not Assessed/NA 4=Minimal Assistance 1=Total Assistance 5=Supervision or Setup 2=Maximal Assistance 6=Modified [place] 3=Moderate Assistance 7=Complete [place] ADL-Treatment Pt participated in shower with O2 on , Got up from bed to w/walker with SBA & walk to the shower in his room with SBA having gait belt. Hold grab bar in shower, Undress UB & LB cloths with min A with FOLEYS CATHETER & O2 nasal canula. Provided wash rag & shampoo, pt washed his face, arms , under armpits, chest , BLE , back , perineal area & butts & asked therapist to hold shower head. Patient washed front & back with SBA in shower , dry his front, back bottom & head & face using 3-4 towels . Educated to hold grab bars while standing & transfering with walker to chair to dress . Pt needs min A in LB & UB dressing due to fatigue & weakness . Pt requires frequent rest periods between each activity during shower & dressing. Eating (FIM): 7 Grooming (FIM): 6 Bathing (FIM): 4 Bathing Location: L Arm, R Arm, L Upper Leg, R Upper Leg, L Lower Leg ( including foot), R Lower Leg (including foot), Chest, Abdomen, Buttocks, Perineal Area Upper Body (FIM): 4 Lower Body Dressing (FIM): 4 Toileting (FIM): 4 Transfers (B, C, W/C) (FIM): 5 Toilet/Commode Transfer (FIM): 5 Shower Transfer(FIM): 5 Patient O2 dependent & has Amador"s catheter, very much aware of taking precautions while in shower room while taking shower.& transfers. Education OT Patient Education: Correct positioning, Energy conservation, Reviewed precautions, Safety issues, Transfer techniques Teaching Recipient: Patient Teaching Methods: Demonstration, Discussion Response to Teaching: Verbalize Understanding, Return Demonstration OT Short Term Goals Short Term Goals Time Frame: Apr 01, 2018 Lower Body Dressing(FIM): 4 Toilet/Commode Transfer(FIM): 5 Additional Short Term Goals: 1-Demonstrate ADL Tasks, 2-Verbalize Understanding , 3-ImproveStrength/Natacha 1=Demonstrate adherence to instructed precautions during ADL tasks. 2=Patient will verbalize/demonstrate understanding of assistive devices/ modifications for ADL. 3=Patient will improve strength/tolerance for activity to enable patient to perform ADL's. OT Nutritional Assistant Goals Detention Goals Time Frame: Apr 15, 2018 Eating (FIM): 6 Grooming(FIM): 6 Bathing(FIM): 5 Upper Body Dressing(FIM): 6 Lower Body Dressing(FIM): 6 Toileting(FIM): 6 Toilet/Commode Transfer(FIM): 6 Shower Transfer(FIM): 5 Additional Goals: 1-Demonstrate ADL Tasks, 2-Verbalize Understanding, 3- ImproveStrength/Natacha 1=Demonstrate adherence to instructed precautions during ADL tasks. 2=Patient will verbalize/demonstrate understanding of assistive devices/ modifications for ADL. 3=Patient will improve strength/tolerance for activity to enable patient to perform ADL's. OT Education/Plan Problem List/Assessment Assessment: Decreased Activ Tolerance, Decreased Safety Aware, Decreased UE Strength, Impaired Funct Balance, Impaired Self-Care Skills Discharge Recommendations Plan/Recommendations: Continue POC Therapy D/C Recommendations: Home w/ Family Support Equpiment Recommendations-D/C: Extended Bath Bench, Rails on Tub/Shower, Nsh Teacher, Sock Aide, Long Shoe Horn Barriers to Progress Pt fatigue soon due to O2 dependent , weakness, needs frequent rest periods during each activity. Patient/Family Goals To return home Independently. Treatment Plan/Plan of Care Treatment,Training & Education: Yes Patient would benefit from OT for education, treatment and training to promote independence in ADL's, mobility, safety and/or upper extremity function for ADL' s. Plan of Care: ADL Retraining, Functional Mobility, Group Exercise/Act as Ind, UE Funct Exercise/Act Treatment Duration: Apr 15, 2018 Frequency: At least 5 of 7 days/Wk (IRF) Estimated Hrs Per Day: 1.5 hours per day Rehab Potential: Good Time/GCodes Start Time: 09:00 Stop Time: 13:15 Total Time Billed (hr/min): 75 (9:00 am to 10:00 am =60 min & 1300 to 1315 =15 min Total 75 minutes.) Billed Treatment Time 75 minutes 9:00 am to 10::00 am = 60 mi & 1300 to 1315 = 15 min Total 75 minutes LUKE CAMPOS OT Mar 26, 2018 11:42
[2018-03-26] MEDS: oxyCODONE/APAP 10/325MG (PERCOCET 10) TABLET PO PRN (13:19)
--- NOTE | 2018-03-26 14:35 | Physical Therapy Daily Note ---
PT Daily Note-Current Subjective Agreeable to PT. Wants to know approximately how long he will be on ARU. Reports he is agreeable to stay as long as he needs. Transfers Therapy Code Descriptions/Definitions Functional [place] Measure: 0=Not Assessed/NA 4=Minimal Assistance 1=Total Assistance 5=Supervision or Setup 2=Maximal Assistance 6=Modified [place] 3=Moderate Assistance 7=Complete [place] Therapy Quality Codes: 6 Independent with activity with or without an assistive device 5 Patient requires set up or clean up by helper. Patient completes activity by themselves 4 Supervision or touching assist (CGA). [place] provide cues , steadying assist 3 The helper provides less than half the effort to complete the activity 2 The helper provides more than half the effort to complete the activity 1 Dependent. The helper does all the effort to complete an activity 7 Patient refused to complete or attempt activity 9 The patient did not perform the activity before the current illness or injury 88 Not attempted due to Medical conditions or safety concerns Supine to/from Sit: 4 (min assist with sup to sit EOB) Sit to/from Stand: 4 (CGA for safety) Sit to stand x 5 at EOB with skilled cues fo rsafety andhand placement. Weight Bearing Right Lower Extremity: Right Weight Bearing/Tolerated Left Lower Extremity: Left Weight Bearing/Tolerated Gait Training Does the Patient Walk?: Yes Gait (FIM): 4 (CGA for safety) Distance (FIM): 3=150 ft (x 3 reps) Gait Assistive Device: FWW Decreased step length and foot clearance B. Slow gait and slightly forward flexed at hips;. Exercises Seated Therapy Exercises: Ankle pumps, Long arc quads, Hip flexion, Hip abd/add Seated Reps: 15 (to increase LE strength for improved gait and transfers. ) Assessment Current Status: Good Progress Pleasant and cooperative. Only needs light assist fo rsafety. PT Short Term Goals Short Term Goals Time Frame: Apr 01, 2018 Gait (FIM): 5 Gait Distance Comment: 150' Gait Level of Assist: 5 Gait Assistive Device: FWW PT Longterm Goals Longterm Goals PT Documentation Manager Goals Time Frame: Apr 15, 2018 Transfers (B,C,W/C) (FIM): 6 Sit to Lying (QC): 6 Lying-Sitting on Side/Bed(QC): 6 Sit to Stand (QC): 6 Rollin Roll Left to Right (QC): 6 Chair/Wlu-ul-Hmhoe Xfer(QC): 6 Car Transfer (QC): 6 Gait (FIM): 6 Distance: 200' Walk 10 feet (QC): 6 Walk 10ft-Uneven Surface(QC): 6 Walk 50ft with 2 Turns (QC): 6 Walk 150 ft (QC): 6 Gait Level of Assist: 6 Gait Assistive Device: FWW Stairs (FIM): 2 # of Steps: 4 1 Step (curb) (QC): 4 4 Steps (QC): 4 Stairs Level Of Assist: 5 PT Plan Problem List Problem List: Activity Tolerance, Functional Strength, Safety, Balance, Gait, Transfer, Bed Mobility Treatment/Plan Treatment Plan: Continue Plan of Care Treatment Plan: Bed Mobility, Education, Functional Activity Natacha, Functional Strength, Group Therapy, Gait, Safety, Therapeutic Exercise, Transfers Treatment Duration: Apr 15, 2018 Frequency: At least 5 of 7 days/Wk (IRF) Estimated Hrs Per Day: 1.5 hours per day Patient and/or Family Agrees t: Yes Safety Risks/Education Patient Education: Transfer Techniques, Safety Issues Teaching Recipient: Patient Teaching Methods: Demonstration, Discussion Response to Teaching: Reinforcement Needed Discharge Recommendations Therapy D/C Recommendations: Physical Therapy Home Care Time/GCodes Time In: 1330 Time Out: 1400 Total Billed Treatment Time: 30 Total Billed Treatment visit EX 15 GT 15 EJ MENARD PT Mar 26, 2018 14:35
[2018-03-26 18:19] VITALS: BP 143/72
[2018-03-26] MEDS: warFARin 1 MG (COUMADIN) TAB PO SCH (18:21)
[2018-03-26] MEDS: SIMvastatin 20 MG (ZOCOR) TAB PO SCH (20:06)
[2018-03-26] MEDS: LEVOTHYROXINE 150 MCG (LEVOTHROID) TAB PO SCH (20:06)
[2018-03-26] MEDS: ALPRAZolam 1 MG (XANAX) TAB PO PRN (20:06)
[2018-03-26] MEDS: TAMSULOSIN 0.4 MG (FLOMAX) CAP PO SCH (20:06)
[2018-03-26] MEDS: LEVOTHYROXINE 25 MCG (LEVOTHROID) TAB PO SCH (20:06)
[2018-03-27] MEDS: oxyCODONE/APAP 10/325MG (PERCOCET 10) TABLET PO PRN ×2 (01:31→09:58)
[2018-03-27] MEDS: RT-ALBUTEROL/IPRATROPIUM 3 ML (DUONEB) VIAL INH SCH ×4 (02:33→19:35)
[2018-03-27 06:00] VITALS: BP 149/78
[2018-03-27] MEDS: MENTHOL/ZINC OXIDE (CALMOSEPTINE) 113 GM TUBE TOP SCH ×5 (06:25→20:35)
[2018-03-27] MEDS: PANTOPRAZOLE 40 MG (PROTONIX) TAB PO SCH ×2 (06:25→20:33)
--- NOTE | 2018-03-27 06:36 | Pulmonary Progress Note ---
Subjective Time Seen by a Provider: 06:35 Subjective/Events-last exam No complications noted. Sepsis Event Evaluation Height, Weight, BMI Height: 5'8.00" Weight: 159lbs. 8.0oz. [id number]; 24.3 BMI Method:Stated Exam Exam Vital Signs Date Time Temp Pulse Resp B/P (MAP) Pulse Ox O2 Delivery O2 Flow Rate FiO2 03/27/18 02:34 93 Nasal Cannula 3.00 03/26/18 21:00 96 Nasal Cannula 3.00 03/26/18 20:14 93 Nasal Cannula 3.00 03/26/18 20:12 93 Nasal Cannula 3.00 03/26/18 18:19 97.6 60 143/72 (95) 95 Nasal Cannula 3.00 03/26/18 10:16 95 Nasal Cannula 3.00 03/26/18 10:04 95 Nasal Cannula 3.00 03/26/18 09:00 95 Nasal Cannula 3.00 03/26/18 08:46 60 146/78 (100) I & O 03/27/18 07:00 Intake Total 760 ml Output Total 950 ml Balance -190 ml Height & Weight Height: 5'8.00" Weight: 159lbs. 8.0oz. [id number]; 24.3 BMI Method:Stated General Appearance: No Apparent Distress, WD/WN, Chronically ill, Thin HEENT: PERRL/EOMI, Normal ENT Inspection, Pharynx Normal Neck: Full Range of Motion, Normal Inspection, Non Tender, Supple, Carotid Bruit Respiratory: Chest Non Tender, No Accessory Muscle Use, No Respiratory Distress , Crackles, Decreased Breath Sounds, Wheezing Cardiovascular: Regular Rate, Rhythm, No Edema, No Gallop, No JVD, Normal Peripheral Pulses, Systolic Murmur Capillary Refill: Less Than 3 Seconds Gastrointestinal: normal bowel sounds, non tender, soft Extremity: Normal Capillary Refill, Normal Inspection, Normal Range of Motion, Non Tender, No Calf Tenderness, No Pedal Edema Neurologic/Psychiatric: Alert, Oriented x3, No Motor/Sensory Deficits, Depressed Affect Skin: Normal Color, Warm/Dry Lymphatic: No Adenopathy Results Lab Laboratory Tests 03/26/18 05:33 Assessment/Plan Assessment/Plan Resolving Pneumonia -Repeat CXR -shows improvement. Hypoxia -Pt will need home 02 -He is currently requiring 3 liters of oxygen. -Needs out patient PFT Gastritis s/p EGD Metabolic encephalopathy - improved Anemia with Coumadin coagulopathy -Coumadin dosing per Dr. Antonia strong -Monitor Hx of aortic valve replacement -Coumadin therapy Debility/deconditioning S/P fall at home LUKE BLEDSOE DO Mar 27, 2018 06:36
[2018-03-27 07:32] LABS: PROTHROMBIN TIME PATIENT 31.3 SEC (12.2-14.7)
[2018-03-27] MEDS ORDERED: BISACODYL 10 MG SUPP (DULCOLAX) PR NR (08:54)
[2018-03-27] MEDS ORDERED: LACTULOSE SYRUP 10GM/15ML (ENULOSE) 30ML UDC PO NR (08:54)
[2018-03-27] MEDS: RT-BUDESONIDE NEBS 0.5 MG/2ML (PULMICORT) AMP INH SCH ×3 (09:00→19:35)
--- NOTE | 2018-03-27 09:52 | Speech Therapy Daily Note ---
Speech Daily Progress Note Subjective Date Seen by Provider: Mar 27, 2018 Time Seen by Provider: 00:30 Patient was pleasant and stated he thinks he is getting stronger. Objective Patient completed OME x10 with minimal cues. Assessment Assessment Current Status: Good Progress Patient does not consume a high percentage of his meals, stating he doesn't have much of an appetite. Treatment Plan Continue Plan of Care Speech Short Term Goals Short Term Goals Short Term Goals 1) Patient will decrease oral transit time to 3 seconds in order to patient's ability to efficiently consume highest level of oral intake with 80% or greater. 2) Patient will utilize compensatory strategies as trained with 80% or greater. Speech Cementer Goals Cementer Goals Patient will maintain adequate nutrition/hydration via safe effective swallow function. Speech-Plan Patient/Family Goals Patient/Family Goals: Patient plans to return home with family post rehab. Treatment Plan Speech Therapy Treatment Plan: Continue Plan of Care Patient is progressing as a result of skilled ST services. Treatment Duration: Apr 03, 2018 Frequency: 5 times per week Estimated Hrs Per Day: .5 hour per day Rehab Potential: Good Barriers to Learning: Patient tires easily. Pt/Family Agrees to Plan: Yes Safety Risks/Education Teaching Recipient: Patient, Significant Other Response to Teaching: Verbalize Understanding Education Topics Provided: Safety with oral intake. Time Speech Therapy Time In: 08:30 Speech Therapy Time Out: 09:00 Total Billed Time: 30 Billed Treatment Time JENNIFER Tolbert [facility] Mar 27, 2018 09:52
[2018-03-27] MEDS: DICLOFENAC 1% GEL 100 GM (VOLTAREN) TUBE TOP SCH ×4 (09:55→20:35)
[2018-03-27] MEDS: SOLIQUA SQ SCH (09:55)
[2018-03-27 09:56] VITALS: BP 142/74
[2018-03-27] MEDS: AMIODARONE 200 MG (CORDARONE) TAB PO SCH ×2 (09:58→20:33)
[2018-03-27] MEDS: MAGNESIUM OXIDE (MAG-OX)400 MG TAB PO SCH ×2 (09:58→18:07)
[2018-03-27] MEDS: DEMECLOCYCLINE PO SCH ×2 (09:58→20:34)
--- NOTE | 2018-03-27 10:03 | Occupational Ther Daily Note ---
OT Current Status-Daily Note Subjective Pt stated, " I could"nt sleep last night ." Pain Numeric Pain Scale: 3 Location: Right Location Body Site: Knee Pain Description: Ache Mental Status/Objective Patient Orientation: Person, Place, Time Therapy Code Descriptions/Definitions Functional [place] Measure: 0=Not Assessed/NA 4=Minimal Assistance 1=Total Assistance 5=Supervision or Setup 2=Maximal Assistance 6=Modified [place] 3=Moderate Assistance 7=Complete [place] Attachments: Amador Catheter, IV, Oxygen ADL-Treatment Eating (FIM): 7 Grooming (FIM): 5 Bathing (FIM): 4 Bathing Location: L Arm, R Arm, L Upper Leg, R Upper Leg, L Lower Leg ( including foot), R Lower Leg (including foot), Chest, Abdomen, Buttocks, Perineal Area Upper Body (FIM): 5 Lower Body Dressing (FIM): 4 Toileting (FIM): 6 Transfers (B, C, W/C) (FIM): 5 Toilet/Commode Transfer (FIM): 5 Pt wanted to get rid of Amador"s Catheter , He was insisting to call Nurse to remove Catheter . Other Treatment Pt performed bedside sponge bath with min A , dress UB with supervision & LB with mod A , comb his hairs with Mod. I , sit to stand Mod I . Very cooperative. Education OT Patient Education: Correct positioning, Energy conservation Teaching Recipient: Patient Teaching Methods: Demonstration, Discussion Response to Teaching: Verbalize Understanding, Return Demonstration OT Short Term Goals Short Term Goals Time Frame: Apr 01, 2018 Lower Body Dressing(FIM): 4 Toilet/Commode Transfer(FIM): 5 Additional Short Term Goals: 1-Demonstrate ADL Tasks, 2-Verbalize Understanding , 3-ImproveStrength/Natacha 1=Demonstrate adherence to instructed precautions during ADL tasks. 2=Patient will verbalize/demonstrate understanding of assistive devices/ modifications for ADL. 3=Patient will improve strength/tolerance for activity to enable patient to perform ADL's. OT Intermediate Goals Intermediate Goals Time Frame: Apr 15, 2018 Eating (FIM): 6 Grooming(FIM): 6 Bathing(FIM): 5 Upper Body Dressing(FIM): 6 Lower Body Dressing(FIM): 6 Toileting(FIM): 6 Toilet/Commode Transfer(FIM): 6 Shower Transfer(FIM): 5 Additional Goals: 1-Demonstrate ADL Tasks, 2-Verbalize Understanding, 3- ImproveStrength/Natacha 1=Demonstrate adherence to instructed precautions during ADL tasks. 2=Patient will verbalize/demonstrate understanding of assistive devices/ modifications for ADL. 3=Patient will improve strength/tolerance for activity to enable patient to perform ADL's. OT Education/Plan Problem List/Assessment Assessment: Decreased Activ Tolerance, Decreased Safety Aware, Decreased UE Strength, Impaired Funct Balance, Impaired Self-Care Skills Discharge Recommendations Plan To return Home Independently in all self care tasks & mobility with safety awareness. Plan/Recommendations: Continue POC Therapy D/C Recommendations: Home Independently Equpiment Recommendations-D/C: Extended Shower Sprayer, Damage Prevention Coordinator, Sock Aide, Long Shoe Horn, Rails on Toilet Barriers to Progress O2 dependent, Fatigue soon, needs frequent rest periods between each activity. fair endurance. Patient/Family Goals To return Home & not to NH. Treatment Plan/Plan of Care Treatment,Training & Education: Yes Patient would benefit from OT for education, treatment and training to promote independence in ADL's, mobility, safety and/or upper extremity function for ADL' s. Plan of Care: ADL Retraining, Functional Mobility, Group Exercise/Act as Ind, UE Funct Exercise/Act Treatment Duration: Apr 15, 2018 Frequency: At least 5 of 7 days/Wk (IRF) Estimated Hrs Per Day: 1.5 hours per day Agreement: Yes Rehab Potential: Good Time/GCodes Start Time: 09:00 Stop Time: 13:15 (9:00 am - 10:00 am & 1300 pm -1315 pm) Total Time Billed (hr/min): 75 (9:00 am to 10:00 am 60 min & 1300 to 1315 15 min Total 75 min) Billed Treatment Time 1 visit, ADL'S 60 MIN & EX 15 min LUKE CAMPOS OT Mar 27, 2018 10:03
--- NOTE | 2018-03-27 10:25 | Cardiology Progress Note ---
Subjective Date Seen by Provider: Mar 27, 2018 Time Seen by Provider: 10:24 Subjective/Events-last exam patient is laying down in bed, feeling better, stronger. Review of Systems General: No Chills, No Night Sweats, No Fatigue, No Malaise, No Appetite, No Other HEENT: No Head Aches, No Visual Changes, No Eye Pain, No Ear Pain, No Dysphasia , No Sinus Congestion, No Post Nasal Drip, No Sore Throat, No Other Pulmonary: No Dyspnea, No Cough, No Pleuritic Chest Pain, No Other Cardiovascular: No: Chest Pain, Palpitations, Orthopnea, Paroxysmal Noc. Dyspnea, Edema, Lt Headedness, Other Objective-Cardiology Exam Last Set of Vital Signs Vital Signs 03/27/18 03/27/18 06:00 09:56 Temp 97.7 Pulse 60 Resp 18 B/P (MAP) 142/74 (96) Pulse Ox 96 O2 Delivery Nasal Cannula O2 Flow Rate 3.00 Capillary Refill : Less Than 3 Seconds I&O Intake and Output 03/27/18 00:00 Intake Total 1160 ml Output Total 2350 ml Balance -1190 ml Intake Oral 1150 ml IV Total 10 ml Output Urine Total 2350 ml General: Alert, Oriented X3, Cooperative HEENT: Atraumatic, PERRLA Neck: Supple, No JVD, No Thyromegaly Lungs: Normal Air Movement, Other (Crackles and wheezes) Heart: Regular Rate, Normal S1, Normal S2, Other (metallic click) Abdomen: Normal Bowel Sounds, Soft, No Tenderness, No Hepatosplenomegaly, No Masses Extremities: No Clubbing, No Cyanosis, Normal Pulses, No Tenderness/Swelling, Other (Mild edema) Skin: No Rashes, No Breakdown, No Significant Lesion Neuro: Normal Speech, Normal Tone, Sensation Intact, Other (generalized weakness) Psych/Mental Status: Mental Status NL, Mood NL Results Lab Laboratory Tests Test 03/26/18 11:28 03/26/18 17:05 03/26/18 20:12 03/27/18 06:24 Range/Units Glucometer 142 H 146 H 170 H 129 H 70-110 MG/DL Test 03/27/18 07:10 Range/Units Prothrombin Time 31.3 H 12.2-14.7 SEC INR Comment 3.0 H 0.8-1.4 A/P-Cardiology Admission Diagnosis Generalized weakness Coumadin toxicity Hypertension Pneumonia Assessment/Plan Generalized weakness and debility, receiving therapy Persistent pneumonia, receiving antibiotic, managed by primary care team Status post Coumadin toxicity for which he received FFP and vitamin K, INR 3.0 today, restart Coumadin at 0.5 mg daily and monitor tolerance and response Status post anemia, received blood transfusion, continue to monitor History of aortic valve replacement, on Coumadin, continue to adjust and monitor Paroxysmal atrial fibrillation, maintained on amiodarone. Continue to monitor Elevated liver enzymes, appear to be improving slowly compared to the previous admission. Continue to monitor Leukopenia, monitored and followed by primary care physician Permanent pacemaker, functioning normally. Continue to monitor Diabetes mellitus, followed and managed by primary care physician Hypertension, continue to monitor blood pressure Hyperlipidemia, continue to monitor lipids. Hypothyroidism, followed and managed by primary care physician Clinical Quality Measures DVT/VTE Risk/Contraindication: Risk Factor Score Per Nursin RFS Level Per Nursing on Admit: 3=High KARTHIKEYAN HORTON MD Mar 27, 2018 10:25
--- NOTE | 2018-03-27 10:58 | Physical Therapy Daily Note ---
PT Daily Note-Current Subjective Patient in bed pre tx, agrees to PT, has 10/10 pain in his groin because he just got his urinary catheter taken out. Patient states his knees feel ok at the moment. Patient needs dressed lowers Appearance Patient in bed post tx with nurse call, phone, tray, all needs met. Mental Status Patient Orientation: Person, Place, Situation Attachments: Oxygen 2L of O2 nasal canula Transfers Therapy Code Descriptions/Definitions Functional [place] Measure: 0=Not Assessed/NA 4=Minimal Assistance 1=Total Assistance 5=Supervision or Setup 2=Maximal Assistance 6=Modified [place] 3=Moderate Assistance 7=Complete [place] Therapy Quality Codes: 6 Independent with activity with or without an assistive device 5 Patient requires set up or clean up by helper. Patient completes activity by themselves 4 Supervision or touching assist (CGA). [place] provide cues , steadying assist 3 The helper provides less than half the effort to complete the activity 2 The helper provides more than half the effort to complete the activity 1 Dependent. The helper does all the effort to complete an activity 7 Patient refused to complete or attempt activity 9 The patient did not perform the activity before the current illness or injury 88 Not attempted due to Medical conditions or safety concerns Transfers (B, C, W/C) (FIM): 4 Scootin Rollin Supine to/from Sit: 4 Sit to/from Stand: 5 Bed to/from Chair: 5 Patient needs min assist for sit to supine but is able to perform supine to sit with SBA. Weight Bearing Right Lower Extremity: Right Weight Bearing/Tolerated Left Lower Extremity: Left Weight Bearing/Tolerated Gait Training Gait (FIM): 5 Distance: 150', 100' Gait Level of Assist: 5 Gait Persons Needed: 1 Gait Assistive Device: FWW Very slow ambulation but steady Exercises Standing: Hip Abduction, Heel/toe raises, Marching, Mini squats Standing Reps: 15 NuStep Minutes: 15 NuStep Workload: 4 Treatments bed mobility and transfers, ambulation, functional strengthening Assessment Current Status: Fair Progress Patient has slowly improving general mobility. PT Short Term Goals Short Term Goals Time Frame: Apr 01, 2018 Gait (FIM): 5 Gait Distance Comment: 150' Gait Level of Assist: 5 Gait Assistive Device: FWW PT Skilled Nursing Goals Skilled Nursing Goals PT Skilled Nursing Goals Time Frame: Apr 15, 2018 Transfers (B,C,W/C) (FIM): 6 Sit to Lying (QC): 6 Lying-Sitting on Side/Bed(QC): 6 Sit to Stand (QC): 6 Rollin Roll Left to Right (QC): 6 Chair/Xyq-qd-Ceynq Xfer(QC): 6 Car Transfer (QC): 6 Gait (FIM): 6 Distance: 200' Walk 10 feet (QC): 6 Walk 10ft-Uneven Surface(QC): 6 Walk 50ft with 2 Turns (QC): 6 Walk 150 ft (QC): 6 Gait Level of Assist: 6 Gait Assistive Device: FWW Stairs (FIM): 2 # of Steps: 4 1 Step (curb) (QC): 4 4 Steps (QC): 4 Stairs Level Of Assist: 5 PT Plan Problem List Problem List: Activity Tolerance, Functional Strength, Safety, Balance, Gait, Transfer, Bed Mobility, ROM Treatment/Plan Treatment Plan: Continue Plan of Care Treatment Plan: Bed Mobility, Education, Functional Activity Natacha, Functional Strength, Group Therapy, Gait, Safety, Therapeutic Exercise, Transfers Treatment Duration: Apr 15, 2018 Frequency: At least 5 of 7 days/Wk (IRF) Estimated Hrs Per Day: 1.5 hours per day Patient and/or Family Agrees t: Yes Safety Risks/Education Patient Education: Gait Training, Transfer Techniques, Correct Positioning, Safety Issues Teaching Recipient: Patient Teaching Methods: Demonstration, Discussion Response to Teaching: Reinforcement Needed Time/GCodes Time In: 1005 Time Out: 1100 Total Billed Treatment Time: 55 Total Billed Treatment 1 visit FA 10' GT 20' EX 25' JORDYN VELEZ PT Mar 27, 2018 10:58
--- NOTE | 2018-03-27 11:06 | PM&R Progress Note ---
Subjective This was a face to face visit with the patient. Date Seen by Provider: Mar 27, 2018 Time Seen by Provider: 08:30 Subjective/Events-last exam Patient was seen in his room while he is supine in bed No BM since 03/22/18 of which he reports that they will just moved naturally but I told him that bowel regimen and getting bowels in a routine will facilitate recovery that is part of the therapy is required while in inpatient rehabilitation and he has reluctantly agreed for treatment Lactulose upset his stomach so he also did not respond to Dulcolax suppository so we will initiate soap suds enema to assure that he is not obstructed. Chest x-ray that was obtained yesterday appeared to be improved Catheter will be discontinued and bladder training will be started Having some lower extremity edema at times Patient requiring inpatient rehabilitation for close monitoring respiratory status and INR. Date Identified: Mar 27, 2018 Time Identified: 08:30 Medication Intervention: Severe constipation previously refused all meds now agreeing for treatment Review of Systems General: Fatigue Pulmonary: Dyspnea Gastrointestinal: Nausea, Constipation Objective Physician Exam Last Set of Vital Signs Vital Signs Date Time Temp Pulse Resp B/P (MAP) Pulse Ox O2 Delivery O2 Flow Rate FiO2 03/27/18 09:56 60 142/74 (96) 03/27/18 06:00 97.7 18 96 Nasal Cannula 3.00 Capillary Refill : Less Than 3 Seconds I&O Intake and Output 03/27/18 00:00 Intake Total 1160 ml Output Total 2350 ml Balance -1190 ml Intake Oral 1150 ml IV Total 10 ml Output Urine Total 2350 ml General: Alert, Oriented X3, Cooperative, Other (Severely chronically ill appearing older than stated age of 67) HEENT: Atraumatic, PERRLA Neck: Supple, No JVD, No Thyromegaly Lungs: Normal Air Movement, Other (Crackles and wheezes) Heart: Regular Rate, Normal S1, Normal S2, Other (metallic click) Abdomen: Normal Bowel Sounds, Soft, No Tenderness, No Hepatosplenomegaly, No Masses Extremities: No Clubbing, No Cyanosis, Normal Pulses, No Tenderness/Swelling, Other (Mild edema) Skin: No Rashes, No Breakdown, No Significant Lesion Neuro: Normal Speech, Normal Tone, Sensation Intact, Other (generalized weakness) Psych/Mental Status: Mental Status NL, Mood NL Results Lab Data Laboratory Tests 03/25/18 15:52: Glucometer 91 03/25/18 20:03: Glucometer 96 03/26/18 05:33: White Blood Count 4.3, Red Blood Count 3.44L, Hemoglobin 10.3L, Hematocrit 32L, Mean Corpuscular Volume 93, Mean Corpuscular Hemoglobin 30, Mean Corpuscular Hemoglobin Concent 32, Red Cell Distribution Width 16.6H, Platelet Count 157, Mean Platelet Volume 11.0H, Neutrophils (%) (Auto) 68, Lymphocytes (%) (Auto) 21 , Monocytes (%) (Auto) 10, Eosinophils (%) (Auto) 1, Basophils (%) (Auto) 0, Neutrophils # (Auto) 2.9, Lymphocytes # (Auto) 0.9L, Monocytes # (Auto) 0.4, Eosinophils # (Auto) 0.0, Basophils # (Auto) 0.0, Prothrombin Time 34.5H, INR Comment 3.4H, Sodium Level 134L, Potassium Level 4.9, Chloride Level 95L, Carbon Dioxide Level 30, Anion Gap 9, Blood Urea Nitrogen 9, Creatinine 0.86, Estimat Glomerular Filtration Rate > 60, BUN/Creatinine Ratio 10, Glucose Level 72, Calcium Level 8.2L, Corrected Calcium 9.3, Total Bilirubin 0.6, Aspartate Amino Transf (AST/SGOT) 31, Alanine Aminotransferase (ALT/SGPT) 27, Alkaline Phosphatase 143H, Total Protein 4.9L, Albumin 2.6L 03/26/18 11:28: Glucometer 142H 03/26/18 17:05: Glucometer 146H 03/26/18 20:12: Glucometer 170H 03/27/18 06:24: Glucometer 129H 03/27/18 07:10: Prothrombin Time 31.3H, INR Comment 3.0H Current Funtional Status Improving status but slowly Monitor respiratory status closely Aggressive bowel regimen to prevent obstruction Monitor pain Maintain diabetes management Appreciate all consultants help INR 3.0 Assessment/Plan Assessment and Plan (1) Debility Status: Acute (2) Rales Status: Acute (3) Acute respiratory failure Qualifiers: Qualified Codes: J96.00 - Acute respiratory failure, unspecified whether with hypoxia or hypercapnia Status: Resolved (4) PNA (pneumonia) Qualifiers: Qualified Codes: J18.9 - Pneumonia, unspecified organism Status: Resolved (5) Frailty Status: Acute (6) Elevated INR Status: Resolved (7) Iron deficiency Status: Acute (8) Electrolyte abnormality Status: Resolved (9) Insulin dependent diabetes mellitus Status: Chronic (10) Hypokalemia Status: Resolved (11) Aortic valve replaced Status: Chronic (12) Constipation Qualifiers: Qualified Codes: K59.01 - Slow transit constipation Status: Acute Co-Morbidities that are continuing to impact the rehab process: (include details ) MIRNA EUCEDA DO Mar 27, 2018 11:06
[2018-03-27] MEDS: CATHETER FLUSH 10 ML SYR IV PRN (13:45)
[2018-03-27] MEDS: ONDANSETRON 4 MG/2 ML (SDV) Z0FRAN IV PRN (13:45)
--- NOTE | 2018-03-27 13:48 | Physical Therapy Daily Note ---
PT Daily Note-Current Subjective Patient in bed pre tx, agrees to PT, has no complaints of pain at rest. Agrees to exercises in bed. Patient states he doesn't feel that well. Appearance Patient in bed post tx with nurse call, phone, tray, all needs met. Patient vomited during treatment, has basin and wet washcloth. Nurse notified. Mental Status Patient Orientation: Person, Place, Situation Attachments: Oxygen Transfers Therapy Code Descriptions/Definitions Functional [place] Measure: 0=Not Assessed/NA 4=Minimal Assistance 1=Total Assistance 5=Supervision or Setup 2=Maximal Assistance 6=Modified [place] 3=Moderate Assistance 7=Complete [place] Therapy Quality Codes: 6 Independent with activity with or without an assistive device 5 Patient requires set up or clean up by helper. Patient completes activity by themselves 4 Supervision or touching assist (CGA). [place] provide cues , steadying assist 3 The helper provides less than half the effort to complete the activity 2 The helper provides more than half the effort to complete the activity 1 Dependent. The helper does all the effort to complete an activity 7 Patient refused to complete or attempt activity 9 The patient did not perform the activity before the current illness or injury 88 Not attempted due to Medical conditions or safety concerns Weight Bearing Right Lower Extremity: Right Weight Bearing/Tolerated Left Lower Extremity: Left Weight Bearing/Tolerated Exercises Supine Ex: Ankle pumps, Quad Set, Glut sets, Heel Slides Supine Reps: 15 Treatments LE exercises Assessment Current Status: Poor Progress Patient ill. Patient vomited after a few exercises. Crystal obtained for him and he cleaned up with a washcloth. Nurse notified. PT Short Term Goals Short Term Goals Time Frame: Apr 01, 2018 Gait (FIM): 5 Gait Distance Comment: 150' Gait Level of Assist: 5 Gait Assistive Device: FWW PT Long-Term Goals Long-Term Goals PT Chipping Machine Operator Goals Time Frame: Apr 15, 2018 Transfers (B,C,W/C) (FIM): 6 Sit to Lying (QC): 6 Lying-Sitting on Side/Bed(QC): 6 Sit to Stand (QC): 6 Rollin Roll Left to Right (QC): 6 Chair/Yzq-up-Okzln Xfer(QC): 6 Car Transfer (QC): 6 Gait (FIM): 6 Distance: 200' Walk 10 feet (QC): 6 Walk 10ft-Uneven Surface(QC): 6 Walk 50ft with 2 Turns (QC): 6 Walk 150 ft (QC): 6 Gait Level of Assist: 6 Gait Assistive Device: FWW Stairs (FIM): 2 # of Steps: 4 1 Step (curb) (QC): 4 4 Steps (QC): 4 Stairs Level Of Assist: 5 PT Plan Problem List Problem List: Activity Tolerance, Functional Strength, Safety, Balance, Gait, Transfer, Bed Mobility, ROM Treatment/Plan Treatment Plan: Continue Plan of Care Treatment Plan: Bed Mobility, Education, Functional Activity Natacha, Functional Strength, Group Therapy, Gait, Safety, Therapeutic Exercise, Transfers Treatment Duration: Apr 15, 2018 Frequency: At least 5 of 7 days/Wk (IRF) Estimated Hrs Per Day: 1.5 hours per day Patient and/or Family Agrees t: Yes Safety Risks/Education Patient Education: Correct Positioning, Safety Issues Teaching Recipient: Patient Teaching Methods: Demonstration, Discussion Response to Teaching: Reinforcement Needed Time/GCodes Time In: 1330 Time Out: 1350 Total Billed Treatment Time: 20 Total Billed Treatment 1 visit EX 20' JORDYN VELEZ PT Mar 27, 2018 13:48
[2018-03-27 16:20] VITALS: BP 124/82
[2018-03-27] MEDS: warFARin 1 MG (COUMADIN) TAB PO SCH (18:08)
[2018-03-27] MEDS: ALPRAZolam 1 MG (XANAX) TAB PO PRN (20:08)
[2018-03-27] MEDS: SIMvastatin 20 MG (ZOCOR) TAB PO SCH (20:33)
[2018-03-27] MEDS: LEVOTHYROXINE 25 MCG (LEVOTHROID) TAB PO SCH (20:33)
[2018-03-27] MEDS: LEVOTHYROXINE 150 MCG (LEVOTHROID) TAB PO SCH (20:33)
[2018-03-27] MEDS: TAMSULOSIN 0.4 MG (FLOMAX) CAP PO SCH (20:34)
[2018-03-28] MEDS: RT-ALBUTEROL/IPRATROPIUM 3 ML (DUONEB) VIAL INH SCH ×4 (01:36→19:25)
[2018-03-28 05:08] VITALS: BP 137/71
[2018-03-28] MEDS: MENTHOL/ZINC OXIDE (CALMOSEPTINE) 113 GM TUBE TOP SCH ×5 (05:59→20:37)
[2018-03-28] MEDS: PANTOPRAZOLE 40 MG (PROTONIX) TAB PO SCH ×2 (06:00→20:36)
--- NOTE | 2018-03-28 08:00 | Pulmonary Progress Note ---
Standard Progress Note Progress Notes Time Seen by Provider: 07:59 No complications noted. Pt is sleeping Assessment & Plan Resolving Pneumonia -Repeat CXR -shows improvement. Hypoxia -Pt will need home 02 -He is currently requiring 3 liters of oxygen. -Needs out patient PFT Gastritis s/p EGD Metabolic encephalopathy - improved Anemia with Coumadin coagulopathy -Coumadin dosing per Dr. Antonia strong -Monitor Hx of aortic valve replacement -Coumadin therapy Debility/deconditioning S/P fall at home LUKE BLEDSOE DO Mar 28, 2018 08:00
[2018-03-28] MEDS: MAGNESIUM OXIDE (MAG-OX)400 MG TAB PO SCH ×2 (09:45→17:50)
[2018-03-28] MEDS: LACTULOSE SYRUP 10GM/15ML (ENULOSE) 30ML UDC PO NR ×2 (09:45→09:50)
[2018-03-28] MEDS: AMIODARONE 200 MG (CORDARONE) TAB PO SCH ×2 (09:45→20:36)
[2018-03-28] MEDS: DEMECLOCYCLINE PO SCH ×2 (09:45→20:36)
[2018-03-28] MEDS: IRON SUCROSE 200 MG/10 ML (VENOFER) VIAL IV SCH (09:45)
[2018-03-28] MEDS: DICLOFENAC 1% GEL 100 GM (VOLTAREN) TUBE TOP SCH ×4 (09:46→20:37)
[2018-03-28] MEDS: SOLIQUA SQ SCH (09:49)
[2018-03-28] MEDS: RT-BUDESONIDE NEBS 0.5 MG/2ML (PULMICORT) AMP INH SCH ×2 (10:28→19:25)
--- NOTE | 2018-03-28 10:38 | Physical Therapy Daily Note ---
PT Daily Note-Current Subjective Pt requested to perform bed exercises, and not walk due to fatigue. Mental Status Patient Orientation: Person, Place, Time, Situation Transfers Therapy Code Descriptions/Definitions Functional [place] Measure: 0=Not Assessed/NA 4=Minimal Assistance 1=Total Assistance 5=Supervision or Setup 2=Maximal Assistance 6=Modified [place] 3=Moderate Assistance 7=Complete [place] Therapy Quality Codes: 6 Independent with activity with or without an assistive device 5 Patient requires set up or clean up by helper. Patient completes activity by themselves 4 Supervision or touching assist (CGA). [place] provide cues , steadying assist 3 The helper provides less than half the effort to complete the activity 2 The helper provides more than half the effort to complete the activity 1 Dependent. The helper does all the effort to complete an activity 7 Patient refused to complete or attempt activity 9 The patient did not perform the activity before the current illness or injury 88 Not attempted due to Medical conditions or safety concerns Transfers (B, C, W/C) (FIM): 4 Supine to/from Sit: 4 Weight Bearing Right Lower Extremity: Right Weight Bearing/Tolerated Left Lower Extremity: Left Weight Bearing/Tolerated Exercises Supine Ex: LE Protocol Supine Reps: 20 Seated Therapy Exercises: LE Protocol Seated Reps: 20 Sat edge of bed for 2 minutes. Pt requested to return to bed due to fatigue. Assessment Current Status: Fair Progress Pt was able to perform the supine and seated exercises with only tactile cues. PT Short Term Goals Short Term Goals Time Frame: Apr 01, 2018 Gait (FIM): 5 Gait Distance Comment: 150' Gait Level of Assist: 5 Gait Assistive Device: FWW PT Intermediate Goals Ground Wirer Goals PT Intermediate Goals Time Frame: Apr 15, 2018 Transfers (B,C,W/C) (FIM): 6 Sit to Lying (QC): 6 Lying-Sitting on Side/Bed(QC): 6 Sit to Stand (QC): 6 Rollin Roll Left to Right (QC): 6 Chair/Ddj-pd-Jelsp Xfer(QC): 6 Car Transfer (QC): 6 Gait (FIM): 6 Distance: 200' Walk 10 feet (QC): 6 Walk 10ft-Uneven Surface(QC): 6 Walk 50ft with 2 Turns (QC): 6 Walk 150 ft (QC): 6 Gait Level of Assist: 6 Gait Assistive Device: FWW Stairs (FIM): 2 # of Steps: 4 1 Step (curb) (QC): 4 4 Steps (QC): 4 Stairs Level Of Assist: 5 PT Plan Treatment/Plan Treatment Plan: Continue Plan of Care Treatment Plan: Bed Mobility, Education, Functional Activity Natacha, Functional Strength, Group Therapy, Gait, Safety, Therapeutic Exercise, Transfers Treatment Duration: Apr 15, 2018 Frequency: At least 5 of 7 days/Wk (IRF) Estimated Hrs Per Day: 1.5 hours per day Patient and/or Family Agrees t: Yes Time/GCodes Time In: 0945 Time Out: 1000 Total Billed Treatment Time: 15 Total Billed Treatment 1, ex 15 OREN ROSALES PT Mar 28, 2018 10:38
--- NOTE | 2018-03-28 10:43 | NUR ---
INFORMED PATIENT REFUSED LACTULOSE AND RECEIVED VERBAL ORDER FROM DR. EUCEDA FOR SENNA BID, MIRALAX BID AND STOP LACTULOSE.
[2018-03-28] MEDS: SENNA W/DOCUSATE (SENOKOT S) TABLET PO SCH ×2 (10:51→20:37)
--- NOTE | 2018-03-28 11:04 | NUR ---
PATIENT BRIEF DRY, USING URINAL. REFUSES LINEN CHANGE AND BATH AT THIS TIME. STATES REALLY TIRED TODAY. LINENS IN ROOM WHEN PATIENT IS READY FOR HYGIENE CARE.
--- NOTE | 2018-03-28 12:00 | NUR ---
bedside report received from TERESA FISCHER, assume care of pt
--- NOTE | 2018-03-28 12:52 | Individualized Plan of Care ---
Individualized Plan of Care Rehab Nursing IPOC Order Admission Date Mar 25, 2018 at 10:40 Current Orders Orders Admission Arrival Bed Request (03/25/18 10:56) Admission-Acute Rehab Unit (03/25/18 11:13) Code/Resuscitation (03/25/18 11:14) Accucheck Achs DAILY (03/25/18 11:14) Ambulate 08,12,20 (03/25/18 11:14) Electronic Imager (03/25/18 11:14) Catheter(Uri) To Dependent Marie (03/25/18 11:14) Catheter(Urinary) Insert & Ass 03,15 (03/25/18 11:14) Follow-Up Appointment (03/25/18 11:14) Initiate Admission Nursing Pro .admission (03/25/18 11:14) Oxygen-Administer (03/25/18 11:14) Sequential Compression Device ,20 (03/25/18 11:14) Weight Bearing Status (03/25/18 11:14) (Nf) Insulin Glargine/Lixisenatide (Grace (03/26/18 09:00) Alprazolam Tablet (Xanax Tablet) (03/25/18 11:15) Acetaminophen Tablet (Tylenol Tablet) (03/25/18 11:15) Albuterol/Ipra Inhalation Soln (Duoneb I (03/25/18 11:15) Amiodarone Tablet (Cordarone Tablet) (03/25/18 21:00) Benzonatate Capsule (Tessalon Perles) (03/25/18 11:15) Budesonide Inhalation Solution (Pulmicor (03/25/18 21:00) Demeclocycline Tablet (Declomycin Tablet (03/25/18 21:00) Diclofenac 1% Gel (Voltaren 1% Gel) (03/25/18 13:00) Levothyroxine Tablet (Synthroid Tablet) (03/25/18 21:00) Levothyroxine Tablet (Synthroid Tablet) (03/25/18 21:00) Magnesium Oxide Tablet (Mag Ox Tablet) (03/25/18 18:00) Menthol/Zinc Oxide Ointment (Calmoseptin (03/25/18 13:00) Insulin Aspart (Novolog) (Novolog (Charg (03/25/18 16:00) Ondansetron Injection (Zofran Injectio (03/25/18 11:15) Pantoprazole Tablet (Protonix Tablet) (03/25/18 21:00) Patient May Use Own Meds, All (Patient M (03/25/18 11:15) Simvastatin Tablet (Zocor Tablet) (03/25/18 21:00) Sodium Chloride Flush (Catheter Flush Sy (03/25/18 11:15) Tamsulosin Capsule (Flomax Capsule) (03/25/18 21:00) Warfarin Tablet (Coumadin Tablet) (03/25/18 18:00) Guaifenesin/Dm Syrup (Robitussin Dm Syru (03/25/18 11:15) Oxycodone/Acet 10/325mg Tablet (Percocet (03/25/18 11:15) Consult Cardiology (03/25/18 11:14) Consult General Surgery (03/25/18 11:14) Consult Pulmonology (03/25/18 11:14) Irf Req Eval/Acute Rehab (03/25/18 11:14) Mat Initiate Protocol (03/25/18 11:14) Occupational Therapy Order (03/25/18 11:14) Pt Evaluate/Treat Request (03/25/18 11:14) Physical Therapy Oder (03/25/18 11:14) Request Ot Evaluate & Treat (03/25/18 11:14) Speech Therapy Orders (03/25/18 11:14) Oxygen Delivery Set Up (03/25/18 11:14) Svn Small Volume Nebulizer (03/25/18 11:14) Svn Small Volume Nebulizer (03/25/18 11:14) Iron Sucrose Injection (Venofer Injectio (03/26/18 09:00) Cho 75g/M 0snack (21-2400 Tyshawn) (03/25/18 Lunch) Oxycodone/Acet 10/325mg Tablet (Percocet (03/25/18 12:15) Patient Visit (03/25/18 ) Pt Eval Moderate Complexity (03/25/18 ) Gait Training, Ea 15 Min (03/25/18 ) Patient Visit (03/25/18 ) Dysphagia Evaluation Std (03/25/18 ) Patient Visit (03/25/18 ) Gait Training, Ea 15 Min (03/25/18 ) Functional Activities, Ea 15 (03/25/18 ) Exercise Therap, Ea 15 Min (03/25/18 ) Dvt/Vte Risk - Notifiy Physici 08 (03/25/18 16:01) Protime With Inr (03/26/18 06:00) Albuterol/Ipra Inhalation Soln (Duoneb I (03/25/18 21:00) Svn Small Volume Nebulizer (03/25/18 19:36) Cbc With Automated Diff (03/26/18 06:00) Comprehensive Metabolic Panel (03/26/18 06:00) Diphenhydramine Tablet (Benadryl Tablet) (03/25/18 21:15) Docusate Sodium Capsule (Colace Capsule) (03/25/18 21:15) Loperamide Capsule (Imodium Capsule) (03/25/18 21:15) Melatonin Tablet (Melatonin Tablet) (03/25/18 21:15) Chest Pa/Lat (2 View) (03/26/18 06:56) Patient Visit (03/26/18 ) Exercise Therap, Ea 15 Min (03/26/18 ) Gait Training, Ea 15 Min (03/26/18 ) Patient Visit (03/26/18 ) Dysphagia Therapy (03/26/18 ) Patient Visit (03/26/18 ) Gait Training, Ea 15 Min (03/26/18 ) Exercise Therap, Ea 15 Min (03/26/18 ) Protime With Inr (03/27/18 07:00) Warfarin Tablet (Coumadin Tablet) (03/27/18 18:00) Lactulose Oral Solution (Enulose Oral So (03/27/18 08:54) Bisacodyl Suppository (Dulcolax Supposit (03/27/18 08:54) Catheter(Urinary) Discontinue (03/27/18 08:43) Patient Visit (03/27/18 ) Dysphagia Therapy (03/27/18 ) Lactulose Oral Solution (Enulose Oral So (03/28/18 08:54) Patient Visit (03/27/18 ) Exercise Therap, Ea 15 Min (03/27/18 ) Functional Activities, Ea 15 (03/27/18 ) Gait Training, Ea 15 Min (03/27/18 ) Soap Suds Enema (03/27/18 15:13) Senna S Tablet (Senokot S Tablet) (03/28/18 10:45) Polyethylene Glycol Powder Pkt (Miralax (03/28/18 21:00) Patient Visit (03/28/18 ) Exercise Therap, Ea 15 Min (03/28/18 ) Rehab Nursing Orders: Ongoing Assess. of Cognitive Status, Ongoing Assess. of Function Status, Bladder Management, Bowel Management, Bowel Training, Disease Management & Educaiton, Fall Prevention, Fluid/Electrolyte/Nutrition Mgmt, Infection Prevention, Medication Management & Education, Management of Skin Intergrity, Nutrition Management, Pain Management Intensity of Therapy to be met Patient to be seen: Min.3h per day/5 of 7d PT IPOC Problem List: Activity Tolerance, Functional Strength, Safety, Balance, Gait, Transfer, Bed Mobility, ROM Treatment Plan: Continue Plan of Care Bed Mobility, Education, Functional Activity Natacha, Functional Strength, Group Therapy, Gait, Safety, Therapeutic Exercise, Transfers Treatment Duration: Apr 15, 2018 Frequency: At least 5 of 7 days/Wk (IRF) Estimated Hrs Per Day: 1.5 hours per day OT IPOC Problems: Decreased Activ Tolerance, Decreased Safety Aware, Decreased UE Strength, Impaired Funct Balance, Impaired Self-Care Skills OT Treatment, Training and Edu: Yes Plan of Care: ADL Retraining, Functional Mobility, Group Exercise/Act as Ind, UE Funct Exercise/Act Treatment Duration: Apr 15, 2018 Frequency: At least 5 of 7 days/Wk (IRF) Estimated Hrs Per Day: 1.[address] IPOC Speech Therapy Treatment Plan: Continue Plan of Care Treatment Duration: Apr 03, 2018 Frequency: 5 times per week Estimated Hrs Per Day: .5 hour per day Dietitian/Sap Business Objects Developer Dietitian/Sap Business Objects Developer to monitor nutritional status and make changes and/or recommendations as needed and work with speech pathology on dietary upgrades as the occur. Physician IPOC Medical Issues being managed closely and that require the 24 hour availability of a physician: Patient has still very fragile lung status with hypoxia requiring oxygen supplementation along with respiratory therapy with treatments and pulmonology care due to high risk for recurrent pneumonia and respiratory failure Constipation continues to be an issue and requires aggressive nursing care along with medications including soapsuds enemas and oral meds Close monitoring of INR is required due to aortic valve replacement status requiring chronic anticoagulation without labs at high risk for supratherapeutic level Medical Issues: Bowel/Bladder Function, Falls Precautions, Fluid/Electrolyte/ Nutrition Balance, Infection Protection Brief Synthesis of Preadmission Screen, Post-Admission Evaluation, and Therapy Evaluations: Physical therapy will continue to increase ambulation and 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
--- NOTE | 2018-03-28 12:54 | PM&R Progress Note ---
Subjective HPI/CC On Admission Date Seen by Provider: Mar 28, 2018 Time Seen by Provider: 10:30 Subjective/Events-last exam Amador catheter was discontinued yesterday and voiding well and continent MiraLAX and Senokot will continue to be given since lactulose made him sick and he had an episode of emesis with that so we will discontinue that but continue the aggressive regimen since the bowel movement yesterday after the soapsuds enema with small Still participating in therapy and trying to get stronger to be able to go home with son Does not appear to have any type of bad attitude that he had upstairs that was concerning for S and his maintenance of requirements and inpatient rehab Sugars are reviewed Blood pressures stable Coarseness of lung status is still a concern but chest x-ray appears to be improved We will check labs in the morning Review of Systems General: Fatigue Pulmonary: Dyspnea, Cough Gastrointestinal: Constipation Objective Exam Vital Signs Vital Signs Date Time Temp Pulse Resp B/P (MAP) Pulse Ox O2 Delivery O2 Flow Rate FiO2 03/28/18 14:35 94 Nasal Cannula 2.00 03/28/18 05:08 98.0 60 18 137/71 (93) Capillary Refill : Less Than 3 Seconds General Appearance: No Apparent Distress, WD/WN, Chronically ill, Thin Respiratory: Chest Non Tender, No Accessory Muscle Use, No Respiratory Distress , Crackles, Decreased Breath Sounds, Wheezing Cardiovascular: Regular Rate, Rhythm, No Edema, No Gallop, No JVD, No Murmur, Normal Peripheral Pulses, Other (click) Neurologic/Psychiatric: Alert, Oriented x3, No Motor/Sensory Deficits, Normal Mood/Affect Results/Procedures Lab Patient resulted labs reviewed. Assessment/Plan Assessment and Plan Assess & Plan/Chief Complaint Assessment: Severe debility Recent pneumonia with respiratory insufficiency Supratherapeutic INR Aortic valve replacement history Diabetes mellitus Chronic renal insufficiency Anemia Urinary retention resolved Constipation Plan: Monitor INR and labs periodically so will check tomorrow Nebulizer treatments Therapies to improve strength and be able to return back to independent living Therapies will be impacted by electrolyte imbalance, anemia, hypoxia, and just overall respiratory decline Diagnosis/Problems Diagnosis/Problems (1) Debility Status: Acute (2) Rales Status: Acute (3) Acute respiratory failure Status: Resolved Qualifiers: Respiratory failure complication: unspecified whether with hypoxia or hypercapnia Qualified Codes: J96.00 - Acute respiratory failure, unspecified whether with hypoxia or hypercapnia Resolution Date/Time: 03/25/18 @ 20:39 (4) PNA (pneumonia) Status: Resolved Qualifiers: Pneumonia type: due to unspecified organism Laterality: unspecified laterality Lung location: unspecified part of lung Qualified Codes: J18.9 - Pneumonia, unspecified organism Resolution Date/Time: 03/27/18 @ 15:18 (5) Frailty Status: Acute (6) Elevated INR Status: Resolved Resolution Date/Time: 03/27/18 @ 15:18 (7) Iron deficiency Status: Acute (8) Electrolyte abnormality Status: Resolved Resolution Date/Time: 03/26/18 @ 09:09 (9) Insulin dependent diabetes mellitus Status: Chronic (10) Hypokalemia Status: Resolved Resolution Date/Time: 03/25/18 @ 20:39 (11) Aortic valve replaced Status: Chronic (12) Constipation Status: Acute Qualifiers: Constipation type: slow transit constipation Qualified Codes: K59.01 - Slow transit constipation Clinical Quality Measures Admission Status Admission Dx Assessment: Severe debility Recent pneumonia with respiratory insufficiency Supratherapeutic INR Aortic valve replacement history Diabetes mellitus Chronic renal insufficiency Anemia Urinary retention Plan: Monitor INR and labs Check chest x-ray Nebulizer treatments Therapies to improve strength and be able to return back to independent living Therapies will be impacted by electrolyte imbalance, anemia, hypoxia, and just overall respiratory decline DVT/VTE Risk/Contraindication: Risk Factor Score Per Nursin RFS Level Per Nursing on Admit: 3=High MIRNA EUCEDA DO Mar 28, 2018 12:54
[2018-03-28] MEDS: oxyCODONE/APAP 10/325MG (PERCOCET 10) TABLET PO PRN (15:36)
--- NOTE | 2018-03-28 15:36 | NUR ---
c/o pain generalized pain level 10/10 on numeric scale, Percocet 1 po given
[2018-03-28 16:00] VITALS: BP 153/73
--- NOTE | 2018-03-28 16:10 | NUR ---
resting quietly in bed, pain level 0/10 on flacc scale
[2018-03-28] MEDS: warFARin 1 MG (COUMADIN) TAB PO SCH (17:50)
[2018-03-28 17:51] VITALS: BP 153/73
--- NOTE | 2018-03-28 19:10 | NUR ---
bedside report given to CRISTO FISCHER
[2018-03-28] MEDS: LEVOTHYROXINE 150 MCG (LEVOTHROID) TAB PO SCH (20:36)
[2018-03-28] MEDS: SIMvastatin 20 MG (ZOCOR) TAB PO SCH (20:36)
[2018-03-28] MEDS: TAMSULOSIN 0.4 MG (FLOMAX) CAP PO SCH (20:36)
[2018-03-28] MEDS: LEVOTHYROXINE 25 MCG (LEVOTHROID) TAB PO SCH (20:36)
[2018-03-28] MEDS: ALPRAZolam 1 MG (XANAX) TAB PO PRN (20:41)
[2018-03-28] MEDS ORDERED: POLYETHYLENE GLYCOL 17 GM (MIRALAX) PACK PO SCH (21:00)
[2018-03-29] MEDS: RT-ALBUTEROL/IPRATROPIUM 3 ML (DUONEB) VIAL INH SCH ×3 (02:18→19:38)
[2018-03-29] MEDS: guaiFENesin/DM (ROBITUSSIN DM) 10 ML UDC PO PRN ×2 (04:41→16:56)
[2018-03-29] MEDS: MENTHOL/ZINC OXIDE (CALMOSEPTINE) 113 GM TUBE TOP SCH ×5 (04:42→20:56)
[2018-03-29 05:05] VITALS: BP 113/73
[2018-03-29 05:24] LABS: BASOPHILS % (AUTO) 0 % (0-10); EOSINOPHILS # (AUTO) 0.1 10^3/uL (0.0-0.3); EOSINOPHILS % (AUTO) 1 % (0-10); HEMATOCRIT 34 % (40-54); HEMOGLOBIN 10.6 G/DL (13.3-17.7); LYMPHOCYTES % (AUTO) 23 % (12-44); MEAN CORPUSCULAR HEMOGLOBIN 29 PG (25-34); MEAN CORPUSCULAR HGB CONC 31 G/DL (32-36); MEAN CORPUSCULAR VOLUME 94 FL (80-99); MEAN PLATELET VOLUME 11.1 FL (7.4-10.4); MONOCYTES # (AUTO) 0.4 X 10^3 (0.0-1.0); MONOCYTES % (AUTO) 9 % (0-12); NEUTROPHILS % (AUTO) 67 % (42-75); PLATELET COUNT 145 10^3/uL (130-400); RED BLOOD COUNT 3.62 10^6/uL (4.35-5.85); RED CELL DISTRIBUTION WIDTH 16.9 % (10.0-14.5); WHITE BLOOD COUNT 4.5 10^3/uL (4.3-11.0)
[2018-03-29 05:35] LABS: PROTHROMBIN TIME PATIENT 31.6 SEC (12.2-14.7)
[2018-03-29 05:48] LABS: ALANINE AMINOTRANSFERASE 24 U/L (0-55); ALBUMIN 2.8 GM/DL (3.2-4.5); ALKALINE PHOSPHATASE 173 U/L (40-136); BILIRUBIN,TOTAL 0.7 MG/DL (0.1-1.0); BUN/CREATININE RATIO 10; CALCIUM 8.6 MG/DL (8.5-10.1); CARBON DIOXIDE 29 MMOL/L (21-32); CHLORIDE 96 MMOL/L (98-107); CREATININE SERUM 1.05 MG/DL (0.60-1.30); GFR ESTIMATED > 60; GLUCOSE 67 MG/DL (70-105); POTASSIUM 4.9 MMOL/L (3.6-5.0); SODIUM 134 MMOL/L (135-145); TOTAL PROTEIN 5.9 GM/DL (6.4-8.2)
[2018-03-29] MEDS: PANTOPRAZOLE 40 MG (PROTONIX) TAB PO SCH ×2 (05:57→20:51)
--- NOTE | 2018-03-29 06:10 | PM&R Progress Note ---
Subjective HPI/CC On Admission Date Seen by Provider: Mar 29, 2018 Time Seen by Provider: 06:00 Subjective/Events-last exam Patient refusing all bowel med regimens We will see Dr. Mg as an outpatient if he is still having bowel problems as an outpt Does not want to be difficult but open to doing what ever he needs to do to get home but the laxatives are making him very sick and that in itself is delaying return of function due to illness Blood sugars reviewed No shortness of breath Lungs are improved today Voiding well Check meds and labs Review of Systems General: Fatigue Pulmonary: Dyspnea Objective Exam Vital Signs Vital Signs Date Time Temp Pulse Resp B/P (MAP) Pulse Ox O2 Delivery O2 Flow Rate FiO2 03/29/18 09:00 Nasal Cannula 1.50 03/29/18 07:57 70 94 28 03/29/18 05:05 96.4 18 113/73 (86) Capillary Refill : Less Than 3 Seconds General Appearance: No Apparent Distress, WD/WN, Chronically ill, Thin Respiratory: Chest Non Tender, No Accessory Muscle Use, No Respiratory Distress , Crackles, Decreased Breath Sounds Cardiovascular: Regular Rate, Rhythm, No Edema, No Gallop, No JVD, Normal Peripheral Pulses, Systolic Murmur, Other (click) Back: Normal Inspection, No CVA Tenderness, No Vertebral Tenderness Neurologic/Psychiatric: Alert, Oriented x3, No Motor/Sensory Deficits, Normal Mood/Affect Results/Procedures Lab Laboratory Tests 03/29/18 04:20 03/29/18 04:30 Patient resulted labs reviewed. Assessment/Plan Assessment and Plan Assess & Plan/Chief Complaint Assessment: Severe debility Recent pneumonia with respiratory insufficiency Supratherapeutic INR Aortic valve replacement history Diabetes mellitus Chronic renal insufficiency Anemia Urinary retention resolved Constipation acute on chronic Plan: Monitor INR and labs periodically Nebulizer treatments Therapies to improve strength and be able to return back to independent living Therapies will be impacted by electrolyte imbalance, anemia, hypoxia, and just overall respiratory decline Change bowel meds to prn since laxatives are making him ill Diagnosis/Problems Diagnosis/Problems (1) Debility Status: Acute (2) Rales Status: Acute (3) Acute respiratory failure Status: Resolved Qualifiers: Respiratory failure complication: unspecified whether with hypoxia or hypercapnia Qualified Codes: J96.00 - Acute respiratory failure, unspecified whether with hypoxia or hypercapnia Resolution Date/Time: 03/25/18 @ 20:39 (4) PNA (pneumonia) Status: Resolved Qualifiers: Pneumonia type: due to unspecified organism Laterality: unspecified laterality Lung location: unspecified part of lung Qualified Codes: J18.9 - Pneumonia, unspecified organism Resolution Date/Time: 03/27/18 @ 15:18 (5) Frailty Status: Acute (6) Elevated INR Status: Resolved Resolution Date/Time: 03/27/18 @ 15:18 (7) Iron deficiency Status: Acute (8) Electrolyte abnormality Status: Resolved Resolution Date/Time: 03/26/18 @ 09:09 (9) Insulin dependent diabetes mellitus Status: Chronic (10) Hypokalemia Status: Resolved Resolution Date/Time: 03/25/18 @ 20:39 (11) Aortic valve replaced Status: Chronic (12) Constipation Status: Chronic Qualifiers: Constipation type: slow transit constipation Qualified Codes: K59.01 - Slow transit constipation Clinical Quality Measures Admission Status Admission Dx Assessment: Severe debility Recent pneumonia with respiratory insufficiency Supratherapeutic INR Aortic valve replacement history Diabetes mellitus Chronic renal insufficiency Anemia Urinary retention Plan: Monitor INR and labs Check chest x-ray Nebulizer treatments Therapies to improve strength and be able to return back to independent living Therapies will be impacted by electrolyte imbalance, anemia, hypoxia, and just overall respiratory decline DVT/VTE Risk/Contraindication: Risk Factor Score Per Nursin RFS Level Per Nursing on Admit: 3=High MIRNA EUCEDA DO Mar 29, 2018 06:10
[2018-03-29] MEDS ORDERED: POLYETHYLENE GLYCOL 17 GM (MIRALAX) PACK PO PRN (06:15)
[2018-03-29] MEDS ORDERED: SENNA W/DOCUSATE (SENOKOT S) TABLET PO PRN (06:15)
[2018-03-29] MEDS: RT-BUDESONIDE NEBS 0.5 MG/2ML (PULMICORT) AMP INH SCH ×2 (07:47→19:38)
[2018-03-29] MEDS: AMIODARONE 200 MG (CORDARONE) TAB PO SCH ×2 (08:51→20:52)
[2018-03-29] MEDS: DEMECLOCYCLINE PO SCH ×2 (08:51→20:52)
[2018-03-29] MEDS: MAGNESIUM OXIDE (MAG-OX)400 MG TAB PO SCH ×2 (08:51→18:10)
[2018-03-29] MEDS: SOLIQUA SQ SCH (08:53)
[2018-03-29] MEDS: DICLOFENAC 1% GEL 100 GM (VOLTAREN) TUBE TOP SCH ×4 (08:56→20:56)
[2018-03-29] MEDS: oxyCODONE/APAP 10/325MG (PERCOCET 10) TABLET PO PRN ×2 (09:00→18:11)
[2018-03-29] MEDS: ONDANSETRON 4 MG/2 ML (SDV) Z0FRAN IV PRN (12:24)
[2018-03-29] MEDS: CATHETER FLUSH 10 ML SYR IV PRN (12:25)
--- NOTE | 2018-03-29 13:40 | NUR ---
BLOOD SUGARS HAVE BEEN LOW. EATING SNACKS, BUT HAS BEEN NAUSEOUS AND NOTHING SOUNDS GOOD TO EAT. SEE ACCUCHECK INTERVENTION. CONTINUES TO REFUSE LAXATIVES - "THEY UPSET MY STOMACH".
--- NOTE | 2018-03-29 14:00 | NUR ---
DR. BOYLE HERE TO SEE PATIENT AND AWARE OF INR 3.0. TO HOLD COUMADIN IF INR 3.0 OR >.
[2018-03-29 17:55] VITALS: BP 134/78
[2018-03-29] MEDS: warFARin 1 MG (COUMADIN) TAB PO SCH (17:58)
--- NOTE | 2018-03-29 18:00 | NUR ---
BLOOD SUGAR BETTER THIS AFTERNOON. NAUSEA BETTER. STILL HAS GENERALIZED PAIN.
--- NOTE | 2018-03-29 19:16 | NUR ---
bedside report received from JORGE FISCHER, assume care of pt
[2018-03-29] MEDS: ALPRAZolam 1 MG (XANAX) TAB PO PRN (19:26)
--- NOTE | 2018-03-29 19:26 | NUR ---
requesting Xanax 1mg po for anxiety & given
[2018-03-29 20:50] VITALS: BP 114/64
--- NOTE | 2018-03-29 20:51 | NUR ---
refused voltaren gel states does not work
[2018-03-29] MEDS: LEVOTHYROXINE 25 MCG (LEVOTHROID) TAB PO SCH (20:52)
[2018-03-29] MEDS: SIMvastatin 20 MG (ZOCOR) TAB PO SCH (20:52)
[2018-03-29] MEDS: TAMSULOSIN 0.4 MG (FLOMAX) CAP PO SCH (20:52)
[2018-03-29] MEDS: MELATONIN 3 MG TABLET PO PRN (20:52)
[2018-03-29] MEDS: LEVOTHYROXINE 150 MCG (LEVOTHROID) TAB PO SCH (20:52)
--- NOTE | 2018-03-29 21:00 | NUR ---
assessments & interventions completed, see assessments & interventions, fsbs 149
[2018-03-30 05:22] VITALS: BP 122/74
--- NOTE | 2018-03-30 06:05 | NUR ---
fsbs 68 given oj
--- NOTE | 2018-03-30 06:50 | NUR ---
fsbs 94
[2018-03-30] MEDS: PANTOPRAZOLE 40 MG (PROTONIX) TAB PO SCH ×2 (06:55→21:03)
[2018-03-30] MEDS: RT-BUDESONIDE NEBS 0.5 MG/2ML (PULMICORT) AMP INH SCH ×2 (07:09→20:35)
[2018-03-30] MEDS: RT-ALBUTEROL/IPRATROPIUM 3 ML (DUONEB) VIAL INH SCH ×2 (07:09→20:35)
--- NOTE | 2018-03-30 07:21 | NUR ---
bedside report given to JORGE FISCHER
--- NOTE | 2018-03-30 08:00 | NUR ---
DISCUSEED WITH DR. EUCEDA THAT BLOOD SUGARS WERE LOW YESTERDAY WITH NAUSEA AND LOW THIS AM. HOME INSULIN DOSE OF SALIQUA REDUCED.
[2018-03-30] MEDS: MAGNESIUM OXIDE (MAG-OX)400 MG TAB PO SCH ×2 (08:13→18:51)
[2018-03-30] MEDS: oxyCODONE/APAP 10/325MG (PERCOCET 10) TABLET PO PRN (08:13)
[2018-03-30] MEDS: MENTHOL/ZINC OXIDE (CALMOSEPTINE) 113 GM TUBE TOP SCH ×5 (08:14→21:10)
[2018-03-30] MEDS: DEMECLOCYCLINE PO SCH ×2 (08:20→21:03)
[2018-03-30] MEDS: AMIODARONE 200 MG (CORDARONE) TAB PO SCH ×2 (08:20→21:03)
--- NOTE | 2018-03-30 08:27 | Cardiology Progress Note ---
Subjective Date Seen by Provider: Mar 30, 2018 Time Seen by Provider: 08:05 Subjective/Events-last exam No new complaints today. Denies any chest pain or dyspnea. Objective-Cardiology Exam Last Set of Vital Signs Vital Signs 03/29/18 03/30/18 07:57 05:22 Temp 96.4 Pulse 63 Resp 20 B/P (MAP) 122/74 (90) Pulse Ox 97 O2 Delivery Nasal Cannula O2 Flow Rate 1.50 FiO2 28 Capillary Refill : Less Than 3 Seconds I&O Intake and Output 03/30/18 00:00 Intake Total 1980 ml Output Total 2875 ml Balance -895 ml Intake Oral 1980 ml Output Urine Total 2825 ml Emesis 50 ml General: Alert, Oriented X3, Cooperative HEENT: Atraumatic, PERRLA Neck: Supple, No JVD, No Thyromegaly Lungs: Normal Air Movement, Other (bilat wheezing) Heart: Regular Rate, Normal S1, Normal S2 Abdomen: Normal Bowel Sounds, Soft, No Tenderness, No Hepatosplenomegaly, No Masses Extremities: No Clubbing, No Cyanosis, Normal Pulses, No Tenderness/Swelling, Other (Mild edema) Skin: No Rashes, No Breakdown, No Significant Lesion Neuro: Normal Speech, Normal Tone, Sensation Intact Psych/Mental Status: Mental Status NL, Mood NL A/P-Cardiology Admission Diagnosis Generalized weakness Coumadin toxicity Hypertension Pneumonia Assessment/Plan Generalized weakness and debility, receiving therapy Persistent pneumonia, receiving antibiotic, managed by primary care team Status post Coumadin toxicity for which he received FFP and vitamin K, INR 3.0 yesterday, continue to monitor. Status post anemia, received blood transfusion, continue to monitor History of aortic valve replacement, on Coumadin, continue to adjust and monitor Paroxysmal atrial fibrillation, maintained on amiodarone. Continue to monitor Elevated liver enzymes, appear to be improving slowly compared to the previous admission. Continue to monitor Leukopenia, monitored and followed by primary care physician Permanent pacemaker, functioning normally. Continue to monitor Diabetes mellitus, followed and managed by primary care physician Hypertension, continue to monitor blood pressure Hyperlipidemia, continue to monitor lipids. Hypothyroidism, followed and managed by primary care physician Clinical Quality Measures DVT/VTE Risk/Contraindication: Risk Factor Score Per Nursin RFS Level Per Nursing on Admit: 3=High JORGE LUIS MOLINA Mar 30, 2018 08:27
--- NOTE | 2018-03-30 08:30 | PM&R Progress Note ---
Subjective This was a face to face visit with the patient. Date Seen by Provider: Mar 30, 2018 Time Seen by Provider: 08:00 Subjective/Events-last exam Patient was seen in his room while he was in bed Decreasing insulin to 15 units at night due to hypoglycemia episodes Nausea is improved Checked meds and labs No pain is reported Thinks he is getting stronger every day No increased cough or dyspnea Date Identified: Mar 30, 2018 Time Identified: 08:00 Medication Intervention: Hypoglycemia requiring decrease in insulin Review of Systems General: Fatigue Pulmonary: Cough Gastrointestinal: Nausea Objective Physician Exam Last Set of Vital Signs Vital Signs Date Time Temp Pulse Resp B/P (MAP) Pulse Ox O2 Delivery O2 Flow Rate FiO2 03/30/18 05:22 96.4 63 20 122/74 (90) 97 Nasal Cannula 1.50 03/29/18 07:57 28 Capillary Refill : Less Than 3 Seconds I&O Intake and Output 03/30/18 00:00 Intake Total 1980 ml Output Total 2875 ml Balance -895 ml Intake Oral 1980 ml Output Urine Total 2825 ml Emesis 50 ml General: Alert, Oriented X3, Cooperative HEENT: Atraumatic, PERRLA Neck: Supple, No JVD, No Thyromegaly Lungs: Normal Air Movement, Other (bilat wheezing) Heart: Regular Rate, Normal S1, Normal S2 Abdomen: Normal Bowel Sounds, Soft, No Tenderness, No Hepatosplenomegaly, No Masses Extremities: No Clubbing, No Cyanosis, Normal Pulses, No Tenderness/Swelling, Other (Mild edema) Skin: No Rashes, No Breakdown, No Significant Lesion Neuro: Normal Speech, Normal Tone, Sensation Intact Psych/Mental Status: Mental Status NL, Mood NL Results Lab Data Laboratory Tests 03/27/18 11:52: Glucometer 140H 03/27/18 15:44: Glucometer 58*L 03/27/18 16:28: Glucometer 84 03/27/18 20:41: Glucometer 177H 03/28/18 04:35: Glucometer 121H 03/28/18 10:53: Glucometer 113H 03/28/18 16:16: Glucometer 118H 03/28/18 20:19: Glucometer 87 03/29/18 04:20: Prothrombin Time 31.6H, INR Comment 3.0H, Sodium Level 134L, Potassium Level 4.9 , Chloride Level 96L, Carbon Dioxide Level 29, Anion Gap 9, Blood Urea Nitrogen 10, Creatinine 1.05, Estimat Glomerular Filtration Rate > 60, BUN/Creatinine Ratio 10, Glucose Level 67L, Calcium Level 8.6, Corrected Calcium 9.6, Total Bilirubin 0.7, Aspartate Amino Transf (AST/SGOT) 30, Alanine Aminotransferase ( ALT/SGPT) 24, Alkaline Phosphatase 173H, Total Protein 5.9L, Albumin 2.8L 03/29/18 04:30: White Blood Count 4.5, Red Blood Count 3.62L, Hemoglobin 10.6L, Hematocrit 34L, Mean Corpuscular Volume 94, Mean Corpuscular Hemoglobin 29, Mean Corpuscular Hemoglobin Concent 31L, Red Cell Distribution Width 16.9H, Platelet Count 145, Mean Platelet Volume 11.1H, Neutrophils (%) (Auto) 67, Lymphocytes (%) (Auto) 23 , Monocytes (%) (Auto) 9, Eosinophils (%) (Auto) 1, Basophils (%) (Auto) 0, Neutrophils # (Auto) 3.0, Lymphocytes # (Auto) 1.0, Monocytes # (Auto) 0.4, Eosinophils # (Auto) 0.1, Basophils # (Auto) 0.0 03/29/18 06:17: Glucometer 77 03/29/18 11:26: Glucometer 73 03/29/18 12:10: Glucometer 69L 03/29/18 12:49: Glucometer 78 03/29/18 13:34: Glucometer 83 03/29/18 15:42: Glucometer 169H 03/29/18 20:47: Glucometer 149H 03/30/18 05:48: Glucometer 68L 03/30/18 06:52: Glucometer 94 Current Funtional Status Improving towards goals Decreasing insulin to 15 units Nausea is improved Assessment/Plan Assessment and Plan (1) Debility Status: Acute (2) Rales Status: Acute (3) Acute respiratory failure Qualifiers: Qualified Codes: J96.00 - Acute respiratory failure, unspecified whether with hypoxia or hypercapnia Status: Resolved (4) PNA (pneumonia) Qualifiers: Qualified Codes: J18.9 - Pneumonia, unspecified organism Status: Resolved (5) Frailty Status: Acute (6) Elevated INR Status: Resolved (7) Iron deficiency Status: Acute (8) Electrolyte abnormality Status: Resolved (9) Insulin dependent diabetes mellitus Status: Chronic (10) Hypokalemia Status: Resolved (11) Aortic valve replaced Status: Chronic (12) Constipation Qualifiers: Qualified Codes: K59.01 - Slow transit constipation Status: Chronic Co-Morbidities that are continuing to impact the rehab process: (include details ) MIRNA EUCEDA DO Mar 30, 2018 08:30
[2018-03-30] MEDS: guaiFENesin/DM (ROBITUSSIN DM) 10 ML UDC PO PRN (08:35)
[2018-03-30] MEDS: DICLOFENAC 1% GEL 100 GM (VOLTAREN) TUBE TOP SCH ×4 (08:36→21:10)
[2018-03-30] MEDS ORDERED: NON-FORMULARY MEDICATION 1 EA EA (Insulin Glargine/Lixisenatide (Soliqua 100 Unit-33 Mcg/m SQ SCH (09:00)
[2018-03-30] MEDS: IRON SUCROSE 200 MG/10 ML (VENOFER) VIAL IV SCH (09:51)
[2018-03-30] MEDS: LIXISENATIDE SQ SCH (10:07)
[2018-03-30] MEDS: INSULIN GLARGINE SQ SCH (10:07)
--- NOTE | 2018-03-30 10:58 | Physical Therapy Daily Note ---
PT Daily Note-Current Subjective Patient in bed pre tx, agrees to PT, has 10/10 pain in right knee, patient states he has already had pain meds. Appearance Patient in bed post tx with nurse call, phone, tray, all needs met. Mental Status Patient Orientation: Person, Place, Situation Attachments: Oxygen 1.5L of O2 nasal canula Transfers Therapy Code Descriptions/Definitions Functional [place] Measure: 0=Not Assessed/NA 4=Minimal Assistance 1=Total Assistance 5=Supervision or Setup 2=Maximal Assistance 6=Modified [place] 3=Moderate Assistance 7=Complete [place] Therapy Quality Codes: 6 Independent with activity with or without an assistive device 5 Patient requires set up or clean up by helper. Patient completes activity by themselves 4 Supervision or touching assist (CGA). [place] provide cues , steadying assist 3 The helper provides less than half the effort to complete the activity 2 The helper provides more than half the effort to complete the activity 1 Dependent. The helper does all the effort to complete an activity 7 Patient refused to complete or attempt activity 9 The patient did not perform the activity before the current illness or injury 88 Not attempted due to Medical conditions or safety concerns Transfers (B, C, W/C) (FIM): 5 Scootin Rollin Supine to/from Sit: 5 Sit to/from Stand: 5 Bed to/from Chair: 5 occasional cues for hand placement Weight Bearing Right Lower Extremity: Right Weight Bearing/Tolerated Left Lower Extremity: Left Weight Bearing/Tolerated Gait Training Gait (FIM): 5 Distance: 200'x2 Gait Level of Assist: 5 Gait Persons Needed: 1 Gait Assistive Device: FWW Extremely slow ambulation, antalgic. Patient states he ambulates so slowly due to right knee pain. Exercises Seated Therapy Exercises: Ankle pumps, Hip flexion, Hip abd/add Seated Reps: 20 LAQ alternating for 5 min NuStep Minutes: 15 NuStep Workload: 4 Treatments bed mobility and transfers, ambulation, functional strengthening Assessment Current Status: Fair Progress improved bed mobility, no nausea this morning PT Short Term Goals Short Term Goals Time Frame: Apr 01, 2018 Gait (FIM): 5 Gait Distance Comment: 150' Gait Level of Assist: 5 Gait Assistive Device: FWW PT Halfway Goals Driver Salesman Goals PT Driver Salesman Goals Time Frame: Apr 15, 2018 Transfers (B,C,W/C) (FIM): 6 Sit to Lying (QC): 6 Lying-Sitting on Side/Bed(QC): 6 Sit to Stand (QC): 6 Rollin Roll Left to Right (QC): 6 Chair/Zap-yn-Gquhr Xfer(QC): 6 Car Transfer (QC): 6 Gait (FIM): 6 Distance: 200' Walk 10 feet (QC): 6 Walk 10ft-Uneven Surface(QC): 6 Walk 50ft with 2 Turns (QC): 6 Walk 150 ft (QC): 6 Gait Level of Assist: 6 Gait Assistive Device: FWW Stairs (FIM): 2 # of Steps: 4 1 Step (curb) (QC): 4 4 Steps (QC): 4 Stairs Level Of Assist: 5 PT Plan Problem List Problem List: Activity Tolerance, Functional Strength, Safety, Balance, Gait, Transfer Treatment/Plan Treatment Plan: Continue Plan of Care Treatment Plan: Bed Mobility, Education, Functional Activity Natacha, Functional Strength, Group Therapy, Gait, Safety, Therapeutic Exercise, Transfers Treatment Duration: Apr 15, 2018 Frequency: At least 5 of 7 days/Wk (IRF) Estimated Hrs Per Day: 1.5 hours per day Patient and/or Family Agrees t: Yes Safety Risks/Education Patient Education: Gait Training, Transfer Techniques, Correct Positioning, Safety Issues Teaching Recipient: Patient Teaching Methods: Demonstration, Discussion Response to Teaching: Reinforcement Needed Time/GCodes Time In: 1000 Time Out: 1055 Total Billed Treatment Time: 55 Total Billed Treatment 1 visit GT 25' EX 20' FA 10' JORDYN VELEZ PT Mar 30, 2018 10:58
--- NOTE | 2018-03-30 10:58 | Cardiology Progress Note ---
Subjective Date Seen by Provider: Mar 30, 2018 Time Seen by Provider: 10:56 Subjective/Events-last exam Patient is exercising, no new complaint Review of Systems General: No Chills, No Night Sweats, No Fatigue, No Malaise, No Appetite, No Other HEENT: No Head Aches, No Visual Changes, No Eye Pain, No Ear Pain, No Dysphasia , No Sinus Congestion, No Post Nasal Drip, No Sore Throat, No Other Pulmonary: No Dyspnea, No Cough, No Pleuritic Chest Pain, No Other Cardiovascular: No: Chest Pain, Palpitations, Orthopnea, Paroxysmal Noc. Dyspnea, Edema, Lt Headedness, Other Objective-Cardiology Exam Last Set of Vital Signs Vital Signs 03/29/18 03/30/18 07:57 05:22 Temp 96.4 Pulse 63 Resp 20 B/P (MAP) 122/74 (90) Pulse Ox 97 O2 Delivery Nasal Cannula O2 Flow Rate 1.50 FiO2 28 Capillary Refill : Less Than 3 Seconds I&O Intake and Output 03/30/18 00:00 Intake Total 1980 ml Output Total 2875 ml Balance -895 ml Intake Oral 1980 ml Output Urine Total 2825 ml Emesis 50 ml General: Alert, Oriented X3, Cooperative HEENT: Atraumatic, PERRLA Neck: Supple, No JVD, No Thyromegaly Lungs: Normal Air Movement, Other (bilat wheezing) Heart: Regular Rate, Normal S1, Normal S2 Abdomen: Normal Bowel Sounds, Soft, No Tenderness, No Hepatosplenomegaly, No Masses Extremities: No Clubbing, No Cyanosis, Normal Pulses, No Tenderness/Swelling, Other (Mild edema) Skin: No Rashes, No Breakdown, No Significant Lesion Neuro: Normal Speech, Normal Tone, Sensation Intact Psych/Mental Status: Mental Status NL, Mood NL Results Lab Laboratory Tests Test 03/29/18 11:26 03/29/18 12:10 03/29/18 12:49 03/29/18 13:34 Range/Units Glucometer 73 69 L 78 83 70-110 MG/DL Test 03/29/18 15:42 03/29/18 20:47 03/30/18 05:48 03/30/18 06:52 Range/Units Glucometer 169 H 149 H 68 L 94 70-110 MG/DL A/P-Cardiology Admission Diagnosis Generalized weakness Coumadin toxicity Hypertension Pneumonia Assessment/Plan Generalized weakness and debility, receiving therapy Persistent pneumonia, receiving antibiotic, managed by primary care team Status post Coumadin toxicity for which he received FFP and vitamin K, Continue to monitor Status post anemia, received blood transfusion, continue to monitor History of aortic valve replacement, on Coumadin, continue to adjust and monitor Paroxysmal atrial fibrillation, maintained on amiodarone. Continue to monitor Elevated liver enzymes, appear to be improving slowly compared to the previous admission. Continue to monitor Leukopenia, monitored and followed by primary care physician Permanent pacemaker, functioning normally. Continue to monitor Diabetes mellitus, followed and managed by primary care physician Hypertension, continue to monitor blood pressure Hyperlipidemia, continue to monitor lipids. Hypothyroidism, followed and managed by primary care physician Clinical Quality Measures DVT/VTE Risk/Contraindication: Risk Factor Score Per Nursin RFS Level Per Nursing on Admit: 3=High KARTHIKEYAN HORTON MD Mar 30, 2018 10:57
--- NOTE | 2018-03-30 12:59 | Occupational Ther Daily Note ---
OT Current Status-Daily Note Subjective Pt was in bed watching TV.Pt stated, " I am doing good today. Wants shower today." Pain Numeric Pain Scale: 2 Location: Right Location Body Site: Knee Pain Description: Ache Mental Status/Objective Patient Orientation: Person, Place, Time, Eyes Open, Normal For Age Therapy Code Descriptions/Definitions Functional [place] Measure: 0=Not Assessed/NA 4=Minimal Assistance 1=Total Assistance 5=Supervision or Setup 2=Maximal Assistance 6=Modified [place] 3=Moderate Assistance 7=Complete [place] Attachments: IV, Oxygen ADL-Treatment Pt need supervision in func. transfers from bed to stand with w/walker with O2 on. Pt ambulate with w/walker to shower. Undress UB with Mod I & LB with Min A due to SOB & fatigue. Endurance fair. Pt soap & wash UB , LB , Chest , back, perineal front & back , hairs with SBA & Supervision to prevent fall., Pt dress UB, with mod I & LB wi Min A. Participated in therapeutic strengthening Ex to BUE to increase endurance & activity tolerance & endurance , [place] his hairs Independently. Eating (FIM): 7 Grooming (FIM): 7 Bathing (FIM): 4 Bathing Location: L Arm, R Arm, L Upper Leg, R Upper Leg, L Lower Leg ( including foot), R Lower Leg (including foot), Chest, Abdomen, Buttocks, Perineal Area Upper Body (FIM): 5 Lower Body Dressing (FIM): 4 Toileting (FIM): 4 Transfers (B, C, W/C) (FIM): 5 Toilet/Commode Transfer (FIM): 5 Shower Transfer(FIM): 5 Education OT Patient Education: Correct positioning, Energy conservation, Safety issues Teaching Recipient: Patient Teaching Methods: Demonstration, Discussion Response to Teaching: Verbalize Understanding, Return Demonstration OT Short Term Goals Short Term Goals Time Frame: Apr 01, 2018 Lower Body Dressing(FIM): 4 Toilet/Commode Transfer(FIM): 5 Additional Short Term Goals: 1-Demonstrate ADL Tasks, 2-Verbalize Understanding , 3-ImproveStrength/Natacha 1=Demonstrate adherence to instructed precautions during ADL tasks. 2=Patient will verbalize/demonstrate understanding of assistive devices/ modifications for ADL. 3=Patient will improve strength/tolerance for activity to enable patient to perform ADL's. OT Edger Technician Goals Edger Technician Goals Time Frame: Apr 15, 2018 Eating (FIM): 6 Grooming(FIM): 6 Bathing(FIM): 5 Upper Body Dressing(FIM): 6 Lower Body Dressing(FIM): 6 Toileting(FIM): 6 Toilet/Commode Transfer(FIM): 6 Shower Transfer(FIM): 5 Additional Goals: 1-Demonstrate ADL Tasks, 2-Verbalize Understanding, 3- ImproveStrength/Natacha 1=Demonstrate adherence to instructed precautions during ADL tasks. 2=Patient will verbalize/demonstrate understanding of assistive devices/ modifications for ADL. 3=Patient will improve strength/tolerance for activity to enable patient to perform ADL's. OT Education/Plan Problem List/Assessment Assessment: Decreased Activ Tolerance, Decreased Safety Aware, Decreased UE Strength, Impaired Funct Balance, Impaired Self-Care Skills Discharge Recommendations Plan/Recommendations: Continue POC Therapy D/C Recommendations: Home Independently, Occupational Therapy Home Care Equpiment Recommendations-D/C: Extended Shower Sprayer, Administrative Underwriter, [place] Barriers to Progress Pt fatigue soon, fair endurance. Patient/Family Goals To return home Independently with safety awareness. Treatment Plan/Plan of Care Treatment,Training & Education: Yes Patient would benefit from OT for education, treatment and training to promote independence in ADL's, mobility, safety and/or upper extremity function for ADL' s. Plan of Care: ADL Retraining, Functional Mobility, Group Exercise/Act as Ind, UE Funct Exercise/Act Treatment Duration: Apr 15, 2018 Frequency: At least 5 of 7 days/Wk (IRF) Estimated Hrs Per Day: 1.5 hours per day Agreement: Yes Rehab Potential: Good Time/GCodes Start Time: 09:00 Stop Time: 10:00 Total Time Billed (hr/min): 60 Billed Treatment Time 1, ADL 45 & Ex 15 total 60 minutes LUKE CAMPOS OT Mar 30, 2018 12:59
--- NOTE | 2018-03-30 13:57 | Speech Therapy Daily Note ---
Speech Daily Progress Note Subjective Date Seen by Provider: Mar 30, 2018 Time Seen by Provider: 00:30 Patient was resting in bed after eating his breakfast when I arrived. Objective Patient completed OME for safe oral intake and increasing oral pharyngeal strengthening with 80% accuracy given minimal cues. Assessment Assessment Current Status: Good Progress Treatment Plan Continue Plan of Care Speech Short Term Goals Short Term Goals Short Term Goals 1) Patient will decrease oral transit time to 3 seconds in order to patient's ability to efficiently consume highest level of oral intake with 80% or greater. 2) Patient will utilize compensatory strategies as trained with 80% or greater. Speech Lubricating Engineer Goals [place] Goals Patient will maintain adequate nutrition/hydration via safe effective swallow function. Speech-Plan Patient/Family Goals Patient/Family Goals: Patient will be returning home with family post rehab. Treatment Plan Speech Therapy Treatment Plan: Continue Plan of Care Patient is doing very well with oral intake. No overt s/s of aspiration noted. Treatment Duration: Apr 03, 2018 Frequency: 5 times per week Estimated Hrs Per Day: .5 hour per day Rehab Potential: Good Time Speech Therapy Time In: 08:30 Speech Therapy Time Out: 09:00 Total Billed Time: 30 Billed Treatment Time 1, DYST LOULOU Adler Mar 30, 2018 13:57
--- NOTE | 2018-03-30 15:04 | Therapy Group Daily Note ---
Therapy Daily Group Note Patient Education Topic Other List Below (benefits of sleep, ARU description/expectations) Exercises LE Seated Exercise, UE Exercise Other/Notes Pt participated in group therapy with 4:1 ratio. Goals of therapy are understanding ARU description/expectations and understanding the benefits of sleep. Pt ambulated to OT/PT group using FWW with CGA. Group consisted of introductions (name, place living, why are you here), socialization, UE/LE seated exercises, education for ARU description/expectations and understanding the benefits of sleep. Pt was able to introduce self appropriately and accurately state reason for being at ARU. Pt actively listened to peers throughout session. Pt was able to acknowledge understanding of goals by giving verbal example and raise hand for acknowledgement. Pt tolerated UE/LE seated exercises and completed without difficulty. Pt will benefit from topics discussed by increasing time slept and being able to fully engage in therapies. Pt ambulated to room and laid down in bed. Call light/phone in reach. Safety measures in place. Start Time: 13:00 Stop Time: 14:30 Total Billed Treatment Time: 90 Total Billed Treatment 1-GRP EJ LEDESMA Mar 30, 2018 15:04
--- NOTE | 2018-03-30 16:47 | Pulmonary Progress Note ---
Subjective Time Seen by a Provider: 16:47 Subjective/Events-last exam No Complications noted. SOB is stable Sepsis Event Evaluation Height, Weight, BMI Height: 5'8.00" Weight: 159lbs. 8.0oz. 72.389142hd; 24.3 BMI Method:Stated Exam Exam Vital Signs Date Time Temp Pulse Resp B/P (MAP) Pulse Ox O2 Delivery O2 Flow Rate FiO2 03/30/18 09:00 Nasal Cannula 1.50 03/30/18 05:22 96.4 63 20 122/74 (90) 97 Nasal Cannula 1.50 03/29/18 21:00 Nasal Cannula 1.50 03/29/18 20:50 59 18 114/64 (81) 95 Nasal Cannula 1.50 03/29/18 19:44 Nasal Cannula 1.50 03/29/18 19:39 93 Nasal Cannula 1.50 03/29/18 17:55 98.7 61 18 134/78 (96) 96 Nasal Cannula 1.50 I & O 03/30/18 07:00 Intake Total 1590 ml Output Total 1725 ml Balance -135 ml Height & Weight Height: 5'8.00" Weight: 159lbs. 8.0oz. 72.673464jn; 24.3 BMI Method:Stated General Appearance: No Apparent Distress, WD/WN, Chronically ill, Thin HEENT: PERRL/EOMI, Normal ENT Inspection, Pharynx Normal Neck: Full Range of Motion, Normal Inspection, Non Tender, Supple, Carotid Bruit Respiratory: Chest Non Tender, No Accessory Muscle Use, No Respiratory Distress , Crackles, Decreased Breath Sounds Cardiovascular: Regular Rate, Rhythm, No Edema, No Gallop, No JVD, Normal Peripheral Pulses, Systolic Murmur, Other (click) Capillary Refill: Less Than 3 Seconds Gastrointestinal: normal bowel sounds, non tender, soft Extremity: Normal Capillary Refill, Normal Inspection, Normal Range of Motion, Non Tender, No Calf Tenderness, No Pedal Edema Neurologic/Psychiatric: Alert, Oriented x3, No Motor/Sensory Deficits, Normal Mood/Affect Skin: Normal Color, Warm/Dry Lymphatic: No Adenopathy Results Lab Laboratory Tests 03/29/18 04:20 03/29/18 04:30 Assessment/Plan Assessment/Plan Resolving Pneumonia -Repeat CXR -shows improvement. Hypoxia -Pt will need home 02 -He is currently requiring 1.5 liters of oxygen. -Needs out patient PFT Gastritis s/p EGD Metabolic encephalopathy - improved Anemia with Coumadin coagulopathy -Coumadin dosing per Dr. Antonia strong -Monitor Hx of aortic valve replacement -Coumadin therapy Debility/deconditioning S/P fall at home LUKE BLEDSOE DO Mar 30, 2018 16:47
[2018-03-30 16:53] VITALS: BP 114/67
[2018-03-30 18:36] LABS: INR 2.7 (0.8-1.4); PROTHROMBIN TIME PATIENT 28.7 SEC (12.2-14.7)
[2018-03-30] MEDS: warFARin 1 MG (COUMADIN) TAB PO SCH (18:52)
[2018-03-30] MEDS: ALPRAZolam 1 MG (XANAX) TAB PO PRN (18:54)
--- NOTE | 2018-03-30 19:12 | NUR ---
bedside report received from JORGE FISCHER, assume care of pt
--- NOTE | 2018-03-30 19:40 | NUR ---
A BETTER DAY WITH LESS NAUSEA.
[2018-03-30 20:55] VITALS: BP_SYST 114; BP_SYST 93; BP_DIAS 57; BP_DIAS 64
--- NOTE | 2018-03-30 21:00 | NUR ---
assessments & interventions completed, see assessments & interventions, fsbs 106.
[2018-03-30] MEDS: TAMSULOSIN 0.4 MG (FLOMAX) CAP PO SCH (21:03)
[2018-03-30] MEDS: MELATONIN 3 MG TABLET PO PRN (21:03)
[2018-03-30] MEDS: SIMvastatin 20 MG (ZOCOR) TAB PO SCH (21:03)
[2018-03-30] MEDS: LEVOTHYROXINE 150 MCG (LEVOTHROID) TAB PO SCH (21:03)
[2018-03-30] MEDS: LEVOTHYROXINE 25 MCG (LEVOTHROID) TAB PO SCH (21:03)
--- NOTE | 2018-03-30 21:06 | NUR ---
refused Voltaren gel states does not help anymore
[2018-03-31] MEDS: PANTOPRAZOLE 40 MG (PROTONIX) TAB PO SCH ×2 (06:10→20:26)
[2018-03-31 06:12] VITALS: BP 100/66
--- NOTE | 2018-03-31 06:13 | Pulmonary Progress Note ---
Standard Progress Note Progress Notes Time Seen by Provider: 15:22 Assessment & Plan Resolving Pneumonia -Repeat CXR -shows improvement. Hypoxia -Pt will need home 02 -He is currently requiring 1.5 liters of oxygen. -Needs out patient PFT Gastritis s/p EGD Metabolic encephalopathy - improved Anemia with Coumadin coagulopathy -Coumadin dosing per Dr. Antonia strong -Monitor Hx of aortic valve replacement -Coumadin therapy Debility/deconditioning S/P fall at home LUKE BLEDSOE DO Mar 31, 2018 06:13
[2018-03-31] MEDS: RT-BUDESONIDE NEBS 0.5 MG/2ML (PULMICORT) AMP INH SCH ×2 (06:43→19:36)
[2018-03-31] MEDS: RT-ALBUTEROL/IPRATROPIUM 3 ML (DUONEB) VIAL INH SCH ×2 (06:43→19:36)
[2018-03-31] MEDS: MENTHOL/ZINC OXIDE (CALMOSEPTINE) 113 GM TUBE TOP SCH ×5 (07:08→20:32)
--- NOTE | 2018-03-31 07:12 | NUR ---
bedside report given to VON FISCHER
--- NOTE | 2018-03-31 08:20 | Cardiology Progress Note ---
Subjective Date Seen by Provider: Mar 31, 2018 Time Seen by Provider: 08:19 Subjective/Events-last exam Patient is in bed, feeling better, no new complaint Review of Systems General: No Chills, No Night Sweats, No Fatigue, No Malaise, No Appetite, No Other HEENT: No Head Aches, No Visual Changes, No Eye Pain, No Ear Pain, No Dysphasia , No Sinus Congestion, No Post Nasal Drip, No Sore Throat, No Other Pulmonary: No Dyspnea, No Cough, No Pleuritic Chest Pain, No Other Cardiovascular: No: Chest Pain, Palpitations, Orthopnea, Paroxysmal Noc. Dyspnea, Edema, Lt Headedness, Other Objective-Cardiology Exam Last Set of Vital Signs Vital Signs 03/29/18 03/31/18 07:57 06:12 Temp 97.9 Pulse 60 Resp 18 B/P (MAP) 100/66 (77) Pulse Ox 97 O2 Delivery Nasal Cannula O2 Flow Rate 1.50 FiO2 28 Capillary Refill : Less Than 3 Seconds I&O Intake and Output 03/31/18 00:00 Intake Total 900 ml Output Total 1675 ml Balance -775 ml Intake Oral 900 ml Output Urine Total 1675 ml # Voids 1 General: Alert, Oriented X3, Cooperative HEENT: Atraumatic, PERRLA Neck: Supple, No JVD, No Thyromegaly Lungs: Normal Air Movement, Other (bilat wheezing) Heart: Regular Rate, Normal S1, Normal S2 Abdomen: Normal Bowel Sounds, Soft, No Tenderness, No Hepatosplenomegaly, No Masses Extremities: No Clubbing, No Cyanosis, Normal Pulses, No Tenderness/Swelling, Other (Mild edema) Skin: No Rashes, No Breakdown, No Significant Lesion Neuro: Normal Speech, Normal Tone, Sensation Intact Psych/Mental Status: Mental Status NL, Mood NL Results Lab Laboratory Tests Test 03/30/18 10:56 03/30/18 16:51 03/30/18 18:11 03/30/18 20:27 Range/Units Glucometer 112 H 88 106 70-110 MG/DL Prothrombin Time 28.7 H 12.2-14.7 SEC INR Comment 2.7 H 0.8-1.4 Test 03/31/18 05:20 03/31/18 06:06 Range/Units Glucometer 68 L 132 H 70-110 MG/DL A/P-Cardiology Admission Diagnosis Generalized weakness Coumadin toxicity Hypertension Pneumonia Assessment/Plan Generalized weakness and debility, receiving therapy Persistent pneumonia, receiving antibiotic, managed by primary care team Status post Coumadin toxicity for which he received FFP and vitamin K, Continue to monitor Status post anemia, received blood transfusion, continue to monitor History of aortic valve replacement, on Coumadin, continue to adjust and monitor Paroxysmal atrial fibrillation, maintained on amiodarone. Continue to monitor Elevated liver enzymes, appear to be improving slowly compared to the previous admission. Continue to monitor Leukopenia, monitored and followed by primary care physician Permanent pacemaker, functioning normally. Continue to monitor Diabetes mellitus, followed and managed by primary care physician Hypertension, continue to monitor blood pressure Hyperlipidemia, continue to monitor lipids. Hypothyroidism, followed and managed by primary care physician Clinical Quality Measures DVT/VTE Risk/Contraindication: Risk Factor Score Per Nursin RFS Level Per Nursing on Admit: 3=High KARTHIKEYAN HORTON MD Mar 31, 2018 08:20
[2018-03-31] MEDS: AMIODARONE 200 MG (CORDARONE) TAB PO SCH ×2 (09:00→20:26)
[2018-03-31] MEDS: DICLOFENAC 1% GEL 100 GM (VOLTAREN) TUBE TOP SCH ×4 (09:00→20:32)
--- NOTE | 2018-03-31 09:00 | PM&R Progress Note ---
Subjective HPI/CC On Admission Date Seen by Provider: Mar 31, 2018 Time Seen by Provider: 08:00 Subjective/Events-last exam Patient feels like he is participating in therapy and getting stronger every day Labs are checked and INR appears to be stable No bleeding problems Needs heel protectors due to heel pain Maintained on Coumadin regimen Patient will need home oxygen at discharge Bowel regimen is usually declined but will try to encourage taking the medication today Review of Systems General: Fatigue Pulmonary: Dyspnea, Cough Neurological: Weakness Objective Exam Vital Signs Vital Signs Date Time Temp Pulse Resp B/P (MAP) Pulse Ox O2 Delivery O2 Flow Rate FiO2 03/31/18 19:41 Nasal Cannula 1.00 03/31/18 19:36 94 03/31/18 19:36 61 03/31/18 15:48 96.5 16 102/66 (78) 03/29/18 07:57 28 Capillary Refill : Less Than 3 Seconds General Appearance: No Apparent Distress, WD/WN, Chronically ill Respiratory: Chest Non Tender, No Accessory Muscle Use, No Respiratory Distress , Crackles, Decreased Breath Sounds Neurologic/Psychiatric: Alert, Oriented x3, No Motor/Sensory Deficits, Normal Mood/Affect Results/Procedures Lab Patient resulted labs reviewed. Assessment/Plan Assessment and Plan Assess & Plan/Chief Complaint Assessment: Severe debility Recent pneumonia with respiratory insufficiency COPD with chronic coarse breath sounds Therapeutic INR Aortic valve replacement history Diabetes mellitus Chronic renal insufficiency Anemia Urinary retention resolved Constipation acute on chronic Plan: Monitor INR and labs periodically Nebulizer treatments Therapies to improve strength and be able to return back to independent living Therapies will be impacted by electrolyte imbalance, anemia, hypoxia, and just overall respiratory decline Change bowel meds to prn since laxatives are making him ill Diagnosis/Problems Diagnosis/Problems (1) Debility Status: Acute (2) Rales Status: Acute (3) Acute respiratory failure Status: Resolved Qualifiers: Respiratory failure complication: unspecified whether with hypoxia or hypercapnia Qualified Codes: J96.00 - Acute respiratory failure, unspecified whether with hypoxia or hypercapnia Resolution Date/Time: 03/25/18 @ 20:39 (4) PNA (pneumonia) Status: Resolved Qualifiers: Pneumonia type: due to unspecified organism Laterality: unspecified laterality Lung location: unspecified part of lung Qualified Codes: J18.9 - Pneumonia, unspecified organism Resolution Date/Time: 03/27/18 @ 15:18 (5) Frailty Status: Acute (6) Elevated INR Status: Resolved Resolution Date/Time: 03/27/18 @ 15:18 (7) Iron deficiency Status: Acute (8) Electrolyte abnormality Status: Resolved Resolution Date/Time: 03/26/18 @ 09:09 (9) Insulin dependent diabetes mellitus Status: Chronic (10) Hypokalemia Status: Resolved Resolution Date/Time: 03/25/18 @ 20:39 (11) Aortic valve replaced Status: Chronic (12) Constipation Status: Chronic Qualifiers: Constipation type: slow transit constipation Qualified Codes: K59.01 - Slow transit constipation Clinical Quality Measures Admission Status Admission Dx Assessment: Severe debility Recent pneumonia with respiratory insufficiency Supratherapeutic INR Aortic valve replacement history Diabetes mellitus Chronic renal insufficiency Anemia Urinary retention Plan: Monitor INR and labs Check chest x-ray Nebulizer treatments Therapies to improve strength and be able to return back to independent living Therapies will be impacted by electrolyte imbalance, anemia, hypoxia, and just overall respiratory decline DVT/VTE Risk/Contraindication: Risk Factor Score Per Nursin RFS Level Per Nursing on Admit: 3=High MIRNA EUCEDA DO Mar 31, 2018 09:00
[2018-03-31 09:30] VITALS: BP 106/45
[2018-03-31] MEDS: oxyCODONE/APAP 10/325MG (PERCOCET 10) TABLET PO PRN (09:32)
[2018-03-31] MEDS: DEMECLOCYCLINE PO SCH ×2 (09:32→20:26)
[2018-03-31] MEDS: MAGNESIUM OXIDE (MAG-OX)400 MG TAB PO SCH ×2 (09:32→17:36)
--- NOTE | 2018-03-31 09:42 | Speech Therapy Daily Note ---
Speech Daily Progress Note Subjective Date Seen by Provider: Mar 31, 2018 Time Seen by Provider: 00:30 Patient was up resting in bed and had just eaten breakfast when I entered his room. Assessment Assessment Current Status: Good Progress Treatment Plan Continue Plan of Care Speech Short Term Goals Short Term Goals Short Term Goals 1) Patient will decrease oral transit time to 3 seconds in order to patient's ability to efficiently consume highest level of oral intake with 80% or greater. 2) Patient will utilize compensatory strategies as trained with 80% or greater. Speech Exhibit Electrician Goals Intermediate Goals Patient will maintain adequate nutrition/hydration via safe effective swallow function. Speech-Plan Patient/Family Goals Patient/Family Goals: Patient plans to return home where he lives with his son. Treatment Plan Speech Therapy Treatment Plan: Continue Plan of Care Patient is making good progress due to receiving skilled services. Treatment Duration: Apr 03, 2018 Frequency: 5 times per week Estimated Hrs Per Day: .5 hour per day Rehab Potential: Good Barriers to Learning: Patient has difficulty with retention of some of the new information related to his therapies. Pt/Family Agrees to Plan: Yes Safety Risks/Education Teaching Recipient: Patient Teaching Methods: Discussion Response to Teaching: Verbalize Understanding Education Topics Provided: Safety within his room. Time Speech Therapy Time In: 08:15 Speech Therapy Time Out: 08:45 Total Billed Time: 30 Billed Treatment Time [address] Mar 31, 2018 09:42
--- NOTE | 2018-03-31 09:45 | Speech Therapy Daily Note ---
Speech Short Term Goals Short Term Goals Short Term Goals 1) Patient will decrease oral transit time to 3 seconds in order to patient's ability to efficiently consume highest level of oral intake with 80% or greater. 2) Patient will utilize compensatory strategies as trained with 80% or greater. Speech Math And Sciences Department Chair Goals Longterm Goals Patient will maintain adequate nutrition/hydration via safe effective swallow function. Speech-Plan Treatment Plan Treatment Duration: Apr 03, 2018 Frequency: 5 times per week Estimated Hrs Per Day: .5 hour per day Rehab Potential: LOULOU Ray Mar 31, 2018 09:45
[2018-03-31] MEDS: LIXISENATIDE SQ SCH (09:55)
[2018-03-31] MEDS: INSULIN GLARGINE SQ SCH (09:55)
--- NOTE | 2018-03-31 10:09 | Occupational Ther Daily Note ---
OT Current Status-Daily Note Subjective Pt stated, " I am having pain all over the body ." Need pain pills Kirill tired, don't want bath." Pain Numeric Pain Scale: 8 Location: Soft Tissue Location Body Site: Generalized Pain Description: Ache, Sharp Mental Status/Objective Patient Orientation: Person, Place, Time Therapy Code Descriptions/Definitions Functional [place] Measure: 0=Not Assessed/NA 4=Minimal Assistance 1=Total Assistance 5=Supervision or Setup 2=Maximal Assistance 6=Modified [place] 3=Moderate Assistance 7=Complete [place] ADL-Treatment Pt stated that he don't want shower today, spongue bath in bed-side in sitting posture will be fine. Therapist brought warm packets of READY-BATH . Pt need mod A in wiping back & lower body , legs & calf muscles. Fatigue soon while bending forward, poor endurance today, fatigur soon. Pt Undress & dress UB with SBA & supervision . supine to sit at bed-side with SBA, sit to stand at bed- side Independently.. O2 dependent. Participated in strengthening Ex to increase activity tolerance, strength, endurance , 20 reps x 1 lbs x 2 sets flex/ext of both elbow & shoulders & 25 reps x 2 sets with yellow theraband in all plane of motion. Pt seen again before Lunch for strengthening Ex to BUE, Deep breathing Ex, Pt participated in 25 reps x 2sets x 1 lb wt flexion/ext of Both elbow & shoulders & 25 reps x 2 sets with yellow theraband both UE in all planes of motion to increase strength, endurance & activity tolerance. Therapy Code Descriptions/Definitions Functional [place] Measure: 0=Not Assessed/NA 4=Minimal Assistance 1=Total Assistance 5=Supervision or Setup 2=Maximal Assistance 6=Modified [place] 3=Moderate Assistance 7=Complete [place] Therapy Quality Codes: 6 Independent with activity with or without an assistive device 5 Patient requires set up or clean up by helper. Patient completes activity by themselves 4 Supervision or touching assist (CGA). [place] provide cues , steadying assist 3 The helper provides less than half the effort to complete the activity 2 The helper provides more than half the effort to complete the activity 1 Dependent. The helper does all the effort to complete an activity 7 Patient refused to complete or attempt activity 9 The patient did not perform the activity before the current illness or injury 88 Not attempted due to Medical conditions or safety concerns Eating (FIM): 7 Eating (QC): 6 Grooming (FIM): 5 Oral Hygiene (QC): 5 Shower/Bathe Self (QC): 5 (spongue bath at bedside.) Upper Body (FIM): 5 Upper Body Dressing (QC): 5 Lower Body Dressing (FIM): 4 Lower Body Dressing (QC): 5 Transfers (B, C, W/C) (FIM): 6 Toilet/Commode Transfer (FIM): 6 Toilet Transfer (QC): 6 Tub Transfer(FIM): 0 Shower Transfer(FIM): 6 Education OT Patient Education: Correct positioning, Safety issues Teaching Recipient: Patient Teaching Methods: Demonstration, Discussion Response to Teaching: Verbalize Understanding, Return Demonstration OT Short Term Goals Short Term Goals Time Frame: Apr 01, 2018 Lower Body Dressing(FIM): 4 Toilet/Commode Transfer(FIM): 5 Additional Short Term Goals: 1-Demonstrate ADL Tasks, 2-Verbalize Understanding , 3-ImproveStrength/Natacha 1=Demonstrate adherence to instructed precautions during ADL tasks. 2=Patient will verbalize/demonstrate understanding of assistive devices/ modifications for ADL. 3=Patient will improve strength/tolerance for activity to enable patient to perform ADL's. OT [facility] Goals Plaque Maker Goals Time Frame: Apr 15, 2018 Eating (FIM): 6 Eating (QC): 6 Groomin Oral Hygiene (QC): 6 Bathing(FIM): 5 Shower/Bathe Self (QC): 5 Upper Body Dressing(FIM): 6 Upper Body Dressing (QC): 6 Lower Body Dressing(FIM): 6 Lower Body Dressing (QC): 6 On/Off Footwear (QC): 6 Toileting(FIM): 6 Toileting Hygiene (QC): 6 Toilet/Commode Transfer(FIM): 6 Toilet/Commode Transfer (QC): 6 Shower Transfer(FIM): 5 Additional Goals: 1-Demonstrate ADL Tasks, 2-Verbalize Understanding, 3- ImproveStrength/Natacha 1=Demonstrate adherence to instructed precautions during ADL tasks. 2=Patient will verbalize/demonstrate understanding of assistive devices/ modifications for ADL. 3=Patient will improve strength/tolerance for activity to enable patient to perform ADL's. OT Education/Plan Discharge Recommendations Plan/Recommendations: Continue POC Therapy D/C Recommendations: Home Independently, Occupational Therapy Home Care Equpiment Recommendations-D/C: Toilet Riser with Rails, Charge Authorizer, [place] Barriers to Progress SOB, Poor endurance, O2 dependent. Patient/Family Goals To return home Independently. Treatment Plan/Plan of Care Patient would benefit from OT for education, treatment and training to promote independence in ADL's, mobility, safety and/or upper extremity function for ADL' s. Plan of Care: ADL Retraining, Functional Mobility, Group Exercise/Act as Ind, UE Funct Exercise/Act Treatment Duration: Apr 15, 2018 Frequency: At least 5 of 7 days/Wk (IRF) Estimated Hrs Per Day: 1.5 hours per day Agreement: Yes Rehab Potential: Good Time/GCodes Start Time: 09:00 Stop Time: 11:20 Total Time Billed (hr/min): 75 Billed Treatment Time Total 75 minutes : 9:00-10: 00 am 60 minutes & 11:05 -11:20 am 15 minutes 1, ADL 45 , Ex 30 LUKE CAMPOS OT Mar 31, 2018 10:09
--- NOTE | 2018-03-31 11:00 | Physical Therapy Daily Note ---
PT Daily Note-Current Subjective Patient in bed pre tx, agrees to PT, has 8/10 pain in right knee, MYRTLE wrap on right knee. Appearance Patient in bed post tx with nurse call, phone, tray, all needs met. Mental Status Patient Orientation: Person, Place, Situation Attachments: Oxygen Transfers Therapy Code Descriptions/Definitions Functional [place] Measure: 0=Not Assessed/NA 4=Minimal Assistance 1=Total Assistance 5=Supervision or Setup 2=Maximal Assistance 6=Modified [place] 3=Moderate Assistance 7=Complete [place] Therapy Quality Codes: 6 Independent with activity with or without an assistive device 5 Patient requires set up or clean up by helper. Patient completes activity by themselves 4 Supervision or touching assist (CGA). [place] provide cues , steadying assist 3 The helper provides less than half the effort to complete the activity 2 The helper provides more than half the effort to complete the activity 1 Dependent. The helper does all the effort to complete an activity 7 Patient refused to complete or attempt activity 9 The patient did not perform the activity before the current illness or injury 88 Not attempted due to Medical conditions or safety concerns Transfers (B, C, W/C) (FIM): 4 Scootin Rollin Supine to/from Sit: 4 Sit to/from Stand: 5 Bed to/from Chair: 5 Patient needed min assist for supine to sit. Weight Bearing Right Lower Extremity: Right Weight Bearing/Tolerated Left Lower Extremity: Left Weight Bearing/Tolerated Gait Training Gait (FIM): 5 Distance: 150'x2 Gait Level of Assist: 5 Gait Persons Needed: 1 Gait Assistive Device: FWW Patient ambulates very slowly but steady. Exercises Supine Ex: Ankle pumps, Quad Set, Glut sets, Heel Slides, Short Arc Quads, Straight leg raise, Hip abd/add Supine Reps: 20 NuStep Minutes: 15 NuStep Workload: 4 Treatments bed mobility and transfers, ambulation, functional strengthening Assessment Current Status: Fair Progress improving endurance PT Short Term Goals Short Term Goals Time Frame: Apr 01, 2018 Gait (FIM): 5 Gait Distance Comment: 150' Gait Level of Assist: 5 Gait Assistive Device: FWW PT Relief Worker Goals Relief Worker Goals PT Relief Worker Goals Time Frame: Apr 15, 2018 Transfers (B,C,W/C) (FIM): 6 Sit to Lying (QC): 6 Lying-Sitting on Side/Bed(QC): 6 Sit to Stand (QC): 6 Rollin Roll Left to Right (QC): 6 Chair/Dws-qz-Jobxw Xfer(QC): 6 Car Transfer (QC): 6 Gait (FIM): 6 Distance: 200' Walk 10 feet (QC): 6 Walk 10ft-Uneven Surface(QC): 6 Walk 50ft with 2 Turns (QC): 6 Walk 150 ft (QC): 6 Gait Level of Assist: 6 Gait Assistive Device: FWW Stairs (FIM): 2 # of Steps: 4 1 Step (curb) (QC): 4 4 Steps (QC): 4 Stairs Level Of Assist: 5 PT Plan Problem List Problem List: Activity Tolerance, Functional Strength, Safety, Balance, Gait, Transfer, Bed Mobility, ROM Treatment/Plan Treatment Plan: Continue Plan of Care Treatment Plan: Bed Mobility, Education, Functional Activity Natacha, Functional Strength, Group Therapy, Gait, Safety, Therapeutic Exercise, Transfers Treatment Duration: Apr 15, 2018 Frequency: At least 5 of 7 days/Wk (IRF) Estimated Hrs Per Day: 1.5 hours per day Patient and/or Family Agrees t: Yes Safety Risks/Education Patient Education: Gait Training, Transfer Techniques, Correct Positioning, Safety Issues Teaching Recipient: Patient Teaching Methods: Demonstration, Discussion Response to Teaching: Reinforcement Needed Time/GCodes Time In: 1000 Time Out: 1100 Total Billed Treatment Time: 60 Total Billed Treatment 1 visit EX 30' GT 30' JORDYN VELEZ PT Mar 31, 2018 11:00
--- NOTE | 2018-03-31 13:48 | Physical Therapy Daily Note ---
PT Daily Note-Current Subjective Patient in bed pre tx, agrees to PT, no complaints of pain at rest. Appearance Patient in bed post tx with nurse call, phone, tray, all needs met. Mental Status Patient Orientation: Person, Place, Situation Attachments: Oxygen Transfers Therapy Code Descriptions/Definitions Functional [place] Measure: 0=Not Assessed/NA 4=Minimal Assistance 1=Total Assistance 5=Supervision or Setup 2=Maximal Assistance 6=Modified [place] 3=Moderate Assistance 7=Complete [place] Therapy Quality Codes: 6 Independent with activity with or without an assistive device 5 Patient requires set up or clean up by helper. Patient completes activity by themselves 4 Supervision or touching assist (CGA). [place] provide cues , steadying assist 3 The helper provides less than half the effort to complete the activity 2 The helper provides more than half the effort to complete the activity 1 Dependent. The helper does all the effort to complete an activity 7 Patient refused to complete or attempt activity 9 The patient did not perform the activity before the current illness or injury 88 Not attempted due to Medical conditions or safety concerns Weight Bearing Right Lower Extremity: Right Weight Bearing/Tolerated Left Lower Extremity: Left Weight Bearing/Tolerated Exercises Supine Ex: Ankle pumps, Quad Set, Glut sets, Heel Slides, Short Arc Quads, Straight leg raise, Hip abd/add Supine Reps: 20 Treatments functional strengthening Assessment Current Status: Fair Progress improved pain in right knee PT Short Term Goals Short Term Goals Time Frame: Apr 01, 2018 Gait (FIM): 5 Gait Distance Comment: 150' Gait Level of Assist: 5 Gait Assistive Device: FWW PT Mcfp Goals Bacteriologist Food Goals PT Mcfp Goals Time Frame: Apr 15, 2018 Transfers (B,C,W/C) (FIM): 6 Sit to Lying (QC): 6 Lying-Sitting on Side/Bed(QC): 6 Sit to Stand (QC): 6 Rollin Roll Left to Right (QC): 6 Chair/Bpl-ll-Nrvew Xfer(QC): 6 Car Transfer (QC): 6 Gait (FIM): 6 Distance: 200' Walk 10 feet (QC): 6 Walk 10ft-Uneven Surface(QC): 6 Walk 50ft with 2 Turns (QC): 6 Walk 150 ft (QC): 6 Gait Level of Assist: 6 Gait Assistive Device: FWW Stairs (FIM): 2 # of Steps: 4 1 Step (curb) (QC): 4 4 Steps (QC): 4 Stairs Level Of Assist: 5 PT Plan Problem List Problem List: Activity Tolerance, Functional Strength, Safety, Balance, Gait, Transfer, Bed Mobility, ROM Treatment/Plan Treatment Plan: Continue Plan of Care Treatment Plan: Bed Mobility, Education, Functional Activity Natacha, Functional Strength, Group Therapy, Gait, Safety, Therapeutic Exercise, Transfers Treatment Duration: Apr 15, 2018 Frequency: At least 5 of 7 days/Wk (IRF) Estimated Hrs Per Day: 1.5 hours per day Patient and/or Family Agrees t: Yes Safety Risks/Education Patient Education: Correct Positioning, Safety Issues Teaching Recipient: Patient Teaching Methods: Demonstration, Discussion Response to Teaching: Reinforcement Needed Time/GCodes Time In: 1330 Time Out: 1345 Total Billed Treatment Time: 15 Total Billed Treatment 1 visit EX Anu' JORDYN VELEZ PT Mar 31, 2018 13:48
--- NOTE | 2018-03-31 13:53 | NUR ---
Follow up visit: pt said he would likely know more about discharge plans by tomorrow. States he feels encouraged by his progress, shared that staff have been kind, and he hopes to return to normalcy soon. Pt requested lights be turned off before I exited and closed the door.
[2018-03-31 15:48] VITALS: BP 102/66
[2018-03-31] MEDS: guaiFENesin/DM (ROBITUSSIN DM) 10 ML UDC PO PRN (16:51)
[2018-03-31] MEDS: warFARin 1 MG (COUMADIN) TAB PO SCH (17:36)
--- NOTE | 2018-03-31 19:11 | NUR ---
bedside report received from VON FISCHER, assume care of pt
[2018-03-31 19:36] VITALS: BP 102/66
[2018-03-31 20:20] VITALS: BP 138/64
[2018-03-31] MEDS: SIMvastatin 20 MG (ZOCOR) TAB PO SCH (20:26)
[2018-03-31] MEDS: ALPRAZolam 1 MG (XANAX) TAB PO PRN (20:26)
[2018-03-31] MEDS: TAMSULOSIN 0.4 MG (FLOMAX) CAP PO SCH (20:26)
[2018-03-31] MEDS: LEVOTHYROXINE 25 MCG (LEVOTHROID) TAB PO SCH (20:26)
[2018-03-31] MEDS: LEVOTHYROXINE 150 MCG (LEVOTHROID) TAB PO SCH (20:26)
--- NOTE | 2018-03-31 20:26 | NUR ---
requesting something for anxiety, Xanax 1mg po given
--- NOTE | 2018-03-31 21:00 | NUR ---
assessments & interventions completed, see assessments & interventions, fsbs 144, refused voltaren gel
[2018-04-01] MEDS: guaiFENesin/DM (ROBITUSSIN DM) 10 ML UDC PO PRN (01:42)
--- NOTE | 2018-04-01 01:42 | NUR ---
c/o cough Robitussin 5ml po given
[2018-04-01 05:19] LABS: BASOPHILS % (AUTO) 0 % (0-10); EOSINOPHILS # (AUTO) 0.1 10^3/uL (0.0-0.3); EOSINOPHILS % (AUTO) 1 % (0-10); HEMATOCRIT 32 % (40-54); HEMOGLOBIN 10.3 G/DL (13.3-17.7); LYMPHOCYTES # (AUTO) 0.9 X 10^3 (1.0-4.0); LYMPHOCYTES % (AUTO) 23 % (12-44); MEAN CORPUSCULAR HEMOGLOBIN 30 PG (25-34); MEAN CORPUSCULAR HGB CONC 32 G/DL (32-36); MEAN CORPUSCULAR VOLUME 95 FL (80-99); MEAN PLATELET VOLUME 10.4 FL (7.4-10.4); MONOCYTES # (AUTO) 0.4 X 10^3 (0.0-1.0); MONOCYTES % (AUTO) 10 % (0-12); NEUTROPHILS # (AUTO) 2.7 X 10^3 (1.8-7.8); NEUTROPHILS % (AUTO) 66 % (42-75); PLATELET COUNT 146 10^3/uL (130-400); RED BLOOD COUNT 3.39 10^6/uL (4.35-5.85); RED CELL DISTRIBUTION WIDTH 17.3 % (10.0-14.5); WHITE BLOOD COUNT 4.1 10^3/uL (4.3-11.0)
[2018-04-01 05:27] LABS: INR 1.9 (0.8-1.4)
[2018-04-01 05:38] LABS: ALANINE AMINOTRANSFERASE 20 U/L (0-55); ALBUMIN 2.9 GM/DL (3.2-4.5); ALKALINE PHOSPHATASE 199 U/L (40-136); BILIRUBIN,TOTAL 0.5 MG/DL (0.1-1.0); BUN/CREATININE RATIO 12; CALCIUM 8.2 MG/DL (8.5-10.1); CARBON DIOXIDE 30 MMOL/L (21-32); CHLORIDE 96 MMOL/L (98-107); CREATININE SERUM 1.09 MG/DL (0.60-1.30); GFR ESTIMATED > 60; GLUCOSE 136 MG/DL (70-105); POTASSIUM 4.8 MMOL/L (3.6-5.0); SODIUM 133 MMOL/L (135-145); TOTAL PROTEIN 5.8 GM/DL (6.4-8.2)
[2018-04-01 06:00] VITALS: BP 109/65
[2018-04-01] MEDS: PANTOPRAZOLE 40 MG (PROTONIX) TAB PO SCH ×2 (06:30→20:39)
--- NOTE | 2018-04-01 07:16 | NUR ---
bedside report given to VON FISCHER
[2018-04-01] MEDS: DICLOFENAC 1% GEL 100 GM (VOLTAREN) TUBE TOP SCH ×4 (08:31→21:22)
[2018-04-01] MEDS: MENTHOL/ZINC OXIDE (CALMOSEPTINE) 113 GM TUBE TOP SCH ×5 (08:31→21:22)
[2018-04-01] MEDS: INSULIN GLARGINE SQ SCH (08:32)
[2018-04-01] MEDS: MAGNESIUM OXIDE (MAG-OX)400 MG TAB PO SCH ×2 (08:32→17:47)
[2018-04-01] MEDS: AMIODARONE 200 MG (CORDARONE) TAB PO SCH ×2 (08:32→20:39)
[2018-04-01] MEDS: LIXISENATIDE SQ SCH (08:32)
[2018-04-01] MEDS: DEMECLOCYCLINE PO SCH ×2 (08:33→20:39)
--- NOTE | 2018-04-01 08:38 | Cardiology Progress Note ---
Subjective Date Seen by Provider: Apr 01, 2018 Time Seen by Provider: 08:15 Subjective/Events-last exam Patient is sitting up in bed, no new complaints. Denies any chest pain or dyspnea. Objective-Cardiology Exam Last Set of Vital Signs Vital Signs 03/31/18 03/31/18 04/01/18 19:36 21:00 06:00 Temp 97.0 Pulse 60 Resp 20 B/P (MAP) 109/65 (80) Pulse Ox 98 O2 Delivery Nasal Cannula O2 Flow Rate 1.50 FiO2 24 Capillary Refill : Less Than 3 Seconds I&O Intake and Output 04/01/18 00:00 Intake Total 780 ml Output Total 1425 ml Balance -645 ml Intake Oral 780 ml Output Urine Total 1425 ml General: Alert, Oriented X3, Cooperative HEENT: Atraumatic, PERRLA Neck: Supple, No JVD, No Thyromegaly Lungs: Normal Air Movement, Other (bilat wheezing) Heart: Regular Rate, Normal S1, Normal S2 Abdomen: Normal Bowel Sounds, Soft, No Tenderness, No Hepatosplenomegaly, No Masses Extremities: No Clubbing, No Cyanosis, Normal Pulses, No Tenderness/Swelling, Other (Mild edema) Skin: No Rashes, No Breakdown, No Significant Lesion Neuro: Normal Speech, Normal Tone, Sensation Intact Psych/Mental Status: Mental Status NL, Mood NL Results Lab Laboratory Tests 04/01/18 05:00 A/P-Cardiology Admission Diagnosis Generalized weakness Coumadin toxicity Hypertension Pneumonia Assessment/Plan Generalized weakness and debility, receiving therapy Pneumonia, improving, receiving antibiotic, managed by primary care team Status post Coumadin toxicity for which he received FFP and vitamin K, Continue to monitor, INR 1.7 today. Maintained on Coumadin 0.5mg daily. Status post anemia, received blood transfusion, continue to monitor History of aortic valve replacement, on Coumadin, continue to adjust and monitor Paroxysmal atrial fibrillation, maintained on amiodarone. Continue to monitor Elevated liver enzymes,improving, continue to monitor. Leukopenia, monitored and followed by primary care physician Permanent pacemaker, functioning normally. Continue to monitor Diabetes mellitus, followed and managed by primary care physician Hypertension, continue to monitor blood pressure Hyperlipidemia, continue to monitor lipids. Hypothyroidism, followed and managed by primary care physician Clinical Quality Measures DVT/VTE Risk/Contraindication: Risk Factor Score Per Nursin RFS Level Per Nursing on Admit: 3=High JORGE LUIS MOLINA Apr 01, 2018 08:38
--- NOTE | 2018-04-01 08:41 | PM&R Progress Note ---
Subjective This was a face to face visit with the patient. Date Seen by Provider: Apr 01, 2018 Time Seen by Provider: 08:30 Subjective/Events-last exam Patient was seen in his room while he was in bed Adamantly refusing bowel regimen and no BM for 5 days increasing risk for impaction Patient needs NH and he is refusing that Such slow recovery will speak during team meeting about DC to NH or home Pt very complicated and debilitated and will likely not succeed at home INR 1.9 Left heel has an ulcer but no drainage. Heel protectors in place Poor prognosis overall Date Identified: Apr 01, 2018 Time Identified: 08:00 Medication Intervention: Severe constipation for 5 days and refuses BM meds Review of Systems General: Fatigue Pulmonary: Dyspnea Gastrointestinal: Constipation Neurological: Incoordination Objective Physician Exam Last Set of Vital Signs Vital Signs Date Time Temp Pulse Resp B/P (MAP) Pulse Ox O2 Delivery O2 Flow Rate FiO2 04/01/18 06:00 97.0 60 20 109/65 (80) 98 1.50 03/31/18 21:00 Nasal Cannula 03/31/18 19:36 24 Capillary Refill : Less Than 3 Seconds I&O Intake and Output 04/01/18 00:00 Intake Total 780 ml Output Total 1425 ml Balance -645 ml Intake Oral 780 ml Output Urine Total 1425 ml General: Alert, Oriented X3, Cooperative, Other (chronically ill) HEENT: Atraumatic, PERRLA Neck: Supple, No JVD, No Thyromegaly Lungs: Normal Air Movement, Other (bilat wheezing) Heart: Regular Rate, Normal S1, Normal S2 Abdomen: Normal Bowel Sounds, Soft, No Tenderness, No Hepatosplenomegaly, No Masses Extremities: No Clubbing, No Cyanosis, Normal Pulses, No Tenderness/Swelling, Other (Mild edema) Skin: No Rashes, No Breakdown, No Significant Lesion Neuro: Normal Speech, Normal Tone, Sensation Intact Psych/Mental Status: Mental Status NL, Mood NL Results Lab Data Laboratory Tests 03/29/18 11:26: Glucometer 73 03/29/18 12:10: Glucometer 69L 03/29/18 12:49: Glucometer 78 03/29/18 13:34: Glucometer 83 03/29/18 15:42: Glucometer 169H 03/29/18 20:47: Glucometer 149H 03/30/18 05:48: Glucometer 68L 03/30/18 06:52: Glucometer 94 03/30/18 10:56: Glucometer 112H 03/30/18 16:51: Glucometer 88 03/30/18 18:11: Prothrombin Time 28.7H, INR Comment 2.7H 03/30/18 20:27: Glucometer 106 03/31/18 05:20: Glucometer 68L 03/31/18 06:06: Glucometer 132H 03/31/18 10:51: Glucometer 110 03/31/18 15:47: Glucometer 135H 03/31/18 20:13: Glucometer 144H 04/01/18 05:00: White Blood Count 4.1L, Red Blood Count 3.39L, Hemoglobin 10.3L, Hematocrit 32L , Mean Corpuscular Volume 95, Mean Corpuscular Hemoglobin 30, Mean Corpuscular Hemoglobin Concent 32, Red Cell Distribution Width 17.3H, Platelet Count 146, Mean Platelet Volume 10.4, Neutrophils (%) (Auto) 66, Lymphocytes (%) (Auto) 23 , Monocytes (%) (Auto) 10, Eosinophils (%) (Auto) 1, Basophils (%) (Auto) 0, Neutrophils # (Auto) 2.7, Lymphocytes # (Auto) 0.9L, Monocytes # (Auto) 0.4, Eosinophils # (Auto) 0.1, Basophils # (Auto) 0.0, Prothrombin Time 22.0H, INR Comment 1.9H, Sodium Level 133L, Potassium Level 4.8, Chloride Level 96L, Carbon Dioxide Level 30, Anion Gap 7, Blood Urea Nitrogen 13, Creatinine 1.09, Estimat Glomerular Filtration Rate > 60, BUN/Creatinine Ratio 12, Glucose Level 136H, Calcium Level 8.2L, Corrected Calcium 9.1, Total Bilirubin 0.5, Aspartate Amino Transf (AST/SGOT) 26, Alanine Aminotransferase (ALT/SGPT) 20, Alkaline Phosphatase 199H, Total Protein 5.8L, Albumin 2.9L 04/01/18 06:04: Glucometer 134H Current Funtional Status BM regimen recommended but refuses Limited recovery potential Refuses NH Assess for plan in team meeting today Assessment/Plan Assessment and Plan (1) Debility Status: Acute (2) Rales Status: Acute (3) Acute respiratory failure Qualifiers: Qualified Codes: J96.00 - Acute respiratory failure, unspecified whether with hypoxia or hypercapnia Status: Resolved (4) PNA (pneumonia) Qualifiers: Qualified Codes: J18.9 - Pneumonia, unspecified organism Status: Resolved (5) Frailty Status: Acute (6) Elevated INR Status: Resolved (7) Iron deficiency Status: Acute (8) Electrolyte abnormality Status: Resolved (9) Insulin dependent diabetes mellitus Status: Chronic (10) Hypokalemia Status: Resolved (11) Aortic valve replaced Status: Chronic (12) Constipation Qualifiers: Qualified Codes: K59.01 - Slow transit constipation Status: Chronic Co-Morbidities that are continuing to impact the rehab process: (include details ) MIRNA EUCEDA DO Apr 01, 2018 08:41
--- NOTE | 2018-04-01 10:17 | Speech Therapy Daily Note ---
Speech Daily Progress Note Subjective Date Seen by Provider: Apr 01, 2018 Time Seen by Provider: 00:30 Patient was agitated when I entered the room due to having just had the doctor tell him he needed to go [facility] discharge. Objective Patient completed word finding exercises with 90% accuracy with no verbal cues. Assessment Assessment Current Status: Good Progress Treatment Plan Continue Plan of Care Speech Short Term Goals Short Term Goals Short Term Goals 1) Patient will decrease oral transit time to 3 seconds in order to patient's ability to efficiently consume highest level of oral intake with 80% or greater. 2) Patient will utilize compensatory strategies as trained with 80% or greater. Speech Certified Financial Planner Goals Certified Financial Planner Goals Patient will maintain adequate nutrition/hydration via safe effective swallow function. Speech-Plan Patient/Family Goals Patient/Family Goals: Patient plans to return home with his son. Treatment Plan Speech Therapy Treatment Plan: Continue Plan of Care Patient is ademant that he will return home. Treatment Duration: Apr 03, 2018 Frequency: 5 times per week Estimated Hrs Per Day: .5 hour per day Rehab Potential: Good Barriers to Learning: Patient needs cuing at times to find words. Pt/Family Agrees to Plan: Yes Safety Risks/Education Teaching Recipient: Patient Teaching Methods: Discussion Response to Teaching: Verbalize Understanding Education Topics Provided: Safety when he returns home. Time Speech Therapy Time In: 08:30 Speech Therapy Time Out: 09:00 Total Billed Time: 30 Billed Treatment Time 1RUKHSANA [address]AN[address] ST Apr 01, 2018 10:17
--- NOTE | 2018-04-01 11:27 | Occupational Ther Daily Note ---
OT Current Status-Daily Note Subjective Pt in bed . Pt stated, " I am ready to go home." Pain Numeric Pain Scale: 5-Moderate Pain Location: Right Location Body Site: Knee Pain Description: Sharp Mental Status/Objective Patient Orientation: Person, Place, Time Therapy Code Descriptions/Definitions Functional [place] Measure: 0=Not Assessed/NA 4=Minimal Assistance 1=Total Assistance 5=Supervision or Setup 2=Maximal Assistance 6=Modified [place] 3=Moderate Assistance 7=Complete [place] ADL-Treatment Pt seen in OT for strengthening ex to BUE, ADL retraining, thera-acts, safety education, Pt participated in spongue bath in bed. wiped his face, nack , chest , upper body & lower body , need min A to wipe back , SBA in supine to sit as pt fatigue, fair+ Endurance,, needs frequent rest periods, O2 dependent Independent in UB dressing & SBA in LB dressing /undressing garments. Pt positioned properly in bed with Positioning Boots On on both feet, Pt performed 30 reps x 2 sets x 3 lb wt BUE, 30 reps x 2 sets with red theraband with BUE in all planes of motion.. Pt insisting on going home with HH , not in senior care Therapy Code Descriptions/Definitions Functional [place] Measure: 0=Not Assessed/NA 4=Minimal Assistance 1=Total Assistance 5=Supervision or Setup 2=Maximal Assistance 6=Modified [place] 3=Moderate Assistance 7=Complete [place] Therapy Quality Codes: 6 Independent with activity with or without an assistive device 5 Patient requires set up or clean up by helper. Patient completes activity by themselves 4 Supervision or touching assist (CGA). [place] provide cues , steadying assist 3 The helper provides less than half the effort to complete the activity 2 The helper provides more than half the effort to complete the activity 1 Dependent. The helper does all the effort to complete an activity 7 Patient refused to complete or attempt activity 9 The patient did not perform the activity before the current illness or injury 88 Not attempted due to Medical conditions or safety concerns Eating (FIM): 7 Eating (QC): 6 Grooming (FIM): 6 Oral Hygiene (QC): 6 Bathing (FIM): 0 Bathing Location: L Arm, R Arm, L Upper Leg, R Upper Leg, L Lower Leg ( including foot), R Lower Leg (including foot), Chest, Abdomen, Buttocks, Perineal Area Shower/Bathe Self (QC): 4 Upper Body (FIM): 6 Upper Body Dressing (QC): 6 Lower Body Dressing (FIM): 5 Lower Body Dressing (QC): 5 On/Off Footwear (QC): 6 Toileting (FIM): 6 Toileting Hygiene (QC): 6 Transfers (B, C, W/C) (FIM): 6 Toilet/Commode Transfer (FIM): 6 Toilet Transfer (QC): 6 Tub Transfer(FIM): 0 Shower Transfer(FIM): 6 Education OT Patient Education: Correct positioning, Energy conservation, Safety issues Teaching Recipient: Patient Teaching Methods: Demonstration Response to Teaching: Verbalize Understanding, Return Demonstration OT Short Term Goals Short Term Goals Time Frame: Apr 01, 2018 Lower Body Dressing(FIM): 4 Toilet/Commode Transfer(FIM): 5 Additional Short Term Goals: 1-Demonstrate ADL Tasks, 2-Verbalize Understanding , 3-ImproveStrength/Natacha 1=Demonstrate adherence to instructed precautions during ADL tasks. 2=Patient will verbalize/demonstrate understanding of assistive devices/ modifications for ADL. 3=Patient will improve strength/tolerance for activity to enable patient to perform ADL's. OT Insurance Agency Owner Goals Jail Goals Time Frame: Apr 15, 2018 Eating (FIM): 6 Eating (QC): 6 Groomin Oral Hygiene (QC): 6 Bathing(FIM): 5 Shower/Bathe Self (QC): 5 Upper Body Dressing(FIM): 6 Upper Body Dressing (QC): 6 Lower Body Dressing(FIM): 6 Lower Body Dressing (QC): 6 On/Off Footwear (QC): 6 Toileting(FIM): 6 Toileting Hygiene (QC): 6 Toilet/Commode Transfer(FIM): 6 Toilet/Commode Transfer (QC): 6 Shower Transfer(FIM): 5 Additional Goals: 1-Demonstrate ADL Tasks, 2-Verbalize Understanding, 3- ImproveStrength/Natacha 1=Demonstrate adherence to instructed precautions during ADL tasks. 2=Patient will verbalize/demonstrate understanding of assistive devices/ modifications for ADL. 3=Patient will improve strength/tolerance for activity to enable patient to perform ADL's. OT Education/Plan Problem List/Assessment Assessment: Decreased Activ Tolerance, Decreased Safety Aware, Decreased UE Strength, Impaired Bed Mobility, Impaired Funct Balance, Impaired Self-Care Skills Discharge Recommendations Plan/Recommendations: Continue POC Therapy D/C Recommendations: Home Independently, Occupational Therapy Home Care Equpiment Recommendations-D/C: Bath Chair, Extended Shower Sprayer, Grades 6 Through 8 Teacher Treatment Plan/Plan of Care Treatment,Training & Education: Yes Patient would benefit from OT for education, treatment and training to promote independence in ADL's, mobility, safety and/or upper extremity function for ADL' s. Plan of Care: ADL Retraining, Functional Mobility, Group Exercise/Act as Ind, UE Funct Exercise/Act Treatment Duration: Apr 15, 2018 Frequency: At least 5 of 7 days/Wk (IRF) Estimated Hrs Per Day: 1.5 hours per day Agreement: Yes Rehab Potential: Good Time/GCodes Start Time: 09:30 Stop Time: 10:15 Total Time Billed (hr/min): 45 Billed Treatment Time 1, ADLs 30 min, Ex 15 min Total 45 min. LUKE CAPMOS OT Apr 01, 2018 11:27
[2018-04-01] MEDS: RT-BUDESONIDE NEBS 0.5 MG/2ML (PULMICORT) AMP INH SCH (11:40)
[2018-04-01] MEDS: RT-ALBUTEROL/IPRATROPIUM 3 ML (DUONEB) VIAL INH SCH (11:40)
--- NOTE | 2018-04-01 11:41 | Physical Therapy Daily Note ---
PT Daily Note-Current Subjective Pt laying Supine in bed upon arrival. Pt agrees to PT and wants to go home JOSSIE. Pain Numeric Pain Scale: 6 Pain Description: Ache Comment: Pt reports generalized pain throughout body. Mental Status Patient Orientation: Person, Place, Situation Attachments: Oxygen Transfers Therapy Code Descriptions/Definitions Functional [place] Measure: 0=Not Assessed/NA 4=Minimal Assistance 1=Total Assistance 5=Supervision or Setup 2=Maximal Assistance 6=Modified [place] 3=Moderate Assistance 7=Complete [place] Therapy Quality Codes: 6 Independent with activity with or without an assistive device 5 Patient requires set up or clean up by helper. Patient completes activity by themselves 4 Supervision or touching assist (CGA). [place] provide cues , steadying assist 3 The helper provides less than half the effort to complete the activity 2 The helper provides more than half the effort to complete the activity 1 Dependent. The helper does all the effort to complete an activity 7 Patient refused to complete or attempt activity 9 The patient did not perform the activity before the current illness or injury 88 Not attempted due to Medical conditions or safety concerns Scootin Supine to/from Sit: 5 Sit to/from Stand: 5 Sit to Lying (QC): 5 Sit to Stand (QC): 5 Weight Bearing Right Lower Extremity: Right Weight Bearing/Tolerated Left Lower Extremity: Left Weight Bearing/Tolerated Gait Training Does the Patient Walk?: Yes Distance (FIM): 3=150 ft Distance: 150' Walk 10 feet (QC): 5 Walk 50 ft with 2 Turns(QC): 5 Walk 150 ft (QC): 5 Gait Level of Assist: 5 Gait Persons Needed: 1 Gait Assistive Device: FWW Pt walks with very slow tiffany but steady, no LOB. Wheelchair Training Does the Pt Use a Wheelchair?: No Exercises Supine Ex: Ankle pumps, Quad Set, Glut sets, Heel Slides, Straight leg raise, Hip abd/add Supine Reps: 15 NuStep Minutes: 15 NuStep Workload: 4 Treatments Pt completes Supine Ex in bed before transferring to standing. Pt ambulated in hallway and to Therapy Gym. Pt uses NuStep for 15m at [facility] 4 before short rest. Pt ambulates back to room and transfers to bed. Pt is able to reposition self in bed. WIRELESS SALES EXPERT reapplies boots to BLE as Nurse arrives. Pt has all needs met. Assessment Current Status: Good Progress Pt has gained strength and activity tolerance on ARU. Pt wants to discharge home JOSSIE and reports support of son at home. PT Short Term Goals Short Term Goals Time Frame: Apr 01, 2018 Gait (FIM): 5 Gait Distance Comment: 150' Gait Level of Assist: 5 Gait Assistive Device: FWW PT Nursing Home Goals Nursing Home Goals PT Nursing Home Goals Time Frame: Apr 15, 2018 Transfers (B,C,W/C) (FIM): 6 Sit to Lying (QC): 6 Lying-Sitting on Side/Bed(QC): 6 Sit to Stand (QC): 6 Rollin Roll Left to Right (QC): 6 Chair/Smb-ab-Snqxd Xfer(QC): 6 Car Transfer (QC): 6 Gait (FIM): 6 Distance: 200' Walk 10 feet (QC): 6 Walk 10ft-Uneven Surface(QC): 6 Walk 50ft with 2 Turns (QC): 6 Walk 150 ft (QC): 6 Gait Level of Assist: 6 Gait Assistive Device: FWW Stairs (FIM): 2 # of Steps: 4 1 Step (curb) (QC): 4 4 Steps (QC): 4 Stairs Level Of Assist: 5 PT Plan Problem List Problem List: Activity Tolerance, Functional Strength, Safety Treatment/Plan Treatment Plan: Continue Plan of Care Treatment Plan: Bed Mobility, Education, Functional Activity Natacha, Functional Strength, Group Therapy, Gait, Safety, Therapeutic Exercise, Transfers Treatment Duration: Apr 15, 2018 Frequency: At least 5 of 7 days/Wk (IRF) Estimated Hrs Per Day: 1.5 hours per day Patient and/or Family Agrees t: Yes Safety Risks/Education Patient Education: Gait Training, Transfer Techniques, Correct Positioning, Safety Issues Teaching Recipient: Patient Teaching Methods: Discussion Response to Teaching: Verbalize Understanding Time/GCodes Time In: 1030 Time Out: 1130 Total Billed Treatment Time: 60 Total Billed Treatment 1, GT (20m), EX x2 (25m) & FA (15m) G Codes Necessary: KIKO Valentine WIRELESS SALES EXPERT Apr 01, 2018 11:41
--- NOTE | 2018-04-01 12:55 | Cardiology Progress Note ---
Subjective Date Seen by Provider: Apr 01, 2018 Time Seen by Provider: 12:53 Subjective/Events-last exam patient is laying down in bed, feeling better, no new complaint Review of Systems General: No Chills, No Night Sweats, No Fatigue, No Malaise, No Appetite, No Other HEENT: No Head Aches, No Visual Changes, No Eye Pain, No Ear Pain, No Dysphasia , No Sinus Congestion, No Post Nasal Drip, No Sore Throat, No Other Pulmonary: No Dyspnea, No Cough, No Pleuritic Chest Pain, No Other Cardiovascular: No: Chest Pain, Palpitations, Orthopnea, Paroxysmal Noc. Dyspnea, Edema, Lt Headedness, Other Objective-Cardiology Exam Last Set of Vital Signs Vital Signs 03/31/18 04/01/18 04/01/18 19:36 06:00 09:00 Temp 97.0 Pulse 60 Resp 20 B/P (MAP) 109/65 (80) Pulse Ox 98 O2 Delivery Nasal Cannula O2 Flow Rate 1.50 FiO2 24 Capillary Refill : Less Than 3 Seconds I&O Intake and Output 04/01/18 00:00 Intake Total 780 ml Output Total 1425 ml Balance -645 ml Intake Oral 780 ml Output Urine Total 1425 ml General: Alert, Oriented X3, Cooperative, Other (chronically ill) HEENT: Atraumatic, PERRLA Neck: Supple, No JVD, No Thyromegaly Lungs: Normal Air Movement, Other (bilat wheezing) Heart: Regular Rate, Normal S1, Normal S2 Abdomen: Normal Bowel Sounds, Soft, No Tenderness, No Hepatosplenomegaly, No Masses Extremities: No Clubbing, No Cyanosis, Normal Pulses, No Tenderness/Swelling, Other (Mild edema) Skin: No Rashes, No Breakdown, No Significant Lesion Neuro: Normal Speech, Normal Tone, Sensation Intact Psych/Mental Status: Mental Status NL, Mood NL Results Lab Laboratory Tests 04/01/18 05:00 A/P-Cardiology Admission Diagnosis Generalized weakness Coumadin toxicity Hypertension Pneumonia Assessment/Plan Generalized weakness and debility, receiving therapy Pneumonia, better, received antibiotic, managed by primary care team Status post Coumadin toxicity for which he received FFP and vitamin K, Continue to monitor, INR 1.7 today. I will go back to 1 mg Coumadin, may require higher dose Status post anemia, received blood transfusion, continue to monitor History of aortic valve replacement, on Coumadin, continue to adjust and monitor Paroxysmal atrial fibrillation, maintained on amiodarone. Continue to monitor Elevated liver enzymes,improving, continue to monitor. Leukopenia, monitored and followed by primary care physician Permanent pacemaker, functioning normally. Continue to monitor Diabetes mellitus, followed and managed by primary care physician Hypertension, continue to monitor blood pressure Hyperlipidemia, continue to monitor lipids. Hypothyroidism, followed and managed by primary care physician Clinical Quality Measures DVT/VTE Risk/Contraindication: Risk Factor Score Per Nursin RFS Level Per Nursing on Admit: 3=High KARTHIKEYAN HORTON MD Apr 01, 2018 12:55
--- NOTE | 2018-04-01 14:50 | Therapy Group Daily Note ---
Therapy Daily Group Note Patient Education Topic Foot Wear Exercises LE Seated Exercise, UE Exercise Other/Notes Pt participated in group therapy with 4 to 1 ratio. Goals of session are understanding home safety and leading UE/LE seated exercises. Pt ambulated using FWW to group in [facility]. Group consisted of introductions (name, place born, favorite food). Pt introduced self appropriately and actively listened to peers. Pt was able to read and lead own exercise. Pt tolerated and was able to complete. Dice were rolled for UE AROM/ strengthening for amount of reps to complete for exercises. Pt then nodded head in affirmation, gave personal example and attended to handout given for home safety education. Memory activity initiated for next group-juliane, mariluz, maggie, jonathon, bertha. Pt met goals of session by participation and acknowledgement of topics. Pt is able to benefit from group by using exercises throughout therapy stay and at discharge. Make effective decisions for home safety when discharged. After therapy, pt lying in bed with call light/phone in reach. All needs met. Start Time: 13:00 Stop Time: 14:15 Total Billed Treatment Time: 75 Total Billed Treatment 1-GRP EJ LEDESMA Apr 01, 2018 14:50
--- NOTE | 2018-04-01 15:23 | Pulmonary Progress Note ---
Subjective Time Seen by a Provider: 15:22 Subjective/Events-last exam PT denies SOB or productive cough. No complications noted. Sepsis Event Evaluation Height, Weight, BMI Height: 5'8.00" Weight: 159lbs. 8.0oz. 72.570348uz; 24.3 BMI Method:Stated Exam Exam Vital Signs Date Time Temp Pulse Resp B/P (MAP) Pulse Ox O2 Delivery O2 Flow Rate FiO2 04/01/18 09:00 Nasal Cannula 1.50 04/01/18 06:00 97.0 60 20 109/65 (80) 98 1.50 03/31/18 21:00 Nasal Cannula 1.50 03/31/18 20:20 61 20 138/64 (88) 96 Nasal Cannula 1.50 03/31/18 19:41 Nasal Cannula 1.00 03/31/18 19:36 94 Nasal Cannula 1.00 03/31/18 19:36 60 94 24 03/31/18 15:48 96.5 61 16 102/66 (78) 99 Nasal Cannula 2.00 I & O 04/01/18 07:00 Intake Total 680 ml Output Total 1375 ml Balance -695 ml Height & Weight Height: 5'8.00" Weight: 159lbs. 8.0oz. 72.774270qm; 24.3 BMI Method:Stated General Appearance: No Apparent Distress, WD/WN, Chronically ill HEENT: PERRL/EOMI, Normal ENT Inspection, Pharynx Normal Neck: Full Range of Motion, Normal Inspection, Non Tender, Supple, Carotid Bruit Respiratory: Chest Non Tender, No Accessory Muscle Use, No Respiratory Distress , Crackles, Decreased Breath Sounds Cardiovascular: Regular Rate, Rhythm, No Edema, No Gallop, No JVD, Normal Peripheral Pulses, Systolic Murmur, Other (click) Capillary Refill: Less Than 3 Seconds Gastrointestinal: normal bowel sounds, non tender, soft Extremity: Normal Capillary Refill, Normal Inspection, Normal Range of Motion, Non Tender, No Calf Tenderness, No Pedal Edema Neurologic/Psychiatric: Alert, Oriented x3, No Motor/Sensory Deficits, Normal Mood/Affect Skin: Normal Color, Warm/Dry Lymphatic: No Adenopathy Results Lab Laboratory Tests 04/01/18 05:00 Assessment/Plan Assessment/Plan Resolving Pneumonia Hypoxia -Pt will need home 02 -He is currently requiring 1.5 liters of oxygen. -Needs out patient PFT Gastritis s/p EGD Metabolic encephalopathy - improved Anemia with Coumadin coagulopathy -Coumadin dosing per Dr. Antonia strong -Monitor Hx of aortic valve replacement -Coumadin therapy Debility/deconditioning S/P fall at home LUKE BLEDSOE DO Apr 01, 2018 15:23
--- NOTE | 2018-04-01 15:59 | NUR ---
Weekly Team Conference Discussed weekly team conference with patient. He is agreeable to discharge on 04/06/18. Discussed recommendation for HHC RN, PT, OT and bath aide; however, patient would like to discuss this with his son before signing choice form. Will f/u with patient after he has discussed HHC with his son.
[2018-04-01] MEDS: warFARin 1 MG (COUMADIN) TAB PO SCH (17:47)
[2018-04-01 19:59] VITALS: BP 127/71
[2018-04-01] MEDS: LEVOTHYROXINE 25 MCG (LEVOTHROID) TAB PO SCH (20:39)
[2018-04-01] MEDS: TAMSULOSIN 0.4 MG (FLOMAX) CAP PO SCH (20:39)
[2018-04-01] MEDS: SIMvastatin 20 MG (ZOCOR) TAB PO SCH (20:39)
[2018-04-01] MEDS: ALPRAZolam 1 MG (XANAX) TAB PO PRN (20:39)
[2018-04-01] MEDS: LEVOTHYROXINE 150 MCG (LEVOTHROID) TAB PO SCH (20:40)
[2018-04-02 05:11] VITALS: BP 109/68
[2018-04-02] MEDS: PANTOPRAZOLE 40 MG (PROTONIX) TAB PO SCH ×2 (06:13→20:56)
[2018-04-02] MEDS: MENTHOL/ZINC OXIDE (CALMOSEPTINE) 113 GM TUBE TOP SCH ×5 (06:14→20:58)
[2018-04-02] MEDS: RT-BUDESONIDE NEBS 0.5 MG/2ML (PULMICORT) AMP INH SCH ×2 (06:33→21:33)
[2018-04-02] MEDS: RT-ALBUTEROL/IPRATROPIUM 3 ML (DUONEB) VIAL INH SCH ×2 (06:33→21:33)
--- NOTE | 2018-04-02 08:00 | NUR ---
DR. EUCEDA HERE TO SEE PATIENT. DENIES NAUSEA NOW. GENERALIZED CHRONIC PAIN IS STABILIZED.CONTINUES TO TAKE OXYCONTIN FOR PAIN. WAS NOT ON OXYGEN AT HOME. WILL TRY TO TITRATE OFF.
[2018-04-02] MEDS: DEMECLOCYCLINE PO SCH ×2 (08:23→20:56)
[2018-04-02] MEDS: MAGNESIUM OXIDE (MAG-OX)400 MG TAB PO SCH ×2 (08:23→17:34)
[2018-04-02] MEDS: AMIODARONE 200 MG (CORDARONE) TAB PO SCH ×2 (08:23→20:56)
[2018-04-02] MEDS: DICLOFENAC 1% GEL 100 GM (VOLTAREN) TUBE TOP SCH ×4 (08:24→20:58)
[2018-04-02] MEDS: guaiFENesin/DM (ROBITUSSIN DM) 10 ML UDC PO PRN (08:31)
--- NOTE | 2018-04-02 08:33 | Cardiology Progress Note ---
Subjective Date Seen by Provider: Apr 02, 2018 Time Seen by Provider: 08:32 Subjective/Events-last exam patient is laying down in bed, feeling better. No new complaint Review of Systems General: No Chills, No Night Sweats, No Fatigue, No Malaise, No Appetite, No Other HEENT: No Head Aches, No Visual Changes, No Eye Pain, No Ear Pain, No Dysphasia , No Sinus Congestion, No Post Nasal Drip, No Sore Throat, No Other Pulmonary: No Dyspnea, No Cough, No Pleuritic Chest Pain, No Other Cardiovascular: No: Chest Pain, Palpitations, Orthopnea, Paroxysmal Noc. Dyspnea, Edema, Lt Headedness, Other Objective-Cardiology Exam Last Set of Vital Signs Vital Signs 03/31/18 04/02/18 04/02/18 04/02/18 19:36 05:11 06:33 06:34 Temp 98.5 Pulse 63 Resp 18 B/P (MAP) 109/68 (82) Pulse Ox 94 O2 Delivery Nasal Cannula O2 Flow Rate 1.00 FiO2 24 Capillary Refill : Less Than 3 Seconds I&O Intake and Output 04/02/18 00:00 Intake Total 800 ml Output Total 450 ml Balance 350 ml Intake Oral 800 ml Output Urine Total 450 ml # Voids 4 # Urine Diapers 1 General: Alert, Oriented X3, Cooperative, Other (chronically ill) HEENT: Atraumatic, PERRLA Neck: Supple, No JVD, No Thyromegaly Lungs: Normal Air Movement, Other (bilat wheezing) Heart: Regular Rate, Normal S1, Normal S2 Abdomen: Normal Bowel Sounds, Soft, No Tenderness, No Hepatosplenomegaly, No Masses Extremities: No Clubbing, No Cyanosis, Normal Pulses, No Tenderness/Swelling, Other (Mild edema) Skin: No Rashes, No Breakdown, No Significant Lesion Neuro: Normal Speech, Normal Tone, Sensation Intact Psych/Mental Status: Mental Status NL, Mood NL Results Lab Laboratory Tests Test 04/01/18 11:27 04/01/18 16:05 04/01/18 20:21 04/02/18 04:29 Range/Units Glucometer 121 H 156 H 309 H 218 H 70-110 MG/DL A/P-Cardiology Admission Diagnosis Generalized weakness Coumadin toxicity Hypertension Pneumonia Assessment/Plan Generalized weakness and debility, receiving therapy Pneumonia, better, received antibiotic, managed by primary care team Status post Coumadin toxicity for which he received FFP and vitamin K, Continue to monitor History of aortic valve replacement, on Coumadin, continue to adjust and monitor Paroxysmal atrial fibrillation, maintained on amiodarone. Continue to monitor Elevated liver enzymes,improving, continue to monitor. Leukopenia, monitored and followed by primary care physician Permanent pacemaker, functioning normally. Continue to monitor Diabetes mellitus, followed and managed by primary care physician Hypertension, continue to monitor blood pressure Hyperlipidemia, continue to monitor lipids. Hypothyroidism, followed and managed by primary care physician Clinical Quality Measures DVT/VTE Risk/Contraindication: Risk Factor Score Per Nursin RFS Level Per Nursing on Admit: 3=High KARTHIKEYAN HORTON MD Apr 02, 2018 08:33
[2018-04-02] MEDS: LIXISENATIDE SQ SCH (08:53)
[2018-04-02] MEDS: INSULIN GLARGINE SQ SCH (08:53)
--- NOTE | 2018-04-02 09:00 | NUR ---
STILL NO BM SINCE 03-27 AND REFUSES STOOL SOFTENERS OR LAXATIVES. STATES HE WILL LET US KNOW IF HE NEEDS THEM.
--- NOTE | 2018-04-02 09:02 | PM&R Progress Note ---
Subjective HPI/CC On Admission Date Seen by Provider: Apr 02, 2018 Time Seen by Provider: 08:15 Subjective/Events-last exam Patient doing well Will discontinue Hep-Lock Rechecking labs in the morning since INR 1.9 Will try to wean off oxygen since he does not want to go home on O2 but I doubt that is realistic DC on 04/06/18 Son lives with him Left heel wound will be seen by Dr Odom today Walks 150 feet Eating better now Sugars more elevated so will increase his insulin back to 20 units and he is ok with that and will avoid Coke. No BM and gets upset when talking about it Review of Systems General: Fatigue Pulmonary: Dyspnea Gastrointestinal: Constipation Objective Exam Vital Signs Vital Signs Date Time Temp Pulse Resp B/P (MAP) Pulse Ox O2 Delivery O2 Flow Rate FiO2 04/02/18 06:34 Nasal Cannula 1.00 04/02/18 06:33 94 04/02/18 05:11 98.5 63 18 109/68 (82) 03/31/18 19:36 24 Capillary Refill : Less Than 3 Seconds General Appearance: No Apparent Distress, WD/WN, Chronically ill, Thin Respiratory: Chest Non Tender, No Accessory Muscle Use, No Respiratory Distress , Crackles (subtle finding) Cardiovascular: Regular Rate, Rhythm, No Edema, No Gallop, No JVD, Normal Peripheral Pulses, Systolic Murmur Neurologic/Psychiatric: Alert, Oriented x3, No Motor/Sensory Deficits, Normal Mood/Affect Results/Procedures Lab Patient resulted labs reviewed. Assessment/Plan Assessment and Plan Assess & Plan/Chief Complaint Assessment: Severe debility Recent pneumonia with respiratory insufficiency COPD with chronic coarse breath sounds Therapeutic INR Aortic valve replacement history Diabetes mellitus Chronic renal insufficiency Anemia Urinary retention resolved Constipation acute on chronic Left heel pressure wound Plan: Monitor INR and labs periodically Nebulizer treatments Therapies to improve strength and be able to return back to independent living Therapies will be impacted by electrolyte imbalance, anemia, hypoxia, and just overall respiratory decline Change bowel meds to prn since laxatives are making him ill Wound care consult Wean off O2? DC IV left arm Diagnosis/Problems Diagnosis/Problems (1) Debility Status: Acute (2) Rales Status: Acute (3) Acute respiratory failure Status: Resolved Qualifiers: Respiratory failure complication: unspecified whether with hypoxia or hypercapnia Qualified Codes: J96.00 - Acute respiratory failure, unspecified whether with hypoxia or hypercapnia Resolution Date/Time: 03/25/18 @ 20:39 (4) PNA (pneumonia) Status: Resolved Qualifiers: Pneumonia type: due to unspecified organism Laterality: unspecified laterality Lung location: unspecified part of lung Qualified Codes: J18.9 - Pneumonia, unspecified organism Resolution Date/Time: 03/27/18 @ 15:18 (5) Frailty Status: Acute (6) Elevated INR Status: Resolved Resolution Date/Time: 03/27/18 @ 15:18 (7) Iron deficiency Status: Acute (8) Electrolyte abnormality Status: Resolved Resolution Date/Time: 03/26/18 @ 09:09 (9) Insulin dependent diabetes mellitus Status: Chronic (10) Hypokalemia Status: Resolved Resolution Date/Time: 03/25/18 @ 20:39 (11) Aortic valve replaced Status: Chronic (12) Constipation Status: Chronic Qualifiers: Constipation type: slow transit constipation Qualified Codes: K59.01 - Slow transit constipation (13) Blister of left heel Status: Acute Assessment & Plan: Consult Dr Odom Qualifiers: Encounter type: initial encounter Qualified Codes: S90.822A - Blister ( nonthermal), left foot, initial encounter Clinical Quality Measures Admission Status Admission Dx Assessment: Severe debility Recent pneumonia with respiratory insufficiency Supratherapeutic INR Aortic valve replacement history Diabetes mellitus Chronic renal insufficiency Anemia Urinary retention Plan: Monitor INR and labs Check chest x-ray Nebulizer treatments Therapies to improve strength and be able to return back to independent living Therapies will be impacted by electrolyte imbalance, anemia, hypoxia, and just overall respiratory decline DVT/VTE Risk/Contraindication: Risk Factor Score Per Nursin RFS Level Per Nursing on Admit: 3=High MIRNA EUCEDA DO Apr 02, 2018 09:02
[2018-04-02] MEDS: oxyCODONE/APAP 10/325MG (PERCOCET 10) TABLET PO PRN (09:17)
--- NOTE | 2018-04-02 09:52 | Physical Therapy Daily Note ---
PT Daily Note-Current Subjective Pt sitting up in bed upon arrival. Pt just finishing with ST. Pt agrees to PT. Pain Numeric Pain Scale: 7 Pain Description: Ache Comment: Pt reports generalized pain througout body Mental Status Patient Orientation: Person, Place, Time, Situation Attachments: Oxygen (1.5L) Transfers Therapy Code Descriptions/Definitions Functional [place] Measure: 0=Not Assessed/NA 4=Minimal Assistance 1=Total Assistance 5=Supervision or Setup 2=Maximal Assistance 6=Modified [place] 3=Moderate Assistance 7=Complete [place] Therapy Quality Codes: 6 Independent with activity with or without an assistive device 5 Patient requires set up or clean up by helper. Patient completes activity by themselves 4 Supervision or touching assist (CGA). [place] provide cues , steadying assist 3 The helper provides less than half the effort to complete the activity 2 The helper provides more than half the effort to complete the activity 1 Dependent. The helper does all the effort to complete an activity 7 Patient refused to complete or attempt activity 9 The patient did not perform the activity before the current illness or injury 88 Not attempted due to Medical conditions or safety concerns Scootin Rollin Supine to/from Sit: 5 Sit to/from Stand: 5 Sit to Lying (QC): 5 Sit to Stand (QC): 5 Weight Bearing Right Lower Extremity: Right Weight Bearing/Tolerated Left Lower Extremity: Left Weight Bearing/Tolerated Gait Training Does the Patient Walk?: Yes Distance (FIM): 3=150 ft Distance: 250' Walk 10 feet (QC): 5 Walk 50 ft with 2 Turns(QC): 5 Walk 150 ft (QC): 5 Gait Level of Assist: 5 Gait Persons Needed: 1 Gait Assistive Device: FWW Pt walks with slow tiffany but steady and conscience of safety. Wheelchair Training Does the Pt Use a Wheelchair?: No Exercises Seated Therapy Exercises: Ankle pumps, Long arc quads, Hip flexion, Kicking activity, Hip abd/add Seated Reps: 15 Treatments Pt transfers from bed to standing using FWW at SBA. Pt is able to sit at EOB to await pain med. Pt ambulates in hallway using FWW. Pt is able to complete Seated Ex in chair in Therapy Gym with a couple short rest breaks. Pt returns to room to rest Supine in bed at end of tx. Pt has all needs met. Assessment Current Status: Good Progress Pt continues to reports generalized chronic pain throughout body with increasing pain at R knee with mobility. PT Short Term Goals Short Term Goals Time Frame: Apr 01, 2018 Gait (FIM): 5 Gait Distance Comment: 150' Gait Level of Assist: 5 Gait Assistive Device: FWW PT Technical Specialist Cytogenetics Goals Technical Specialist Cytogenetics Goals PT Technical Specialist Cytogenetics Goals Time Frame: Apr 15, 2018 Transfers (B,C,W/C) (FIM): 6 Sit to Lying (QC): 6 Lying-Sitting on Side/Bed(QC): 6 Sit to Stand (QC): 6 Rollin Roll Left to Right (QC): 6 Chair/Uii-dz-Duvus Xfer(QC): 6 Car Transfer (QC): 6 Gait (FIM): 6 Distance: 200' Walk 10 feet (QC): 6 Walk 10ft-Uneven Surface(QC): 6 Walk 50ft with 2 Turns (QC): 6 Walk 150 ft (QC): 6 Gait Level of Assist: 6 Gait Assistive Device: FWW Stairs (FIM): 2 # of Steps: 4 1 Step (curb) (QC): 4 4 Steps (QC): 4 Stairs Level Of Assist: 5 PT Plan Problem List Problem List: Activity Tolerance, Functional Strength, Gait Treatment/Plan Treatment Plan: Continue Plan of Care Treatment Plan: Bed Mobility, Education, Functional Activity Natacha, Functional Strength, Group Therapy, Gait, Safety, Therapeutic Exercise, Transfers Treatment Duration: Apr 15, 2018 Frequency: At least 5 of 7 days/Wk (IRF) Estimated Hrs Per Day: 1.5 hours per day Patient and/or Family Agrees t: Yes Safety Risks/Education Patient Education: Gait Training, Transfer Techniques, Correct Positioning, Safety Issues Teaching Recipient: Patient Teaching Methods: Discussion Response to Teaching: Verbalize Understanding Time/GCodes Time In: 900 Time Out: 945 Total Billed Treatment Time: 45 Total Billed Treatment 1, GT (15m), EX (20m) & FA (10m) G Codes Necessary: KIKO Valentine PTA Apr 02, 2018 09:52
--- NOTE | 2018-04-02 10:18 | Speech Therapy Daily Note ---
Speech Daily Progress Note Subjective Date Seen by Provider: Apr 02, 2018 Time Seen by Provider: 00:30 Patient was in a much more pleasant mood today. Objective Patient completed OME x10 with minimal cuing. Assessment Assessment Current Status: Good Progress Treatment Plan Continue Plan of Care Speech Short Term Goals Short Term Goals Short Term Goals 1) Patient will decrease oral transit time to 3 seconds in order to patient's ability to efficiently consume highest level of oral intake with 80% or greater. 2) Patient will utilize compensatory strategies as trained with 80% or greater. Speech Makeup Artist Goals Makeup Artist Goals Patient will maintain adequate nutrition/hydration via safe effective swallow function. Speech-Plan Patient/Family Goals Patient/Family Goals: Patient plans to return home with his son next week. Treatment Plan Speech Therapy Treatment Plan: Continue Plan of Care Patient is ready to go home. Treatment Duration: Apr 06, 2018 Frequency: 5 times per week Estimated Hrs Per Day: .5 hour per day Rehab Potential: Good Barriers to Learning: Patient has mild memory deficits. Pt/Family Agrees to Plan: Yes Safety Risks/Education Teaching Recipient: Patient Teaching Methods: Discussion Response to Teaching: Verbalize Understanding Time Speech Therapy Time In: 08:30 Speech Therapy Time Out: 09:00 Total Billed Time: 30 Billed Treatment Time 1, DYST LOULOU Adler Apr 02, 2018 10:18
--- NOTE | 2018-04-02 12:00 | NUR ---
DR. DUMONT HERE TO SEE PATIENT.
--- NOTE | 2018-04-02 13:46 | Occupational Ther Daily Note ---
OT Current Status-Daily Note Subjective Pt states that , " I am doing great , waiting for you. " Pain Location: Right Location Body Site: Knee Pain Description: Acute, Sharp Mental Status/Objective Patient Orientation: Person, Place, Time Therapy Code Descriptions/Definitions Functional [place] Measure: 0=Not Assessed/NA 4=Minimal Assistance 1=Total Assistance 5=Supervision or Setup 2=Maximal Assistance 6=Modified [place] 3=Moderate Assistance 7=Complete [place] Attachments: IV, Oxygen ADL-Treatment Pt seen in OT or shower Retraining , ADL retraining, Thera-acts, theraex BUE, fatigue soon, func transfers with SBA, at shower bench , Pt took shower with min A to soap & wash front back, buttock, perineal part, genitals, LB & UB , face & hairs., dress LB garments with min A & UB SBA. Transfers with CGA . Participated in strengthening ex to BUE using 2 lbs x 2 sets x 20 reps & 30 reps with red theraband . Therapy Code Descriptions/Definitions Functional [place] Measure: 0=Not Assessed/NA 4=Minimal Assistance 1=Total Assistance 5=Supervision or Setup 2=Maximal Assistance 6=Modified [place] 3=Moderate Assistance 7=Complete [place] Therapy Quality Codes: 6 Independent with activity with or without an assistive device 5 Patient requires set up or clean up by helper. Patient completes activity by themselves 4 Supervision or touching assist (CGA). [place] provide cues , steadying assist 3 The helper provides less than half the effort to complete the activity 2 The helper provides more than half the effort to complete the activity 1 Dependent. The helper does all the effort to complete an activity 7 Patient refused to complete or attempt activity 9 The patient did not perform the activity before the current illness or injury 88 Not attempted due to Medical conditions or safety concerns Eating (FIM): 7 Eating (QC): 6 Grooming (FIM): 5 Oral Hygiene (QC): 5 Bathing (FIM): 4 Bathing Location: L Arm, R Arm, L Upper Leg, R Upper Leg, L Lower Leg ( including foot), R Lower Leg (including foot), Chest, Abdomen, Buttocks, Perineal Area Shower/Bathe Self (QC): 4 Upper Body (FIM): 4 Upper Body Dressing (QC): 5 Lower Body Dressing (FIM): 4 Lower Body Dressing (QC): 4 On/Off Footwear (QC): 4 Toileting (FIM): 4 Toileting Hygiene (QC): 4 Transfers (B, C, W/C) (FIM): 5 Toilet/Commode Transfer (FIM): 5 Toilet Transfer (QC): 5 Tub Transfer(FIM): 0 Shower Transfer(FIM): 5 Education OT Patient Education: Correct positioning, Energy conservation, Safety issues Teaching Recipient: Patient Teaching Methods: Demonstration, Discussion Response to Teaching: Verbalize Understanding, Return Demonstration OT Short Term Goals Short Term Goals Time Frame: Apr 01, 2018 Lower Body Dressing(FIM): 4 Toilet/Commode Transfer(FIM): 5 Additional Short Term Goals: 1-Demonstrate ADL Tasks, 2-Verbalize Understanding , 3-ImproveStrength/Natacha 1=Demonstrate adherence to instructed precautions during ADL tasks. 2=Patient will verbalize/demonstrate understanding of assistive devices/ modifications for ADL. 3=Patient will improve strength/tolerance for activity to enable patient to perform ADL's. OT Oil Field Laborer Goals Senior Care Goals Time Frame: Apr 15, 2018 Eating (FIM): 6 Eating (QC): 6 Groomin Oral Hygiene (QC): 6 Bathing(FIM): 5 Shower/Bathe Self (QC): 5 Upper Body Dressing(FIM): 6 Upper Body Dressing (QC): 6 Lower Body Dressing(FIM): 6 Lower Body Dressing (QC): 6 On/Off Footwear (QC): 6 Toileting(FIM): 6 Toileting Hygiene (QC): 6 Toilet/Commode Transfer(FIM): 6 Toilet/Commode Transfer (QC): 6 Shower Transfer(FIM): 5 Additional Goals: 1-Demonstrate ADL Tasks, 2-Verbalize Understanding, 3- ImproveStrength/Natacha 1=Demonstrate adherence to instructed precautions during ADL tasks. 2=Patient will verbalize/demonstrate understanding of assistive devices/ modifications for ADL. 3=Patient will improve strength/tolerance for activity to enable patient to perform ADL's. OT Education/Plan Discharge Recommendations Plan/Recommendations: Continue POC Therapy D/C Recommendations: Home Independently, Occupational Therapy Home Care Equpiment Recommendations-D/C: Extended Shower Sprayer, Student Teaching Coordinator, Walker Bag or Basket, [place] Comment fatigue soon , O2 dependent Barriers to Progress Fatigue soon, O2 dependent Patient/Family Goals To return home Independently. Treatment Plan/Plan of Care Patient would benefit from OT for education, treatment and training to promote independence in ADL's, mobility, safety and/or upper extremity function for ADL' s. Plan of Care: ADL Retraining, Functional Mobility, Group Exercise/Act as Ind, UE Funct Exercise/Act Treatment Duration: Apr 15, 2018 Frequency: At least 5 of 7 days/Wk (IRF) Estimated Hrs Per Day: 1.5 hours per day Agreement: Yes Rehab Potential: Good Time/GCodes Start Time: 10:00 Stop Time: 11:15 Total Time Billed (hr/min): 75 Billed Treatment Time 1, ADLs 60 , Ex 15 , Total 75 minutes. LUKE CAMPOS OT Apr 02, 2018 13:46
--- NOTE | 2018-04-02 14:44 | Physical Therapy Daily Note ---
PT Daily Note-Current Subjective Pt is laying Supine in bed upon arrival. Pt agrees to PT and is excited about discharge in a few days. Pain Numeric Pain Scale: 7 Location: Right Location Body Site: Knee Pain Description: Ache Mental Status Patient Orientation: Person, Place, Situation Attachments: Oxygen Transfers Therapy Code Descriptions/Definitions Functional [place] Measure: 0=Not Assessed/NA 4=Minimal Assistance 1=Total Assistance 5=Supervision or Setup 2=Maximal Assistance 6=Modified [place] 3=Moderate Assistance 7=Complete [place] Therapy Quality Codes: 6 Independent with activity with or without an assistive device 5 Patient requires set up or clean up by helper. Patient completes activity by themselves 4 Supervision or touching assist (CGA). [place] provide cues , steadying assist 3 The helper provides less than half the effort to complete the activity 2 The helper provides more than half the effort to complete the activity 1 Dependent. The helper does all the effort to complete an activity 7 Patient refused to complete or attempt activity 9 The patient did not perform the activity before the current illness or injury 88 Not attempted due to Medical conditions or safety concerns Scootin Rollin Supine to/from Sit: 6 Sit to/from Stand: 5 Sit to Lying (QC): 5 Sit to Stand (QC): 5 Weight Bearing Right Lower Extremity: Right Weight Bearing/Tolerated Left Lower Extremity: Left Weight Bearing/Tolerated Gait Training Does the Patient Walk?: Yes Distance (FIM): 3=150 ft Distance: 150' Walk 10 feet (QC): 5 Walk 50 ft with 2 Turns(QC): 5 Walk 150 ft (QC): 5 Gait Level of Assist: 5 Gait Persons Needed: 1 Gait Assistive Device: FWW Wheelchair Training Does the Pt Use a Wheelchair?: No Exercises NuStep Minutes: 15 NuStep Workload: 5 Treatments Pt transfers from bed to standing using FWW at SBA. Pt ambulates in hallway using FWW. Pt uses NuStep for 15m at WL 5 before by short rest then returns to room to rest in bed at end of tx. Pt has all needs met. Assessment Current Status: Good Progress Pt continues to stay motivated for discharge and works hard improving transfers and mobility. PT Short Term Goals Short Term Goals Time Frame: Apr 01, 2018 Gait (FIM): 5 Gait Distance Comment: 150' Gait Level of Assist: 5 Gait Assistive Device: FWW PT Loom Tuner Goals Senior Living Goals PT Senior Living Goals Time Frame: Apr 15, 2018 Transfers (B,C,W/C) (FIM): 6 Sit to Lying (QC): 6 Lying-Sitting on Side/Bed(QC): 6 Sit to Stand (QC): 6 Rollin Roll Left to Right (QC): 6 Chair/Wsk-co-Lowyb Xfer(QC): 6 Car Transfer (QC): 6 Gait (FIM): 6 Distance: 200' Walk 10 feet (QC): 6 Walk 10ft-Uneven Surface(QC): 6 Walk 50ft with 2 Turns (QC): 6 Walk 150 ft (QC): 6 Gait Level of Assist: 6 Gait Assistive Device: FWW Stairs (FIM): 2 # of Steps: 4 1 Step (curb) (QC): 4 4 Steps (QC): 4 Stairs Level Of Assist: 5 PT Plan Problem List Problem List: Activity Tolerance, Functional Strength Treatment/Plan Treatment Plan: Continue Plan of Care Treatment Plan: Bed Mobility, Education, Functional Activity Natacha, Functional Strength, Group Therapy, Gait, Safety, Therapeutic Exercise, Transfers Treatment Duration: Apr 15, 2018 Frequency: At least 5 of 7 days/Wk (IRF) Estimated Hrs Per Day: 1.5 hours per day Patient and/or Family Agrees t: Yes Safety Risks/Education Patient Education: Gait Training, Transfer Techniques, Correct Positioning, Safety Issues Teaching Recipient: Patient Teaching Methods: Discussion Response to Teaching: Verbalize Understanding Time/GCodes Time In: 1300 Time Out: 1330 Total Billed Treatment Time: 30 Total Billed Treatment 1, GT (15m) & EX (15m) G Codes Necessary: KIKO Valentine BRAND INSPECTOR Apr 02, 2018 14:44
[2018-04-02 15:35] VITALS: BP 101/63
--- NOTE | 2018-04-02 16:29 | Pulmonary Progress Note ---
Subjective Time Seen by a Provider: 16:29 Subjective/Events-last exam NO complications noted. Pt is doing better. Sepsis Event Evaluation Height, Weight, BMI Height: 5'8.00" Weight: 159lbs. 8.0oz. [id number]; 24.3 BMI Method:Stated Exam Exam Vital Signs Date Time Temp Pulse Resp B/P (MAP) Pulse Ox O2 Delivery O2 Flow Rate FiO2 04/02/18 15:35 97.1 69 16 101/63 (76) 99 Nasal Cannula 2.00 04/02/18 09:00 Nasal Cannula 1.50 04/02/18 06:34 Nasal Cannula 1.00 04/02/18 06:33 94 Nasal Cannula 1.00 04/02/18 05:11 98.5 63 18 109/68 (82) 98 1.50 04/01/18 21:13 Nasal Cannula 1.50 04/01/18 19:59 99.1 62 20 127/71 (89) 98 1.50 I & O 04/02/18 07:00 Intake Total 1180 ml Balance 1180 ml Height & Weight Height: 5'8.00" Weight: 159lbs. 8.0oz. [id number]; 24.3 BMI Method:Stated General Appearance: No Apparent Distress, WD/WN, Chronically ill, Thin HEENT: PERRL/EOMI, Normal ENT Inspection, Pharynx Normal Neck: Full Range of Motion, Normal Inspection, Non Tender, Supple, Carotid Bruit Respiratory: Chest Non Tender, No Accessory Muscle Use, No Respiratory Distress , Crackles (subtle finding) Cardiovascular: Regular Rate, Rhythm, No Edema, No Gallop, No JVD, Normal Peripheral Pulses, Systolic Murmur Capillary Refill: Less Than 3 Seconds Gastrointestinal: normal bowel sounds, non tender, soft Extremity: Normal Capillary Refill, Normal Inspection, Normal Range of Motion, Non Tender, No Calf Tenderness, No Pedal Edema Neurologic/Psychiatric: Alert, Oriented x3, No Motor/Sensory Deficits, Normal Mood/Affect Skin: Normal Color, Warm/Dry Lymphatic: No Adenopathy Results Lab Laboratory Tests 04/01/18 05:00 Assessment/Plan Assessment/Plan Resolving Pneumonia Hypoxia -will need ambulatory desat test prior to discharge -Needs out patient PFT Gastritis s/p EGD Metabolic encephalopathy - improved Anemia with Coumadin coagulopathy -Coumadin dosing per Dr. Antonia strong -Monitor Hx of aortic valve replacement -Coumadin therapy Debility/deconditioning S/P fall at home LUKE BLEDSOE DO Apr 02, 2018 16:29
[2018-04-02] MEDS: warFARin 1 MG (COUMADIN) TAB PO SCH (17:34)
--- NOTE | 2018-04-02 18:02 | Wound Care Assessment ---
Wound Care Assessment Date Seen by Provider: Apr 02, 2018 Time Seen by Provider: 11:30 Chief Complaint L heel ulcer. HPI the patient is a 67 year old male recovering from a recent severe bout of pneumonia and respiratory failure, noted to have a pressure injury of the L heel. He has been severely ill and his mobility has been compromised. The wound is currently dressed with an Allevyn heel dressing and off-loaded with a Primo type boot. The wound has the appearance of a blister with clear fluid and an area of underlying bruising. This would be consistent with a deep tissue injury level of severity, but it appears superficial at this time. Will follow. Past Medical History: Admits Heart Disease S/P aortic valve replacement with chronic anticoagulation. Smoking Status: Never a Smoker Recreational Drug Use: No Alcohol Use: Denies Use Review of Systems Pulmonary: No Dyspnea Cardiovascular: No: Chest Pain Exam Vital Signs Date Time Temp Pulse Resp B/P (MAP) Pulse Ox O2 Delivery O2 Flow Rate FiO2 04/02/18 17:35 Nasal Cannula 1.50 04/02/18 15:35 97.1 69 16 101/63 (76) 99 03/31/18 19:36 24 Capillary Refill : Less Than 3 Seconds General Appearance: no apparent distress Respiratory: no respiratory distress Skin: other (L heel -- 2.8 x 2.5 x 0.2 cm area of blister formation with underlying area of bruising.) Results Laboratory Tests 04/01/18 20:21: Glucometer 309H 04/02/18 04:29: Glucometer 218H 04/02/18 10:38: Glucometer 151H 04/02/18 15:34: Glucometer 132H Assessment/Plan/Dx 1. Pressure ulcer L heel, deep tissue injury, non-classifiable. 2. Debility. Plan: continue Allevyn dressings and Primo boot. BREANNA DUMONT MD Apr 02, 2018 18:02
[2018-04-02] MEDS: ALPRAZolam 1 MG (XANAX) TAB PO PRN (19:33)
[2018-04-02] MEDS: SIMvastatin 20 MG (ZOCOR) TAB PO SCH (20:56)
[2018-04-02] MEDS: TAMSULOSIN 0.4 MG (FLOMAX) CAP PO SCH (20:56)
[2018-04-02] MEDS: LEVOTHYROXINE 25 MCG (LEVOTHROID) TAB PO SCH (20:56)
[2018-04-02] MEDS: LEVOTHYROXINE 150 MCG (LEVOTHROID) TAB PO SCH (20:56)
[2018-04-03] MEDS: guaiFENesin/DM (ROBITUSSIN DM) 10 ML UDC PO PRN (00:16)
[2018-04-03 05:07] VITALS: BP 141/80
[2018-04-03] MEDS: PANTOPRAZOLE 40 MG (PROTONIX) TAB PO SCH ×2 (06:15→19:51)
[2018-04-03] MEDS: MENTHOL/ZINC OXIDE (CALMOSEPTINE) 113 GM TUBE TOP SCH ×5 (06:16→19:54)
[2018-04-03] MEDS: RT-ALBUTEROL/IPRATROPIUM 3 ML (DUONEB) VIAL INH SCH (06:18)
[2018-04-03] MEDS: RT-BUDESONIDE NEBS 0.5 MG/2ML (PULMICORT) AMP INH SCH ×2 (06:19→19:43)
[2018-04-03 06:33] LABS: INR 1.3 (0.8-1.4); PROTHROMBIN TIME PATIENT 16.6 SEC (12.2-14.7)
[2018-04-03] MEDS: AMIODARONE 200 MG (CORDARONE) TAB PO SCH ×2 (08:24→19:51)
[2018-04-03] MEDS: DEMECLOCYCLINE PO SCH ×2 (08:24→19:51)
[2018-04-03] MEDS: MAGNESIUM OXIDE (MAG-OX)400 MG TAB PO SCH ×2 (08:25→17:42)
[2018-04-03] MEDS: DICLOFENAC 1% GEL 100 GM (VOLTAREN) TUBE TOP SCH ×4 (08:26→19:54)
[2018-04-03] MEDS: INSULIN GLARGINE SQ SCH (08:27)
[2018-04-03] MEDS: LIXISENATIDE SQ SCH (08:27)
--- NOTE | 2018-04-03 08:35 | Pulmonary Progress Note ---
Subjective Time Seen by a Provider: 08:34 Subjective/Events-last exam No complications noted. Sepsis Event Evaluation Height, Weight, BMI Height: 5'8.00" Weight: 159lbs. 8.0oz. [id number]; 24.3 BMI Method:Stated Exam Exam Vital Signs Date Time Temp Pulse Resp B/P (MAP) Pulse Ox O2 Delivery O2 Flow Rate FiO2 04/03/18 06:24 Room Air 04/03/18 06:19 95 Nasal Cannula 1.00 04/03/18 05:07 98.2 64 18 141/80 (100) 98 Nasal Cannula 1.50 04/02/18 21:35 98 Nasal Cannula 1.00 04/02/18 21:35 Nasal Cannula 1.00 04/02/18 20:20 Nasal Cannula 1.50 04/02/18 17:35 Nasal Cannula 1.50 04/02/18 15:35 97.1 69 16 101/63 (76) 99 Nasal Cannula 2.00 04/02/18 09:00 Nasal Cannula 1.50 I & O 04/03/18 07:00 Intake Total 1150 ml Output Total 2025 ml Balance -875 ml Height & Weight Height: 5'8.00" Weight: 159lbs. 8.0oz. 72.107837qs; 24.3 BMI Method:Stated General Appearance: No Apparent Distress, WD/WN, Chronically ill, Thin HEENT: PERRL/EOMI, Normal ENT Inspection, Pharynx Normal Neck: Full Range of Motion, Normal Inspection, Non Tender, Supple, Carotid Bruit Respiratory: Chest Non Tender, No Accessory Muscle Use, No Respiratory Distress , Crackles (subtle finding) Cardiovascular: Regular Rate, Rhythm, No Edema, No Gallop, No JVD, Normal Peripheral Pulses, Systolic Murmur Capillary Refill: Less Than 3 Seconds Gastrointestinal: normal bowel sounds, non tender, soft Extremity: Normal Capillary Refill, Normal Inspection, Normal Range of Motion, Non Tender, No Calf Tenderness, No Pedal Edema Neurologic/Psychiatric: Alert, Oriented x3, No Motor/Sensory Deficits, Normal Mood/Affect Skin: Normal Color, Warm/Dry Lymphatic: No Adenopathy Assessment/Plan Assessment/Plan Resolving Pneumonia Hypoxia -will need ambulatory desat test prior to discharge -Needs out patient PFT Gastritis s/p EGD Metabolic encephalopathy - improved Anemia with Coumadin coagulopathy -Coumadin dosing per Dr. Antonia strong -Monitor Hx of aortic valve replacement -Coumadin therapy Debility/deconditioning S/P fall at home LUKE BLEDSOE DO Apr 03, 2018 08:35
[2018-04-03] MEDS: oxyCODONE/APAP 10/325MG (PERCOCET 10) TABLET PO PRN (08:37)
--- NOTE | 2018-04-03 10:58 | PM&R Progress Note ---
Subjective This was a face to face visit with the patient. Date Seen by Provider: Apr 03, 2018 Time Seen by Provider: 09:00 Subjective/Events-last exam Patient was seen in his room Patient's estranged is on hospice and the rest of the family is on watch at the bedside so he will likely have a day pass to go [facility] [place] [facility] to visit her this weekend Weaning off oxygen and that is going very well INR is 1.3 so Coumadin was increased to 2 mg daily Overall much improved Objective Physician Exam Last Set of Vital Signs Vital Signs Date Time Temp Pulse Resp B/P (MAP) Pulse Ox O2 Delivery O2 Flow Rate FiO2 04/03/18 06:24 Room Air 04/03/18 06:19 95 1.00 04/03/18 05:07 98.2 64 18 141/80 (100) 03/31/18 19:36 24 Capillary Refill : Less Than 3 Seconds I&O Intake and Output 04/03/18 00:00 Intake Total 1280 ml Output Total 800 ml Balance 480 ml Intake Oral 1280 ml Output Urine Total 800 ml # Voids 4 General: Alert, Oriented X3, Cooperative, Other (chronically ill) HEENT: Atraumatic, PERRLA Neck: Supple, No JVD, No Thyromegaly Lungs: Normal Air Movement, Other (bilat wheezing) Heart: Regular Rate, Normal S1, Normal S2 Abdomen: Normal Bowel Sounds, Soft, No Tenderness, No Hepatosplenomegaly, No Masses Extremities: No Clubbing, No Cyanosis, Normal Pulses, No Tenderness/Swelling, Other (Mild edema) Skin: No Rashes, No Breakdown, No Significant Lesion Neuro: Normal Speech, Normal Tone, Sensation Intact Psych/Mental Status: Mental Status NL, Mood NL Results Lab Data Laboratory Tests 03/31/18 15:47: Glucometer 135H 03/31/18 20:13: Glucometer 144H 04/01/18 05:00: White Blood Count 4.1L, Red Blood Count 3.39L, Hemoglobin 10.3L, Hematocrit 32L , Mean Corpuscular Volume 95, Mean Corpuscular Hemoglobin 30, Mean Corpuscular Hemoglobin Concent 32, Red Cell Distribution Width 17.3H, Platelet Count 146, Mean Platelet Volume 10.4, Neutrophils (%) (Auto) 66, Lymphocytes (%) (Auto) 23 , Monocytes (%) (Auto) 10, Eosinophils (%) (Auto) 1, Basophils (%) (Auto) 0, Neutrophils # (Auto) 2.7, Lymphocytes # (Auto) 0.9L, Monocytes # (Auto) 0.4, Eosinophils # (Auto) 0.1, Basophils # (Auto) 0.0, Prothrombin Time 22.0H, INR Comment 1.9H, Sodium Level 133L, Potassium Level 4.8, Chloride Level 96L, Carbon Dioxide Level 30, Anion Gap 7, Blood Urea Nitrogen 13, Creatinine 1.09, Estimat Glomerular Filtration Rate > 60, BUN/Creatinine Ratio 12, Glucose Level 136H, Calcium Level 8.2L, Corrected Calcium 9.1, Total Bilirubin 0.5, Aspartate Amino Transf (AST/SGOT) 26, Alanine Aminotransferase (ALT/SGPT) 20, Alkaline Phosphatase 199H, Total Protein 5.8L, Albumin 2.9L 04/01/18 06:04: Glucometer 134H 04/01/18 11:27: Glucometer 121H 04/01/18 16:05: Glucometer 156H 04/01/18 20:21: Glucometer 309H 04/02/18 04:29: Glucometer 218H 04/02/18 10:38: Glucometer 151H 04/02/18 15:34: Glucometer 132H 04/02/18 20:10: Glucometer 187H 04/03/18 06:10: Prothrombin Time 16.6H, INR Comment 1.3 04/03/18 06:15: Glucometer 90 Current Funtional Status Patient doing well Weaning off oxygen Day pass to see his dying this Discharge plan for Friday at home with son with home health Assessment/Plan Assessment and Plan (1) Debility Status: Acute (2) Rales Status: Acute (3) Acute respiratory failure Qualifiers: Qualified Codes: J96.00 - Acute respiratory failure, unspecified whether with hypoxia or hypercapnia Status: Resolved (4) PNA (pneumonia) Qualifiers: Qualified Codes: J18.9 - Pneumonia, unspecified organism Status: Resolved (5) Frailty Status: Acute (6) Elevated INR Status: Resolved (7) Iron deficiency Status: Acute (8) Electrolyte abnormality Status: Resolved (9) Insulin dependent diabetes mellitus Status: Chronic (10) Hypokalemia Status: Resolved (11) Aortic valve replaced Status: Chronic (12) Constipation Qualifiers: Qualified Codes: K59.01 - Slow transit constipation Status: Chronic (13) Blister of left heel Qualifiers: Qualified Codes: S90.822A - Blister (nonthermal), left foot, initial encounter Status: Acute Co-Morbidities that are continuing to impact the rehab process: (include details ) MIRNA EUCEDA DO Apr 03, 2018 10:58
--- NOTE | 2018-04-03 11:17 | Physical Therapy Daily Note ---
PT Daily Note-Current Subjective Pt laying Supine in bed upon arrival. Pt agrees to PT. Pain Numeric Pain Scale: 5-Moderate Pain Location: Right Location Body Site: Knee Pain Description: Ache Mental Status Patient Orientation: Person, Place, Time, Situation Attachments: Other-See Comments (MYRTLE Wrap for R knee) Transfers Therapy Code Descriptions/Definitions Functional Natalia Measure: 0=Not Assessed/NA 4=Minimal Assistance 1=Total Assistance 5=Supervision or Setup 2=Maximal Assistance 6=Modified Natalia 3=Moderate Assistance 7=Complete Natalia Therapy Quality Codes: 6 Independent with activity with or without an assistive device 5 Patient requires set up or clean up by helper. Patient completes activity by themselves 4 Supervision or touching assist (CGA). [place] provide cues , steadying assist 3 The helper provides less than half the effort to complete the activity 2 The helper provides more than half the effort to complete the activity 1 Dependent. The helper does all the effort to complete an activity 7 Patient refused to complete or attempt activity 9 The patient did not perform the activity before the current illness or injury 88 Not attempted due to Medical conditions or safety concerns Scootin Rollin Supine to/from Sit: 6 Sit to/from Stand: 5 Sit to Lying (QC): 6 Sit to Stand (QC): 5 Weight Bearing Right Lower Extremity: Right Weight Bearing/Tolerated Left Lower Extremity: Left Weight Bearing/Tolerated Gait Training Does the Patient Walk?: Yes Distance (FIM): 3=150 ft Distance: 180' Walk 10 feet (QC): 5 Walk 50 ft with 2 Turns(QC): 5 Walk 150 ft (QC): 5 Gait Level of Assist: 5 Gait Persons Needed: 1 Gait Assistive Device: FWW Pt has improved with safety and activity tolerance during ambulation but encounters clicking and pain after extended ambulation. Wheelchair Training Does the Pt Use a Wheelchair?: No Exercises Seated Therapy Exercises: Ankle pumps, Long arc quads, Shoulder Abd, Hip flexion, Hip abd/add Seated Reps: 20 NuStep Minutes: 15 NuStep Workload: 6 Treatments Pt transfers from bed to standing using FWW at [facility]. Pt ambulates in hallway using FWW at [facility]. Pt completes Seated Ex in chair and uses NuStep for 15m at [facility] 6. Pt returns to room at end of tx to rest in bed with all needs met. Assessment Current Status: Good Progress Pt continues to improve with mobility and safety during tx. PT Short Term Goals Short Term Goals Time Frame: Apr 01, 2018 Gait (FIM): 5 Gait Distance Comment: 150' Gait Level of Assist: 5 Gait Assistive Device: FWW PT Fpc Goals Fpc Goals PT National Account Director Goals Time Frame: Apr 15, 2018 Transfers (B,C,W/C) (FIM): 6 Sit to Lying (QC): 6 Lying-Sitting on Side/Bed(QC): 6 Sit to Stand (QC): 6 Rollin Roll Left to Right (QC): 6 Chair/Cmh-nc-Pivmd Xfer(QC): 6 Car Transfer (QC): 6 Gait (FIM): 6 Distance: 200' Walk 10 feet (QC): 6 Walk 10ft-Uneven Surface(QC): 6 Walk 50ft with 2 Turns (QC): 6 Walk 150 ft (QC): 6 Gait Level of Assist: 6 Gait Assistive Device: FWW Stairs (FIM): 2 # of Steps: 4 1 Step (curb) (QC): 4 4 Steps (QC): 4 Stairs Level Of Assist: 5 PT Plan Problem List Problem List: Activity Tolerance, Gait Treatment/Plan Treatment Plan: Continue Plan of Care Treatment Plan: Bed Mobility, Education, Functional Activity Natacha, Functional Strength, Group Therapy, Gait, Safety, Therapeutic Exercise, Transfers Treatment Duration: Apr 15, 2018 Frequency: At least 5 of 7 days/Wk (IRF) Estimated Hrs Per Day: 1.5 hours per day Patient and/or Family Agrees t: Yes Safety Risks/Education Patient Education: Gait Training, Transfer Techniques, Correct Positioning, Safety Issues Teaching Recipient: Patient Teaching Methods: Discussion Response to Teaching: Verbalize Understanding Time/GCodes Time In: 1030 Time Out: 1115 Total Billed Treatment 1, GT (15m) & EX x2 (30m) G Codes Necessary: KIKO Valentine SOLID WASTE DISPOSAL MANAGER Apr 03, 2018 11:17
--- NOTE | 2018-04-03 12:35 | Occupational Ther Daily Note ---
OT Current Status-Daily Note Subjective Pt was'nt happy on entering his room. Pt stated that his is not doing well in care home. & he is worried about her. Pt wanted to get ready if his daughter comes to pickup him. Pain Numeric Pain Scale: 5-Moderate Pain Location: Right Location Body Site: Calf Pain Description: Ache, Stabbing Mental Status/Objective Patient Orientation: Person, Place, Time Therapy Code Descriptions/Definitions Functional Baxter Measure: 0=Not Assessed/NA 4=Minimal Assistance 1=Total Assistance 5=Supervision or Setup 2=Maximal Assistance 6=Modified Baxter 3=Moderate Assistance 7=Complete Baxter ADL-Treatment Pt participated in grooming with SBA & donning UB with supervision & LB dressing with min A , sit to stand with FWW in supervision as pt feeling very week. Pt completed 25 reps x 2sets x 1 lb wt with BUE elbow & shoulder flex/ ext. & 25 reps with yellow theraband. Therapy Code Descriptions/Definitions Functional Baxter Measure: 0=Not Assessed/NA 4=Minimal Assistance 1=Total Assistance 5=Supervision or Setup 2=Maximal Assistance 6=Modified Baxter 3=Moderate Assistance 7=Complete Baxter Therapy Quality Codes: 6 Independent with activity with or without an assistive device 5 Patient requires set up or clean up by helper. Patient completes activity by themselves 4 Supervision or touching assist (CGA). Rosalie provide cues , steadying assist 3 The helper provides less than half the effort to complete the activity 2 The helper provides more than half the effort to complete the activity 1 Dependent. The helper does all the effort to complete an activity 7 Patient refused to complete or attempt activity 9 The patient did not perform the activity before the current illness or injury 88 Not attempted due to Medical conditions or safety concerns Eating (FIM): 7 Eating (QC): 6 Grooming (FIM): 5 Oral Hygiene (QC): 5 Upper Body (FIM): 5 Upper Body Dressing (QC): 5 Lower Body Dressing (FIM): 4 Lower Body Dressing (QC): 4 Transfers (B, C, W/C) (FIM): 5 Toilet/Commode Transfer (FIM): 5 Toilet Transfer (QC): 5 Education OT Patient Education: Correct positioning, Energy conservation, Safety issues Teaching Recipient: Patient Teaching Methods: Demonstration, Discussion Response to Teaching: Verbalize Understanding, Return Demonstration OT Short Term Goals Short Term Goals Time Frame: Apr 01, 2018 Lower Body Dressing(FIM): 4 Toilet/Commode Transfer(FIM): 5 Additional Short Term Goals: 1-Demonstrate ADL Tasks, 2-Verbalize Understanding , 3-ImproveStrength/Natacha 1=Demonstrate adherence to instructed precautions during ADL tasks. 2=Patient will verbalize/demonstrate understanding of assistive devices/ modifications for ADL. 3=Patient will improve strength/tolerance for activity to enable patient to perform ADL's. OT Doper Goals Doper Goals Time Frame: Apr 15, 2018 Eating (FIM): 6 Eating (QC): 6 Groomin Oral Hygiene (QC): 6 Bathing(FIM): 5 Shower/Bathe Self (QC): 5 Upper Body Dressing(FIM): 6 Upper Body Dressing (QC): 6 Lower Body Dressing(FIM): 6 Lower Body Dressing (QC): 6 On/Off Footwear (QC): 6 Toileting(FIM): 6 Toileting Hygiene (QC): 6 Toilet/Commode Transfer(FIM): 6 Toilet/Commode Transfer (QC): 6 Shower Transfer(FIM): 5 Additional Goals: 1-Demonstrate ADL Tasks, 2-Verbalize Understanding, 3- ImproveStrength/Natacha 1=Demonstrate adherence to instructed precautions during ADL tasks. 2=Patient will verbalize/demonstrate understanding of assistive devices/ modifications for ADL. 3=Patient will improve strength/tolerance for activity to enable patient to perform ADL's. OT Education/Plan Problem List/Assessment Assessment: Decreased Activ Tolerance, Decreased Safety Aware, Decreased UE Strength, Impaired Bed Mobility, Impaired Funct Balance, Impaired Self-Care Skills Discharge Recommendations Plan/Recommendations: Continue POC Therapy D/C Recommendations: Home Independently Equpiment Recommendations-D/C: Bath Chair, Extended Shower Sprayer, Concrete Curer Treatment Plan/Plan of Care Treatment,Training & Education: Yes Patient would benefit from OT for education, treatment and training to promote independence in ADL's, mobility, safety and/or upper extremity function for ADL' s. Plan of Care: ADL Retraining, Functional Mobility, Group Exercise/Act as Ind, UE Funct Exercise/Act Treatment Duration: Apr 15, 2018 Frequency: At least 5 of 7 days/Wk (IRF) Estimated Hrs Per Day: 1.5 hours per day Agreement: Yes Rehab Potential: Good Time/GCodes Start Time: 09:00 Stop Time: 09:45 Total Time Billed (hr/min): 45 Billed Treatment Time 1, ADL's x 30 min & Ex x 15 min Total min 45 min. LUKE CAMPOS OT Apr 03, 2018 12:35
--- NOTE | 2018-04-03 13:45 | Speech Therapy Daily Note ---
Speech Daily Progress Note Subjective Date Seen by Provider: Apr 03, 2018 Time Seen by Provider: 00:30 Patient was on the phone when I entered his room. He was visibly upset and stated his was not expected to live through the weekend. Objective Patient demonstrated compensatory strategy utilization with 90% accuracy given minimal cues. Assessment Assessment Current Status: Good Progress Treatment Plan Continue Plan of Care Speech Short Term Goals Short Term Goals Short Term Goals 1) Patient will decrease oral transit time to 3 seconds in order to patient's ability to efficiently consume highest level of oral intake with 80% or greater. 2) Patient will utilize compensatory strategies as trained with 80% or greater. Speech Commercial Loan Processor Goals Intermediate Goals Patient will maintain adequate nutrition/hydration via safe effective swallow function. Speech-Plan Patient/Family Goals Patient/Family Goals: Patient is scheduled to return home Friday with his son. Treatment Plan Speech Therapy Treatment Plan: Continue Plan of Care Patient has made good progress as a result of skilled ST services. Treatment Duration: Apr 06, 2018 Frequency: 5 times per week Estimated Hrs Per Day: .5 hour per day Rehab Potential: Good Barriers to Learning: Patient has mild difficulty with retention of new information. Pt/Family Agrees to Plan: Yes Safety Risks/Education Teaching Recipient: Patient Teaching Methods: Discussion Response to Teaching: Verbalize Understanding Education Topics Provided: Safety within his home. Time Speech Therapy Time In: 08:30 Speech Therapy Time Out: 09:00 Total Billed Time: 30 Billed Treatment Time 1JENNIF[address] ST Apr 03, 2018 13:45
--- NOTE | 2018-04-03 14:47 | Therapy Group Daily Note ---
Therapy Daily Group Note Patient Education Topic Other List Below (memory) Exercises LE Seated Exercise, UE Exercise Other/Notes Pt participated in group therapy with 4 to 1 ratio. Goals of session: Pt will verbalize understanding of memory strategies (met). Lead one UE or LE seated exercise during group therapy (met). Pt ambulated using FWW to [facility] for OT/PT group. Group consisted on introductions (name, place living, what would you name a cheetah), socialization , pt led UE/LE seated exercises, memory education/strategies and memory activity. Pt introduced self appropriately and actively listened to peers. Pt acknowledged understanding of memory strategies/education by verbalizing personal strategies. Pt was able to lead one exercise without difficulty then complete rest of exercises. During memory activity pt was able to match pictures on turn. Pt will benefit from group by increasing short term memory and use strategies during daily functional tasks. Pt will be able to complete UE/LE seated exercises after discharge. After group, pt ambulated back to room and laid in bed. Call light/phone in reach. All needs met in room. Start Time: 13:00 Stop Time: 14:15 Total Billed Treatment Time: 75 Total Billed Treatment 1-GRP EJ LEDESMA Apr 03, 2018 14:47
[2018-04-03 15:23] VITALS: BP 141/80
--- NOTE | 2018-04-03 15:31 | NUR ---
PT EATING BETTER, 75% MEALS. PT GETTING GLUCERNA TID. NO NEW WEIGHT SINCE ADMISSION. INTAKE LIKELY MEETING NEEDS. CONT SAME.
[2018-04-03] MEDS ORDERED: warFARin 2 MG (COUMADIN) TAB PO ONE (18:00)
[2018-04-03 18:20] VITALS: BP 110/62
[2018-04-03] MEDS: TAMSULOSIN 0.4 MG (FLOMAX) CAP PO SCH (19:51)
[2018-04-03] MEDS: SIMvastatin 20 MG (ZOCOR) TAB PO SCH (19:51)
[2018-04-03] MEDS: LEVOTHYROXINE 25 MCG (LEVOTHROID) TAB PO SCH (19:51)
[2018-04-03] MEDS: ALPRAZolam 1 MG (XANAX) TAB PO PRN (19:51)
[2018-04-03] MEDS: LEVOTHYROXINE 150 MCG (LEVOTHROID) TAB PO SCH (19:51)
[2018-04-04 05:21] VITALS: BP 113/62
[2018-04-04] MEDS: PANTOPRAZOLE 40 MG (PROTONIX) TAB PO SCH ×2 (05:35→20:45)
[2018-04-04] MEDS: MENTHOL/ZINC OXIDE (CALMOSEPTINE) 113 GM TUBE TOP SCH ×5 (05:38→20:45)
[2018-04-04] MEDS: guaiFENesin/DM (ROBITUSSIN DM) 10 ML UDC PO PRN (05:41)
[2018-04-04 06:04] LABS: INR 1.2 (0.8-1.4); PROTHROMBIN TIME PATIENT 15.6 SEC (12.2-14.7)
[2018-04-04] MEDS: oxyCODONE/APAP 10/325MG (PERCOCET 10) TABLET PO PRN ×2 (08:11→23:42)
--- NOTE | 2018-04-04 08:36 | Physical Therapy Daily Note ---
PT Daily Note-Current Subjective Pt reports he has an old right knee injury that makes it click and is painful and states that he will not have a knee replacement for it. States it limits his activities but he deals with it. Pain Numeric Pain Scale: 9 Comment: all over, mostly in R knee, pain med given by nsg at beginning of session Appearance Pt supine in bed sleeping, easily aroused, already ate breakfast, agreeable to therapy, requested pain med, Nsg administered to pt at beginning of session At end of session, pt requesting to go back to bed since knee pain increased even more, Pt right sidelying in bed with head and LE's elevated, call light, phone and bedside table within reach. All needs met at this time. Mental Status Patient Orientation: Person, Place, Time, Eyes Open, Situation wrap on right knee for support and pain control Transfers Therapy Code Descriptions/Definitions Functional [place] Measure: 0=Not Assessed/NA 4=Minimal Assistance 1=Total Assistance 5=Supervision or Setup 2=Maximal Assistance 6=Modified [place] 3=Moderate Assistance 7=Complete [place] Therapy Quality Codes: 6 Independent with activity with or without an assistive device 5 Patient requires set up or clean up by helper. Patient completes activity by themselves 4 Supervision or touching assist (CGA). [place] provide cues , steadying assist 3 The helper provides less than half the effort to complete the activity 2 The helper provides more than half the effort to complete the activity 1 Dependent. The helper does all the effort to complete an activity 7 Patient refused to complete or attempt activity 9 The patient did not perform the activity before the current illness or injury 88 Not attempted due to Medical conditions or safety concerns Transfers (B, C, W/C) (FIM): 5 Scootin Rollin Supine to/from Sit: 5 (use of bedrail and HOB elevated supine to sit. Bed flat and no use of bedrail sit to supine) Sit to/from Stand: 5 (verb instruction required for safety and hand placement) bed and chair transfers Weight Bearing Right Lower Extremity: Right Weight Bearing/Tolerated Left Lower Extremity: Left Weight Bearing/Tolerated Gait Training Does the Patient Walk?: Yes Gait (FIM): 5 Distance (FIM): 3=150 ft Distance: 155 x2 Gait Level of Assist: 5 Gait Persons Needed: 1 Gait Assistive Device: FWW verb inst given and pt attempted improving kyphotic posture, step height and length and gait speed. Pt does demo antalgic gait 2^ c/o R knee pain Exercises NuStep Minutes: 5 (UE's and LE's) NuStep Workload: 7 Treatments bed mobility, bed and chair transfers, gait, activity tolerance and strengthening ex's, safety Assessment requires instruction for hand placement and safety during transitions. Demo good balance and technique opening door to go through while using FWW. PT Short Term Goals Short Term Goals Time Frame: Apr 01, 2018 Gait (FIM): 5 Gait Distance Comment: 150' Gait Level of Assist: 5 Gait Assistive Device: FWW PT Custodial Goals Brick Machine Operator Goals PT Custodial Goals Time Frame: Apr 15, 2018 Transfers (B,C,W/C) (FIM): 6 Sit to Lying (QC): 6 Lying-Sitting on Side/Bed(QC): 6 Sit to Stand (QC): 6 Rollin Roll Left to Right (QC): 6 Chair/[id number]-Ilbeq Xfer(QC): 6 Car Transfer (QC): 6 Gait (FIM): 6 Distance: 200' Walk 10 feet (QC): 6 Walk 10ft-Uneven Surface(QC): 6 Walk 50ft with 2 Turns (QC): 6 Walk 150 ft (QC): 6 Gait Level of Assist: 6 Gait Assistive Device: FWW Stairs (FIM): 2 # of Steps: 4 1 Step (curb) (QC): 4 4 Steps (QC): 4 Stairs Level Of Assist: 5 PT Plan Problem List Problem List: Activity Tolerance, Functional Strength, Safety, Balance, Gait, Transfer, Bed Mobility Treatment/Plan Treatment Plan: Continue Plan of Care Treatment Plan: Bed Mobility, Education, Functional Activity Natacha, Functional Strength, Group Therapy, Gait, Safety, Therapeutic Exercise, Transfers Treatment Duration: Apr 15, 2018 Frequency: At least 5 of 7 days/Wk (IRF) Estimated Hrs Per Day: 1.5 hours per day Patient and/or Family Agrees t: Yes Safety Risks/Education Patient Education: Gait Training, Transfer Techniques, Safety Issues Teaching Recipient: Patient Teaching Methods: Demonstration, Discussion Response to Teaching: Verbalize Understanding, Return Demonstration, Reinforcement Needed Time/GCodes Time In: 805 Time Out: 830 Total Billed Treatment Time: 25 Total Billed Treatment 1 visit FA x15 GT x10 PATEL LOYOLA PTA Apr 04, 2018 08:36
[2018-04-04 08:44] VITALS: BP 104/61
[2018-04-04] MEDS: LIXISENATIDE SQ SCH (08:45)
[2018-04-04] MEDS: INSULIN GLARGINE SQ SCH (08:45)
[2018-04-04] MEDS: DEMECLOCYCLINE PO SCH ×2 (08:46→20:45)
[2018-04-04] MEDS: AMIODARONE 200 MG (CORDARONE) TAB PO SCH ×2 (08:46→20:44)
[2018-04-04] MEDS: MAGNESIUM OXIDE (MAG-OX)400 MG TAB PO SCH ×2 (08:46→18:31)
[2018-04-04] MEDS: DICLOFENAC 1% GEL 100 GM (VOLTAREN) TUBE TOP SCH ×4 (09:00→20:50)
[2018-04-04] MEDS: RT-BUDESONIDE NEBS 0.5 MG/2ML (PULMICORT) AMP INH SCH (10:18)
--- NOTE | 2018-04-04 13:52 | PM&R Progress Note ---
Subjective HPI/CC On Admission Date Seen by Provider: Apr 04, 2018 Time Seen by Provider: 12:00 Subjective/Events-last exam Patient doing very well Will repeat labs periodically Weaned off oxygen Lungs are very clear today for the first time since I have taking care of the patient last couple of weeks Still wanted to see his dying at the residential on hospice but whether precludes a day pass today Still no bowel movement of which she will wait until he gets home on Friday Talked about his cough and that is actually likely clearing his lungs and I told him that would have some residual of a few weeks Review of Systems General: Fatigue Pulmonary: Cough Gastrointestinal: Constipation Objective Exam Vital Signs Vital Signs Date Time Temp Pulse Resp B/P (MAP) Pulse Ox O2 Delivery O2 Flow Rate FiO2 04/04/18 10:18 93 Room Air 04/04/18 08:44 60 104/61 (75) 04/04/18 05:21 97.9 18 04/03/18 15:23 24 04/03/18 06:19 1.00 Capillary Refill : Less Than 3 Seconds General Appearance: No Apparent Distress, WD/WN, Chronically ill, Thin Respiratory: Chest Non Tender, Lungs Clear, Normal Breath Sounds, No Accessory Muscle Use, No Respiratory Distress Cardiovascular: Regular Rate, Rhythm, No Edema, No Gallop, No JVD, No Murmur, Normal Peripheral Pulses, Other (click) Neurologic/Psychiatric: Alert, Oriented x3, No Motor/Sensory Deficits, Normal Mood/Affect Results/Procedures Lab Patient resulted labs reviewed. Assessment/Plan Assessment and Plan Assess & Plan/Chief Complaint Assessment: Severe debility Recent pneumonia with respiratory insufficiency COPD with chronic coarse breath sounds now resolved today Therapeutic INR Aortic valve replacement history Diabetes mellitus Chronic renal insufficiency Anemia Urinary retention resolved Constipation acute on chronic refuses meds until he goes home on Friday Left heel pressure wound Plan: Monitor INR and labs periodically Nebulizer treatments but DC Pulmicort Therapies to improve strength and be able to return back to independent living Therapies will be impacted by electrolyte imbalance, anemia, hypoxia, and just overall respiratory decline Change bowel meds to prn since laxatives are making him ill Wound care consult is appreciated for left heel ulcer Wean off O2 appears to be successful DC on Friday Diagnosis/Problems Diagnosis/Problems (1) Debility Status: Acute (2) Rales Status: Resolved Resolution Date/Time: 04/04/18 @ 13:50 (3) Acute respiratory failure Status: Resolved Qualifiers: Respiratory failure complication: unspecified whether with hypoxia or hypercapnia Qualified Codes: J96.00 - Acute respiratory failure, unspecified whether with hypoxia or hypercapnia Resolution Date/Time: 03/25/18 @ 20:39 (4) PNA (pneumonia) Status: Resolved Qualifiers: Pneumonia type: due to unspecified organism Laterality: unspecified laterality Lung location: unspecified part of lung Qualified Codes: J18.9 - Pneumonia, unspecified organism Resolution Date/Time: 03/27/18 @ 15:18 (5) Frailty Status: Acute (6) Elevated INR Status: Resolved Resolution Date/Time: 03/27/18 @ 15:18 (7) Iron deficiency Status: Acute (8) Electrolyte abnormality Status: Resolved Resolution Date/Time: 03/26/18 @ 09:09 (9) Insulin dependent diabetes mellitus Status: Chronic (10) Hypokalemia Status: Resolved Resolution Date/Time: 03/25/18 @ 20:39 (11) Aortic valve replaced Status: Chronic (12) Constipation Status: Chronic Qualifiers: Constipation type: slow transit constipation Qualified Codes: K59.01 - Slow transit constipation (13) Blister of left heel Status: Acute Assessment & Plan: Consult Dr Odom Qualifiers: Encounter type: initial encounter Qualified Codes: S90.822A - Blister ( nonthermal), left foot, initial encounter Clinical Quality Measures Admission Status Admission Dx Assessment: Severe debility Recent pneumonia with respiratory insufficiency Supratherapeutic INR Aortic valve replacement history Diabetes mellitus Chronic renal insufficiency Anemia Urinary retention Plan: Monitor INR and labs Check chest x-ray Nebulizer treatments Therapies to improve strength and be able to return back to independent living Therapies will be impacted by electrolyte imbalance, anemia, hypoxia, and just overall respiratory decline DVT/VTE Risk/Contraindication: Risk Factor Score Per Nursin RFS Level Per Nursing on Admit: 3=High MIRNA EUCEDA DO Apr 04, 2018 13:52
--- NOTE | 2018-04-04 13:54 | Cardiology Progress Note ---
Cardiology SOAP Progress Note Subjective: No cardiac complaints. Objective: I&O/Vital Signs 04/04/18 04/04/18 04/04/18 05:21 08:44 10:18 Temp 97.9 Pulse 62 60 Resp 18 B/P (MAP) 113/62 (79) 104/61 (75) Pulse Ox 94 93 O2 Delivery Room Air Room Air 04/04/18 00:00 Intake Total 725 ml Output Total 725 ml Balance 0 ml Weight (Pounds): 159 Weight (Ounces): 8.0 Weight (Calculated Kilograms): 72.509434 Constitutional: No appears stated age; AAO x 3; No apparent distress, No PERRL , No well-developed, No well-nourished, No other Respiratory: No accessory muscle use, No respiratory distress, No chest tender , No chest expansion is symmetric; chest is bilaterally symmetric; No lungs clear to percussion; lungs clear to auscultation; No crackles, No rhonchi, No rales, No stridor, No wheezing, No pleural rub, No other Cardiovascular: regular rate-rhythm; No irregularly irregular, No extra beats, No parasternal heave is noted, No JVD, No edema, No bradycardia, No tachycardia , No point of maximal impulse, No cardiac thrills are palpable; S1 and S2; No gallop/S3, No gallop/S4, No diastolic murmur, No systolic murmur, No friction rub; click; No other Gastrointestional: No tender, No soft, No round, No distended, No pulsatile mass, No organomegaly, No guarding, No rebound, No tenderness, No hernia, No mass, No audible bowel sounds, No abnormal bowel sounds, No abdominal bruits, No spleenomegaly, No other Extremities: No normal range of motion, No non-tender, No normal inspection, No pedal edema, No calf tenderness, No normal capillary refill, No pelvis stable , No calf tenderness, No inflammation, No pedal edema, No slow capillary refill , No swelling, No other, No abrasion, No clubbing, No cyanosis, No ecchymosis, No laceration, No no lower extremity edema bilateral, No significant edema, No tenderness, No wound Neurologic/Psychiatric: no motor/sensory deficits, alert, normal mood/affect, oriented x 3 Skin: No normal color, No warm/dry, No cyanosis, No cool, No diaphoresis, No damp, No ecchymosis, No jaundice, No mottled, No pallor, No rash, No tattoos/ piercings, No ulcerations, No rash on exposed areas, No ulcerations on exposed areas, No other Results/Procedures: Labs Laboratory Tests 04/03/18 15:41: Glucometer 121H 04/03/18 20:25: Glucometer 156H 04/04/18 05:24: Prothrombin Time 15.6H, INR Comment 1.2 04/04/18 05:34: Glucometer 108 04/04/18 11:43: Glucometer 99 A/P: Assessment/Dx: Admission Diagnosis Generalized weakness Coumadin toxicity Hypertension Pneumonia Plan: Assessment/Plan Generalized weakness and debility, receiving therapy Pneumonia, better, received antibiotic, managed by primary care team Status post Coumadin toxicity for which he received FFP and vitamin K, Continue to monitor History of aortic valve replacement, on Coumadin, continue to adjust and monitor. INR 1.3. Coumadin dose will be adjusted. Paroxysmal atrial fibrillation, maintained on amiodarone. Continue to monitor Elevated liver enzymes,improving, continue to monitor. Leukopenia, monitored and followed by primary care physician Permanent pacemaker, functioning normally. Continue to monitor Diabetes mellitus, followed and managed by primary care physician Hypertension, continue to monitor blood pressure Hyperlipidemia, continue to monitor lipids. Hypothyroidism, followed and managed by primary care physician Thank you for your consultation. Please call me if you have any questions. Louie Morris MD, FACP, FACC, FSCAI, FHRS, CCDS Interventional Cardiology Cardiac Electrophysiology Vascular Medicine and Endovascular Interventions Jerald MORRIS MD Apr 04, 2018 1:54 pm
[2018-04-04 15:53] VITALS: BP 105/66
[2018-04-04] MEDS: warFARin 1 MG (COUMADIN) TAB PO SCH (18:29)
[2018-04-04] MEDS ORDERED: warFARin 5 MG (COUMADIN) TAB PO NR (20:00)
[2018-04-04] MEDS: LEVOTHYROXINE 25 MCG (LEVOTHROID) TAB PO SCH (20:44)
[2018-04-04] MEDS: ALPRAZolam 1 MG (XANAX) TAB PO PRN (20:44)
[2018-04-04] MEDS: TAMSULOSIN 0.4 MG (FLOMAX) CAP PO SCH (20:44)
[2018-04-04] MEDS: LEVOTHYROXINE 150 MCG (LEVOTHROID) TAB PO SCH (20:44)
[2018-04-04] MEDS: SIMvastatin 20 MG (ZOCOR) TAB PO SCH (20:45)
[2018-04-05 05:33] VITALS: BP 93/54
[2018-04-05 05:56] LABS: INR 1.2 (0.8-1.4); PROTHROMBIN TIME PATIENT 15.4 SEC (12.2-14.7)
[2018-04-05] MEDS: MENTHOL/ZINC OXIDE (CALMOSEPTINE) 113 GM TUBE TOP SCH ×5 (06:25→20:15)
[2018-04-05] MEDS: PANTOPRAZOLE 40 MG (PROTONIX) TAB PO SCH ×2 (06:25→20:15)
[2018-04-05 06:27] VITALS: BP 128/48
[2018-04-05] MEDS: AMIODARONE 200 MG (CORDARONE) TAB PO SCH ×2 (08:11→20:15)
[2018-04-05] MEDS: INSULIN GLARGINE SQ SCH (08:12)
[2018-04-05] MEDS: DEMECLOCYCLINE PO SCH ×2 (08:12→20:15)
[2018-04-05] MEDS: oxyCODONE/APAP 10/325MG (PERCOCET 10) TABLET PO PRN ×2 (08:12→17:44)
[2018-04-05] MEDS: MAGNESIUM OXIDE (MAG-OX)400 MG TAB PO SCH ×2 (08:12→17:18)
[2018-04-05] MEDS: LIXISENATIDE SQ SCH (08:12)
[2018-04-05] MEDS: DICLOFENAC 1% GEL 100 GM (VOLTAREN) TUBE TOP SCH ×4 (09:00→20:33)
--- NOTE | 2018-04-05 12:54 | PM&R Progress Note ---
Subjective HPI/CC On Admission Date Seen by Provider: Apr 05, 2018 Time Seen by Provider: 11:00 Subjective/Events-last exam Patient doing well Weaned off O2 Completed his own shower today Coumadin management per cardiology [facility] is his pharmacy Wants a Neb machine at DC Prepped for DC tomorrow Review of Systems General: Fatigue Pulmonary: Cough Gastrointestinal: Constipation Objective Exam Vital Signs Vital Signs Date Time Temp Pulse Resp B/P (MAP) Pulse Ox O2 Delivery O2 Flow Rate FiO2 04/05/18 09:00 Room Air 04/05/18 08:25 97 04/05/18 06:27 128/48 (74) 04/05/18 05:33 97.5 60 16 04/03/18 15:23 24 04/03/18 06:19 1.00 Capillary Refill : Less Than 3 Seconds General Appearance: No Apparent Distress, WD/WN, Chronically ill, Thin Respiratory: Chest Non Tender, Lungs Clear, Normal Breath Sounds, No Accessory Muscle Use, No Respiratory Distress Cardiovascular: Regular Rate, Rhythm, No Edema, No Gallop, No JVD, No Murmur, Normal Peripheral Pulses Neurologic/Psychiatric: Alert, Oriented x3, No Motor/Sensory Deficits, Normal Mood/Affect Skin: Normal Color, Warm/Dry Results/Procedures Lab Patient resulted labs reviewed. Assessment/Plan Assessment and Plan Assess & Plan/Chief Complaint Assessment: Severe debility improved and ready for DC tomorrow Recent pneumonia with respiratory insufficiency COPD with chronic coarse breath sounds now resolved now but will need Nebs at home so placed DC order for that Sub-Therapeutic INR managed by Cardiology Aortic valve replacement history Diabetes mellitus Chronic renal insufficiency Anemia Urinary retention resolved Constipation acute on chronic refuses meds until he goes home on Friday Left heel pressure wound Plan: Monitor INR and labs periodically Nebulizer treatments but DC Pulmicort and Rx for Neb machine at DC Therapies to improve strength and be able to return back to independent living Therapies will be impacted by electrolyte imbalance, anemia, hypoxia, and just overall respiratory decline Change bowel meds to prn since laxatives are making him ill Wound care consult is appreciated for left heel ulcer Wean off O2 appears to be successful DC on Friday Diagnosis/Problems Diagnosis/Problems (1) Debility Status: Acute (2) Rales Status: Resolved Resolution Date/Time: 04/04/18 @ 13:50 (3) Acute respiratory failure Status: Resolved Qualifiers: Respiratory failure complication: unspecified whether with hypoxia or hypercapnia Qualified Codes: J96.00 - Acute respiratory failure, unspecified whether with hypoxia or hypercapnia Resolution Date/Time: 03/25/18 @ 20:39 (4) PNA (pneumonia) Status: Resolved Qualifiers: Pneumonia type: due to unspecified organism Laterality: unspecified laterality Lung location: unspecified part of lung Qualified Codes: J18.9 - Pneumonia, unspecified organism Resolution Date/Time: 03/27/18 @ 15:18 (5) Frailty Status: Acute (6) Elevated INR Status: Resolved Resolution Date/Time: 03/27/18 @ 15:18 (7) Iron deficiency Status: Acute (8) Electrolyte abnormality Status: Resolved Resolution Date/Time: 03/26/18 @ 09:09 (9) Insulin dependent diabetes mellitus Status: Chronic (10) Hypokalemia Status: Resolved Resolution Date/Time: 03/25/18 @ 20:39 (11) Aortic valve replaced Status: Chronic (12) Constipation Status: Chronic Qualifiers: Constipation type: slow transit constipation Qualified Codes: K59.01 - Slow transit constipation (13) Blister of left heel Status: Acute Assessment & Plan: Consult Dr Odom Qualifiers: Encounter type: initial encounter Qualified Codes: S90.822A - Blister ( nonthermal), left foot, initial encounter Clinical Quality Measures Admission Status Admission Dx Assessment: Severe debility Recent pneumonia with respiratory insufficiency Supratherapeutic INR Aortic valve replacement history Diabetes mellitus Chronic renal insufficiency Anemia Urinary retention Plan: Monitor INR and labs Check chest x-ray Nebulizer treatments Therapies to improve strength and be able to return back to independent living Therapies will be impacted by electrolyte imbalance, anemia, hypoxia, and just overall respiratory decline DVT/VTE Risk/Contraindication: Risk Factor Score Per Nursin RFS Level Per Nursing on Admit: 3=High MIRNA EUCEDA DO Apr 05, 2018 12:54
[2018-04-05] MEDS: ENOXAPARIN 80 MG/0.8 ML (LOVENOX) SYR SQ SCH (15:00)
--- NOTE | 2018-04-05 15:04 | Cardiology Progress Note ---
Cardiology SOAP Progress Note Subjective: No cardiac complaints. Objective: I&O/Vital Signs 04/05/18 04/05/18 04/05/18 04/05/18 05:33 06:27 08:25 09:00 Temp 97.5 Pulse 60 Resp 16 B/P (MAP) 93/54 (67) 128/48 (74) Pulse Ox 95 97 O2 Delivery Room Air Room Air Room Air 04/05/18 00:00 Intake Total 340 ml Output Total 275 ml Balance 65 ml Weight (Pounds): 159 Weight (Ounces): 8.0 Weight (Calculated Kilograms): 72.086079 Constitutional: No appears stated age; AAO x 3; No apparent distress, No PERRL , No well-developed, No well-nourished, No other Respiratory: No accessory muscle use, No respiratory distress, No chest tender , No chest expansion is symmetric; chest is bilaterally symmetric; No lungs clear to percussion; lungs clear to auscultation; No crackles, No rhonchi, No rales, No stridor, No wheezing, No pleural rub, No other Cardiovascular: regular rate-rhythm; No irregularly irregular, No extra beats, No parasternal heave is noted, No JVD, No edema, No bradycardia, No tachycardia , No point of maximal impulse, No cardiac thrills are palpable; S1 and S2; No gallop/S3, No gallop/S4, No diastolic murmur, No systolic murmur, No friction rub; click; No other Gastrointestional: No tender, No soft, No round, No distended, No pulsatile mass, No organomegaly, No guarding, No rebound, No tenderness, No hernia, No mass, No audible bowel sounds, No abnormal bowel sounds, No abdominal bruits, No spleenomegaly, No other Extremities: No normal range of motion, No non-tender, No normal inspection, No pedal edema, No calf tenderness, No normal capillary refill, No pelvis stable , No calf tenderness, No inflammation, No pedal edema, No slow capillary refill , No swelling, No other, No abrasion, No clubbing, No cyanosis, No ecchymosis, No laceration, No no lower extremity edema bilateral, No significant edema, No tenderness, No wound Neurologic/Psychiatric: no motor/sensory deficits, alert, normal mood/affect, oriented x 3 Skin: No normal color, No warm/dry, No cyanosis, No cool, No diaphoresis, No damp, No ecchymosis, No jaundice, No mottled, No pallor, No rash, No tattoos/ piercings, No ulcerations, No rash on exposed areas, No ulcerations on exposed areas, No other Results/Procedures: Labs Laboratory Tests 04/04/18 15:51: Glucometer 109 04/04/18 20:13: Glucometer 246H 04/05/18 05:19: Glucometer 101 04/05/18 05:36: Prothrombin Time 15.4H, INR Comment 1.2 04/05/18 11:48: Glucometer 114H A/P: Assessment/Dx: Admission Diagnosis Generalized weakness Coumadin toxicity Hypertension Pneumonia Plan: Assessment/Plan Generalized weakness and debility, receiving therapy Pneumonia, better, received antibiotic, managed by primary care team Status post Coumadin toxicity for which he received FFP and vitamin K, Continue to monitor History of aortic valve replacement, on Coumadin, continue to adjust and monitor. INR 1.3. Coumadin 5 mg tonight as well. Bridging with Lovenox 1 mg per KG twice a day. Paroxysmal atrial fibrillation, maintained on amiodarone. Continue to monitor Elevated liver enzymes,improving, continue to monitor. Leukopenia, monitored and followed by primary care physician Permanent pacemaker, functioning normally. Continue to monitor Diabetes mellitus, followed and managed by primary care physician Hypertension, continue to monitor blood pressure Hyperlipidemia, continue to monitor lipids. Hypothyroidism, followed and managed by primary care physician Thank you for your consultation. Please call me if you have any questions. Louie Morris MD, FACP, FACC, FSCAI, FHRS, CCDS Interventional Cardiology Cardiac Electrophysiology Vascular Medicine and Endovascular Interventions Jerald MORRIS MD Apr 05, 2018 3:04 pm
--- NOTE | 2018-04-05 16:41 | NUR ---
Weekly Summary: Patient is alert and oriented x 4. Continues to work with therapy. Lungs are clear to auscultation throughout. Patient is concerned about getting Pneumonia again. Multiple teaching sessions provided concerning the importance of using Acapella, staying active, deep breathing and coughing. Patient was able to take a shower today with only set up assistance. Still requires help with some dressing tasks. Continues to have Allevyn to Left heel, changed today due to shower. Heel is dry with no drainage today. Profo boots in place on bilateral heels to prevent pressure while in bed. Coccyx is red and blanchable, improvement noted. Continued excoriation to groin treated with Calmoseptine ointment. Fausto Lotion spray given to patient to help with cleansing of nia and fausto-area. Cardiology continues to monitor INR daily, adjusting Coumadin as needed. INR has been 1.2 for the last two days. Lovenox started today to aid in obtaining a therapeutic level for mechanical heart valve. Lovenox to be given until INR reaches 2.5. Patient plans to return home on 04/06/18 with family support. Patient expresses to this nurse today that if he continues to require Lovenox at home, he has a "whole bag" of it at home. This nurse explained that the dosage was likely different, but that the information would be passed on to the discharge planning team.
[2018-04-05] MEDS ORDERED: warFARin 5 MG (COUMADIN) TAB PO NR (18:00)
[2018-04-05 18:17] VITALS: BP 124/73
[2018-04-05] MEDS: TAMSULOSIN 0.4 MG (FLOMAX) CAP PO SCH (20:14)
[2018-04-05] MEDS: LEVOTHYROXINE 150 MCG (LEVOTHROID) TAB PO SCH (20:15)
[2018-04-05] MEDS: SIMvastatin 20 MG (ZOCOR) TAB PO SCH (20:15)
[2018-04-05] MEDS: LEVOTHYROXINE 25 MCG (LEVOTHROID) TAB PO SCH (20:15)
[2018-04-05] MEDS: ALPRAZolam 1 MG (XANAX) TAB PO PRN (20:16)
[2018-04-06] MEDS: ENOXAPARIN 80 MG/0.8 ML (LOVENOX) SYR SQ SCH (03:06)
[2018-04-06 05:31] VITALS: BP 134/76
[2018-04-06] MEDS: PANTOPRAZOLE 40 MG (PROTONIX) TAB PO SCH (06:11)
[2018-04-06] MEDS: MENTHOL/ZINC OXIDE (CALMOSEPTINE) 113 GM TUBE TOP SCH ×2 (06:12→08:33)
[2018-04-06 06:35] VITALS: BP 134/76
[2018-04-06 07:29] LABS: INR 1.6 (0.8-1.4); PROTHROMBIN TIME PATIENT 18.8 SEC (12.2-14.7)
[2018-04-06] MEDS ORDERED: MAGN400T6 PO (08:21)
[2018-04-06] MEDS ORDERED: OXYC-465 PO (08:21)
[2018-04-06] MEDS ORDERED: ENOX80DI7 SQ (08:21)
[2018-04-06] MEDS ORDERED: IPRA3AMP31 IH (08:21)
[2018-04-06] MEDS ORDERED: ALPR1TAB2 PO (08:21)
[2018-04-06] MEDS ORDERED: GUAI5SYR PO (08:21)
--- NOTE | 2018-04-06 08:24 | D/C HH Face to Face Order ---
D/C Face to Face Orders Instructions for Patient Via [facility] [employer], Patient Instructions/FollowUp: Dr Hinkle for INR management Dr Gorman for 1 week appt PT/INR check on Friday and send results to Dr Manan Bajwa [employer] Physician to follow Patient: Dr Fercho Gorman Discharge Diet for Home: Cardiac Diet Patient Problems: Aortic valve replacement history s/p pneumonia Frail status Patient Data-Allergies,Ht & Wt Patient Allergies: Coded Allergies: fentanyl (Verified Allergy, Mild, 03/09/18) levofloxacin (Unverified Allergy, Unknown, 03/09/18) "FEELS FUNNY" cefadroxil (Verified Adverse Reaction, Mild, NAUSEA, 03/09/18) sulfamethoxazole (Verified Adverse Reaction, Mild, 03/09/18) trimethoprim (Verified Adverse Reaction, Mild, 03/09/18) Height (Feet): 5 Height (Inches): 8.00 Weight (Pounds): 149 Weight (Ounces): 4.8 Home Health Need/Face to Face Date of Face to Face: Apr 06, 2018 Clinical Findings: Generalized weakness and fatigue, Muscle weakness, Shortness of breath, Unsteady gait I have seen Pt [id number]: Yes Discharged To: Home Diagnosis/Conditions: Aortic valve replacement history s/p pneumonia Frail status Patient is Homebound due to: Daniella fall risk due to instabilty, Muscle weakness , Shortness of breath/distress Homebound Status Due to the above stated illness, injury or surgical procedure (medical condition or diagnosis) and associated clinical findings, the patient is homebound because of his/her inability to leave home except with aid of a supportive device and/or person AND leaving the home requires a considerable and taxing effort or is medically contraindicated. Pt req the following assistanc: Walker Home Health Nursing Orders Home Health Services Order: Nursing Services, Sourcing Intern-Evaluate & Treat, Physical Therapy-Evaluate & Treat Home Health Infusion Therapy Line Type: Saline Lock Site Location: Antecubital Certify Stmt I certify that this patient is under my care and that I, a nurse practitioner or a physician; a support assistant working with me, had a face to face encounter that - meets the physician face to face encounter requirements with this patient as dated. MIRNA EUCEDA DO Apr 06, 2018 08:24
[2018-04-06] MEDS: AMIODARONE 200 MG (CORDARONE) TAB PO SCH (08:25)
[2018-04-06] MEDS: DEMECLOCYCLINE PO SCH (08:25)
[2018-04-06] MEDS: MAGNESIUM OXIDE (MAG-OX)400 MG TAB PO SCH (08:25)
--- NOTE | 2018-04-06 08:26 | Discharge Summary ---
Diagnosis/Chief Complaint Date of Admission Mar 25, 2018 at 10:40 Date of Discharge Discharge Date: Apr 06, 2018 Discharge Diagnosis Assessment: Severe debility improved and ready for DC Recent pneumonia with respiratory insufficiency COPD with chronic coarse breath sounds now resolved now but will need Nebs at home so placed DC order for that Sub-Therapeutic INR managed by Cardiology Aortic valve replacement history Diabetes mellitus Chronic renal insufficiency Anemia Urinary retention resolved Constipation acute on chronic refuses meds until he goes home on Friday Left heel pressure wound Plan: Monitor INR and labs periodically Nebulizer treatments but DC Pulmicort and Rx for Neb machine at DC Therapies to improve strength and be able to return back to independent living Therapies will be impacted by electrolyte imbalance, anemia, hypoxia, and just overall respiratory decline Change bowel meds to prn since laxatives are making him ill Wound care consult is appreciated for left heel ulcer Wean off O2 appears to be successful DC Reason Hospital Visit CC: Debility HPI: This is a 67-year-old white male with a multitude of severe medical problems which resulted in an acute decompensation from pneumonia and supratherapeutic INR which resulted in an ICU stay which was extended into [facility] and then placed on swing bed due to severe debility. Cardiology and pulmonology have been extremely helpful in managing this very complex patient. It was found that he was in need of intensive rehabilitation in order to return home with his son. He is willing to become compliant with therapy requirements and anything else he can do in order to get home. His INR is very labile and maintained on that for valve replacement. Patient with hypoxia and oxygen dependency places limits on how much therapy he is able to accommodate in one setting. Chest x-ray was obtained today recommended by Dr. Johnson and we will follow up on that x-ray. He reports a cough continues but it is nonproductive and just overall feels like his respiratory status is stable. His bowels have alternated between several times a day and no bowel movement for 4 days so we' ll try to stabilize that while he is staying inpatient rehabilitation facility. He does have an indwelling catheter and we will address that considering how debilitated he is and will focus on discontinuing that as soon as possible due to high risk for infection. If we have retention issues I will consult urology. Discharge Summary Discharge Physical Examination Allergies: Coded Allergies: fentanyl (Verified Allergy, Mild, 03/09/18) levofloxacin (Unverified Allergy, Unknown, 03/09/18) "FEELS FUNNY" cefadroxil (Verified Adverse Reaction, Mild, NAUSEA, 03/09/18) sulfamethoxazole (Verified Adverse Reaction, Mild, 03/09/18) trimethoprim (Verified Adverse Reaction, Mild, 03/09/18) Vitals & I&Os Vital Signs Date Time Temp Pulse Resp B/P (MAP) Pulse Ox O2 Delivery O2 Flow Rate FiO2 04/06/18 09:00 Room Air 04/06/18 06:35 93 04/06/18 06:35 60 04/06/18 05:31 97.4 18 134/76 (95) 04/03/18 15:23 24 04/03/18 06:19 1.00 Hospital Course Was the Problem List Reviewed?: Yes Hospital course: Patient had a lengthy hospital course in inpatient rehabilitation for 12 days following a critical illness in swing bed status upstairs [facility]. Patient was able to slowly recover and close monitoring along with multiple consults managing severe COPD and recent pneumonia and aortic valve replacement maintained on Coumadin with wide labile INR levels. Patient was maintained on insulin and was able to return back to home dosing once his diet improved. He participated in all therapies has required and was able to ambulate with walker and was able to wean off oxygen during the hospital stay. All meds were reviewed patient will maintain on Coumadin 1 mg daily along with Lovenox 70 mg subcutaneous every 12 hours bridge and INR will be checked on Friday and sent to desk clerk Dr. Hinkle. Primary care provider will be seen in one week and home health services all ordered for patient. Labs (last 24 hrs) Laboratory Tests 03/25/18 15:52: Glucometer 91 03/25/18 20:03: Glucometer 96 03/26/18 05:33: White Blood Count 4.3, Red Blood Count 3.44L, Hemoglobin 10.3L, Hematocrit 32L, Mean Corpuscular Volume 93, Mean Corpuscular Hemoglobin 30, Mean Corpuscular Hemoglobin Concent 32, Red Cell Distribution Width 16.6H, Platelet Count 157, Mean Platelet Volume 11.0H, Neutrophils (%) (Auto) 68, Lymphocytes (%) (Auto) 21 , Monocytes (%) (Auto) 10, Eosinophils (%) (Auto) 1, Basophils (%) (Auto) 0, Neutrophils # (Auto) 2.9, Lymphocytes # (Auto) 0.9L, Monocytes # (Auto) 0.4, Eosinophils # (Auto) 0.0, Basophils # (Auto) 0.0, Prothrombin Time 34.5H, INR Comment 3.4H, Sodium Level 134L, Potassium Level 4.9, Chloride Level 95L, Carbon Dioxide Level 30, Anion Gap 9, Blood Urea Nitrogen 9, Creatinine 0.86, Estimat Glomerular Filtration Rate > 60, BUN/Creatinine Ratio 10, Glucose Level 72, Calcium Level 8.2L, Corrected Calcium 9.3, Total Bilirubin 0.6, Aspartate Amino Transf (AST/SGOT) 31, Alanine Aminotransferase (ALT/SGPT) 27, Alkaline Phosphatase 143H, Total Protein 4.9L, Albumin 2.6L 03/26/18 11:28: Glucometer 142H 03/26/18 17:05: Glucometer 146H 03/26/18 20:12: Glucometer 170H 03/27/18 06:24: Glucometer 129H 03/27/18 07:10: Prothrombin Time 31.3H, INR Comment 3.0H 03/27/18 11:52: Glucometer 140H 03/27/18 15:44: Glucometer 58*L 03/27/18 16:28: Glucometer 84 03/27/18 20:41: Glucometer 177H 03/28/18 04:35: Glucometer 121H 03/28/18 10:53: Glucometer 113H 03/28/18 16:16: Glucometer 118H 03/28/18 20:19: Glucometer 87 03/29/18 04:20: Prothrombin Time 31.6H, INR Comment 3.0H, Sodium Level 134L, Potassium Level 4.9 , Chloride Level 96L, Carbon Dioxide Level 29, Anion Gap 9, Blood Urea Nitrogen 10, Creatinine 1.05, Estimat Glomerular Filtration Rate > 60, BUN/Creatinine Ratio 10, Glucose Level 67L, Calcium Level 8.6, Corrected Calcium 9.6, Total Bilirubin 0.7, Aspartate Amino Transf (AST/SGOT) 30, Alanine Aminotransferase ( ALT/SGPT) 24, Alkaline Phosphatase 173H, Total Protein 5.9L, Albumin 2.8L 03/29/18 04:30: White Blood Count 4.5, Red Blood Count 3.62L, Hemoglobin 10.6L, Hematocrit 34L, Mean Corpuscular Volume 94, Mean Corpuscular Hemoglobin 29, Mean Corpuscular Hemoglobin Concent 31L, Red Cell Distribution Width 16.9H, Platelet Count 145, Mean Platelet Volume 11.1H, Neutrophils (%) (Auto) 67, Lymphocytes (%) (Auto) 23 , Monocytes (%) (Auto) 9, Eosinophils (%) (Auto) 1, Basophils (%) (Auto) 0, Neutrophils # (Auto) 3.0, Lymphocytes # (Auto) 1.0, Monocytes # (Auto) 0.4, Eosinophils # (Auto) 0.1, Basophils # (Auto) 0.0 03/29/18 06:17: Glucometer 77 03/29/18 11:26: Glucometer 73 03/29/18 12:10: Glucometer 69L 03/29/18 12:49: Glucometer 78 03/29/18 13:34: Glucometer 83 03/29/18 15:42: Glucometer 169H 03/29/18 20:47: Glucometer 149H 03/30/18 05:48: Glucometer 68L 03/30/18 06:52: Glucometer 94 03/30/18 10:56: Glucometer 112H 03/30/18 16:51: Glucometer 88 03/30/18 18:11: Prothrombin Time 28.7H, INR Comment 2.7H 03/30/18 20:27: Glucometer 106 03/31/18 05:20: Glucometer 68L 03/31/18 06:06: Glucometer 132H 03/31/18 10:51: Glucometer 110 03/31/18 15:47: Glucometer 135H 03/31/18 20:13: Glucometer 144H 04/01/18 05:00: White Blood Count 4.1L, Red Blood Count 3.39L, Hemoglobin 10.3L, Hematocrit 32L , Mean Corpuscular Volume 95, Mean Corpuscular Hemoglobin 30, Mean Corpuscular Hemoglobin Concent 32, Red Cell Distribution Width 17.3H, Platelet Count 146, Mean Platelet Volume 10.4, Neutrophils (%) (Auto) 66, Lymphocytes (%) (Auto) 23 , Monocytes (%) (Auto) 10, Eosinophils (%) (Auto) 1, Basophils (%) (Auto) 0, Neutrophils # (Auto) 2.7, Lymphocytes # (Auto) 0.9L, Monocytes # (Auto) 0.4, Eosinophils # (Auto) 0.1, Basophils # (Auto) 0.0, Prothrombin Time 22.0H, INR Comment 1.9H, Sodium Level 133L, Potassium Level 4.8, Chloride Level 96L, Carbon Dioxide Level 30, Anion Gap 7, Blood Urea Nitrogen 13, Creatinine 1.09, Estimat Glomerular Filtration Rate > 60, BUN/Creatinine Ratio 12, Glucose Level 136H, Calcium Level 8.2L, Corrected Calcium 9.1, Total Bilirubin 0.5, Aspartate Amino Transf (AST/SGOT) 26, Alanine Aminotransferase (ALT/SGPT) 20, Alkaline Phosphatase 199H, Total Protein 5.8L, Albumin 2.9L 04/01/18 06:04: Glucometer 134H 04/01/18 11:27: Glucometer 121H 04/01/18 16:05: Glucometer 156H 04/01/18 20:21: Glucometer 309H 04/02/18 04:29: Glucometer 218H 04/02/18 10:38: Glucometer 151H 04/02/18 15:34: Glucometer 132H 04/02/18 20:10: Glucometer 187H 04/03/18 06:10: Prothrombin Time 16.6H, INR Comment 1.3 04/03/18 06:15: Glucometer 90 04/03/18 11:21: Glucometer 117H 04/03/18 15:41: Glucometer 121H 04/03/18 20:25: Glucometer 156H 04/04/18 05:24: Prothrombin Time 15.6H, INR Comment 1.2 04/04/18 05:34: Glucometer 108 04/04/18 11:43: Glucometer 99 04/04/18 15:51: Glucometer 109 04/04/18 20:13: Glucometer 246H 04/05/18 05:19: Glucometer 101 04/05/18 05:36: Prothrombin Time 15.4H, INR Comment 1.2 04/05/18 11:48: Glucometer 114H 04/05/18 16:51: Glucometer 111H 04/05/18 20:14: Glucometer 138H 04/06/18 05:22: Glucometer 135H 04/06/18 06:30: Prothrombin Time 18.8H, INR Comment 1.6H Pending Labs Laboratory Tests 03/25/18 15:52: Glucometer 91 03/25/18 20:03: Glucometer 96 03/26/18 05:33: White Blood Count 4.3, Red Blood Count 3.44, Hemoglobin 10.3, Hematocrit 32, Mean Corpuscular Volume 93, Mean Corpuscular Hemoglobin 30, Mean Corpuscular Hemoglobin Concent 32, Red Cell Distribution Width 16.6, Platelet Count 157, Mean Platelet Volume 11.0, Neutrophils (%) (Auto) 68, Lymphocytes (%) (Auto) 21 , Monocytes (%) (Auto) 10, Eosinophils (%) (Auto) 1, Basophils (%) (Auto) 0, Neutrophils # (Auto) 2.9, Lymphocytes # (Auto) 0.9, Monocytes # (Auto) 0.4, Eosinophils # (Auto) 0.0, Basophils # (Auto) 0.0, Prothrombin Time 34.5, INR Comment 3.4, Sodium Level 134, Potassium Level 4.9, Chloride Level 95, Carbon Dioxide Level 30, Anion Gap 9, Blood Urea Nitrogen 9, Creatinine 0.86, Estimat Glomerular Filtration Rate > 60, BUN/Creatinine Ratio 10, Glucose Level 72, Calcium Level 8.2, Corrected Calcium 9.3, Total Bilirubin 0.6, Aspartate Amino Transf (AST/SGOT) 31, Alanine Aminotransferase (ALT/SGPT) 27, Alkaline Phosphatase 143, Total Protein 4.9, Albumin 2.6 03/26/18 11:28: Glucometer 142 03/26/18 17:05: Glucometer 146 03/26/18 20:12: Glucometer 170 03/27/18 06:24: Glucometer 129 03/27/18 07:10: Prothrombin Time 31.3, INR Comment 3.0 03/27/18 11:52: Glucometer 140 03/27/18 15:44: Glucometer 58 03/27/18 16:28: Glucometer 84 03/27/18 20:41: Glucometer 177 03/28/18 04:35: Glucometer 121 03/28/18 10:53: Glucometer 113 03/28/18 16:16: Glucometer 118 03/28/18 20:19: Glucometer 87 03/29/18 04:20: Prothrombin Time 31.6, INR Comment 3.0, Sodium Level 134, Potassium Level 4.9, Chloride Level 96, Carbon Dioxide Level 29, Anion Gap 9, Blood Urea Nitrogen 10 , Creatinine 1.05, Estimat Glomerular Filtration Rate > 60, BUN/Creatinine Ratio 10, Glucose Level 67, Calcium Level 8.6, Corrected Calcium 9.6, Total Bilirubin 0.7, Aspartate Amino Transf (AST/SGOT) 30, Alanine Aminotransferase ( ALT/SGPT) 24, Alkaline Phosphatase 173, Total Protein 5.9, Albumin 2.8 03/29/18 04:30: White Blood Count 4.5, Red Blood Count 3.62, Hemoglobin 10.6, Hematocrit 34, Mean Corpuscular Volume 94, Mean Corpuscular Hemoglobin 29, Mean Corpuscular Hemoglobin Concent 31, Red Cell Distribution Width 16.9, Platelet Count 145, Mean Platelet Volume 11.1, Neutrophils (%) (Auto) 67, Lymphocytes (%) (Auto) 23 , Monocytes (%) (Auto) 9, Eosinophils (%) (Auto) 1, Basophils (%) (Auto) 0, Neutrophils # (Auto) 3.0, Lymphocytes # (Auto) 1.0, Monocytes # (Auto) 0.4, Eosinophils # (Auto) 0.1, Basophils # (Auto) 0.0 03/29/18 06:17: Glucometer 77 03/29/18 11:26: Glucometer 73 03/29/18 12:10: Glucometer 69 03/29/18 12:49: Glucometer 78 03/29/18 13:34: Glucometer 83 03/29/18 15:42: Glucometer 169 03/29/18 20:47: Glucometer 149 03/30/18 05:48: Glucometer 68 03/30/18 06:52: Glucometer 94 03/30/18 10:56: Glucometer 112 03/30/18 16:51: Glucometer 88 03/30/18 18:11: Prothrombin Time 28.7, INR Comment 2.7 03/30/18 20:27: Glucometer 106 03/31/18 05:20: Glucometer 68 03/31/18 06:06: Glucometer 132 03/31/18 10:51: Glucometer 110 03/31/18 15:47: Glucometer 135 03/31/18 20:13: Glucometer 144 04/01/18 05:00: White Blood Count 4.1, Red Blood Count 3.39, Hemoglobin 10.3, Hematocrit 32, Mean Corpuscular Volume 95, Mean Corpuscular Hemoglobin 30, Mean Corpuscular Hemoglobin Concent 32, Red Cell Distribution Width 17.3, Platelet Count 146, Mean Platelet Volume 10.4, Neutrophils (%) (Auto) 66, Lymphocytes (%) (Auto) 23 , Monocytes (%) (Auto) 10, Eosinophils (%) (Auto) 1, Basophils (%) (Auto) 0, Neutrophils # (Auto) 2.7, Lymphocytes # (Auto) 0.9, Monocytes # (Auto) 0.4, Eosinophils # (Auto) 0.1, Basophils # (Auto) 0.0, Prothrombin Time 22.0, INR Comment 1.9, Sodium Level 133, Potassium Level 4.8, Chloride Level 96, Carbon Dioxide Level 30, Anion Gap 7, Blood Urea Nitrogen 13, Creatinine 1.09, Estimat Glomerular Filtration Rate > 60, BUN/Creatinine Ratio 12, Glucose Level 136, Calcium Level 8.2, Corrected Calcium 9.1, Total Bilirubin 0.5, Aspartate Amino Transf (AST/SGOT) 26, Alanine Aminotransferase (ALT/SGPT) 20, Alkaline Phosphatase 199, Total Protein 5.8, Albumin 2.9 04/01/18 06:04: Glucometer 134 04/01/18 11:27: Glucometer 121 04/01/18 16:05: Glucometer 156 04/01/18 20:21: Glucometer 309 04/02/18 04:29: Glucometer 218 04/02/18 10:38: Glucometer 151 04/02/18 15:34: Glucometer 132 04/02/18 20:10: Glucometer 187 04/03/18 06:10: Prothrombin Time 16.6, INR Comment 1.3 04/03/18 06:15: Glucometer 90 04/03/18 11:21: Glucometer 117 04/03/18 15:41: Glucometer 121 04/03/18 20:25: Glucometer 156 04/04/18 05:24: Prothrombin Time 15.6, INR Comment 1.2 04/04/18 05:34: Glucometer 108 04/04/18 11:43: Glucometer 99 04/04/18 15:51: Glucometer 109 04/04/18 20:13: Glucometer 246 04/05/18 05:19: Glucometer 101 04/05/18 05:36: Prothrombin Time 15.4, INR Comment 1.2 04/05/18 11:48: Glucometer 114 04/05/18 16:51: Glucometer 111 04/05/18 20:14: Glucometer 138 04/06/18 05:22: Glucometer 135 04/06/18 06:30: Prothrombin Time 18.8, INR Comment 1.6 Discharge Home Medications: Active Scripts Active Iprat-Albut 0.5-3(2.5) mg/3 ml (Ipratropium/Albuterol Sulfate) 3 Ml Ampul.neb 3 Ml IH Q4H PRN Magnesium Oxide 400 Mg Tablet 400 Mg PO BIDPC Guaifenesin Dm Syrup (Guaifenesin/Dextromethorphan) 5 Ml Syrup 5 Ml PO Q4H PRN Enoxaparin Sodium 80 Mg/0.8 Ml Syringe 70 Mg SQ Q12H Oxycodone-Acetaminophen 10-325 (Oxycodone HCl/Acetaminophen) 1 Each Tablet 1 Each PO HS MDD 3 Xanax (Alprazolam) 1 Mg Tablet 1 Mg PO BID PRN Coumadin (Warfarin Sodium) 1 Mg Tablet 1 Mg PO DAILY@1800 Reported Pantoprazole Sodium 40 Mg Tablet.dr 40 Mg PO BID Metformin HCl 1,000 Mg Tablet 1,000 Mg PO DAILY Levothyroxine Sodium 175 Mcg Tablet 175 Mcg PO HS Tamsulosin HCl 0.4 Mg Cap.er.24h 0.4 Mg PO HS Lovastatin 40 Mg Tablet 40 Mg PO HS [place] 100 Unit-33 Mcg/ml Pen (Insulin Glargine/Lixisenatide) 3 Ml Insuln.pen 21 Units SQ DAILY Demeclocycline HCl 150 Mg Tablet 150 Mg PO BID Amiodarone HCl 200 Mg Tablet 200 Mg PO BID Instructions to patient/family Please see electronic discharge instructions given to patient. Diagnosis/Problems Diagnosis/Problems (1) Debility Status: Acute (2) Rales Status: Resolved Resolution Date/Time: 04/04/18 @ 13:50 (3) Acute respiratory failure Status: Resolved Qualifiers: Qualified Codes: J96.00 - Acute respiratory failure, unspecified whether with hypoxia or hypercapnia Resolution Date/Time: 03/25/18 @ 20:39 (4) PNA (pneumonia) Status: Resolved Qualifiers: Qualified Codes: J18.9 - Pneumonia, unspecified organism Resolution Date/Time: 03/27/18 @ 15:18 (5) Frailty Status: Acute (6) Elevated INR Status: Resolved Resolution Date/Time: 03/27/18 @ 15:18 (7) Iron deficiency Status: Acute (8) Electrolyte abnormality Status: Resolved Resolution Date/Time: 03/26/18 @ 09:09 (9) Insulin dependent diabetes mellitus Status: Chronic (10) Hypokalemia Status: Resolved Resolution Date/Time: 03/25/18 @ 20:39 (11) Aortic valve replaced Status: Chronic (12) Constipation Status: Chronic Qualifiers: Qualified Codes: K59.01 - Slow transit constipation (13) Blister of left heel Status: Acute Assessment & Plan: Consult Dr Odom Qualifiers: Qualified Codes: S90.822A - Blister (nonthermal), left foot, initial encounter Clinical Quality Measures DVT/VTE Risk/Contraindication: Risk Factor Score Per Nursin RFS Level Per Nursing on Admit: 3=High MIRNA EUCEDA DO Apr 06, 2018 08:25
[2018-04-06] MEDS: LIXISENATIDE SQ SCH (08:27)
[2018-04-06] MEDS: INSULIN GLARGINE SQ SCH (08:27)
[2018-04-06] MEDS: oxyCODONE/APAP 10/325MG (PERCOCET 10) TABLET PO PRN (08:33)
[2018-04-06] MEDS: DICLOFENAC 1% GEL 100 GM (VOLTAREN) TUBE TOP SCH (08:33)
--- NOTE | 2018-04-06 08:34 | Cardiology Progress Note ---
Subjective Date Seen by Provider: Apr 06, 2018 Time Seen by Provider: 08:32 Subjective/Events-last exam Patient is in bed, no new complaints. Wanting to go home. Objective-Cardiology Exam Last Set of Vital Signs Vital Signs 04/03/18 04/03/18 04/06/18 04/06/18 06:19 15:23 05:31 06:35 Temp 97.4 Pulse 60 Resp 18 B/P (MAP) 134/76 (95) Pulse Ox 93 O2 Delivery Room Air O2 Flow Rate 1.00 FiO2 24 Capillary Refill : Less Than 3 Seconds I&O Intake and Output 04/05/18 23:59 Intake Total 1050 ml Output Total 1525 ml Balance -475 ml Intake Oral 1050 ml Output Urine Total 1525 ml General: Alert, Oriented X3, Cooperative, Other (chronically ill) HEENT: Atraumatic, PERRLA Neck: Supple, No JVD, No Thyromegaly Lungs: Clear to Auscultation, Normal Air Movement Heart: Regular Rate, Normal S1, Normal S2 Abdomen: Normal Bowel Sounds, Soft, No Tenderness, No Hepatosplenomegaly, No Masses Extremities: No Clubbing, No Cyanosis, Normal Pulses, No Tenderness/Swelling, Other (Mild edema) Skin: No Rashes, No Breakdown, No Significant Lesion Neuro: Normal Speech, Normal Tone, Sensation Intact Psych/Mental Status: Mental Status NL, Mood NL A/P-Cardiology Admission Diagnosis Generalized weakness Coumadin toxicity Hypertension Pneumonia Assessment/Plan Generalized weakness and debility, receiving therapy Pneumonia, better, received antibiotic, managed by primary care team Status post Coumadin toxicity for which he received FFP and vitamin K, Continue to monitor History of aortic valve replacement, on Coumadin, continue to adjust and monitor Paroxysmal atrial fibrillation, maintained on amiodarone. Continue to monitor Elevated liver enzymes,improving, continue to monitor. Leukopenia, monitored and followed by primary care physician Permanent pacemaker, functioning normally. Continue to monitor Diabetes mellitus, followed and managed by primary care physician Hypertension, continue to monitor blood pressure Hyperlipidemia, continue to monitor lipids. Hypothyroidism, followed and managed by primary care physician Patient ok for discharge from Cardiology standpoint. Follow up with Dr. Hinkle , patients primary physician vice president, as outpatient. Clinical Quality Measures DVT/VTE Risk/Contraindication: Risk Factor Score Per Nursin RFS Level Per Nursing on Admit: 3=High JORGE LUIS MOLINA Apr 06, 2018 08:34
--- NOTE | 2018-04-06 09:00 | NUR ---
STATES DID HAVE "A GOOD BM THIS MORNING". HAS BEEN 10 DAYS SINCE LAST STOOL AND "I KNEW YOU GUYS WERE WORRIED ABOUT IT".
--- NOTE | 2018-04-06 09:06 | Physical Therapy Daily Note ---
PT Daily Note-Current Subjective Patient in bed pre tx, agrees to PT, has 8/10 pain in right knee, has MYRTLE wrap. Appearance Patient in bed post tx with nurse call, phone, tray, all needs met. Mental Status Patient Orientation: Person, Place, Situation, Normal For Age Transfers Therapy Code Descriptions/Definitions Functional [place] Measure: 0=Not Assessed/NA 4=Minimal Assistance 1=Total Assistance 5=Supervision or Setup 2=Maximal Assistance 6=Modified [place] 3=Moderate Assistance 7=Complete [place] Therapy Quality Codes: 6 Independent with activity with or without an assistive device 5 Patient requires set up or clean up by helper. Patient completes activity by themselves 4 Supervision or touching assist (CGA). [place] provide cues , steadying assist 3 The helper provides less than half the effort to complete the activity 2 The helper provides more than half the effort to complete the activity 1 Dependent. The helper does all the effort to complete an activity 7 Patient refused to complete or attempt activity 9 The patient did not perform the activity before the current illness or injury 88 Not attempted due to Medical conditions or safety concerns Transfers (B, C, W/C) (FIM): 6 Scootin Rollin Roll Left to Right (QC): 6 Supine to/from Sit: 6 Sit to/from Stand: 6 Sit to Lying (QC): 6 Sit to Stand (QC): 6 Chair/Qny-fc-Vqoyu Xfer(QC): 6 Bed to/from Chair: 6 Car Transfer (QC): 6 Patient performs bed mobility and transfers with mod I, supine <-> sit with mod I, sit <-> stand mod I, and car transfer with mod I. Patient requires some effort for supine <-> sit but can do it without assist. Weight Bearing Right Lower Extremity: Right Weight Bearing/Tolerated Left Lower Extremity: Left Weight Bearing/Tolerated Gait Training Gait (FIM): 6 Distance: 150', 200' Gait Level of Assist: 6 Gait Assistive Device: FWW Patient can ambulate 200' with a rolling walker with mod I (including 50' with at least 2 turns of 90 degrees and 10' over an uneven surface). Patient ambulates slowly but steady. Wheelchair Training Does the Pt Use a Wheelchair?: No Stair Training Stairs (FIM): 1 #of Steps: 1 1 Step (curb) (QC): 4 Stairs: Pattern: Step to Level of Assist: 5 Patient can go up and down 1 step using a rolling walker with SBA. Patient attempted to go up more stairs but could not make it up even one while using 2 handrails. Treatments bed mobility and transfers, ambulation, car transfer, stairs Assessment Current Status: Fair Progress improving endurance and strength PT Short Term Goals Short Term Goals Time Frame: Apr 01, 2018 Gait (FIM): 5 Gait Distance Comment: 150' Gait Level of Assist: 5 Gait Assistive Device: FWW PT Phys Assistant Goals Detention Goals PT Phys Assistant Goals Time Frame: Apr 15, 2018 Transfers (B,C,W/C) (FIM): 6 Sit to Lying (QC): 6 Lying-Sitting on Side/Bed(QC): 6 Sit to Stand (QC): 6 Rollin Roll Left to Right (QC): 6 Chair/Ima-ph-Qglce Xfer(QC): 6 Car Transfer (QC): 6 Gait (FIM): 6 Distance: 200' Walk 10 feet (QC): 6 Walk 10ft-Uneven Surface(QC): 6 Walk 50ft with 2 Turns (QC): 6 Walk 150 ft (QC): 6 Gait Level of Assist: 6 Gait Assistive Device: FWW Stairs (FIM): 2 # of Steps: 4 1 Step (curb) (QC): 4 4 Steps (QC): 4 Stairs Level Of Assist: 5 PT Plan Problem List Problem List: Activity Tolerance, Functional Strength, Safety, Balance, Gait, Transfer, Bed Mobility, ROM Treatment/Plan Treatment Plan: Continue Plan of Care Treatment Plan: Bed Mobility, Education, Functional Activity Natacha, Functional Strength, Group Therapy, Gait, Safety, Therapeutic Exercise, Transfers Treatment Duration: Apr 15, 2018 Frequency: At least 5 of 7 days/Wk (IRF) Estimated Hrs Per Day: 1.5 hours per day Patient and/or Family Agrees t: Yes Safety Risks/Education Patient Education: Gait Training, Transfer Techniques, Steps, Correct Positioning, Safety Issues Teaching Recipient: Patient Teaching Methods: Demonstration, Discussion Response to Teaching: Reinforcement Needed Time/GCodes Time In: 0845 Time Out: 904 Total Billed Treatment Time: 20 Total Billed Treatment 1 visit GT 20' JORDYN VELEZ PT Apr 06, 2018 09:06
--- NOTE | 2018-04-06 09:11 | Therapy Team Discharge Summary ---
Therapy Discharge Summary Discharge Recommendations Date of Discharge Therapy D/C Recommendations: Home Independently Physical Therapy Patient came to rehab with pneumonia and debility. Upon evaluation patient performed bed mobility with SBA, supine to sit min assist, sit to supine SBA, sit <-> stand CGA, transfers CGA, car transfer CGA, ambulated 100' with a rolling walker with CGA, and went up and down 1 step using a rolling walker with CGA. Patient has been performing bed mobility and transfer training, balance and endurance training, functional strengthening, stair training, gait training,and education. 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 Now, patient performs bed mobility and transfers with mod I, supine <-> sit with mod I, sit <-> stand mod I, and car transfer with mod I, ambulates 200' with a rolling walker with mod I (including 50' with at least 2 turns of 90 degrees and 10' over an uneven surface), and can go up and down 1 step using a rolling walker with SBA. Patient is discharging from this facility today and will be discharged from PT at this time. Occupational Therapy Decreased Activ Tolerance, Decreased Safety Aware, Decreased UE Strength, Impaired Bed Mobility, Impaired Funct Balance, Impaired Self-Care Skills PT Mcc Goals Hair Mixer Goals PT Mcc Goals Time Frame: Apr 15, 2018 Transfers (B,C,W/C) (FIM): 6 Roll Left to Right (QC): 6 Sit to Lying (QC): 6 Lying-Sitting on Side/Bed(QC): 6 Sit to Stand (QC): 6 Chair/Vec-yp-Oeyze Xfer(QC): 6 Car Transfer (QC): 6 Gait (FIM): 6 Distance: 200' Walk 10 feet (QC): 6 Walk 10ft-Uneven Surface(QC): 6 Walk 50ft with 2 Turns (QC): 6 Walk 150 ft (QC): 6 Gait Level of Assist: 6 Gait Assistive Device: FWW Stairs (FIM): 2 # of Steps: 4 1 Step (curb) (QC): 4 4 Steps (QC): 4 Stairs Level Of Assist: 5 OT Mcc Goals Mcc Goals Time Frame: Apr 15, 2018 Eating (FIM): 6 Eating (QC): 6 Oral Hygiene (QC): 6 Grooming(FIM): 6 Bathing(FIM): 5 Shower/Bathe Self (QC): 5 Upper Body Dressing(FIM): 6 Upper Body Dressing (QC): 6 Lower Body Dressing(FIM): 6 Lower Body Dressing (QC): 6 On/Off Footwear (QC): 6 Toileting(FIM): 6 Toileting Hygiene (QC): 6 Toilet/Commode Transfer(FIM): 6 Toilet/Commode Transfer (QC): 6 Shower Transfer(FIM): 5 Additional Goals: 1-Demonstrate ADL Tasks, 2-Verbalize Understanding, 3- ImproveStrength/Natacha 1=Demonstrate adherence to instructed precautions during ADL tasks. 2=Patient will verbalize/demonstrate understanding of assistive devices/ modifications for ADL. 3=Patient will improve strength/tolerance for activity to enable patient to perform ADL's. Speech Mcc Goals Hair Mixer Goals Patient will maintain adequate nutrition/hydration via safe effective swallow function. JORDYN VELEZ PT Apr 06, 2018 09:11
--- NOTE | 2018-04-06 10:16 | NUR ---
Patient has agreed to home health care. Choice form signed. Patient is scheduled to discharge today. No barriers to discharge noted.
--- NOTE | 2018-04-06 10:18 | Occupational Ther Daily Note ---
OT Current Status-Daily Note Subjective Pt stated, " I am doing good. I am going home today. Yesterday I took a shower by myself." Pain Numeric Pain Scale: 5-Moderate Pain Location: Right Location Body Site: Knee Pain Description: Ache, Sharp Mental Status/Objective Patient Orientation: Person, Place, Time Therapy Code Descriptions/Definitions Functional [place] Measure: 0=Not Assessed/NA 4=Minimal Assistance 1=Total Assistance 5=Supervision or Setup 2=Maximal Assistance 6=Modified [place] 3=Moderate Assistance 7=Complete [place] ADL-Treatment Pt seen in OT for self care tasks, func toilet transfers, toiletting , donning/ doffing socks & LB & UB dressing , fun .ambulation with FWW & safety awareness , bed mobility & theraex to BUE. Therapy Code Descriptions/Definitions Functional [place] Measure: 0=Not Assessed/NA 4=Minimal Assistance 1=Total Assistance 5=Supervision or Setup 2=Maximal Assistance 6=Modified [place] 3=Moderate Assistance 7=Complete [place] Therapy Quality Codes: 6 Independent with activity with or without an assistive device 5 Patient requires set up or clean up by helper. Patient completes activity by themselves 4 Supervision or touching assist (CGA). [place] provide cues , steadying assist 3 The helper provides less than half the effort to complete the activity 2 The helper provides more than half the effort to complete the activity 1 Dependent. The helper does all the effort to complete an activity 7 Patient refused to complete or attempt activity 9 The patient did not perform the activity before the current illness or injury 88 Not attempted due to Medical conditions or safety concerns Eating (FIM): 7 Eating (QC): 6 Grooming (FIM): 7 Oral Hygiene (QC): 6 Bathing (FIM): 6 Bathing Location: L Arm, R Arm, L Upper Leg, R Upper Leg, L Lower Leg ( including foot), R Lower Leg (including foot), Chest, Abdomen, Buttocks, Perineal Area Shower/Bathe Self (QC): 6 Upper Body (FIM): 7 Upper Body Dressing (QC): 7 Lower Body Dressing (FIM): 7 Lower Body Dressing (QC): 6 On/Off Footwear (QC): 7 Toileting (FIM): 7 Toileting Hygiene (QC): 7 Transfers (B, C, W/C) (FIM): 7 Toilet/Commode Transfer (FIM): 7 Toilet Transfer (QC): 6 Tub Transfer(FIM): 0 Shower Transfer(FIM): 7 Patient met all goals with safety awareness. Education OT Patient Education: Correct positioning, Energy conservation, Modified ADL techniques, Safety issues Teaching Recipient: Patient Teaching Methods: Demonstration, Discussion Response to Teaching: Verbalize Understanding, Return Demonstration OT Short Term Goals Short Term Goals Time Frame: Apr 01, 2018 Lower Body Dressing(FIM): 4 Toilet/Commode Transfer(FIM): 5 Additional Short Term Goals: 1-Demonstrate ADL Tasks, 2-Verbalize Understanding , 3-ImproveStrength/Natacha 1=Demonstrate adherence to instructed precautions during ADL tasks. 2=Patient will verbalize/demonstrate understanding of assistive devices/ modifications for ADL. 3=Patient will improve strength/tolerance for activity to enable patient to perform ADL's. OT Needle Molder Goals Prison Goals Time Frame: Apr 15, 2018 Eating (FIM): 6 Eating (QC): 6 Groomin Oral Hygiene (QC): 6 Bathing(FIM): 5 Shower/Bathe Self (QC): 5 Upper Body Dressing(FIM): 6 Upper Body Dressing (QC): 6 Lower Body Dressing(FIM): 6 Lower Body Dressing (QC): 6 On/Off Footwear (QC): 6 Toileting(FIM): 6 Toileting Hygiene (QC): 6 Toilet/Commode Transfer(FIM): 6 Toilet/Commode Transfer (QC): 6 Shower Transfer(FIM): 5 Additional Goals: 1-Demonstrate ADL Tasks, 2-Verbalize Understanding, 3- ImproveStrength/Natacha 1=Demonstrate adherence to instructed precautions during ADL tasks. 2=Patient will verbalize/demonstrate understanding of assistive devices/ modifications for ADL. 3=Patient will improve strength/tolerance for activity to enable patient to perform ADL's. OT Education/Plan Problem List/Assessment Assessment: Impaired Self-Care Skills Discharge Recommendations Plan/Recommendations: Discharge/Goals Met Therapy D/C Recommendations: Home w/ Family Support Equpiment Recommendations-D/C: Extended Shower Sprayer, 3Rd Grade Reading Teacher Barriers to Progress Pt still fatigue soon. Needs rest periods between each activity. Patient/Family Goals To return home Independently with safety awareness. Treatment Plan/Plan of Care Treatment,Training & Education: Yes Patient would benefit from OT for education, treatment and training to promote independence in ADL's, mobility, safety and/or upper extremity function for ADL' s. Plan of Care: ADL Retraining, Functional Mobility, Group Exercise/Act as Ind, UE Funct Exercise/Act Treatment Duration: Apr 15, 2018 Frequency: At least 5 of 7 days/Wk (IRF) Estimated Hrs Per Day: 1.5 hours per day Agreement: Yes Rehab Potential: Good Time/GCodes Start Time: 09:30 Stop Time: 10:15 Total Time Billed (hr/min): 45 Billed Treatment Time 1, ADL X30 min, Ex x 15 min Total minutes 45 minutes LUKE CAMPOS OT Apr 06, 2018 10:18
--- NOTE | 2018-04-06 10:55 | Cardiology Progress Note ---
Subjective Date Seen by Provider: Apr 06, 2018 Time Seen by Provider: 10:49 Subjective/Events-last exam patient is laying down in bed, getting ready to go home, no new complaint Review of Systems General: No Chills, No Night Sweats, No Fatigue, No Malaise, No Appetite, No Other HEENT: No Head Aches, No Visual Changes, No Eye Pain, No Ear Pain, No Dysphasia , No Sinus Congestion, No Post Nasal Drip, No Sore Throat, No Other Pulmonary: No Dyspnea, No Cough, No Pleuritic Chest Pain, No Other Cardiovascular: No: Chest Pain, Palpitations, Orthopnea, Paroxysmal Noc. Dyspnea, Edema, Lt Headedness, Other Objective-Cardiology Exam Last Set of Vital Signs Vital Signs 04/03/18 04/03/18 04/06/18 04/06/18 06:19 15:23 05:31 06:35 Temp 97.4 Pulse 60 Resp 18 B/P (MAP) 134/76 (95) Pulse Ox 93 O2 Delivery Room Air O2 Flow Rate 1.00 FiO2 24 Capillary Refill : Less Than 3 Seconds I&O Intake and Output 04/06/18 00:00 Intake Total 1050 ml Output Total 1525 ml Balance -475 ml Intake Oral 1050 ml Output Urine Total 1525 ml General: Alert, Oriented X3, Cooperative, Other (chronically ill) HEENT: Atraumatic, PERRLA Neck: Supple, No JVD, No Thyromegaly Lungs: Clear to Auscultation, Normal Air Movement Heart: Regular Rate, Normal S1, Normal S2 Abdomen: Normal Bowel Sounds, Soft, No Tenderness, No Hepatosplenomegaly, No Masses Extremities: No Clubbing, No Cyanosis, Normal Pulses, No Tenderness/Swelling, Other (Mild edema) Skin: No Rashes, No Breakdown, No Significant Lesion Neuro: Normal Speech, Normal Tone, Sensation Intact Psych/Mental Status: Mental Status NL, Mood NL Results Lab A/P-Cardiology Admission Diagnosis Generalized weakness Coumadin toxicity Hypertension Pneumonia Assessment/Plan Generalized weakness and debility, improved, being discharged today Pneumonia, better, received antibiotic, managed by primary care team Status post Coumadin toxicity for which he received FFP and vitamin K, restarted Coumadn, monitor INR History of aortic valve replacement, on Coumadin, monitor INR recommended checking INR on April 08 and April [address] Hinkle Paroxysmal atrial fibrillation, maintained on amiodarone. Continue to monitor Elevated liver enzymes,improving, continue to monitor. Leukopenia, monitored and followed by primary care physician Permanent pacemaker, functioning normally. Continue to monitor Diabetes mellitus, followed and managed by primary care physician Hypertension, continue to monitor blood pressure Hyperlipidemia, continue to monitor lipids. Hypothyroidism, followed and managed by primary care physician Patient ok for discharge from Cardiology standpoint. Follow up with Dr. Hinkle , patients primary machine ii engraver, as outpatient. Clinical Quality Measures DVT/VTE Risk/Contraindication: Risk Factor Score Per Nursin RFS Level Per Nursing on Admit: 3=High KARTHIKEYAN HORTON MD Apr 06, 2018 10:55 am
--- NOTE | 2018-04-06 11:00 | NUR ---
SON STATES WONDERED IF HE COULD GET PAID FOR TAKING CARE OF HIS FATHER, AND Asher EL GAVE HIM INFORMATION WHERE TO GET HIS INFORMATION.
--- NOTE | 2018-04-06 11:11 | Speech Therapy Daily Note ---
Speech Daily Progress Note Subjective Date Seen by Provider: Apr 06, 2018 Time Seen by Provider: 00:15 Patient is excited about going home today. Objective Patient completed OME x10 without cues today. Treatment Plan Discontinue ST, Goals Met Communication Comprehension: 7 Expression: 7 Social Cognition Social Interaction: 7 Problem Solvin Memory: 7 Speech Short Term Goals Short Term Goals Short Term Goals 1) Patient will decrease oral transit time to 3 seconds in order to patient's ability to efficiently consume highest level of oral intake with 80% or greater. Met 2) Patient will utilize compensatory strategies as trained with 80% or greater. Met Speech Halfway Goals Radio Time Sales Supervisor Goals Patient will maintain adequate nutrition/hydration via safe effective swallow function. Met Speech-Plan Patient/Family Goals Patient/Family Goals: Patient is returning home where he lives with his son. Treatment Plan Speech Therapy Treatment Plan: Discontinue ST, Goals Met Patient has made good progress as a result of skilled ST services. Treatment Duration: Apr 06, 2018 Frequency: 5 times per week Estimated Hrs Per Day: .5 hour per day Rehab Potential: Good Barriers to Learning: Safety of oral intake when he returns home. Pt/Family Agrees to Plan: Yes Safety Risks/Education Teaching Recipient: Patient Teaching Methods: Discussion Response to Teaching: Verbalize Understanding Time Speech Therapy Time In: 08:30 Speech Therapy Time Out: 08:45 Total Billed Time: 15 Billed Treatment Time 1, LOULOU Bishop Apr 06, 2018 11:11
--- NOTE | 2018-04-06 11:21 | Therapy Team Discharge Summary ---
Therapy Discharge Summary Discharge Recommendations Date of Discharge 04/06/2018 Therapy D/C Recommendations: Home w/ Family Support Occupational Therapy Impaired Self-Care Skills Speech-Language Pathology Patient was admitted to the ARU for strengthening in order to safely return home. Patient was initially evaluated for swallow function. Patient has been on skilled ST services for dysphagia to increase oral strength, ROM and coordination for safe oral intake. Patient is being discharged to home. Patient is being discharged from ST this date. PT Corporate Consultant Goals Corporate Consultant Goals PT Mcc Goals Time Frame: Apr 06, 2018 Transfers (B,C,W/C) (FIM): 6 Roll Left to Right (QC): 6 Sit to Lying (QC): 6 Lying-Sitting on Side/Bed(QC): 6 Sit to Stand (QC): 6 Chair/Bke-de-Wesbd Xfer(QC): 6 Car Transfer (QC): 6 Gait (FIM): 6 Distance: 200' Walk 10 feet (QC): 6 Walk 10ft-Uneven Surface(QC): 6 Walk 50ft with 2 Turns (QC): 6 Walk 150 ft (QC): 6 Gait Level of Assist: 6 Gait Assistive Device: FWW Stairs (FIM): 2 # of Steps: 4 1 Step (curb) (QC): 4 4 Steps (QC): 4 Stairs Level Of Assist: 5 OT Mcc Goals Mcc Goals Time Frame: Apr 15, 2018 Eating (FIM): 6 Eating (QC): 6 Oral Hygiene (QC): 6 Grooming(FIM): 6 Bathing(FIM): 5 Shower/Bathe Self (QC): 5 Upper Body Dressing(FIM): 6 Upper Body Dressing (QC): 6 Lower Body Dressing(FIM): 6 Lower Body Dressing (QC): 6 On/Off Footwear (QC): 6 Toileting(FIM): 6 Toileting Hygiene (QC): 6 Toilet/Commode Transfer(FIM): 6 Toilet/Commode Transfer (QC): 6 Shower Transfer(FIM): 5 Additional Goals: 1-Demonstrate ADL Tasks, 2-Verbalize Understanding, 3- ImproveStrength/Natacha 1=Demonstrate adherence to instructed precautions during ADL tasks. 2=Patient will verbalize/demonstrate understanding of assistive devices/ modifications for ADL. 3=Patient will improve strength/tolerance for activity to enable patient to perform ADL's. Speech Mcc Goals Mcc Goals Patient will maintain adequate nutrition/hydration via safe effective swallow function. Met LOULOU OSEGUERA Apr 06, 2018 11:21
--- NOTE | 2018-04-06 13:09 | Therapy Team Discharge Summary ---
Therapy Discharge Summary Discharge Recommendations Date of Discharge Therapy D/C Recommendations: Home w/ Family Support Occupational Therapy Impaired Self-Care Skills PT Senior Living Goals Director Of Infection Control Goals PT Director Of Infection Control Goals Time Frame: Apr 06, 2018 Transfers (B,C,W/C) (FIM): 6 Sit to Lying (QC): 6 Lying-Sitting on Side/Bed(QC): 6 Sit to Stand (QC): 6 Rollin Chair/Ihh-md-Abtmf Xfer(QC): 6 Gait (FIM): 6 Distance: 200' Walk 50ft with 2 Turns (QC): 6 Walk 150 ft (QC): 6 Gait Level of Assist: 6 Gait Assistive Device: FWW Stairs (FIM): 2 # of Steps: 4 Stairs Level Of Assist: 5 OT Director Of Infection Control Goals Director Of Infection Control Goals Time Frame: Apr 15, 2018 Eating (FIM): 6 (7 goal met) Eating (QC): 6 (6 goal met) Groomin (7 goal met) Oral Hygiene (QC): 6 (6 goal met) Bathing(FIM): 5 (7 goal met) Bathing Location: L Arm, R Arm, L Upper Leg, R Upper Leg, L Lower Leg ( including foot), R Lower Leg (including foot), Chest, Abdomen, Buttocks, Perineal Area Upper Body Dressing(FIM): 6 (7 goal met) Lower Body Dressing(FIM): 6 (7 goal met) Toileting(FIM): 6 (7 goal met) Toileting Hygiene (QC): 6 (7 goal met) Transfers (B,C,W/C) (FIM): 5 (7 goal met) Toilet/Commode Transfer(FIM): 6 (7 goal met) Toilet/Commode Transfer (QC): 6 (6 goal met) Shower Transfer(FIM): 5 (7 goal met) Pt met all goals & thus D/C from skilled OT Services to Home with safety awareness. Additional Goals: 1-Demonstrate ADL Tasks, 2-Verbalize Understanding, 3- ImproveStrength/Natacha 1=Demonstrate adherence to instructed precautions during ADL tasks. 2=Patient will verbalize/demonstrate understanding of assistive devices/ modifications for ADL. 3=Patient will improve strength/tolerance for activity to enable patient to perform ADL's. Speech Senior Living Goals Senior Living Goals Patient will maintain adequate nutrition/hydration via safe effective swallow function. Met MAHURE,LUKE OT Apr 06, 2018 13:09
[2018-04-06 13:52] VITALS: BP 134/76
== END 2018-04-06 11:10 | disposition home health service (06) | DRG 947 ==
PROVIDERS: ADMIT Internal Medicine; ATTEND Internal Medicine
DX: R53.1 Weakness (principal); J18.9 Pneumonia, unspecified organism; I48.0 Paroxysmal atrial fibrillation; E11.22 Type 2 diabetes mellitus with diabetic chronic kidney disease; N18.9 Chronic kidney disease, unspecified; I12.9 Hypertensive chronic kidney disease with stage 1 through stage 4 chronic kidney disease, or unspecified chronic kidney disease; G93.41 Metabolic encephalopathy; E11.649 Type 2 diabetes mellitus with hypoglycemia without coma; E78.5 Hyperlipidemia, unspecified; E03.9 Hypothyroidism, unspecified; K29.70 Gastritis, unspecified, without bleeding; D64.9 Anemia, unspecified; I25.10 Atherosclerotic heart disease of native coronary artery without angina pectoris; J44.9 Chronic obstructive pulmonary disease, unspecified; K59.01 Slow transit constipation; F41.9 Anxiety disorder, unspecified; F32.9 Major depressive disorder, single episode, unspecified; R33.9 Retention of urine, unspecified; E87.6 Hypokalemia; L89.629 Pressure ulcer of left heel, unspecified stage; R79.1 Abnormal coagulation profile; Z79.4 Long term (current) use of insulin; Z95.5 Presence of coronary angioplasty implant and graft; Z95.0 Presence of cardiac pacemaker; Z95.2 Presence of prosthetic heart valve
CPT/HCPCS: 36415; 71046; 80053; 82962; 85025; 85610; 94640; 94760

== ENCOUNTER 2018-04-28 08:57 | Inpatient (IN) | payer MEDICARE, OTHER ==
[~2018-04-28] VITALS: Ht 172.7 cm; Wt 70.8 kg
[2018-04-28] VITALS (12 sets, daily range): BP systolic 98–166; BP diastolic 43–91
[~2018-04-28 08:57] MED LIST changes: +ENOX80DI7 SQ; +GUAI5SYR PO; +IPRA3AMP31 IH
[2018-04-28] MEDS ORDERED: NS IV 1000 ML 1,000 ML IV ONE (09:09)
[2018-04-28 09:28] LABS: BASOPHILS % (AUTO) 0 % (0-10); EOSINOPHILS % (AUTO) 0 % (0-10); HEMATOCRIT 38 % (40-54); HEMOGLOBIN 12.4 G/DL (13.3-17.7); LYMPHOCYTES # (AUTO) 0.6 X 10^3 (1.0-4.0); LYMPHOCYTES % (AUTO) 8 % (12-44); MEAN CORPUSCULAR HEMOGLOBIN 31 PG (25-34); MEAN CORPUSCULAR HGB CONC 32 G/DL (32-36); MEAN CORPUSCULAR VOLUME 96 FL (80-99); MEAN PLATELET VOLUME 11.9 FL (7.4-10.4); MONOCYTES # (AUTO) 0.9 X 10^3 (0.0-1.0); MONOCYTES % (AUTO) 13 % (0-12); NEUTROPHILS # (AUTO) 5.3 X 10^3 (1.8-7.8); NEUTROPHILS % (AUTO) 78 % (42-75); PLATELET COUNT 133 10^3/uL (130-400); RED CELL DISTRIBUTION WIDTH 17.7 % (10.0-14.5); WHITE BLOOD COUNT 6.8 10^3/uL (4.3-11.0)
[2018-04-28] MEDS ORDERED: RT-ALBUTEROL/IPRATROPIUM 3 ML (DUONEB) VIAL ONE (09:33)
[2018-04-28 09:36] LABS: ABG OXYGEN SATURATION 94 % (94-100); ABG PCO2 39 MMHG (35-45); ABG PO2 70 MMHG (79-93); ABG TCO2 24.3 MMOL/L (21.0-31.0)
--- NOTE | 2018-04-28 09:36 | ED General ---
General Chief Complaint: General Problems/Pain Stated Complaint: FALL,HYPOTENSION Nursing Triage Note: PT BROUGHT IN BY EMS FROM HOME WITH COMPLAINT OF NEAR FALL. PT STATES HE STARTED TO FEEL LIKE HE WAS GOING TO FALL, BUT LOWERED HIMSELF ON THE GROUND. AT EMS ARRIVAL, PT WAS HYPOTENSIVE AND 02 SAT IN THE 80S. Nursing Sepsis Screen: No Definite Risk Source of Information: Patient Exam Limitations: No Limitations History of Present Illness Date Seen by Provider: Apr 28, 2018 Time Seen by Provider: 08:57 Initial Comments Here with report of weakness this morning. Apparently he was getting up to go to the bathroom and he felt very weak [place] himself down. He did not fall and did not hurt anything. He called his son who then called EMS. EMS found him with O2 sats in the 70s and an initial blood pressure in the upper 80s systolic. They did initiate IV and transport. On arrival here: O2 sats in the upper 80s low 90s on nasal cannula 6 L. This was increased oxygen mask which did improve his oxygen saturations to the low 90s. Not currently febrile. Apparently was discharged from the hospital couple weeks ago for double pneumonia. Does have diabetes and EMS noted blood sugar 252. Denies nausea or vomiting. States overall he is very weak and is a little short of breath. Timing/Duration: 12-24 Hours Severity: Moderate Modifying Factors: improves with Rest Associated Systoms: No Chest Pain, No Cough, No Fever/Chills, No Nausea/ Vomiting; Shortness of Air, Weakness Allergies and Home Medications Allergies Coded Allergies: fentanyl (Verified Allergy, Mild, 03/09/18) levofloxacin (Unverified Allergy, Unknown, 03/09/18) "FEELS FUNNY" cefadroxil (Verified Adverse Reaction, Mild, NAUSEA, 03/09/18) sulfamethoxazole (Verified Adverse Reaction, Mild, 03/09/18) trimethoprim (Verified Adverse Reaction, Mild, 03/09/18) Home Medications Alprazolam 1 Mg Tablet, 1 MG PO BID, (Reported) Alprazolam 1 Mg Tablet, 1 MG PO BID PRN for ANXIETY, (Reported) Amiodarone HCl 200 Mg Tablet, 200 MG PO BID, (Reported) Demeclocycline HCl 150 Mg Tablet, 150 MG PO BID, (Reported) Guaifenesin/Dextromethorphan 5 Ml Syrup, 5 ML PO Q4H PRN for COUGH, (Reported) Hydrochlorothiazide 12.5 Mg Capsule, 12.5 MG PO DAILY, (Reported) Insulin Glargine/Lixisenatide 3 Ml Insuln.pen, 21 UNITS SQ DAILY, (Reported) Levothyroxine Sodium 175 Mcg Tablet, 175 MCG PO HS, (Reported) Lovastatin 40 Mg Tablet, 40 MG PO HS, (Reported) Magnesium Oxide 400 Mg Tablet, 400 MG PO BIDPC, (Reported) Metformin HCl 1,000 Mg Tablet, 1,000 MG PO DAILY, (Reported) Oxycodone HCl/Acetaminophen 1 Each Tablet, 1 TAB PO TID PRN for PAIN-MODERATE, ( Reported) Pantoprazole Sodium 40 Mg Tablet.dr, 40 MG PO BID, (Reported) Tamsulosin HCl 0.4 Mg Cap.er.24h, 0.4 MG PO HS, (Reported) Warfarin Sodium 1 Mg Tablet, 1 MG PO 1800, (Reported) Patient Home Medication List Home Medication List Reviewed: Yes Review of Systems Review of Systems Constitutional: see HPI; No chills, No fever EENTM: no symptoms reported Respiratory: short of breath; No wheezing Cardiovascular: No chest pain, No edema Gastrointestinal: No abdominal pain, No nausea, No vomiting Genitourinary: no symptoms reported Musculoskeletal: muscle pain, muscle weakness Skin: change in color, lesions Psychiatric/Neurological: Denies Headache; Weakness Hematologic/Lymphatic: Easy Bleeding All Other Systems Reviewed Negative Unless Noted: Yes Past Svfrvky-Nhfpws-Vxkkmn Hx Past Med/Social Hx: Reviewed Nursing Past Med/Soc Hx Patient Social History Alcohol Use: Denies Use Recreational Drug Use: No Smoking Status: Never a Smoker Recent Foreign Travel: No Contact w/Someone Who Travel: No Recent Infectious Disease Expo: No Recent Hopitalizations: No Immunizations Up To Date Tetanus Booster (TDap): Less than 5yrs Date of Pneumonia Vaccine: Dec 16, 2017 Date of Influenza Vaccine: Dec 15, 2017 Seasonal Allergies Seasonal Allergies: No Past Medical History Surgeries: Yes (COLON RESECTION, PACEMAKER, ARTIFICIAL VALVE, penile implant) Amputation, Bowel Surgery, Cardiac, Coronary Stent, Gallbladder, Orthopedic, Pacemaker, Valve Replacement Respiratory: Yes Pneumonia Currently Using CPAP: No Currently Using BIPAP: No Cardiac: Yes (AORTIC VALVE REPLACED, PACEMAKER, STENTS x2) Atrial Fibrillation, Coronary Artery Disease, High Cholesterol, Hypertension, Valvular Heart Disease Neurological: No Reproductive Disorders: No Sexually Transmitted Disease: No HIV/AIDS: No Genitourinary: Yes (urinary retension) Prostate Problems Gastrointestinal: Yes (gastroparesis) Gastroesophageal Reflux, Diverticulosis, Irritable Bowel Musculoskeletal: Yes (CHRONIC GENERALIZED PAIN--NARCOTIC DEPENDENT,HIP FX, OSTEOMYELITIS) Arthritis, Chronic Back Pain Endocrine: Yes Diabetes, Insulin dep, Hypothyroidsim HEENT: No Loss of Vision: Bilateral Hearing Impairment: Denies Cancer: No Psychosocial: Yes Anxiety, Depression Integumentary: No Blood Disorders: Yes (ANEMIA) Adverse Reaction/Blood Tranf: No (HAS HAD BLOOD WITH NO REACTION) Family Medical History Reviewed Nursing Family Hx Abdominal aortic aneurysm Arthritis Cardiovascular disease Diabetes mellitus Psychosocial problem Seizure disorder Thyroid disease Visual disorder Diabetes, Hypertension Physical Exam-Suspected Sepsis Physical Exam Vital Signs Vital Signs - First Documented 04/28/18 04/28/18 08:57 09:48 Temp 98.7 Pulse 77 Resp 20 B/P (MAP) 113/40 (64) Pulse Ox 82 O2 Delivery Vapotherm O2 Flow Rate 20.00 FiO2 100 Capillary Refill : Less Than 3 Seconds Blood Pressure Mean: 64 Height, Weight, BMI Height: 5'8.00" Weight: 139lbs. 4.8oz. [id number]; 24.3 BMI Method:Stated General Appearance: No Apparent Distress, Chronically ill, Thin HEENT: PERRL/EOMI, Pharynx Normal Neck: Full Range of Motion, Normal Inspection, Non Tender, Supple Respiratory: Lungs Clear, No Respiratory Distress, Crackles (bilateral with right greater than left); No Wheezing Cardiovascular: Regular Rate, Rhythm, Other (mechanical sound) Gastrointestinal: Non Tender, Soft Back: Normal Inspection, No CVA Tenderness, No Vertebral Tenderness Extremity: Normal Range of Motion, Non Tender Neurologic/Psychiatric: Alert, Oriented x3, Depressed Affect Skin: warm/dry, ecchymosis (multiple ecchymotic lesions on the abdomen where he does insulin injections. Multiple ecchymotic lesions to bilateral upper extremities with large ecchymosis and abrasion to left upper arm. He states that was maybe when they lifted him this morning. Patient is on Coumadin.) Focused Exam Lactate Level 04/28/18 09:52: Lactic Acid Level 3.60*H 04/28/18 12:00: Lactic Acid Level 1.59 Lactic Acid Level Procedures/Interventions Lumen: triple Central Line Procedure: betadine prep, sterile drapes applied, sterile dressing applied Position: internal jugular (R) Anesthesia: Lidocaine Volume Anesthetic (ccs): 4 Complications: none Post Position: sutured, good blood return, position confirmed w/ CXR Central line placed. Ultrasound guidance times one stick with no complications. Sutures in place. Good flash and draw. Tolerated procedure well without complications. Progress/Results/Core Measures Suspected Sepsis Recent Fever Within 48 Hours: No Infection Criteria Present: None New/Unexplained Altered Menta: No Sepsis Screen: No Definite Risk SIRS Temperature:98.7 Pulse: 77 Respiratory Rate: 20 Laboratory Tests 04/28/18 09:15: White Blood Count 6.8 04/29/18 03:35: White Blood Count 5.5 Blood Pressure 113 /40 Mean: 64 04/28/18 09:52: Lactic Acid Level 3.60*H 04/28/18 12:00: Lactic Acid Level 1.59 Laboratory Tests 04/28/18 09:15: Creatinine 1.47H, INR Comment 2.3H, Platelet Count 133, Total Bilirubin 0.7 04/28/18 13:35: Creatinine 1.24, INR Comment 2.3H 04/29/18 03:35: Creatinine 0.89, Platelet Count 100L, Total Bilirubin 0.7 Results/Orders Lab Results Laboratory Tests Test 04/28/18 09:15 04/28/18 09:28 04/28/18 09:40 04/28/18 09:52 Range/Units White Blood Count 6.8 4.3-11.0 10^3/uL Red Blood Count 3.99 L 4.35-5.85 10^6/uL Hemoglobin 12.4 L 13.3-17.7 G/DL Hematocrit 38 L 40-54 % Mean Corpuscular Volume 96 80-99 FL Mean Corpuscular Hemoglobin 31 25-34 PG Mean Corpuscular Hemoglobin Concent 32 32-36 G/DL Red Cell Distribution Width 17.7 H 10.0-14.5 % Platelet Count 133 130-400 10^3/uL Mean Platelet Volume 11.9 H 7.4-10.4 FL Neutrophils (%) (Auto) 78 H 42-75 % Lymphocytes (%) (Auto) 8 L 12-44 % Monocytes (%) (Auto) 13 H 0-12 % Eosinophils (%) (Auto) 0 0-10 % Basophils (%) (Auto) 0 0-10 % Neutrophils # (Auto) 5.3 1.8-7.8 X 10^3 Lymphocytes # (Auto) 0.6 L 1.0-4.0 X 10^3 Monocytes # (Auto) 0.9 0.0-1.0 X 10^3 Eosinophils # (Auto) 0.0 0.0-0.3 10^3/uL Basophils # (Auto) 0.0 0.0-0.1 10^3/uL Prothrombin Time 25.4 H 12.2-14.7 SEC INR Comment 2.3 H 0.8-1.4 Activated Partial Thromboplast Time 37 H 24-35 SEC Sodium Level 132 L 135-145 MMOL/L Potassium Level 5.3 H 3.6-5.0 MMOL/L Chloride Level 97 L 98-107 MMOL/L Carbon Dioxide Level 22 21-32 MMOL/L Anion Gap 13 5-14 MMOL/L Blood Urea Nitrogen 24 H 7-18 MG/DL Creatinine 1.47 H 0.60-1.30 MG/DL Estimat Glomerular Filtration Rate 48 BUN/Creatinine Ratio 16 Glucose Level 207 H 70-105 MG/DL Calcium Level 8.8 8.5-10.1 MG/DL Corrected Calcium 9.3 8.5-10.1 MG/DL Total Bilirubin 0.7 0.1-1.0 MG/DL Aspartate Amino Transf (AST/SGOT) 50 H 5-34 U/L Alanine Aminotransferase (ALT/SGPT) 32 0-55 U/L Alkaline Phosphatase 136 40-136 U/L Total Protein 6.6 6.4-8.2 GM/DL Albumin 3.4 3.2-4.5 GM/DL Blood Gas Puncture Site RT BRACH Blood Gas Patient Temperature 98.7 Arterial Blood pH 7.40 7.37-7.43 Arterial Blood Partial Pressure CO2 39 35-45 MMHG Arterial Blood Partial Pressure O2 70 L 79-93 MMHG Arterial Blood HCO3 23 23-27 MMOL/L Arterial Blood Total CO2 24.3 21.0-31.0 MMOL/L Arterial Blood Oxygen Saturation 94 94-100 % Arterial Blood Base Excess -1.0 -2.5-2.5 MMOL/L Ramírez Test YES-POS Blood Gas Ventilator Setting NO Blood Gas Inspired Oxygen VAPOTHERM Urine Color YELLOW Urine Clarity CLEAR Urine pH 6.5 5-9 Urine Specific [place] 1.005 L 1.016-1.022 Urine Protein NEGATIVE NEGATIVE Urine Glucose (UA) NEGATIVE NEGATIVE Urine Ketones NEGATIVE NEGATIVE Urine Nitrite NEGATIVE NEGATIVE Urine Bilirubin NEGATIVE NEGATIVE Urine Urobilinogen NORMAL NORMAL MG/DL Urine Leukocyte Esterase NEGATIVE NEGATIVE Urine RBC (Auto) 1+ H NEGATIVE Urine RBC RARE /HPF Urine WBC NONE /HPF Urine Squamous Epithelial Cells RARE /HPF Urine Crystals NONE /LPF Urine Bacteria NEGATIVE /HPF Urine Casts NONE /LPF Urine Mucus NEGATIVE /LPF Urine Culture Indicated CULTURE PENDING Lactic Acid Level 3.60 *H 0.50-2.00 MMOL/L Test 04/28/18 12:00 04/28/18 13:35 04/29/18 03:35 Range/Units Lactic Acid Level 1.59 0.50-2.00 MMOL/L Prothrombin Time 25.1 H 12.2-14.7 SEC INR Comment 2.3 H 0.8-1.4 Sodium Level 134 L 137 135-145 MMOL/L Potassium Level 4.1 3.7 3.6-5.0 MMOL/L Chloride Level 103 107 98-107 MMOL/L Carbon Dioxide Level 22 22 21-32 MMOL/L Anion Gap 9 8 5-14 MMOL/L Blood Urea Nitrogen 23 H 18 7-18 MG/DL Creatinine 1.24 0.89 0.60-1.30 MG/DL Estimat Glomerular Filtration Rate 58 > 60 BUN/Creatinine Ratio 19 20 Glucose Level 209 H 143 H 70-105 MG/DL Calcium Level 7.9 L 8.0 L 8.5-10.1 MG/DL White Blood Count 5.5 4.3-11.0 10^3/uL Red Blood Count 3.03 L 4.35-5.85 10^6/uL Hemoglobin 9.7 #L 13.3-17.7 G/DL Hematocrit 29 L 40-54 % Mean Corpuscular Volume 97 80-99 FL Mean Corpuscular Hemoglobin 32 25-34 PG Mean Corpuscular Hemoglobin Concent 33 32-36 G/DL Red Cell Distribution Width 18.1 H 10.0-14.5 % Platelet Count 100 L 130-400 10^3/uL Mean Platelet Volume 11.3 H 7.4-10.4 FL Neutrophils (%) (Auto) 75 42-75 % Lymphocytes (%) (Auto) 11 L 12-44 % Monocytes (%) (Auto) 13 H 0-12 % Eosinophils (%) (Auto) 1 0-10 % Basophils (%) (Auto) 0 0-10 % Neutrophils # (Auto) 4.1 1.8-7.8 X 10^3 Lymphocytes # (Auto) 0.6 L 1.0-4.0 X 10^3 Monocytes # (Auto) 0.7 0.0-1.0 X 10^3 Eosinophils # (Auto) 0.0 0.0-0.3 10^3/uL Basophils # (Auto) 0.0 0.0-0.1 10^3/uL Corrected Calcium 9.1 8.5-10.1 MG/DL Phosphorus Level 3.0 2.3-4.7 MG/DL Magnesium Level 1.3 L 1.8-2.4 MG/DL Total Bilirubin 0.7 0.1-1.0 MG/DL Aspartate Amino Transf (AST/SGOT) 68 H 5-34 U/L Alanine Aminotransferase (ALT/SGPT) 46 0-55 U/L Alkaline Phosphatase 92 40-136 U/L Total Protein 4.9 L 6.4-8.2 GM/DL Albumin 2.6 L 3.2-4.5 GM/DL Micro Results Microbiology 04/28/18 Influenza Types A,B Antigen (ALVARO) - Final, Complete My Orders Orders - JUAN M BENJAMIN MD Cbc With Automated Diff (04/28/18 09:09) Comprehensive Metabolic Panel (04/28/18 09:09) Blood Culture (04/28/18 09:09) Sputum Culture (04/28/18 09:09) Urinalysis (04/28/18 09:09) Urine Culture (04/28/18 09:09) Protime With Inr (04/28/18 09:09) Partial Thromboplastin Time (04/28/18 09:09) Chest 1 View, Ap/Pa Only (04/28/18 09:09) Saline Lock/Iv-Start (04/28/18 09:09) Vital Signs Adult Sepsis Patie Q15M (04/28/18 09:09) O2 (04/28/18 09:09) Remove Rings In Anticipation O (04/28/18 09:09) Lactic Acid Analyzer (04/28/18 09:09) Influenza A And B Antigens (04/28/18 09:09) Arterial Blood Gas (04/28/18 09:09) Ns Iv 1000 Ml (Sodium Chloride 0.9%) (04/28/18 09:09) Albuterol/Ipra Inhalation Soln (Duoneb I (04/28/18 09:45) Svn Small Volume Nebulizer (04/28/18 09:37) Albuterol/Ipra Inhalation Soln (Duoneb I (04/28/18 09:33) Ns Iv 1000 Ml (Sodium Chloride 0.9%) (04/28/18 09:55) Ns (Ivpb) (Sodium Chloride 0.9%) (04/28/18 10:58) Norepinephrine (Levophed) (04/28/18 10:58) Chest 1 View, Ap/Pa Only (04/28/18 11:05) Norepinephrine (Levophed) (04/28/18 11:15) Piperacillin/Tazobactam (Bulk) (Zosyn In (04/28/18 12:15) Ns (Ivpb) (Sodium Chloride 0.9% Ivpb Bag (04/28/18 12:06) Piperacillin Sodium/Tazobactam (Zosyn Vi (04/28/18 12:07) Medications Given in ED Vital Signs/I&O 04/28/18 04/28/18 04/28/18 04/28/18 19:00 19:00 19:10 20:00 Pulse 72 72 72 Resp 21 23 B/P (MAP) 147/56 (86) Pulse Ox 100 100 96 O2 Delivery Vapotherm Vapotherm Vapotherm O2 Flow Rate 90.00 80.00 20.00 20.00 20.00 FiO2 80 04/28/18 04/28/18 04/28/18 04/28/18 20:00 21:00 21:01 22:00 Temp 98.7 Pulse 73 71 73 64 Resp 10 20 19 B/P (MAP) 166/61 (96) 149/91 (110) 158/55 (89) Pulse Ox 100 100 100 100 O2 Delivery Vapotherm Vapotherm Vapotherm O2 Flow Rate 80.00 80.00 80.00 20.00 20.00 20.00 204/29/18 04/29/18 04/29/18 23:00 00:00 00:00 01:00 Temp 97.9 Pulse 60 69 60 Resp 13 21 B/P (MAP) 151/56 (87) 156/54 (88) Pulse Ox 100 96 100 O2 Delivery Vapotherm Vapotherm Vapotherm O2 Flow Rate 80.00 20.00 80.00 20.00 20.00 FiO2 80 04/29/18 04/29/18 04/29/18 04/29/18 01:00 02:00 02:47 03:00 Pulse 60 60 60 61 Resp 22 25 21 24 B/P (MAP) 131/38 (69) 118/38 (64) 121/40 (67) 125/45 (71) Pulse Ox 100 100 100 100 O2 Delivery Vapotherm Vapotherm Vapotherm Vapotherm O2 Flow Rate 80.00 80.00 60.00 60.00 20.00 20.00 20.00 20.00 04/29/18 04/29/18 04/29/18 04/29/18 03:16 04:00 04:00 04:00 Temp 98.6 Pulse 61 Resp 20 B/P (MAP) 132/40 (70) Pulse Ox 100 96 100 O2 Delivery Vapotherm Vapotherm Vapotherm O2 Flow Rate 20.00 20.00 60.00 20.00 FiO2 80 80 04/29/18 04/29/18 05:00 06:00 Pulse 61 63 Resp 23 24 B/P (MAP) 132/44 (73) 142/52 (82) Pulse Ox 100 100 O2 Delivery Vapotherm Vapotherm O2 Flow Rate 60.00 60.00 20.00 20.00 Capillary Refill : Less Than 3 Seconds Blood Pressure Mean: 64 Progress Note : Progress Note Seen and evaluated. IV by EMS, labs, chest x-ray, blood cultures and lactic acid ordered. Normal saline 1 L bolus initiated by EMS. This was continued. Repeat normal saline 1 L bolus ordered. Patient has borderline blood pressure. Monitor patient. 1045: Central line placement indicated due to hypotension and elevated lactic acid. Patient has had third liter of normal saline ordered and initiated. This will exceeds his 30 mL/kg requirement. Chest x-ray shows large right sided pneumonia. I did discuss risk and benefits of central line with the patient including infection, pneumothorax and pain as well as the benefits including multiple medications and blood draws and the need for pressors. Patient agreed to Central line placement. This was done via ultrasound guidance without complication. We will initiate Levophed drip due to persistent hypotension. Zosyn 4.5 g IV ordered. Patient to be admitted to ICU. Monitor patient. 1210: Patient to be admitted to ICU. I discussed the case with Dr. Bragg and she accepts patient. She will consult Dr. Johnson. I attest a focused exam at this time. Blood pressure improved with Levophed and is greater than 90 systolic and 65 map. Patient is doing better overall. Admit , inpatient status. Patient agrees to plan. Diagnostic Imaging Diagonstic Imaging: Xray Plain Films/CT/US/NM/MRI: chest Comments [facility], [place] NAME: OCTAVIA AVENDANO Viola [facility] REC#: [id number] PT STATUS: REG ER : 1950 PHYSICIAN: JUAN M BENJAMIN MD ADMIT DATE: 04/28/18/ER Draft Date of Exam:04/28/18 CHEST 1 VIEW, AP/PA ONLY INDICATION: Hypotension and fall. Upright portable AP view of the chest is obtained. Since 03/26/2018, there has been development of extensive airspace disease in the central right lung. No definite pneumothorax is seen. There is mild left basilar atelectasis and/or scarring. Left anterior chest wall dual-chamber cardiac pacemaker is in place. There is no pneumothorax. IMPRESSION: Development of focal airspace disease in central right lung which may be due to edema. Hemorrhage or pneumonia could have similar appearance and clinical correlation and radiographic followup would be of use. Dictated on workstation # [id number] Dict: 04/28/18 1011 Trans: 04/28/18 1020 [facility] [id number] Interpreted by: GERRY KAHN MD Electronically signed by: Diagonstic Imaging: Xray Plain Films/CT/US/NM/MRI: chest Comments NAME: ROMANAOCTAVIA Viola MED REC#: [id number] PT STATUS: REG ER : 1950 PHYSICIAN: JUAN M BENJAMIN MD ADMIT DATE: 04/28/18/ER Signed Date of Exam: 04/28/18 CHEST 1 VIEW, AP/PA ONLY INDICATION: Central venous catheter evaluation. Portable upright AP view of the chest is obtained. Since the study of earlier in the day, there has been placement of right jugular central venous catheter. Tip can be traced to the level of junction of superior vena cava and right atrium. Bilateral airspace disease again identified, greater on the right. No pneumothorax is seen. IMPRESSION: Persistent airspace disease, greater on the right without other evidence of acute abnormality. Dictated by: Dictated on workstation # [id number] Dict: 04/28/18 1126 Trans: 04/28/18 1134 Interpreted by: GERRY KAHN MD Electronically signed by: GERRY KAHN MD 04/28/18 1134 Departure Communication (Admissions) 1204 Impression Primary Impression: Right middle lobe pneumonia Qualified Codes: J18.1 - Lobar pneumonia, unspecified organism Additional Impressions: Hypoxia Severe sepsis Disposition: ADMITTED INPATIENT Condition: Critical Admissions Decision to Admit Reason: Admit from ER (General) Decision to Admit/Date: Apr 28, 2018 Time/Decision to Admit Time: 12:04 Departure-Patient Inst. Referrals: CLAUDIO MARQUES MD (PCP/Family) Primary Care Physician JUAN M BENJAMIN MD Apr 28, 2018 09:36
[2018-04-28 09:39] LABS: ALLENS TEST YES-POS; INSPIRED O2 VAPOTHERM; PATIENT TEMP 98.7; VENTILATOR NO
[2018-04-28 09:44] LABS: INR 2.3 (0.8-1.4); PROTHROMBIN TIME PATIENT 25.4 SEC (12.2-14.7)
[2018-04-28] MEDS ORDERED: RT-ALBUTEROL/IPRATROPIUM 3 ML (DUONEB) VIAL INH ONE (09:45)
[2018-04-28 09:51] LABS: ALBUMIN 3.4 GM/DL (3.2-4.5); BILIRUBIN,TOTAL 0.7 MG/DL (0.1-1.0); CALCIUM 8.8 MG/DL (8.5-10.1); CREATININE SERUM 1.47 MG/DL (0.60-1.30); POTASSIUM 5.3 MMOL/L (3.6-5.0); TOTAL PROTEIN 6.6 GM/DL (6.4-8.2)
[2018-04-28] MEDS: NS IV 1000 ML 1,000 ML IV SCH ×5 (09:55→22:41)
[2018-04-28 09:58] LABS: BILIRUBIN,URINE NEGATIVE (NEGATIVE); CLARITY,URINE CLEAR; COLOR,URINE YELLOW; GLUCOSE, URINE (UA) NEGATIVE (NEGATIVE); KETONES,URINE NEGATIVE (NEGATIVE); LEUKOCYTE ESTERASE ,URINE NEGATIVE (NEGATIVE); NITRITE,URINE NEGATIVE (NEGATIVE); PH,URINE 6.5 (5-9); PROTEIN,URINE NEGATIVE (NEGATIVE); UROBILINOGEN,URINE NORMAL (NORMAL)
[2018-04-28 10:18] LABS: BACTERIA,URINE NEGATIVE /HPF; RBC,URINE RARE /HPF; SQUAMOUS EPITHELIAL CELL,UR RARE /HPF
--- NOTE | 2018-04-28 10:20 | Diagnostic Imaging Report ---
INDICATION: Hypotension and fall. Upright portable AP view of the chest is obtained. Since 03/26/2018, there has been development of extensive airspace disease in the central right lung. No definite pneumothorax is seen. There is mild left basilar atelectasis and/or scarring. Left anterior chest wall dual-chamber cardiac pacemaker is in place. There is no pneumothorax. IMPRESSION: Development of focal airspace disease in central right lung which may be due to edema. Hemorrhage or pneumonia could have similar appearance and clinical correlation and radiographic followup would be of use. Dictated by: Dictated on workstation # [id number]
[2018-04-28] MEDS ORDERED: NOREPINEPHRINE 4 MG/4 ML (LEVOPHED) AMP IV ONE (10:58)
[2018-04-28] MEDS ORDERED: NS (IVPB) 250 ML ONE (10:58)
[2018-04-28] MEDS ORDERED: NOREPINEPHRINE 4 MG in NS (IVPB) 250 ML IV SCH (11:15)
--- NOTE | 2018-04-28 11:32 | Diagnostic Imaging Report ---
INDICATION: Central venous catheter evaluation. Portable upright AP view of the chest is obtained. Since the study of earlier in the day, there has been placement of right jugular central venous catheter. Tip can be traced to the level of junction of superior vena cava and right atrium. Bilateral airspace disease again identified, greater on the right. No pneumothorax is seen. IMPRESSION: Persistent airspace disease, greater on the right without other evidence of acute abnormality. Dictated by: Dictated on workstation # [id number]
[2018-04-28] MEDS ORDERED: NS (IVPB) 100 ML ONE (12:06)
[2018-04-28] MEDS ORDERED: PIPERACILLIN/TAZO 4.5 GM VIAL (ZOSYN) IV ONE (12:07)
[2018-04-28] MEDS ORDERED: PIPERACILLIN/TAZOBACTAM (BULK) 4.5 GM in NS (IVPB) 100 ML IV ONE (12:15)
--- NOTE | 2018-04-28 12:48 | History & Physical-Hospitalist ---
History of Present Illness HPI/Chief Complaint Pt is a 67yoCM known to me from multiple admissions who presented to the ER due to shortness of breath. He is very somnolent during our conversation and falls asleep frequently so history is somewhat limited. He states he has been short of breath some "2pm" a few days ago. He was admitted here until 04/06 for IRU stay. He otherwise provides no history and everything else is obtained from the records.Apparently he was going to stand to go to the bathroom and felt very week so lowered himself back down. EMS was then called by his son and he was found to be hypoxic with sats in the 70s and hypotensive with SBP 80s. He responded initially to fluids en route but in the ER quickly became hypotensive again with SBP in the 70s. A central line was placed and he was started on Levophed. CXR revealed a large right sided pneumonia and he is being admitted to the ICU for septic shock. Source: patient Date Seen 04/28/18 Time Seen by a Provider: 12:39 Attending Physician Neyda Bragg MD PCP Fercho Gorman MD Referring Physician Date of Admission Apr 28, 2018 at 12:14 Home Medications & Allergies Home Medications Reviewed patient Home Medication Reconciliation performed by pharmacy medication reconciliations nuclear test technician and/or nursing. Patients Allergies have been reviewed. Allergies Allergies Coded Allergies fentanyl (Verified Allergy, Mild, 03/09/18) levofloxacin (Unverified Allergy, Unknown, 03/09/18) "FEELS FUNNY" cefadroxil (Verified Adverse Reaction, Mild, NAUSEA, 03/09/18) sulfamethoxazole (Verified Adverse Reaction, Mild, 03/09/18) trimethoprim (Verified Adverse Reaction, Mild, 03/09/18) Past Vojddih-Qzzmrc-Dqezqz Hx Past Med/Social Hx: Reviewed Nursing Past Med/Soc Hx Patient Social History Marrital Status: Employed/Student: retired Alcohol Use: Denies Use Recreational Drug Use: No Smoking Status: Never a Smoker Recent Foreign Travel: No Contact w/other who traveled: No Recent Hopitalizations: No Recent Infectious Disease Expo: No Immunizations Up To Date Tetanus Booster (TDap): Less than 5yrs Date of Pneumonia Vaccine: Dec 16, 2017 Date of Influenza Vaccine: Dec 15, 2017 Seasonal Allergies Seasonal Allergies: No Past Medical History Surgeries: Amputation, Bowel Surgery, Cardiac, Coronary Stent, Gallbladder, Orthopedic, Pacemaker, Valve Replacement Respiratory: COPD, Pneumonia Currently Using CPAP: No Currently Using BIPAP: No Cardiac: Atrial Fibrillation, Coronary Artery Disease, High Cholesterol, Hypertension, Valvular Heart Disease Reproductive: No Sexually Transmitted Disease: No HIV/AIDS: No Genitourinary: Prostate Problems Gastrointestinal: Gastroesophageal Reflux, Diverticulosis, Irritable Bowel Musculoskeletal: Arthritis, Chronic Back Pain Endocrine: Diabetes, Insulin dep, Hypothyroidsim Loss of Vision: Bilateral Hearing Impairment: Denies Psychosocial: Anxiety, Depression History of Blood Disorders: Yes (ANEMIA) Adverse Reaction to Blood Light: No (HAS HAD BLOOD WITH NO REACTION) Family History Reviewed Nursing Family Hx Abdominal aortic aneurysm Arthritis Cardiovascular disease Diabetes mellitus Psychosocial problem Seizure disorder Thyroid disease Visual disorder Diabetes, Hypertension Review of Systems ROS-Unable to Obtain: limited by clinical condition Constitutional: weakness Respiratory: short of breath Physical Exam Physical Exam Vital Signs Vital Signs - First Documented 04/28/18 04/28/18 08:57 09:48 Temp 98.7 Pulse 77 Resp 20 B/P (MAP) 113/40 (64) Pulse Ox 82 O2 Delivery Vapotherm O2 Flow Rate 20.00 FiO2 100 Capillary Refill : Less Than 3 Seconds Height, Weight, BMI Height: 5'8.00" Weight: 139lbs. 4.8oz. 63.149584nr; 24.3 BMI Method:Stated General Appearance: No Apparent Distress, Chronically ill, Thin HEENT: PERRL/EOMI, Pharynx Normal, Moist Mucous Membranes; No Scleral Icterus ( L), No Scleral Icterus (R) Neck: Normal Inspection, Supple Respiratory: No Accessory Muscle Use, No Respiratory Distress, Crackles (in bases, limited though by poor inspiration); No Wheezing Cardiovascular: Regular Rate, Rhythm, Systolic Murmur Gastrointestinal: Normal Bowel Sounds, Non Tender, Soft Extremity: Normal Range of Motion, Non Tender, Other (partial amputation of left great toe) Neurologic/Psychiatric: Alert, Oriented x3, No Motor/Sensory Deficits; No Facial Droop Skin: Ecchymosis, Mottled; No Petechia Comments Focuses exam done Results Results/Procedures Labs Laboratory Tests 04/28/18 09:15 Patient resulted labs reviewed. Imaging: Reviewed Imaging Films, Reviewed Imaging Report Assessment/Plan Admission Diagnosis Septic Shock Admission Status: Inpatient Order (span 2 midnights) Reason for Inpatient Admission: Needs ICU level care, vasopressors Diagnosis/Problems Diagnosis/Problems (1) Septic shock Assessment & Plan: Due to RML PNA Lactic acid 3.6, with hypotension despite fluid bolus Currently on vasopressors Central line placed 04/28 in ER Cultures drawn in ER Continue Vanc and Zosyn (2) Right middle lobe pneumonia Status: Acute Assessment & Plan: Pulm consulted, appreciate recs Continue abx as above Sputum culture Qualifiers: Pneumonia type: due to unspecified organism Qualified Codes: J18.1 - Lobar pneumonia, unspecified organism (3) MABEL (acute kidney injury) Status: Acute Assessment & Plan: Baseline ~0.8 Creatinine 1.47 today (4) Aortic valve replaced Status: Chronic Assessment & Plan: INR 2.3 Continue home warfarin Trend (5) Insulin dependent diabetes mellitus Status: Chronic Assessment & Plan: Hold metformin for lactic acid SSI Had issues with hypoglycemia on last admisNEYDA Encinas MD Apr 28, 2018 12:48
--- NOTE | 2018-04-28 13:09 | Pulmonary Consultation ---
History of Present Illness History of Present Illness Date of Consultation 04/28/18 13:02 Time Seen by Provider: 13:02 Date of Admission History of Present Illness 67yo presented to ED secondary to worsening weakness, SOB over last 2 days and now lethargy. PT was found to be hypoxic in the 70's and hypotensive with SBP in the 80's. Central line was placed in ED and Levophed was started. CXR shows large right sided pneumonia. Allergies and Home Medications Allergies Coded Allergies: fentanyl (Verified Allergy, Mild, 03/09/18) levofloxacin (Unverified Allergy, Unknown, 03/09/18) "FEELS FUNNY" cefadroxil (Verified Adverse Reaction, Mild, NAUSEA, 03/09/18) sulfamethoxazole (Verified Adverse Reaction, Mild, 03/09/18) trimethoprim (Verified Adverse Reaction, Mild, 03/09/18) Home Medications Alprazolam 1 Mg Tablet, 1 MG PO BID PRN Prescribed by: MIRNA EUCEDA on 04/06/18820 Amiodarone HCl 200 Mg Tablet, 200 MG PO BID, (Reported) Demeclocycline HCl 150 Mg Tablet, 150 MG PO BID, (Reported) Enoxaparin Sodium 80 Mg/0.8 Ml Syringe, 70 MG SQ Q12H Prescribed by: MIRNA EUCEDA on 04/06/18820 Guaifenesin/Dextromethorphan 5 Ml Syrup, 5 ML PO Q4H PRN for COUGH Prescribed by: MIRNA EUCEDA on 04/06/18820 Insulin Glargine/Lixisenatide 3 Ml Insuln.pen, 21 UNITS SQ DAILY, (Reported) Ipratropium/Albuterol Sulfate 3 Ml Ampul.neb, 3 ML IH Q4H PRN for SHORTNESS OF BREATH Prescribed by: MIRNA EUCEDA on 04/06/18820 Levothyroxine Sodium 175 Mcg Tablet, 175 MCG PO HS, (Reported) Lovastatin 40 Mg Tablet, 40 MG PO HS, (Reported) Magnesium Oxide 400 Mg Tablet, 400 MG PO BIDPC Prescribed by: MIRNA EUCEDA on 04/06/18820 Metformin HCl 1,000 Mg Tablet, 1,000 MG PO DAILY, (Reported) Oxycodone HCl/Acetaminophen 1 Each Tablet, 1 EACH PO HS Prescribed by: MIRNA EUCEDA on 1/21/19 0821 Pantoprazole Sodium 40 Mg Tablet.dr, 40 MG PO BID, (Reported) Tamsulosin HCl 0.4 Mg Cap.er.24h, 0.4 MG PO HS, (Reported) Warfarin Sodium 1 Mg Tablet, 1 MG PO DAILY@1800 Prescribed by: NEYDA CHOPRA on 03/03/18 1020 Past Ppmwtfh-Swwzua-Dalbvz Hx Past Med/Social Hx: Reviewed Nursing Past Med/Soc Hx Patient Social History Alcohol Use: Denies Use Recreational Drug Use: No Smoking Status: Never a Smoker Recent Foreign Travel: No Contact w/Someone Who Travel: No Recent Infectious Disease Expo: No Recent Hopitalizations: No Immunizations Up To Date Tetanus Booster (TDap): Less than 5yrs Date of Pneumonia Vaccine: Dec 16, 2017 Date of Influenza Vaccine: Dec 15, 2017 Seasonal Allergies Seasonal Allergies: No Past Medical History Surgeries: Yes (COLON RESECTION, PACEMAKER, ARTIFICIAL VALVE, penile implant) Amputation, Bowel Surgery, Cardiac, Coronary Stent, Gallbladder, Orthopedic, Pacemaker, Valve Replacement Respiratory: Yes Pneumonia Currently Using CPAP: No Currently Using BIPAP: No Cardiac: Yes (AORTIC VALVE REPLACED, PACEMAKER, STENTS x2) Atrial Fibrillation, Coronary Artery Disease, High Cholesterol, Hypertension, Valvular Heart Disease Neurological: No Reproductive Disorders: No Sexually Transmitted Disease: No HIV/AIDS: No Genitourinary: Yes (urinary retension) Prostate Problems Gastrointestinal: Yes (gastroparesis) Gastroesophageal Reflux, Diverticulosis, Irritable Bowel Musculoskeletal: Yes (CHRONIC GENERALIZED PAIN--NARCOTIC DEPENDENT,HIP FX, OSTEOMYELITIS) Arthritis, Chronic Back Pain Endocrine: Yes Diabetes, Insulin dep, Hypothyroidsim HEENT: No Loss of Vision: Bilateral Hearing Impairment: Denies Cancer: No Psychosocial: Yes Anxiety, Depression Integumentary: No Blood Disorders: Yes (ANEMIA) Adverse Reaction/Blood Tranf: No (HAS HAD BLOOD WITH NO REACTION) Family Medical History Reviewed Nursing Family Hx Abdominal aortic aneurysm Arthritis Cardiovascular disease Diabetes mellitus Psychosocial problem Seizure disorder Thyroid disease Visual disorder Diabetes, Hypertension Sepsis Event Evaluation Height, Weight, BMI Height: 5'8.00" Weight: 139lbs. 4.8oz. 63.271943ii; 24.3 BMI Method:Stated Exam Exam Vital Signs Date Time Temp Pulse Resp B/P (MAP) Pulse Ox O2 Delivery O2 Flow Rate FiO2 04/28/18 12:32 77 20 107/35 (59) 97 Vapotherm 04/28/18 09:48 96 Vapotherm 20.00 100 04/28/18 08:57 98.7 77 20 113/40 (64) 82 Room Air 04/28/18 08:57 Vapotherm Height & Weight Height: 5'8.00" Weight: 139lbs. 4.8oz. 63.276411is; 24.3 BMI Method:Stated General Appearance: No Apparent Distress, Chronically ill, Thin HEENT: PERRL/EOMI, Pharynx Normal Neck: Full Range of Motion, Normal Inspection, Non Tender, Supple Respiratory: Lungs Clear, No Respiratory Distress, Crackles (bilateral with right greater than left); No Wheezing Cardiovascular: Regular Rate, Rhythm, No Murmur Capillary Refill: Less Than 3 Seconds Extremity: Normal Range of Motion, Non Tender Neurologic/Psychiatric: Alert, Oriented x3, Depressed Affect Results Lab Laboratory Tests 04/28/18 09:15 Assessment/Plan Assessment/Plan Severe septic shock -IVF -Continue Levophed -Brannon cultures pending RML pneumonia -Continue vancomycin, and Zosyn MABEL with metabolic lactic acidosis -Monitor -IVF Hyperkalemia -Repeat and monitor Hx of aortic valve replacement -Coumadin INR is 2.3 IDDM -Monitor LUKE BLEDSOE DO Apr 28, 2018 13:08
[2018-04-28] MEDS ORDERED: NS IV ONE (13:15)
--- NOTE | 2018-04-28 13:24 | NUR ---
CR 1.47; CR CL ~43; WT 63 KG; VANCO 1250 MG IV Q24H X 3 DAYS
[2018-04-28] MEDS: VANCOMYCIN 1250 MG/NS 250 ML IVPB IV SCH ×2 (13:58)
[2018-04-28 14:00] LABS: INR 2.3 (0.8-1.4); PROTHROMBIN TIME PATIENT 25.1 SEC (12.2-14.7)
[2018-04-28 14:02] LABS: CALCIUM 7.9 MG/DL (8.5-10.1); CREATININE SERUM 1.24 MG/DL (0.60-1.30); POTASSIUM 4.1 MMOL/L (3.6-5.0)
[2018-04-28] MEDS ORDERED: WARF1TAB82 PO (14:07)
[2018-04-28] MEDS ORDERED: OXYC1TAB12 PO (14:26)
[2018-04-28] MEDS ORDERED: ALPR1TAB7 PO (14:26)
[2018-04-28] MEDS ORDERED: HYDR12.5 PO (14:26)
[2018-04-28] MEDS ORDERED: MAGN400T39 PO (14:26)
[2018-04-28] MEDS ORDERED: GUAI5SYR PO (14:26)
--- NOTE | 2018-04-28 14:28 | NUR ---
CALLED AND SPOKE WITH THE PATIENTS SON WHO READ ME THE BOTTLES THE PATIENT HAS BEEN TAKING. I ALSO LOOKED AT THE DISCHARGE MEDICATION LIST FROM HIS VISIT IN REHAB RECENTLY. THE HCTZ WAS STOPPED AT DISCHARGE FROM REHAB HOWEVER THE SON STATED THE PATIENT WAS TAKING IT AND I VERIFIED WITH THE PATIENT THAT HE CONTINUED TAKING IT DESPITE THE DISCHARGE ORDERS. THEY REPORT THE LOVENOX IS FINISHED SO HE IS NO LONGER TAKING THAT. HE WAS ALSO PRESCRIBED DUONEB FOR THE NEBULIZER HOWEVER THE SON STATES WHEN HE WENT TO [facility] THEY SAID THEY DID NOT HAVE THE ORDER THEREFORE HE HAS NOT GOTTEN THAT TO USE AT HOME.
[2018-04-28] MEDS ORDERED: warFARin 2 MG (COUMADIN) TAB PO SCH (18:00)
[2018-04-28] MEDS: LACTOBACILLUS ACIDOPHILUS (PROBIOTIC) CAPSULE PO SCH (18:11)
[2018-04-28] MEDS: PIPERACILLIN/TAZO 4.5 GM/NS 100 ML IV SCH ×2 (18:17)
[2018-04-28] MEDS ORDERED: ALPRAZolam 1 MG (XANAX) TAB PO PRN (20:45)
[2018-04-28] MEDS ORDERED: NON-FORMULARY MEDICATION 1 EA EA (Lovastatin 40 MG) PO SCH (21:00)
[2018-04-28] MEDS ORDERED: NON-FORMULARY MEDICATION 1 EA EA (Levothyroxine Sodium 175 MCG) PO SCH (21:00)
[2018-04-28] MEDS ORDERED: DEMECLOCYCLINE HCL PO SCH (21:00)
[2018-04-28] MEDS: AMIODARONE 200 MG (CORDARONE) TAB PO SCH (21:30)
[2018-04-28] MEDS: PANTOPRAZOLE 40 MG (PROTONIX) TAB PO SCH (21:30)
[2018-04-28] MEDS: ALPRAZolam 1 MG (XANAX) TAB PO SCH (21:30)
[2018-04-28] MEDS ORDERED: RT-ALBUTEROL/IPRATROPIUM 3 ML (DUONEB) VIAL INH PRN ×2 (21:45→22:00)
[2018-04-28] MEDS: NOREPINEPHRINE 4 MG in NS (IVPB) 250 ML IV SCH (22:39)
[2018-04-28] MEDS: DEMECLOCYCLINE PO SCH (23:41)
[2018-04-29] VITALS (18 sets, daily range): BP systolic 95–156; BP diastolic 32–67
[2018-04-29] MEDS: NS IV 1000 ML 1,000 ML IV SCH ×5 (01:40→19:30)
[2018-04-29] MEDS: PIPERACILLIN/TAZO 4.5 GM/NS 100 ML IV SCH ×6 (02:07→17:35)
[2018-04-29] MEDS: RT-ALBUTEROL/IPRATROPIUM 3 ML (DUONEB) VIAL INH SCH ×4 (03:16→19:57)
[2018-04-29] MEDS: NOREPINEPHRINE 4 MG in NS (IVPB) 250 ML IV SCH (03:45)
[2018-04-29 03:49] LABS: BASOPHILS % (AUTO) 0 % (0-10); EOSINOPHILS % (AUTO) 1 % (0-10); HEMATOCRIT 29 % (40-54); HEMOGLOBIN 9.7 G/DL (13.3-17.7); LYMPHOCYTES # (AUTO) 0.6 X 10^3 (1.0-4.0); LYMPHOCYTES % (AUTO) 11 % (12-44); MEAN CORPUSCULAR HEMOGLOBIN 32 PG (25-34); MEAN CORPUSCULAR HGB CONC 33 G/DL (32-36); MEAN CORPUSCULAR VOLUME 97 FL (80-99); MEAN PLATELET VOLUME 11.3 FL (7.4-10.4); MONOCYTES # (AUTO) 0.7 X 10^3 (0.0-1.0); MONOCYTES % (AUTO) 13 % (0-12); NEUTROPHILS # (AUTO) 4.1 X 10^3 (1.8-7.8); NEUTROPHILS % (AUTO) 75 % (42-75); PLATELET COUNT 100 10^3/uL (130-400); RED CELL DISTRIBUTION WIDTH 18.1 % (10.0-14.5); WHITE BLOOD COUNT 5.5 10^3/uL (4.3-11.0)
[2018-04-29 04:10] LABS: ALANINE AMINOTRANSFERASE 46 U/L (0-55); ALBUMIN 2.6 GM/DL (3.2-4.5); ALKALINE PHOSPHATASE 92 U/L (40-136); BILIRUBIN,TOTAL 0.7 MG/DL (0.1-1.0); BUN/CREATININE RATIO 20; CARBON DIOXIDE 22 MMOL/L (21-32); CHLORIDE 107 MMOL/L (98-107); CREATININE SERUM 0.89 MG/DL (0.60-1.30); GFR ESTIMATED > 60; GLUCOSE 143 MG/DL (70-105); MAGNESIUM 1.3 MG/DL (1.8-2.4); POTASSIUM 3.7 MMOL/L (3.6-5.0); SODIUM 137 MMOL/L (135-145); TOTAL PROTEIN 4.9 GM/DL (6.4-8.2)
[2018-04-29] MEDS: MAGNESIUM 1 GM/100 ML IVPB 100 ML IV SCH ×4 (04:29→06:25)
[2018-04-29] MEDS ORDERED: POTASSIUM CL 10MEQ/50ML IVPB 50 ML IV SCH (06:00)
[2018-04-29] MEDS ORDERED: KCL 20 MEQ TAB (K-DUR) PO SCH (06:00)
[2018-04-29] MEDS ORDERED: MAGNESIUM 1 GM/100 ML IVPB 100 ML IV SCH (06:00)
--- NOTE | 2018-04-29 06:10 | Pulmonary Progress Note ---
Subjective Time Seen by a Provider: 06:09 Subjective/Events-last exam Pt appears weak. He is still on high flow vapotherm. Sepsis Event Evaluation Height, Weight, BMI Height: 5'8.00" Weight: 139lbs. 0.0oz. 63.277562hl; 21.1 BMI Method:Stated Focused Exam Lactate Level 04/28/18 09:52: Lactic Acid Level 3.60*H 04/28/18 12:00: Lactic Acid Level 1.59 Exam Exam Vital Signs Date Time Temp Pulse Resp B/P (MAP) Pulse Ox O2 Delivery O2 Flow Rate FiO2 04/29/18 04:00 61 20 132/40 (70) 100 Vapotherm 60.00 20.00 04/29/18 04:00 98.6 04/29/18 04:00 96 Vapotherm 20.00 80 04/29/18 03:16 100 Vapotherm 20.00 80 04/29/18 03:00 61 24 125/45 (71) 100 Vapotherm 60.00 20.00 04/29/18 02:47 60 21 121/40 (67) 100 Vapotherm 60.00 20.00 04/29/18 02:00 60 25 118/38 (64) 100 Vapotherm 80.00 20.00 04/29/18 01:00 60 22 131/38 (69) 100 Vapotherm 80.00 20.00 04/29/18 01:00 60 04/29/18 00:00 97.9 69 21 156/54 (88) 100 Vapotherm 80.00 20.00 04/29/18 00:00 96 Vapotherm 20.00 80 04/28/18 23:00 60 13 151/56 (87) 100 Vapotherm 80.00 20.00 04/28/18 22:00 64 19 158/55 (89) 100 Vapotherm 80.00 20.00 04/28/18 21:01 73 100 04/28/18 21:00 71 20 149/91 (110) 100 Vapotherm 80.00 20.00 04/28/18 20:00 98.7 73 10 166/61 (96) 100 Vapotherm 80.00 20.00 04/28/18 20:00 96 Vapotherm 20.00 80 04/28/18 19:10 72 23 100 Vapotherm 80.00 20.00 04/28/18 19:00 72 21 147/56 (86) 100 Vapotherm 90.00 20.00 04/28/18 19:00 72 04/28/18 18:00 78 14 156/56 (89) Vapotherm 90.00 20.00 04/28/18 17:00 76 20 139/52 (81) Vapotherm 90.00 20.00 04/28/18 16:00 96 Vapotherm 20.00 80 04/28/18 16:00 74 7 133/43 (73) Vapotherm 90.00 20.00 04/28/18 15:00 75 22 126/46 (72) Vapotherm 90.00 20.00 04/28/18 14:45 83 04/28/18 14:00 79 21 125/47 (73) Vapotherm 90.00 20.00 04/28/18 13:30 96 Vapotherm 20.00 80 04/28/18 13:15 98.4 80 22 98/81 (87) 99 Vapotherm 90.00 20.00 04/28/18 12:32 77 20 107/35 (59) 97 Vapotherm 04/28/18 09:48 96 Vapotherm 20.00 100 04/28/18 08:57 98.7 77 20 113/40 (64) 82 Room Air 04/28/18 08:57 Vapotherm I & O 04/29/18 07:00 Intake Total 3270 ml Output Total 2400 ml Balance 870 ml Height & Weight Height: 5'8.00" Weight: 139lbs. 0.0oz. 63.563230jl; 21.1 BMI Method:Stated General Appearance: No Apparent Distress, Chronically ill, Thin HEENT: PERRL/EOMI, Pharynx Normal Neck: Full Range of Motion, Normal Inspection, Non Tender, Supple Respiratory: Lungs Clear, No Respiratory Distress, Crackles (bilateral with right greater than left); No Wheezing Cardiovascular: Regular Rate, Rhythm, No Murmur Capillary Refill: Less Than 3 Seconds Extremity: Normal Range of Motion, Non Tender Neurologic/Psychiatric: Alert, Oriented x3, Depressed Affect Skin: Ecchymosis, Mottled; No Petechia Results Lab Laboratory Tests 04/28/18 09:15 04/28/18 13:35 04/29/18 03:35 Assessment/Plan Assessment/Plan Severe septic shock -IVF -PT is now off Levophed -Brannon cultures pending RML pneumonia -Continue vancomycin, and Zosyn -Trial pt off Vapotherm and continue to monitor close. MABEL with metabolic lactic acidosis -Monitor -IVF Hyperkalemia -Repeat and monitor Hx of aortic valve replacement -Coumadin INR is 2.3 IDDM -Monitor LUKE BLEDSOE DO Apr 29, 2018 06:09
[2018-04-29] MEDS: LEVOTHYROXINE 25 MCG (LEVOTHROID) TAB PO SCH (06:24)
[2018-04-29] MEDS: LACTOBACILLUS ACIDOPHILUS (PROBIOTIC) CAPSULE PO SCH ×3 (06:24→17:35)
[2018-04-29] MEDS: oxyCODONE/APAP 10/325MG (PERCOCET 10) TABLET PO PRN ×2 (06:24→16:09)
--- NOTE | 2018-04-29 07:31 | Progress Note-Hospitalist ---
Subjective HPI/CC On Admission Pt is a 67yoCM known to me from multiple admissions who presented to the ER due to shortness of breath. He is very somnolent during our conversation and falls asleep frequently so history is somewhat limited. He states he has been short of breath some "2pm" a few days ago. He was admitted here until 04/06 for IRU stay. He otherwise provides no history and everything else is obtained from the records.Apparently he was going to stand to go to the bathroom and felt very week so lowered himself back down. EMS was then called by his son and he was found to be hypoxic with sats in the 70s and hypotensive with SBP 80s. He responded initially to fluids en route but in the ER quickly became hypotensive again with SBP in the 70s. A central line was placed and he was started on Levophed. CXR revealed a large right sided pneumonia and he is being admitted to the ICU for septic shock. Focused Exam Lactate Level 04/28/18 09:52: Lactic Acid Level 3.60*H 04/28/18 12:00: Lactic Acid Level 1.59 Objective Exam Vital Signs Vital Signs Date Time Temp Pulse Resp B/P (MAP) Pulse Ox O2 Delivery O2 Flow Rate FiO2 04/29/18 06:44 100 Vapotherm 20.00 40 04/29/18 06:00 63 24 142/52 (82) 04/29/18 04:00 98.6 Capillary Refill : Less Than 3 Seconds General Appearance: No Apparent Distress, Chronically ill, Thin Respiratory: No Accessory Muscle Use, No Respiratory Distress, Crackles; No Wheezing Cardiovascular: Regular Rate, Rhythm, Systolic Murmur Gastrointestinal: Non Tender, Soft Extremity: Normal Range of Motion, Non Tender Neurologic/Psychiatric: Alert, Oriented x3, Other (flat affect) Skin: Ecchymosis, Pallor Results/Procedures Lab Laboratory Tests 04/28/18 09:15 04/28/18 13:35 04/29/18 03:35 Patient resulted labs reviewed. Imaging: Reviewed Imaging Films, Reviewed Imaging Report Assessment/Plan Assessment and Plan Assess & Plan/Chief Complaint Septic Shock Diagnosis/Problems Diagnosis/Problems (1) Septic shock Assessment & Plan: Due to RML PNA Shock resolved, off pressors Central line placed 04/28 in ER Await cultures Continue Vanc and Zosyn (2) Right middle lobe pneumonia Status: Acute Assessment & Plan: Pulm consulted, appreciate recs Continue abx as above Sputum culture Qualifiers: Pneumonia type: due to unspecified organism Qualified Codes: J18.1 - Lobar pneumonia, unspecified organism (3) Aortic valve replaced Status: Chronic Assessment & Plan: INR 2.3 again Continue home warfarin Very sensitive to warfarin and thrombocytopenic Will hold increasing dose unless drops tomorrow Anticipate with poor PO intake it will rise (4) MABEL (acute kidney injury) Status: Acute Assessment & Plan: Back to baseline (5) Insulin dependent diabetes mellitus Status: Chronic Assessment & Plan: Hold metformin for lactic acid SSI Had issues with hypoglycemia on last admisison (6) Thrombocytopenia Assessment & Plan: Chronic low to lower limits of normal Trend (7) Normocytic anemia Status: Chronic Assessment & Plan: At baseline, trend (8) Hypomagnesemia Status: Resolved Assessment & Plan: Replaced per protocol Resolution Date/Time: 03/25/18 @ 20:39 Clinical Quality Measures DVT/VTE Risk/Contraindication: Risk Factor Score Per Nursin RFS Level Per Nursing on Admit: 4+=Very High NEYDA COHPRA MD Apr 29, 2018 07:31
[2018-04-29] MEDS: AMIODARONE 200 MG (CORDARONE) TAB PO SCH ×2 (08:15→21:18)
[2018-04-29] MEDS: DEMECLOCYCLINE PO SCH ×2 (08:15→21:17)
[2018-04-29] MEDS: PANTOPRAZOLE 40 MG (PROTONIX) TAB PO SCH ×2 (08:15→21:17)
[2018-04-29] MEDS: ALPRAZolam 1 MG (XANAX) TAB PO SCH ×2 (08:15→21:19)
--- NOTE | 2018-04-29 09:47 | Diagnostic Imaging Report ---
Indication: Dyspnea. Time of exam 3:32 AM Correlation is made with prior study one day earlier. Changes of median sternotomy are noted. Cardiac pacemaker is in place. Infiltrate throughout the right lung shows mild improvement. There is also some minimal left perihilar and left basal infiltrate, showing mild improvement. No effusion or pneumothorax is seen. Right IJ line remains in place. Impression: Mild improved aeration of both lungs when compared with exam one day earlier. Dictated by: Dictated on workstation # [id number]
[2018-04-29] MEDS ORDERED: NS IV 1000 ML 1,000 ML ONE (10:22)
[2018-04-29] MEDS ORDERED: NS IV 1000 ML 1,000 ML IV ONE (10:30)
--- NOTE | 2018-04-29 11:26 | Consultation-Cardiology ---
HPI-Cardiology Cardiology Consultation Date of Consultation 04/29/18 Date of Admission Time Seen by Provider: 11:22 Indication: aortic valve replacement HPI 67 years old gentleman with multiple hospitalization, was in the acute rehabilitation due to generalized weakness and debility. Was having some increasing shortness of breath, reported worsening fatigue and loss of energy. Was unable to support his weight. Brought to the emergency room and noted to be hypotensive, diagnosed with sepsis and started on IV fluid and antibiotic, currently feeling better. Still having generalized weakness. Denied any fever or chills. No palpitation, no syncope or near syncopal episode Home Medications & Allergies Allergies: Coded Allergies: fentanyl (Verified Allergy, Mild, 03/09/18) levofloxacin (Unverified Allergy, Unknown, 03/09/18) "FEELS FUNNY" cefadroxil (Verified Adverse Reaction, Mild, NAUSEA, 03/09/18) sulfamethoxazole (Verified Adverse Reaction, Mild, 03/09/18) trimethoprim (Verified Adverse Reaction, Mild, 03/09/18) Home Medication List Reviewed: Yes [id number] Hx Patient Social History Marital Status: Employed/Student: retired Alcohol Use: Denies Use Recreational Drug Use: No Smoking Status: Never a Smoker Recent Foreign Travel: No Recent Infectious Disease Expo: No Recent Hopitalizations: No Immunizations Up To Date Tetanus Booster (TDap): Less than 5yrs Date of Pneumonia Vaccine: Dec 16, 2017 Date of Influenza Vaccine: Dec 15, 2017 Past Medical History past medical history as described below Family Medical History Significant Family History: Diabetes, Hypertension Family History: Abdominal aortic aneurysm Arthritis Cardiovascular disease Diabetes mellitus Psychosocial problem Seizure disorder Thyroid disease Visual disorder Review of Systems Constitutional: see HPI, malaise, weakness EENTM: see HPI, no symptoms reported Respiratory: see HPI, dyspnea on exertion Cardiovascular: see HPI, edema Gastrointestinal: no symptoms reported, see HPI Genitourinary: no symptoms reported, see HPI Musculoskeletal: no symptoms reported, see HPI Skin: no symptoms reported, see HPI Psychiatric/Neurological: No Symptoms Reported, See HPI Reviewed Test Results Reviewed Test Results Lab Laboratory Tests Test 04/28/18 12:00 04/28/18 13:35 04/29/18 03:35 Range/Units Lactic Acid Level 1.59 0.50-2.00 MMOL/L Prothrombin Time 25.1 H 12.2-14.7 SEC INR Comment 2.3 H 0.8-1.4 Sodium Level 134 L 137 135-145 MMOL/L Potassium Level 4.1 3.7 3.6-5.0 MMOL/L Chloride Level 103 107 98-107 MMOL/L Carbon Dioxide Level 22 22 21-32 MMOL/L Anion Gap 9 8 5-14 MMOL/L Blood Urea Nitrogen 23 H 18 7-18 MG/DL Creatinine 1.24 0.89 0.60-1.30 MG/DL Estimat Glomerular Filtration Rate 58 > 60 BUN/Creatinine Ratio 19 20 Glucose Level 209 H 143 H 70-105 MG/DL Calcium Level 7.9 L 8.0 L 8.5-10.1 MG/DL White Blood Count 5.5 4.3-11.0 10^3/uL Red Blood Count 3.03 L 4.35-5.85 10^6/uL Hemoglobin 9.7 #L 13.3-17.7 G/DL Hematocrit 29 L 40-54 % Mean Corpuscular Volume 97 80-99 FL Mean Corpuscular Hemoglobin 32 25-34 PG Mean Corpuscular Hemoglobin Concent 33 32-36 G/DL Red Cell Distribution Width 18.1 H 10.0-14.5 % Platelet Count 100 L 130-400 10^3/uL Mean Platelet Volume 11.3 H 7.4-10.4 FL Neutrophils (%) (Auto) 75 42-75 % Lymphocytes (%) (Auto) 11 L 12-44 % Monocytes (%) (Auto) 13 H 0-12 % Eosinophils (%) (Auto) 1 0-10 % Basophils (%) (Auto) 0 0-10 % Neutrophils # (Auto) 4.1 1.8-7.8 X 10^3 Lymphocytes # (Auto) 0.6 L 1.0-4.0 X 10^3 Monocytes # (Auto) 0.7 0.0-1.0 X 10^3 Eosinophils # (Auto) 0.0 0.0-0.3 10^3/uL Basophils # (Auto) 0.0 0.0-0.1 10^3/uL Corrected Calcium 9.1 8.5-10.1 MG/DL Phosphorus Level 3.0 2.3-4.7 MG/DL Magnesium Level 1.3 L 1.8-2.4 MG/DL Total Bilirubin 0.7 0.1-1.0 MG/DL Aspartate Amino Transf (AST/SGOT) 68 H 5-34 U/L Alanine Aminotransferase (ALT/SGPT) 46 0-55 U/L Alkaline Phosphatase 92 40-136 U/L Total Protein 4.9 L 6.4-8.2 GM/DL Albumin 2.6 L 3.2-4.5 GM/DL Physical Exam Vital Signs Vital Signs - First Documented 04/28/18 04/28/18 08:57 09:48 Temp 98.7 Pulse 77 Resp 20 B/P (MAP) 113/40 (64) Pulse Ox 82 O2 Delivery Vapotherm O2 Flow Rate 20.00 FiO2 100 Capillary Refill : Less Than 3 Seconds Height, Weight, BMI Height: 5'8.00" Weight: 154lbs. 0.0oz. 69.063247ms; 21.1 BMI Method:Stated General Appearance: WD/WN, Moderate Distress Eyes: Bilateral Eye Normal Inspection, Bilateral Eye PERRL, Bilateral Eye EOMI HEENT: PERRL/EOMI, TMs Normal, Normal ENT Inspection, Pharynx Normal Neck: Full Range of Motion, Normal Inspection, Non Tender, Supple, Carotid Bruit Respiratory: Chest Non Tender, No Accessory Muscle Use, No Respiratory Distress , Crackles, Decreased Breath Sounds, Rales Cardiovascular: No Edema, No Gallop, No JVD, Systolic Murmur Gastrointestinal: Normal Bowel Sounds, No Organomegaly, No Pulsatile Mass, Non Tender, Soft Back: Normal Inspection, No CVA Tenderness, No Vertebral Tenderness Extremity: Normal Capillary Refill, Normal Inspection, Normal Range of Motion, Non Tender, No Calf Tenderness, Pedal Edema Neurologic/Psychiatric: Alert, Oriented x3, No Motor/Sensory Deficits, Normal Mood/Affect Skin: Normal Color, Warm/Dry Lymphatic: No Adenopathy A/P-Cardiology Admission Diagnosis Sepsis Pneumonia Aortic valve replacement Paroxysmal atrial fibrillation Assessment/Plan Sepsis and septic shock, improved, blood pressure is better at this time. Continue with supportive care, continue on antibiotic, currently off leaving fed. Pneumonia, right side, receiving antibiotic and managed by primary care team. Generalized weakness and debility, worsening, has baseline weakness. Received physical therapy. History of aortic valve replacement, on Coumadin, continue to adjust and monitor Paroxysmal atrial fibrillation, maintained on amiodarone. Continue to monitor Permanent pacemaker, functioning normally. Continue to monitor Diabetes mellitus, followed and managed by primary care physician Hypertension, post hypotensive episode due to sepsis, received IV fluid, currently off blood pressure medication, continue to monitor blood pressure Hyperlipidemia, continue to monitor lipids. Hypothyroidism, followed and managed by primary care physician Clinical Quality Measures DVT/VTE Risk/Contraindication: Risk Factor Score Per Nursin RFS Level Per Nursing on Admit: 4+=Very High KARTHIKEYAN HORTON MD Apr 29, 2018 11:26
--- NOTE | 2018-04-29 14:00 | NUR ---
PATIENT TRANSFERRED TO 4TH FLOOR, ROOM 432. REPORT GIVEN TO KEREN FISCHER. PATIENT PERSONAL BELONGINGS SENT WITH PATIENT.
--- NOTE | 2018-04-29 14:00 | NUR ---
Pt to room 432. Agree with previous RN's assessment.
[2018-04-29] MEDS: VANCOMYCIN 1250 MG/NS 250 ML IVPB IV SCH ×2 (14:05)
[2018-04-29 14:36] LABS: PROTHROMBIN TIME PATIENT 30.9 SEC (12.2-14.7)
[2018-04-29] MEDS ORDERED: warFARin 1 MG (COUMADIN) TAB PO SCH (18:00)
[2018-04-29] MEDS ORDERED: SIMvastatin 20 MG (ZOCOR) TAB PO SCH (21:00)
[2018-04-30] VITALS (20 sets, daily range): BP systolic 108–164; BP diastolic 35–76
--- NOTE | 2018-04-30 | NUR ---
pt found with O2 off - O2 sats at 72%. RT notified. Attempted to increase O2 sat with HI Rich NC, but sats only came up to 85% at 15L. RT notified and placed on Vapotherm at 40L 100% - O2 saturation increased to 92%. Will continue to monitor.
[2018-04-30] MEDS: PIPERACILLIN/TAZO 4.5 GM/NS 100 ML IV SCH ×4 (01:07→09:51)
[2018-04-30] MEDS: NS IV 1000 ML 1,000 ML IV SCH (01:08)
[2018-04-30] MEDS: RT-ALBUTEROL/IPRATROPIUM 3 ML (DUONEB) VIAL INH SCH ×3 (01:43→10:16)
--- NOTE | 2018-04-30 01:55 | NUR ---
Dr. Johnson notified of RT suggestion for Bipap as pt is maxed out on Vapotherm and sats are 85-87%. New orders to transfer to ICU and do abg 2 hours after being put on Bipap. Will notify material worker.
--- NOTE | 2018-04-30 02:20 | NUR ---
RT here to put pt on bipap. O2 sat now at 95%.
--- NOTE | 2018-04-30 02:55 | NUR ---
Pt transferred to [facility] per order from Dr. Johnson via bed accompanied by RN's x 2. Bedside report given to AALIYAH Chambers. PT on BiPap at this time.
[2018-04-30 04:50] LABS: BASOPHILS % (AUTO) 0 % (0-10); EOSINOPHILS % (AUTO) 0 % (0-10); HEMATOCRIT 30 % (40-54); HEMOGLOBIN 9.7 G/DL (13.3-17.7); LYMPHOCYTES # (AUTO) 0.4 X 10^3 (1.0-4.0); LYMPHOCYTES % (AUTO) 6 % (12-44); MEAN CORPUSCULAR HEMOGLOBIN 32 PG (25-34); MEAN CORPUSCULAR HGB CONC 33 G/DL (32-36); MEAN CORPUSCULAR VOLUME 97 FL (80-99); MEAN PLATELET VOLUME 11.5 FL (7.4-10.4); MONOCYTES # (AUTO) 0.6 X 10^3 (0.0-1.0); MONOCYTES % (AUTO) 9 % (0-12); NEUTROPHILS % (AUTO) 84 % (42-75); PLATELET COUNT 99 10^3/uL (130-400); RED CELL DISTRIBUTION WIDTH 17.7 % (10.0-14.5)
[2018-04-30 04:51] LABS: ABG BASE EXCESS -2.6 MMOL/L (-2.5-2.5); ABG OXYGEN SATURATION 64 % (94-100); ABG PCO2 40 MMHG (35-45); ABG PH 7.36 (7.37-7.43); ABG TCO2 23.2 MMOL/L (21.0-31.0)
[2018-04-30 04:52] LABS: ALLENS TEST POSITIVE
[2018-04-30 04:53] LABS: ABG PO2 37 MMHG (79-93); INSPIRED O2 50 BIPAP; PATIENT TEMP 99.1; VENTILATOR NO
[2018-04-30 05:12] LABS: ALANINE AMINOTRANSFERASE 41 U/L (0-55); ALBUMIN 2.5 GM/DL (3.2-4.5); ALKALINE PHOSPHATASE 77 U/L (40-136); BILIRUBIN,TOTAL 0.9 MG/DL (0.1-1.0); BUN/CREATININE RATIO 14; CALCIUM 7.7 MG/DL (8.5-10.1); CARBON DIOXIDE 21 MMOL/L (21-32); CHLORIDE 105 MMOL/L (98-107); CREATININE SERUM 0.85 MG/DL (0.60-1.30); GFR ESTIMATED > 60; GLUCOSE 184 MG/DL (70-105); MAGNESIUM 1.2 MG/DL (1.8-2.4); PHOSPHORUS 2.5 MG/DL (2.3-4.7); POTASSIUM 3.4 MMOL/L (3.6-5.0); SODIUM 134 MMOL/L (135-145); TOTAL PROTEIN 5.1 GM/DL (6.4-8.2)
[2018-04-30 05:23] LABS: EOSINOPHILS % (MANUAL) 1 %; LYMPHOCYTES % (MANUAL) 6 %; MONOCYTES % (MANUAL) 9 %; NEUTROPHILS % (MANUAL) 84 %
[2018-04-30] MEDS: oxyCODONE/APAP 10/325MG (PERCOCET 10) TABLET PO PRN (05:50)
--- NOTE | 2018-04-30 05:51 | Pulmonary Progress Note ---
Subjective Time Seen by a Provider: 07:51 Subjective/Events-last exam Pt was transferred back to ICU last night secondary to worsening respiratory failure Sepsis Event Evaluation Height, Weight, BMI Height: 5'8.00" Weight: 154lbs. 0.0oz. 69.141313aq; 21.1 BMI Method:Stated Focused Exam Lactate Level 04/28/18 09:52: Lactic Acid Level 3.60*H 04/28/18 12:00: Lactic Acid Level 1.59 Exam Exam Vital Signs Date Time Temp Pulse Resp B/P (MAP) Pulse Ox O2 Delivery O2 Flow Rate FiO2 04/30/18 04:18 77 27 92 50.00 04/30/18 04:00 91 NIV Bilevel 50 04/30/18 03:45 74 31 127/39 (68) 90 NIV Bilevel 50.00 04/30/18 03:30 73 28 126/37 (66) 90 NIV Bilevel 50.00 04/30/18 03:15 74 28 127/35 (65) 91 NIV Bilevel 50.00 04/30/18 03:00 76 14 129/43 (71) 93 NIV Bilevel 50.00 04/30/18 02:57 77 31 141/55 (83) 97 NIV Bilevel 50.00 04/30/18 02:24 82 27 92 100.00 04/30/18 01:54 85 Vapotherm 40.00 100 04/30/18 01:00 79 04/30/18 00:44 86 92 100 04/30/18 00:00 99.3 81 28 143/63 (89) 92 Vapotherm 100.00 40.00 04/29/18 23:52 85 High Flow N/C 6.00 04/29/18 20:30 90 High Flow N/C 6.00 04/29/18 20:00 99.9 72 28 146/60 (88) 90 High Flow N/C 6.00 04/29/18 19:57 88 High Flow N/C 5.00 04/29/18 19:00 72 04/29/18 15:29 92 High Flow N/C 5.00 04/29/18 15:27 99.5 65 10 151/67 (95) 92 Nasal Cannula 5.00 04/29/18 14:02 99.3 64 10 135/60 (85) 92 Nasal Cannula 5.00 04/29/18 13:00 60 13 118/42 (67) 100 Nasal Cannula 5.00 04/29/18 13:00 60 04/29/18 12:00 100 Vapotherm 10.00 40 04/29/18 12:00 60 13 99/33 (55) 100 Nasal Cannula 10.00 04/29/18 11:00 60 17 100/39 (59) 100 Vapotherm 40.00 10.00 04/29/18 10:34 98.0 60 10 97/35 (55) 100 Nasal Cannula 10.00 04/29/18 09:00 62 21 95/32 (53) 100 Vapotherm 40.00 10.00 04/29/18 08:00 71 24 111/43 (65) 100 Vapotherm 40.00 20.00 04/29/18 07:51 100 Vapotherm 10.00 40 04/29/18 07:50 98.6 64 21 123/45 (71) 100 Vapotherm 40.00 10.00 04/29/18 07:00 66 04/29/18 06:44 100 Vapotherm 20.00 40 04/29/18 06:00 63 24 142/52 (82) 100 Vapotherm 60.00 20.00 I & O 04/30/18 07:00 Intake Total 3590 ml Output Total 1875 ml Balance 1715 ml Height & Weight Height: 5'8.00" Weight: 154lbs. 0.0oz. 69.184154pn; 21.1 BMI Method:Stated General Appearance: WD/WN, Moderate Distress HEENT: PERRL/EOMI, TMs Normal, Normal ENT Inspection, Pharynx Normal Neck: Full Range of Motion, Normal Inspection, Non Tender, Supple, Carotid Bruit Respiratory: Chest Non Tender, No Accessory Muscle Use, No Respiratory Distress , Crackles, Decreased Breath Sounds, Rales Cardiovascular: No Edema, No Gallop, No JVD, Systolic Murmur Capillary Refill: Less Than 3 Seconds Extremity: Normal Capillary Refill, Normal Inspection, Normal Range of Motion, Non Tender, No Calf Tenderness, Pedal Edema Neurologic/Psychiatric: Alert, Oriented x3, No Motor/Sensory Deficits, Normal Mood/Affect Skin: Normal Color, Warm/Dry Lymphatic: No Adenopathy Results Lab Laboratory Tests 04/28/18 09:15 04/28/18 13:35 04/29/18 03:35 04/30/18 04:48 Assessment/Plan Assessment/Plan Severe sepsis -Brannon cultures pending Acute on chronic respiratory failure -pt is currently on BIPAP -Continue to monitor close -Check ABG RML pneumonia - worsening now bilateral -D/C vancomycin, and Continue Zosyn -Trial pt off Vapotherm and continue to monitor close. Pulmonary edema with BNP of 1681 -Bumex 2mg IV x 1 MABEL with metabolic lactic acidosis -Monitor -IVF Hypokalemia -Replace -Repeat and monitor Hx of aortic valve replacement -Coumadin IDDM -Monitor Critical Care: Critically Ill Patient LUKE BLEDSOE DO Apr 30, 2018 05:51
[2018-04-30] MEDS ORDERED: KCL 20 MEQ TAB (K-DUR) PO SCH (06:00)
[2018-04-30] MEDS ORDERED: BUMETANIDE 1 MG/4 ML (BUMEX) VIAL IV NR (06:00)
[2018-04-30] MEDS ORDERED: KCL 20 MEQ TAB (K-DUR) PO NR (06:00)
[2018-04-30] MEDS ORDERED: MAGNESIUM 1 GM/100 ML IVPB 100 ML IV SCH (06:00)
[2018-04-30] MEDS ORDERED: POTASSIUM CL 10MEQ/50ML IVPB 50 ML IV SCH (06:00)
--- NOTE | 2018-04-30 06:38 | Diagnostic Imaging Report ---
INDICATION: Shortness of breath. Portable chest 4:01 a.m. FINDINGS: There is dual-chamber pacemaker. There are postop changes from a median sternotomy. Right IJ central line tip projects over right atrium. There are bilateral perihilar infiltrates which have progressed since previous day. IMPRESSION: Unfavorable changes in the chest with worsening bilateral alveolar infiltrates. Dictated by: Dictated on workstation # [id number]
[2018-04-30] MEDS: POTASSIUM CL 10MEQ/50ML IVPB 50 ML IV SCH ×6 (06:51→12:49)
[2018-04-30] MEDS: MAGNESIUM 1 GM/100 ML IVPB 100 ML IV SCH ×4 (06:51→10:55)
[2018-04-30] MEDS: LEVOTHYROXINE 25 MCG (LEVOTHROID) TAB PO SCH (06:54)
--- NOTE | 2018-04-30 07:57 | Cardiology Progress Note ---
Subjective Date Seen by Provider: Apr 30, 2018 Time Seen by Provider: 07:51 Subjective/Events-last exam Patient is in bed, complaining of weakness and shortness of breath Review of Systems General: No Chills, No Night Sweats; Fatigue, Malaise; No Appetite, No Other HEENT: No Head Aches, No Visual Changes, No Eye Pain, No Ear Pain, No Dysphasia , No Sinus Congestion, No Post Nasal Drip, No Sore Throat, No Other Pulmonary: Dyspnea, Cough; No Pleuritic Chest Pain, No Other Cardiovascular: No: Chest Pain, Palpitations, Orthopnea, Paroxysmal Noc. Dyspnea, Edema, Lt Headedness, Other Focused Exam Lactate Level 04/28/18 09:52: Lactic Acid Level 3.60*H 04/28/18 12:00: Lactic Acid Level 1.59 Objective-Cardiology Exam Last Set of Vital Signs Vital Signs 04/30/18 04/30/18 04/30/18 00:00 07:00 07:36 Temp 99.3 Pulse 76 Resp 30 B/P (MAP) 164/50 (88) Pulse Ox 93 O2 Delivery NIV Bilevel O2 Flow Rate 50.00 Capillary Refill : Less Than 3 Seconds I&O Intake and Output 04/30/18 00:00 Intake Total 3170 ml Output Total 2875 ml Balance 295 ml Intake Oral 1850 ml IV Total 1320 ml Output Urine Total 2875 ml General: Alert, Oriented X3, Cooperative, Moderate Distress HEENT: Atraumatic, PERRLA Neck: Supple, No JVD, No Thyromegaly Lungs: Normal Air Movement, Other (Moose rhonchi) Heart: Regular Rate, Normal S1, Normal S2, Other (SM at LSB) Abdomen: Normal Bowel Sounds, Soft, No Tenderness, No Hepatosplenomegaly, No Masses Extremities: No Clubbing, No Cyanosis, No Edema, No Tenderness/Swelling, Other (foot ulcer) Skin: No Rashes, No Significant Lesion Neuro: Normal Speech, Other (generalized weakness) Psych/Mental Status: Mental Status NL, Mood NL Results Lab Laboratory Tests 04/30/18 04:48 A/P-Cardiology Admission Diagnosis Sepsis Pneumonia Aortic valve replacement Paroxysmal atrial fibrillation Assessment/Plan Sepsis and septic shock, blood pressure is better, still having generalized weakness Pneumonia, maintained on Vanco and Zosyn, managed by Dr Johnson Generalized weakness and debility, worsening, has baseline weakness. Received physical therapy. Acute renal failure, better, monitor for now History of aortic valve replacement, on Coumadin, continue to monitor Echo done in February 2018, mild LVH, EF 55%, grade 1 diastolic dysfunction, prosthetic valve in aortic position functioning normally, noted to have elevated BNP, will give Lasix and monitor response Paroxysmal atrial fibrillation, maintained on amiodarone, currently in sinus/ atrial paced rhythm, I will decrease the dose to once daily and monitor Permanent pacemaker, functioning normally. Continue to monitor Diabetes mellitus, followed and managed by primary care physician Hypertension, post hypotensive episode due to sepsis, received IV fluid, currently off blood pressure medication, continue to monitor blood pressure Hyperlipidemia, Stop Simvastatin due to debility and will consider Lipitor once patient is better Hypothyroidism, followed and managed by primary care physician Clinical Quality Measures DVT/VTE Risk/Contraindication: Risk Factor Score Per Nursin RFS Level Per Nursing on Admit: 4+=Very High KARTHIKEYAN HORTON MD Apr 30, 2018 07:57
--- NOTE | 2018-04-30 07:57 | Progress Note-Hospitalist ---
Subjective HPI/CC On Admission Date Seen by Provider: Apr 30, 2018 Time Seen by Provider: 07:52 Pt is a 67yoCM known to me from multiple admissions who presented to the ER due to shortness of breath. He is very somnolent during our conversation and falls asleep frequently so history is somewhat limited. He states he has been short of breath some "2pm" a few days ago. He was admitted here until 04/06 for IRU stay. He otherwise provides no history and everything else is obtained from the records.Apparently he was going to stand to go to the bathroom and felt very week so lowered himself back down. EMS was then called by his son and he was found to be hypoxic with sats in the 70s and hypotensive with SBP 80s. He responded initially to fluids en route but in the ER quickly became hypotensive again with SBP in the 70s. A central line was placed and he was started on Levophed. CXR revealed a large right sided pneumonia and he is being admitted to the ICU for septic shock. Subjective/Events-last exam Pt reports that he is still feeling poorly and not breathing well. He was transferred back up to the ICU for respiratory failure requiring BiPAP overnight. Focused Exam Lactate Level 04/28/18 09:52: Lactic Acid Level 3.60*H 04/28/18 12:00: Lactic Acid Level 1.59 Objective Exam Vital Signs Vital Signs Date Time Temp Pulse Resp B/P (MAP) Pulse Ox O2 Delivery O2 Flow Rate FiO2 04/30/18 07:36 76 30 93 50.00 04/30/18 07:00 164/50 (88) NIV Bilevel 04/30/18 04:00 50 04/30/18 00:00 99.3 Capillary Refill : Less Than 3 Seconds General Appearance: Chronically ill, Thin Respiratory: No Respiratory Distress, Crackles, Decreased Breath Sounds, Rales Cardiovascular: Regular Rate, Rhythm, Systolic Murmur (mechanical) Gastrointestinal: Normal Bowel Sounds, Non Tender, Soft Extremity: Non Tender, Pedal Edema (trace) Neurologic/Psychiatric: Alert, Oriented x3, Other (flat affect) Skin: Normal Color, Warm/Dry Lymphatic: No Adenopathy Results/Procedures Lab Laboratory Tests 04/30/18 04:48 Patient resulted labs reviewed. Imaging: Reviewed Imaging Films, Reviewed Imaging Report Assessment/Plan Assessment and Plan Assess & Plan/Chief Complaint Septic Shock Diagnosis/Problems Diagnosis/Problems (1) Septic shock Assessment & Plan: Due to RML PNA CXR worsening Shock resolved, off pressors Central line placed 04/28 in ER Cultures NGTD, Flu negative Continue Vanc and Zosyn (2) Acute respiratory failure Status: Acute Assessment & Plan: On BiPAP Pulm consulted, appreciate recs Bumex ordered Discussed with patient about worsening status and if continue to decompensate whether he would want intubation He states "I don't think so" Offered my medical recommendation that it would likely not benefit him given severity of illness Will consult palliative care for further education Discussed with Dr Johnson who is in agreement Qualifiers: Respiratory failure complication: hypoxia Qualified Codes: J96.01 - Acute respiratory failure with hypoxia (3) Right middle lobe pneumonia Status: Acute Assessment & Plan: Pulm consulted, appreciate recs Continue abx as above Sputum culture Strep Pneumonia and legionella antigens ordered Qualifiers: Pneumonia type: due to unspecified organism Qualified Codes: J18.1 - Lobar pneumonia, unspecified organism (4) Aortic valve replaced Status: Chronic Assessment & Plan: INR 3.0 Continue Warfarin Trend INR (5) MABEL (acute kidney injury) Status: Acute Assessment & Plan: Back to baseline (6) Insulin dependent diabetes mellitus Status: Chronic Assessment & Plan: Hold metformin for lactic acid SSI Had issues with hypoglycemia on last admisison (7) Thrombocytopenia Assessment & Plan: Chronic low to lower limits of normal Stable (8) Normocytic anemia Status: Chronic Assessment & Plan: At baseline, trend (9) Hypomagnesemia Status: Resolved Assessment & Plan: Replaced per protocol Resolution Date/Time: 03/25/18 @ 20:39 Clinical Quality Measures DVT/VTE Risk/Contraindication: Risk Factor Score Per Nursin RFS Level Per Nursing on Admit: 4+=Very High NEYDA CHOPRA MD Apr 30, 2018 07:57
[2018-04-30] MEDS ORDERED: FUROSEMIDE 40 MG/4 ML INJ (LASIX) IVP NR (08:00)
[2018-04-30] MEDS: ALPRAZolam 1 MG (XANAX) TAB PO SCH (08:16)
[2018-04-30] MEDS: DEMECLOCYCLINE PO SCH (08:16)
[2018-04-30] MEDS: LACTOBACILLUS ACIDOPHILUS (PROBIOTIC) CAPSULE PO SCH ×2 (08:16→12:22)
[2018-04-30] MEDS: PANTOPRAZOLE 40 MG (PROTONIX) TAB PO SCH (08:16)
[2018-04-30] MEDS ORDERED: AMIODARONE 200 MG (CORDARONE) TAB PO SCH (09:00)
--- NOTE | 2018-04-30 11:28 | Physical Therapy Progress Note ---
Therapy Progress Note PT will require new orders to evaluate patient with transfer to ICU. ISABEL SANTANA PT Apr 30, 2018 11:28
[2018-04-30] MEDS ORDERED: ATROPINE INJECTION 1 MG/10 ML SYR (ABBOTT) ONE (13:30)
--- NOTE | 2018-04-30 13:34 | NUR ---
THIS RN CALLED TO PT ROOM BY [facility] DUE TO HEART RATE READING IN THE LOW 40'S. WHEN THIS RN ARRIVED TO PT ROOM PT HAD VAPOTHERM OFF AND HEART RATE ON MONITOR WAS READING IN THE 30'S, THIS RN PLACED PT BACK ON BIPAP AND TRIED TO CHECK FOR ALERTNESS RESPONSE FROM PT, PT NOT ALERT, OTHER NURSING STAFF TO ROOM AT THIS TIME TO ASSIST AND CRASH CART TO ROOM, 1334 1MG ATROPINE GIVEN, 1336 COMPRESSIONS STARTED DUE TO NO PALPABLE PULSE 1137 1MG EPI GIVEN 1338 PULSE CHECK WITH RESULTS OF PEA 1340 1MG EPI GIVEN 1342 1 AMP BICARB GIVEN 1340 NO PULSE DETECTED AND COMPRESSIONS RESUMED PT INTUBATED BY ISRAEL BILAT BREATH SOUNDS BLOOD SUGAR CHECKED WITH RESULTS OF 264 1344 PT HAS NO PALPABLE PULSE COMPRESSIONS RESUMED 1344 1MG EPI GIVEN 1345 PULSE CHECK, NO PULSE NOTED AND COMPRESSIONS RESUMED 1346 1MG EPI GIVEN 1347 PULSE CHECK WITH NO PULSE, COMPRESSIONS RESUMED 1348 1 G CALCIUM GIVEN 1349 PULSE CHECK WITH NO PULSE AND COMPRESSIONS RESUMED 1349 1MG EPI GIVEN 1350 2ND AMP BICARB GIVEN 1350 PULSE CHECK WITH NO PULSE, COMPRESSIONS RESUMED 1352 PULSE CHECK WITH PULSE HEARD FROM DOPPLER AND BP RESULTS OF 70/37 1355 1/2 MG EPI GIVEN LABS DRAWN FROM CENTRAL LINE, PULSE STILL HEARD WITH DOPPLER, BP RESULTS OF 95/35, RT MANAGING VENT WITH DR BLEDSOE, DR CHOPRA AND DR HORTON ALL IN ROOM. THIS RN AND OTHER NURSING STAFF STILL IN ROOM WITH PT. Addendum: 04/30/18 at 1750 by SHEILA PLATT RN 1338 compressions resumed after pulse check
[2018-04-30] MEDS ORDERED: NS IV 1000 ML 1,000 ML ONE (13:57)
[2018-04-30] MEDS ORDERED: EPINEPHrine 1 MG INJECTION 2 MG in NS (IVPB) 248 ML IV SCH (14:00)
[2018-04-30] MEDS ORDERED: NS (IVPB) 250 ML ONE (14:12)
--- NOTE | 2018-04-30 14:12 | NUR ---
WHILE STAFF AND DRS STILL IN ROOM EPI GTT STARTED AT 4MCG/MIN (30ML/HR) AT 1412 1416 PT HAS NO PALPABLE PULSE, CHEST COMPRESSIONS STARTED 1417 1MG ATROPIHNE AND 1MG EPI GIVEN 1419 NO PULSE DETECTED, COMPRESSIONS RESUMED 1420 NOREPI GTT STARTED AT 10MCG/MIN 1421 1MG EPI GIVEN PULSE CHECK WITH NO PULSE, COMPRESSIONS REUSUMED 1422 BEDSIDE ECHO DONE, DR HORTON IN ROOM TO READ REUSLTS 1423 FAINT PULSE NOTED AND END TITLE OF 39, PEEP TURNED UP TO [address] BLEDSOE. PULSE HEARD WITH DOPPLER 1424 DOBUTAMINE GTT STARTED AT 10MCG/KG/MIN 1425 O2 SAT READING OF 75% 1426 ANESTHESIA AT BEDSIDE IN ATTEMPT FOR ART LINE. PT O2 SAT 86% WITH BP RESULTS OF 99/62 1435 DOBUTAMINE GTT TURNED UP TO 15MCG/KG/MIN AND EPI GTT TURNED UP TO 8MCG/MIN 1434 2L OF IVF INFUSING WIDE OPEN 1436 PEEP TURNED UP TO [address] CHOPRA 1438 CHEST COMPRESSIONS STARTED AGAIN DUE TO NO ECG RHYTHM OR PALPABLE PULSE. 1440 1MG EPI GIVEN 1441 END TITLE CO2 WITH RESULTS OF 8. BEDSIDE ECHO DONE AGAIN WITH DR HORTON READING 1442 PT SON STATED TO DR CHOPRA TO END CODE PT AND STOP COMPRESSIONS. COMPESSIONS STOPPED 1445 PT HAS NO SPONTANEOUS RESPIRATIONS AND NO PULSE PRESENT.
[2018-04-30] MEDS ORDERED: NOREPINEPHRINE 4 MG/4 ML (LEVOPHED) AMP IV ONE (14:13)
[2018-04-30 14:16] LABS: BASOPHILS % (AUTO) 0 % (0-10); EOSINOPHILS % (AUTO) 0 % (0-10); HEMATOCRIT 31 % (40-54); HEMOGLOBIN 9.9 G/DL (13.3-17.7); LYMPHOCYTES % (AUTO) 23 % (12-44); MEAN CORPUSCULAR HEMOGLOBIN 32 PG (25-34); MEAN CORPUSCULAR HGB CONC 32 G/DL (32-36); MEAN CORPUSCULAR VOLUME 100 FL (80-99); MEAN PLATELET VOLUME 11.2 FL (7.4-10.4); MONOCYTES % (AUTO) 8 % (0-12); NEUTROPHILS # (AUTO) 8.8 X 10^3 (1.8-7.8); NEUTROPHILS % (AUTO) 68 % (42-75); PLATELET COUNT 123 10^3/uL (130-400); RED CELL DISTRIBUTION WIDTH 17.6 % (10.0-14.5)
[2018-04-30 14:25] LABS: ALANINE AMINOTRANSFERASE 104 U/L (0-55); ALBUMIN 2.3 GM/DL (3.2-4.5); ALKALINE PHOSPHATASE 96 U/L (40-136); BILIRUBIN,TOTAL 0.9 MG/DL (0.1-1.0); BUN/CREATININE RATIO 11; CALCIUM 9.3 MG/DL (8.5-10.1); CARBON DIOXIDE 22 MMOL/L (21-32); CHLORIDE 100 MMOL/L (98-107); CREATININE SERUM 1.09 MG/DL (0.60-1.30); GFR ESTIMATED > 60; GLUCOSE 290 MG/DL (70-105); MAGNESIUM 2.2 MG/DL (1.8-2.4); PHOSPHORUS 5.1 MG/DL (2.3-4.7); POTASSIUM 4.1 MMOL/L (3.6-5.0); SODIUM 136 MMOL/L (135-145); TOTAL PROTEIN 4.7 GM/DL (6.4-8.2)
--- NOTE | 2018-04-30 14:25 | Diagnostic Imaging Report ---
Indication: Status post code. Time of exam 2:03 PM Correlation is made with prior study from earlier same day. The patient has been intubated. ET tube is in good position above the sonam. There are changes of median sternotomy. Cardiac pacemaker is in place. Right IJ line remains in place. Bilateral airspace pulmonary infiltrates persist, greatest on the right. No effusion or pneumothorax is seen. There appears to be an external pacer overlying the right hemithorax. Impression: Satisfactory endotracheal tube placement as well as a nasogastric tube placement which passes into the stomach. Continued bilateral airspace pulmonary infiltrates. Dictated by: Dictated on workstation # [id number]
[2018-04-30] MEDS ORDERED: SODIUM BICARB 4.2% 5 MEQ/10 ML (INFANT) SYR IV ONE (14:44)
[2018-04-30] MEDS ORDERED: EPINEPHrine 0.1 MG/ML 10 ML (HOSPIRA) SYR IJ ONE (14:44)
[2018-04-30] MEDS ORDERED: CALCIUM CHLORIDE 1 GM/10 ML (IMS) SYR INJ ONE (14:44)
[2018-04-30] MEDS ORDERED: EPINEPHrine INJECTION 1 MG/ML AMP IJ ONE (14:44)
[2018-04-30] MEDS ORDERED: DOBUTAMINE DRIP IV ONE (14:44)
[2018-04-30] MEDS ORDERED: SODIUM BICARB 8.4% 50 MEQ/50 ML (ABBOTT) SYR INJ ONE (14:44)
--- NOTE | 2018-04-30 14:50 | Discharge Summary-Hospitalist ---
Discharge Summary Date of Admission Apr 28, 2018 at 12:14 Date of Discharge Discharge Date: Apr 30, 2018 Admission Diagnosis Septic Shock Consults/Procedures Consulations Dr. Knight- Cardiology Dr Johnson- Pulmonology Comfort Measures/ Pt was admitted to the ICU for Septic Shock secondary to right sided pneumonia. He was hypotension and required vasopressors. He was able to be titrated off quickly and had a short overall improvement on the second day of admission. He then worsened from a respiratory status and was transferred to the ICU on BiPAP. He continued to worsen and had severe hypoxia leading to bradycardia and eventual PEA arrest CODE BLUE was called and ACLS protocol was follow. ROSC was obtained and he was intubated during the code. Despite escalating ventilator settings and 100% FiO2 oxygenation was still poor and he suffered another PEA arrest. Again ACLS protocol was followed. He was started on a levophed, epinephrine, and dobutamine drip and bedside echo was done with Dr Knight at bedside which showed short term improvement in EF with dobutamine. Unfortunately he again developed bradycardia and hypoxia and suffered a third PEA arrest. ACLS protocol was followed. His son was updated throughout the entire code and requested cessation of CPR during the third code. Patient with cessation of CPR confirmed by bedside echo with no cardiac motility Discharge Diagnosis Septic Shock (1) Septic shock Assessment & Plan: Due to RML PNA CXR worsening Shock resolved, off pressors Central line placed 04/28 in ER Cultures NGTD, Flu negative Continue Vanc and Zosyn (2) Acute respiratory failure Status: Acute Assessment & Plan: On BiPAP Pulm consulted, appreciate recs Bumex ordered Discussed with patient about worsening status and if continue to decompensate whether he would want intubation He states "I don't think so" Offered my medical recommendation that it would likely not benefit him given severity of illness Will consult palliative care for further education Discussed with Dr Johnson who is in agreement Qualifiers: Qualified Codes: J96.01 - Acute respiratory failure with hypoxia (3) Right middle lobe pneumonia Status: Acute Assessment & Plan: Pulm consulted, appreciate recs Continue abx as above Sputum culture Strep Pneumonia and legionella antigens ordered Qualifiers: Qualified Codes: J18.1 - Lobar pneumonia, unspecified organism (4) Aortic valve replaced Status: Chronic Assessment & Plan: INR 3.0 Continue Warfarin Trend INR (5) MABEL (acute kidney injury) Status: Acute Assessment & Plan: Back to baseline (6) Insulin dependent diabetes mellitus Status: Chronic Assessment & Plan: Hold metformin for lactic acid SSI Had issues with hypoglycemia on last admisison (7) Thrombocytopenia Assessment & Plan: Chronic low to lower limits of normal Stable (8) Normocytic anemia Status: Chronic Assessment & Plan: At baseline, trend (9) Hypomagnesemia Status: Resolved Assessment & Plan: Replaced per protocol (10) Cardiac arrest NEYDA CHOPRA MD Apr 30, 2018 14:50
--- NOTE | 2018-04-30 14:50 | NUR ---
PT SON REQUESTED PT WEDDING BAND, PT WEDDING BAND REMOVED AT THIS TIME AND GIVEN TO PT SON.
--- NOTE | 2018-04-30 15:29 | NUR ---
Pastoral care responded to Code Blue, son arrived shortly, long code of repeated resuscitation, I processed with the son and facilitated decision making to not attempt resuscitation should heart stop again, after explained the situation. Pt I accompanied son to bedside and offered prayer and support. Son left, coping reasonably well.
--- NOTE | 2018-04-30 15:38 | Pulmonary Progress Note ---
Standard Progress Note Progress Notes Time Seen by Provider: 15:33 Called to bedside secondary to CODE BLUE. ACLS protocol followed. I intubated patient for airway. RTOSC was accomplished several times however pt continued to decline. We discussed with family patients current condition and they elected to make him DNR. Assessment & Plan Severe sepsis -Brannon cultures pending Acute on chronic respiratory failure -Check ABG RML pneumonia - worsening now bilateral - Zosyn -intubation Pulmonary edema with BNP of 1681 MABEL with metabolic lactic acidosis -Monitor -IVF Hypokalemia -Replace -Repeat and monitor Hx of aortic valve replacement -Coumadin IDDM -Monitor Critical Care: Critically Ill Patient Time spent with patient (mins): 120 Focused Exam Lactate Level 04/28/18 09:52: Lactic Acid Level 3.60*H 04/28/18 12:00: Lactic Acid Level 1.59 LUKE BLEDSOE DO Apr 30, 2018 15:38
--- NOTE | 2018-04-30 15:41 | Pulmonary Procedures ---
Pulmonary Procedures Date of Procedure Date of Service: Apr 30, 2018 Reason for Intubation: CODE BLUE Time of Intubation: 14:00 Tube Size: 8 Positive End Tide CO2: Yes Breath Sounds after Intubation: bilateral-equal Intubation Complications: no complications Post Intubation Xray: Yes LUKE BLEDSOE DO Apr 30, 2018 15:40
== END 2018-04-30 14:45 | disposition expired | DRG 871 ==
LOC: EDUNIT# 08:57 → ER 08:58 → ICU 12:14 → 4TH 04-29 14:00 → ICU 04-30 02:59
PROVIDERS: ADMIT Family Medicine; ATTEND Family Medicine
PROC: 02HV33Z Insertion of Infusion Device into Superior Vena Cava, Percutaneous Approach (ICD-10-PCS; principal; 2018-04-28)
DX: A41.9 Sepsis, unspecified organism (principal); R65.21 Severe sepsis with septic shock; J18.1 Lobar pneumonia, unspecified organism; N17.9 Acute kidney failure, unspecified; J96.00 Acute respiratory failure, unspecified whether with hypoxia or hypercapnia; E87.2 Acidosis; F11.20 Opioid dependence, uncomplicated; Z66 Do not resuscitate; J44.9 Chronic obstructive pulmonary disease, unspecified; I25.10 Atherosclerotic heart disease of native coronary artery without angina pectoris; I10 Essential (primary) hypertension; E11.43 Type 2 diabetes mellitus with diabetic autonomic (poly)neuropathy; D69.6 Thrombocytopenia, unspecified; D64.9 Anemia, unspecified; I48.0 Paroxysmal atrial fibrillation; E03.9 Hypothyroidism, unspecified; E87.5 Hyperkalemia; E83.42 Hypomagnesemia; E87.6 Hypokalemia; E78.00 Pure hypercholesterolemia, unspecified; K21.9 Gastro-esophageal reflux disease without esophagitis; K57.90 Diverticulosis of intestine, part unspecified, without perforation or abscess without bleeding; G89.29 Other chronic pain; M19.91 Primary osteoarthritis, unspecified site; F41.9 Anxiety disorder, unspecified; F32.9 Major depressive disorder, single episode, unspecified; Z95.2 Presence of prosthetic heart valve; Z95.0 Presence of cardiac pacemaker; Z79.4 Long term (current) use of insulin
CPT/HCPCS: 36415; 36600; 51702; 71045; 80048; 80053; 81000; 82805; 82962; 83605; 83735; 83880; 84100; 85007; 85025; 85027; 85610; 85730; 87040; 87081; 87088; 87804; 93308; 94640; 94660; 94760; 99291